=== PATIENT | female | born 2000 | race Caucasian/White ===

== ENCOUNTER 2024-02-07 11:36 | Outpatient (OUT) | payer OTHER, SELFPAY ==
--- NOTE | 2024-02-07 | XR_ITS ---
The [address] [address] Patient Name: ALONSO MINAYA MRN: [id number] date: 2000 Sex: F Assigned Patient Location: Current Patient Location: Accession/Order Number: [id number] Exam Date: 02/07/2024 11:37 Report Date: 02/08/2024 06:53 At the request of: JW ROBERT Procedure: XR foot RT min 3V PROCEDURE: XR foot RT min 3V HISTORY: RIGHT FOOT PAIN ; wound COMPARISON: XR foot right 01/22/2024 FINDINGS: BONES:No fracture, acute abnormality, or significant arthropathy. SOFT TISSUES:No visible soft tissue swelling. EFFUSION:None visible. OTHER: Negative. XR/XR foot RT min 3V IMPRESSION: 1. No appreciable bone or soft tissue abnormality. Electronically authenticated by: WAYNE PARRA Date: 02/08/2024 06:53
== END 2024-02-07 11:37 | disposition home or self-care (01) ==
LOC: EC 11:36
PROVIDERS: Visit Provider Podiatrist Foot & Ankle Surgery
DX: M79.671 Pain in right foot (principal)
CPT/HCPCS: 73630

== ENCOUNTER 2024-02-15 07:25 | Outpatient (RCR) | payer OTHER, SELFPAY | END 2024-02-24 16:13 | disposition home or self-care (01) | LOC: PT 07:25 | PROVIDERS: PCP Family Medicine; Visit Provider Podiatrist Foot & Ankle Surgery | DX: M79.671 Pain in right foot (principal) | CPT/HCPCS: 97010; 97014; 97112; 97113; 97140; 97162 ==

== ENCOUNTER 2024-02-17 12:53 | Outpatient (OUT) | payer OTHER, SELFPAY ==
--- NOTE | 2024-02-17 13:03 | US_ITS ---
[address] [address] Patient Name: ALONSO MINAYA MRN: [id number] date: 2000 Sex: F Assigned Patient Location: Current Patient Location: Accession/Order Number: [id number] Exam Date: 02/17/2024 13:09 Report Date: 02/21/2024 05:55 At the request of: EVELYNE CHAVEZ Procedure: US pelvis w/ transvaginal EXAMINATION: US pelvis w/ transvaginal HISTORY: Polycystic Ovarian Syndrome E28.2, Irregular Periods COMPARISON: No relevant comparison available. TECHNIQUE: Transabdominal and/or transvaginal sonographic examination was performed as indicated by examination type. FINDINGS: UTERUS: Normal size and appearance. Uterus size: 8.1 x 3.9 x 4.3 cm ENDOMETRIUM: Normal homogeneous appearance. Endometrial thickness: 8 mm RIGHT OVARY: Contains a 1.2 cm slightly complex cyst. Multiple small follicles. Duplex Doppler demonstrates normal waveform and flow; resistive index 0.5. Ovary size: 4.2 x 2.2 x 3.2 cm LEFT OVARY: Contains multiple small follicles. Duplex Doppler demonstrates normal waveform and flow; resistive index 0.6. Ovary size: 3.4 x 1.8 x 2.0 cm CUL-DE-SAC: Unremarkable. No significant free fluid. BLADDER: Unremarkable. OTHER: None. US/US pelvis w/ transvaginal IMPRESSION: 1. Both ovaries contain numerous small follicles. The pattern and distribution is not classic, but polycystic ovarian syndrome cannot be excluded. Electronically authenticated by: WAYNE PARRA Date: 02/21/2024 05:55
[2024-02-17 14:33] LABS: Basophils Percent Auto 0.2 % (0.2-2.0); Eosinophils Percent Auto 0.1 % (0.9-7.0); Hematocrit 44.7 % (36.0-48.0); Hemoglobin 15.3 g/dL (12.0-16.0); Immature Granulocytes Abs Auto 0.05 10^3/uL (0.00-0.03); Immature Granulocytes Pct Auto 0.4 % (0.0-0.5); Lymphocytes Absolute Auto 1.4 10^3/uL (1.2-3.8); Lymphocytes Percent Auto 11.6 % (20.5-60.0); Mean Corpuscular HGB Conc 34.2 g/dL (29.9-35.2); Mean Corpuscular Hemoglobin 31.4 pg (26.7-34.0); Mean Corpuscular Volume 91.8 fL (81.0-99.0); Mean Platelet Volume 10.5 fL (9.5-13.5); Monocytes Absolute Auto 0.3 10^3/uL (0.3-0.8); Monocytes Percent Auto 2.5 % (1.7-12.0); Neutrophils Absolute Auto 10.4 10^3/uL (1.4-6.5); Neutrophils Percent Auto 85.2 % (43.0-75.0); Platelet Count 234 10^3/uL (150-450); Red Blood Count 4.87 10^6/uL (4.20-5.40); Red Cell Distribution Width 12.7 % (11.0-15.0); White Blood Count 12.2 10^3/uL (4.0-11.0)
[2024-02-17 14:49] LABS: Estimated Average Glucose 85 mg/dL; Glycohemoglobin A1C 4.6 % (4.5-6.2)
[2024-02-17 15:03] LABS: Free T4 0.98 ng/dL (0.76-1.46)
[2024-02-17 15:07] LABS: Thyroid Stimulating Hormone 0.827 uIU/mL (0.358-3.740)
[2024-02-17 15:13] LABS: HCG Quantitative <1 mIU/mL
[2024-02-18 08:12] LABS: DHEA-Sulfate 94.8 ug/dL (110.0-431.7); FSH 6.5 mIU/mL (.)
[2024-02-21 13:08] LABS: Anti-Mullerian Hormone (AMH) 9.99 ng/mL (.)
== END 2024-02-17 12:54 | disposition home or self-care (01) ==
PROVIDERS: PCP Family Medicine; Visit Provider Obstetrics & Gynecology
DX: E28.2 Polycystic ovarian syndrome (principal); N92.6 Irregular menstruation, unspecified; N83.209 Unspecified ovarian cyst, unspecified side
CPT/HCPCS: 36415; 76830; 76856; 82397; 82626; 82627; 83001; 83002; 83036; 84439; 84443; 84702; 85025

== ENCOUNTER 2024-02-28 08:48 | Outpatient (OUT) | payer OTHER, SELFPAY ==
--- NOTE | 2024-02-28 | XR_ITS ---
The [address] [address] Patient Name: ALONSO MINAYA MRN: [id number] date: 2000 Sex: F Assigned Patient Location: Current Patient Location: Accession/Order Number: [id number] Exam Date: 02/28/2024 08:49 Report Date: 02/29/2024 09:50 At the request of: JW ROBERT Procedure: XR foot RT min 3V PROCEDURE: XR foot RT min 3V HISTORY: RIGHT FOOT PAIN COMPARISON: XR foot right 02/07/2024 FINDINGS: BONES:High plantar arch. No fracture, dislocation, or articular surface irregularity. SOFT TISSUES:No visible soft tissue swelling. EFFUSION:None visible. OTHER: Negative. XR/XR foot RT min 3V IMPRESSION: 1. No acute bone abnormality or degenerative joint disease. 2. Exaggerated appearance of the plantar arch. Electronically authenticated by: WAYNE PARRA Date: 02/29/2024 09:50
== END 2024-02-28 08:49 | disposition home or self-care (01) ==
LOC: EC 08:48
PROVIDERS: PCP Family Medicine; Visit Provider Podiatrist Foot & Ankle Surgery
DX: M79.671 Pain in right foot (principal)
CPT/HCPCS: 73630

== ENCOUNTER 2024-02-29 12:48 | Outpatient (OUT) | payer OTHER, SELFPAY ==
--- NOTE | 2024-02-29 | MR_ITS ---
The [address] [address] Patient Name: ALONSO MINAYA MRN: [id number] date: 2000 Sex: F Assigned Patient Location: MRI Current Patient Location: Accession/Order Number: [id number] Exam Date: 02/29/2024 13:00 Report Date: 03/01/2024 08:14 At the request of: JW ROBERT Procedure: MR foot RT wo con EXAM: MR foot RT wo con REASON FOR EXAM: Lisfranc fracture midfoot sprain. TECHNIQUE: Multiplanar, multisequence imaging of the right foot was performed without contrast COMPARISON: Radiographs 02/28/2024. FINDINGS: Study mildly degraded by motion large [id number]. There is fusiform thickening and intermediate signal the Achilles tendon with a small focal low-grade partial tear along the deep central fibers. No high-grade tear is evident. The plantar fascia appears intact. Laterally, the peroneal tendons are moderately thickened with intermediate signal consistent with tendinosis. No tear. The superficial peroneal retinaculum appears intact. The lateral ligaments appear intact. Medially, the medial flexor tendons demonstrate normal thickness and signal without tendinosis or tear. The deep deltoid ligament appears intact the spring ligament is intact. The Lisfranc ligament is intact. Anteriorly, the anterior extensor tendons demonstrate normal thickness and signal without tendinosis or tear. The bone marrow signal is without acute fracture. The talar dome appears congruent. Small tibiotalar effusion is present. The subtalar joint is congruent with a small effusion. Sinus tarsi is mildly narrowed and edematous. The midfoot is congruent. The plantar musculature demonstrates normal bulk and signal. Remaining soft tissues are unremarkable. MR/MR foot RT wo con IMPRESSION: 1. Intact Lisfranc ligament. 2. Peroneal tendinosis without tear. 3. Achilles tendinosis with small focal low-grade partial tear along the deep margin of the central tendon. 4. No acute osseous abnormality is identified. Electronically authenticated by: MARY JANE MENDOZA Date: 03/01/2024 08:14
--- OUTSIDE RECORDS SUMMARY | 2024-02-29 13:12 | XMS_ITS | CCD ---
Author Organization [facility] Care Team Providers Care Life Sciences Teacher Name Role Phone Rosa Agee Unavailable Unavailable Unavailable Rosa Agee Unavailable DO Rosa Agee Primary Care Provider [phone] MD Miladis Morris Attending Provider [phone] MD Willy Escudero Referring Provider DO Rosa Agee Primary Care Provider [phone] MD Miladis Morris Attending Provider [phone] MD Willy Escudero Referring Provider PEPPER Campbell Attending Provider [phone] Un[address] ROSA AGEE Primary Care Unavailable DIAB ., OLU Attending Unavailable DIAB ., OLU Consulting Unavailable DIAB ., OLU Admitting Unavailable Chris, Dr. Rosa Sanchez Primary Care Unavaildanish Escudero, Dr. Oden Attending Unavaila hui Agee, Dr. Rosa Sanchez Primary Care Unavailabl e Kota, Dr. Oden Attending Unavaila hui Escudero, Dr. Oden Referring Unavaila hui Morris, Dr. Miladis Franco Attending Tiana vailable Alexandra, Dr. Miladis Franco Referring Tiana vailable Chris, Dr. Rosa Sanchez Primary Care Unavailabl DO Rosa Johnson Primary Care Provider MD Pastor Camilo Emergency Provider DO Rosa Agee Attending Provider [phone] Rosa Agee DOer Primary Care Provider [phone] WILLY ESCUDERO Attending Unavailable SAMAN, ROSA DANIEL Primary Care Unavailable Cuong Fletcher Unavailable Kuns, DO Rosa Primary Care Provider PEPPER Campbell Attending Provider [phone] MD Los Hartman Attending Provider Kuns, DO Rosa Primary Care Provider PEPPER Campbell Attending Provider [phone] MD Los Hartman Attending Provider Samans, Rosa Primary Care Provider MICHAEL Fletcher Attending Provider MICHAEL Martini Attending Provider Kuns, Rosa Primary Care Unavailable Pastor Camilo Admitting Unavailable Pastor Camilo Attending Unavailable Kuns, Rosa Primary Care Unavailable Kuns, Rosa Attending Unavailable Kuns, Rosa Admitting Unavailable Kuns, Rosa Primary Care Unavailable Latricia Campbell Admitting Unavailable Latricia Campbell Attending Unavailable Cuong Fletcher Admitting Unavailable Cuong Fletcher Attending Unavailable Kuns, Rosa Primary Care Unavailable Nicole Martini Admitting Unavailable Nicole Martini Attending Unavailable Kuns, Rosa Primary Care Unavailable Los Hartman Admitting Unavailable Los Hartman Attending Unavailable Kuns, Rosa Primary Care Unavailable EVELYNE CHAVEZ Attending Unavailable Allergies Allergy Classification Reported Allergen(s) Allergy Type Date of Onset Reaction(s) Facility Penicillins (antibiotic) (2 sources) Amoxicillin Drug Allergy 4 [facility] (5 sources) Penicillins; Translations: [Penicillins] Allergy to drug (finding) 3 [facility] 3 Repository (20 sources) Penicillin G Drug Allergy 4 [facility] (7 sources) Penicillin; Translations: [penicillin V] Drug Allergy 3 [facility] (20 sources) Amoxicillin; Translations: [AMOXICILLIN] Drug Allergy 4 [facility] (1 source) Amoxicillin Drug Allergy [facility] Repository (1 source) Penicillins Drug Intolerance 3 [facility] Work Phone: (1 source) Amoxicillin Drug Allergy 4 [facility] Repository (1 source) Penicillin Drug Allergy 4 [facility] Repository Medications Current Medications Medication Drug Class(es) Dates Sig (Normalized) Sig (Original) hydrOXYzine hydrochloride 25 mg oral tablet (1 source) Antihistamine Start: 04-26-2023 take 1-2 tablets by mouth once daily as needed hydrOXYzine HCl 25 MG 1-2 tablet as needed Orally Once a day for 30 days Apr, Active linaclotide 0.072 mg oral capsule (20 sources) Guanylate Cyclase-C Agonist Start: 12-05-2023 End: 01-13-2024 take 1 capsule by mouth once daily Linaclotide (Linzess) 72 mcg capsule Active 72 MCG PO Daily January 13, 2024 10:00am Start: 08-12-2023 End: 09-09-2023 take 1 capsule by mouth once daily Linaclotide (Linzess) 72 mcg capsule Discontinued 72 MCG PO Daily 07 19August 12, 2023 1:00am September 09, 2023 2:31pm 1 capsule daily Start: 07-18-2023 Linzess 145 14 5mcg 1 PO Every AM Jun, Active Start: 04-26-2023 Start: 04-26-2023 Linzess 72 MCG 1 capsule at least 30 minutes before the first meal of the day on an empty stomach Orally Once a day for 30 days 2 samples provided Apr, Active meclizine hydrochloride 25 mg oral tablet (4 sources) Antiemetic Start: 06-23-2023 take 1 tablet by mouth at bedtime as needed for sleep Hundred (No Known Home Meds) (2 sources) Start: 04-24-2023 Hundred (No Known Home Meds) Active April 23, 2023 11:00pm Pneumatic Walking Boot (2 sources) Start: 01-22-2024 Pneumatic Walking Boot Active 0 .Route 1 January 22, 2024 12:00am As directed polyethylene glycol 3350 95903 mg powder for oral solution (1 source) Osmotic Laxative MiraLax 17 GM 1 packet mixed with 8 ounces of fluid Orally Once a day Active Completed/Discontinued Medications Medication Drug Class(es) Dates Sig (Normalized) Sig (Original) azithromycin 250 mg oral tablet (9 sources) Macrolide Antimicrobial Start: 07-13-2022 Zithromax Z-Benjy 250 MG 2 tablets on the first day, then 1 tablet daily for 4 days Orally Once a day for 5 days Jun, Not-Taking Start: 07-13-2022 Zithromax Z-Pa k 250 MG as directed Orally as directed Jun, Active Ethinyl Estradiol / Ferrous fumarate / Norethindrone (1 source) Estrogen End: 06-23-2023 take 1 tablet by mouth once daily norethindrone-e.estradioL-iron (Lo Loestrin) 1 mg-10 mcg (24)/10 mcg (2) tablet Take 1 tablet by mouth once daily. 0 06/23/2023 Discontinued (Other) Norgestimate-Ethi nyl Estradiol (6 sources) Progestin, Estrogen Start: 09-27-2023 End: 12-05-2023 Norgestimate-Ethinyl Estradi ol (Keyla) 0.25-35 mg-mcg tablet Discontinued 1 TAB PO As Directed September 27, 2023 12:00am December 05, 2023 10:47am Start: 09-27-2023 Norgestimate-E thinyl Estradiol (Keyla) 0.25-35 mg-mcg tablet Active 1 TAB PO As Directed September 27, 2023 12:00am fluocinonide 0.5 mg/ml topical solution (6 sources) Corticosteroid Start: 09-27-2023 End: 12-05-2023 Fluocinonide Discontinued TOPICAL September 27, 2023 12:00am December 05, 2023 10:47am ketoconazole 20 mg/ml medicated shampoo (6 sources) Azole Antifungal Start: 09-27-2023 End: 12-05-2023 Ketoconazole Discontinued TOPICAL September 27, 2023 12:00am December 05, 2023 10:47am lubiprostone (7 sources) Chloride Channel Activator Start: 09-09-2023 End: 09-20-2023 take 24 ug by mouth twice daily Lubiprostone Discontinued 24 MCG PO Twice daily 60 September 09, 2023 12:00am September 20, 2023 2:08pm methylPREDNISolone 4 mg oral tablet (9 sources) Corticosteroid Start: 07-13-2022 methylPREDNISolone 4 MG as directed Orally as directed Jun, Not-Taking metoprolol tartrate 25 mg oral tablet (20 sources) beta-Adrenergic Julio Start: 09-08-2021 End: 04-24-2023 take 25 mg by mouth once daily Metoprolol Tartrate Discontinued 25 MG PO Daily June 22, 2022 1:00am April 24, 2023 9:43pm metroNIDAZOLE 500 mg oral tablet (10 sources) Nitroimidazole Antimicrobial Start: 08-10-2023 End: 09-27-2023 take 500 mg by mouth twice daily Metronidazole Discontinued 500 MG PO Twice daily 14 August 10, 2023 1:00am September 27, 2023 8:58am Plecanatide (Trulance) 3 mg tablet (7 sources) Start: 09-20-2023 End: 12-05-2023 take 1 tablet by mouth once daily Plecanatide (Trulance) 3 mg tablet Discontinued 3 MG PO Daily 90 September 20, 2023 12:00am December 05, 2023 10:47am Start: 09-20-2023 take 1 tablet by denia th once daily Plecanatide (Trulance) 3 mg tablet Active 3 MG PO Daily 90 90 September 20, 2023 12:00am Problems Active Problems Problem Classification Problem Date Documented Da te Episodic/Chronic Anxiety disorders (20 sources) Anxiety; Translations: [Anxiety disorder, unspecified] 08-10-2023 Chronic Cardiac dysrhythmias (20 sources) Tachycardia; Translations: [Tachycardia, unspecified] Onset: 05-07-2021 Resolved: 05-07-2021 Episodic Disorders of lipid metabolism (20 sources) Hyperlipidemia; Translations: [Hyperlipidemia, unspecified] Onset: 09-29-2021 Resolved: 09-29-2021 Chronic Essential hypertension (20 sources) Systolic hypertension; Translations: [Unspecified essential hypertension] 08-10-2023 Chronic Immunizations and screening for infectious disease (20 sources) Anti-nuclear factor positive; Translations: [Other specified abnormal immunological findings in serum] 08-10-2023 Episodic Inflammation; infection of eye (except that caused by tuberculosis or sexually transmitteddisease) (1 source) Unspecified conjunctivitis; Translations: [UNSPECIFIED CONJUNCTIVITIS] Onset: 10-21-2022 Episodic Malaise and fatigue (18 sources) Asthenia; Translations: [Weakness] 08-10-2023 Episodic Menopausal disorders (14 sources) Menopausal flushing; Translations: [Menopausal and female climacteric states] Chronic Other bone disease and musculoskeletal deformities (20 sources) Juvenile osteochondrosis of spine; 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, site unspecified] 08-10-2023 Chronic Other connective tissue disease (2 sources) Foot pain; Translations: [Pain in right foot] 01-22-2024 Episodic Other connective tissue disease (1 source) Pain in right foot; Translations: [Pain in right foot] Onset: 01-22-2024 Episodic Other ear and sense organ disorders (3 sources) Otalgia, right ear; Translations: [OTALGIA RIGHT EAR] Onset: 10-20-2022 Episodic Other female genital disorders (4 sources) Vaginal discharge; Translations: [Other specified noninflammatory disorders of vagina] 08-10-2023 Episodic Other female genital disorders (4 sources) Other specified noninflammatory disorders of vagina; Translations: [Leukorrhea, not specified as infective] 08-10-2023 Episodic Other gastrointestinal disorders (2 sources) Irritable bowel syndrome characterized by constipation; Translations: [Irritable bowel syndrome with constipation] 01-13-2024 Chronic Other gastrointestinal disorders (2 sources) Irritable bowel syndrome with constipation; Translations: [Irritable bowel syndrome] 01-13-2024 Chronic Other gastrointestinal disorders (20 sources) Constipation; Translations: [Constipation, unspecified] 04-24-2023 Episodic Other gastrointestinal disorders (14 sources) Constipation, unspecified; Translations: [Constipation, unspecified] Onset: 08-12-2023 Episodic Other nervous system disorders (20 sources) Polyneuropathy; Translations: [Polyneuropathy, unspecified] 08-10-2023 Chronic Other nervous system disorders (14 sources) Numbness of lower limb ; Translations: [Anesthesia of skin] Episodic Other non-traumatic joint disorders (1 source) Pain in right wrist Episodic Other nutritional; endocrine; and metabolic disorders (4 sources) Overweight in adulthood with body mass index of 25 or more but less than 30; Translations: [Overweight] Episodic Other upper respiratory infections (1 source) Acute pharyngitis, unspecified Episodic Otitis media and related conditions (1 source) Otitis media, unspecified, right ear; Translations: [OTITIS MEDIA UNSPECIFIED RIGHT EAR] Onset: 10-21-2022 Episodic Ovarian cyst (5 sources) Cyst of left ovary; Translations: [Unspecified ovarian cyst, left side] Episodic Residual codes; unclassified (20 sources) Difficulty sleeping ; Translations: [Sleep disorder, unspecified] 08-10-2023 Episodic Residual codes; unclassified (5 sources) Sleep disorder, unspecified; Translations: [Sleep disturbance, unspecified] Episodic Residual codes; unclassified (1 source) Body mass index 20-24 - normal; Translations: [Body mass index (BMI) 24.0-24.9, adult] Onset: 06-23-2023 06-23-2023 Episodic Residual codes; unclassified (4 sources) Flushing; Translations: [Flushing] 08-10-2023 Episodic Residual codes; unclassified (4 sources) High risk sexual behavior; Translations: [High risk heterosexual behavior] 08-10-2023 Episodic Spondylosis; intervertebral disc disorders; other back problems (20 sources) Displacement of thoracic intervertebral disc without myelopathy; Translations: [Other intervertebral disc displacement, thoracic region] 08-10-2023 Chronic Spondylosis; intervertebral disc disorders; other back problems (14 sources) Low back pain; Translations: [Low back pain] Episodic Sprains and strains (5 sources) Unspecified sprain of right wrist, initial encounter; Translations: [Strain of foot] Episodic Syncope (9 sources) Vasovagal syncope; Translations: [Syncope and collapse] Onset: 06-16-2023 Episodic Past or Other Problems Problem Classification Problem Date Documented Da te Episodic/Chronic Abdominal pain (13 sources) Abdominal pain; Translations: [Unspecified abdominal pain] Onset: 04-24-2023 04-24-2023 Episodic Genitourinary symptoms and ill-defined conditions (6 sources) Leukocytes in urine; Translations: [Other abnormal findings in urine] Onset: 04-26-2023 Episodic Residual codes; unclassified (5 sources) High risk heterosexual behavior; Translations: [High-risk sexual behavior] Onset: 08-10-2023 08-10-2023 Episodic Unclassified (4 sources) Never smoked tobacco; Translations: [Never a smoker] Unclassified (1 source) Acute cough R05.1 Results Test Name Value Interpretation Reference Range Facility XR foot RT min 3V*on 024 XR foot RT min 3V* [facility] [place] [address] [place] [address] XRay Report Signed Patient: Alonso Minaya MR#: [id number] 76 : 2000 Acct:[id number] Age/Sex: 23 / F ADM Date: 01/22/24 Loc: [facility] Room: Type: [facility] Attending Dr: Nicole Martini APRN Copies to: Nicole Martini APRN Ordering Provider: Nicole Martini APRN Date of Service: 01/22/24 XR/XR foot RT min 3V*: M79.671 - Pain in right foot 3 views RIGHT foot plain film COMPARISON:None HISTORY: RIGHT foot pain for one week. ACUTE FINDINGS: None DEGENERATIVE CHANGE: Unremarkable SOFT TISSUE FINDINGS: Unremarkable JOINT EFFUSION: None POSTOP CHANGES: None BONE MINERALIZATION: Adequate XR/XR foot RT min 3V* IMPRESSION: No acute findings. Impression dictated by: Ha Reyes M.D.01/22/2024 11:49 AM Dictation Location: [place] [address] Transcribed By: [facility] 01/22/24 1149 Dictated By: Ha Reyes DO 01/22/24 1145 Signed By: 01/22/24 1149 Normal [facility] Celiacon 12-09-2023 Deamidated Gliadin Abs, IgA 5 Normal 0-19 [facility] Comment on above: Result Comment: Nega tive 0 - 19 Weak Positive 20 - 30 Moderate to Strong Positive >30 Performed By: #### C ELIAC #### [facility] , Deamidated Gliadin Abs, IgG 4 Normal 0-19 [facility] Comment on above: Result Comment: Nega tive 0 - 19 Weak Positive 20 - 30 Moderate to Strong Positive >30 Performed By: #### C ELIAC #### [facility] , Endomysial Antibody IgA Negative Normal Negative [facility] Comment on above: Performed By: #### C ELIAC #### [facility] , Immunoglobulin A, Qn, Serum 120 mg/dL Normal 87-352 [facility] Comment on above: Result Comment: Perf ormed at: - [facility] [address] [id number] Cinder Snapper: Liban Seaman PhD, Phone: [phone] PERFORMED BY: [facility] [place] [address] PATHOLOGIST [employer] DEPL[employer]MENT CONSULTANT LAYNE ROSA M.D. Performed By: #### C ELIAC #### [facility] , T-Transglutaminase (tTG) IgA <2 Normal 0-3 [facility] Comment on above: Result Comment: Nega tive 0 - 3 Weak Positive 4 - 10 Positive >10 Tissue Transglutaminase (tTG) has been identified as the endomysial antigen. Studies have demonstr- ated that endomysial IgA antibodies have over 99% specificity for gluten sensitive enteropathy. Performed By: #### C ELIAC #### [facility] , T-Transglutaminase (tTG) IgG 4 Normal 0-5 [facility] Comment on above: Result Comment: Nega tive 0 - 5 Weak Positive 6 - 9 Positive >9 Performed By: #### C ELIAC #### [facility] , IgA [Mass/volume] in Serum o r PlasmaOrdered By: Cuong Fletcher on 12-09-2023 IgA [Mass/Vol] 120 mg/dL 87-352 [facility] Comment on above: Performed at: - [facility] [employer] [address] [id number] Director: Liban Seaman PhD, Phone: [phone] No Panel InformationOrdered By: Cuong Fletcher on 12-09-2023 Endomysial IgA Antibody Negative Negative [facility] Serum gliadin peptide IgA an tibody assay (units/volume)Ordered By: Cuong Fletcher on 12-09-2023 Gliadin peptide IgA Qn (S) 5 units 0-19 [facility] Comment on above: Negative 0 - 19 Weak Positive 20 - 30 Moderate to Strong Positive >30 Serum gliadin peptide IgG an tibody assay (units/volume)Ordered By: Cuong Fletcher on 12-09-2023 Gliadin peptide IgG Qn (S) 4 units 0-19 [facility] Comment on above: Negative 0 - 19 Weak Positive 20 - 30 Moderate to Strong Positive >30 Serum tissue transglutaminas e (tTG) IgA antibody assay (units/volume)Ordered By: Cuong Fletcher on 12-09-2023 tTG IgA Qn (S) <2 U/mL 0-3 [facility] Comment on above: Negative 0 - 3 Weak Positive 4 - 10 Positive >10 Tissue Transglutaminase (tTG) has been identified as the endomysial antigen. Studies have demonstr- ated that endomysial IgA antibodies have over 99% specificity for gluten sensitive enteropathy. Serum tissue transglutaminas e (tTG) IgG antibody assay (units/volume)Ordered By: Cuong Fletcher on 12-09-2023 tTG IgG Qn (S) 4 U/mL 0-5 [facility] Comment on above: Negative 0 - 5 Weak Positive 6 - 9 Positive >9 HCG ( test) IA.rapi d Ql (U)Ordered By: Los Hartman on 08-12-2023 HCG ( test) Ql (U) Negative [facility] HCG,Urineon 08-12-2023 Beta HCG ( test) Ql (U) Negative Normal [facility] Comment on above: Result Comment: PERF ORMED BY: [place] [address] PATHOLOGIST LE[employer] DEPLOYMENT CONSULTANT LAYNE ROSA M.D. Performed By: #### U HCG #### [address] Laboratory - Microbiology an d Antimicrobial susceptibilityOrdered By: Latricia Campbell on 08-10-2023 N. gonorrhoeae DNA EMERITA+probe Ql (Unsp spec) Negative Negative [facility] Comment on above: Performed at: [address] [id number] Director: Kaela Garcia MD, Phone: [phone] No Panel InformationOrdered By: Latricia Campbell on 08-10-2023 Concepcion albicans (EMERITA) Negative Negative [facility] Comment on above: This test was develo ped and its performance characteristicsdetermined by [facility]. It has not been cleared orapproved by the Food and Drug Administration. Concepcion glabrata (EMERITA) Negative Negative [facility] Comment on above: This test was develo ped and its performance characteristicsdetermined by [facility]. It has not been cleared orapproved by the Food and Drug Administration. Chlamydia trachomatis (EMERITA) (LAB) Negative Negative [facility] Trichomonas vaginalis (EMERITA) Negative Negative [facility] Vaginal fluid Atopobium vagi dillon DNA detection by probe and target amplification methoOrdered By: Latricia Campbell on 08-10-2023 A. vaginae DNA EMERITA+probe Ql (Vag fld) High - 2 Score . [facility] Vaginal fluid Megasphaera sp ecies type 1 DNA detection by probe and target amplificatOrdered By: Latricia Campbell on 08-10-2023 Megasphaera sp type 1 DNA EMERITA+probe Ql (Vag fld) High - 2 Score . [facility] Comment on above: Calculate total scor e by adding the 3 individual bacterialvaginosis (BV) marker scores together. Total score isinterpreted as follows:Total score 0-1: Indicates the absence of BV.Total score 2: Indeterminate for BV. Additional clinical data should be evaluated to establish a diagnosis.Total score 3-6: Indicates the presence of BV.This test was developed and its performance characteristicsdetermined by [facility] [employer]. It has not been cleared or approvedby the Food and Drug Administration. Vaginal fluid bacterial vagi nosis associated bacterium 2 DNA detection by probe and tOrdered By: Latricia Campbell on 08-10-2023 Bacterial vaginosis associated bacterium 2 DNA EMERITA+probe Ql (Vag fld) High - 2 Score . [facility] Vaginitis Plus (VG+)on 08-10 Atopobium Vaginae High - 2 Critically abnormal . [facility] Comment on above: Order Comment: SOURC E OF SPECIMEN: SWAB Performed By: #### V AGINITIS+ #### [facility] , BVAB2 High - 2 Critically abnormal . [facility] Comment on above: Order Comment: SOURC E OF SPECIMEN: SWAB Performed By: #### V AGINITIS+ #### [facility] , Concepcion Albicans, EMERITA Negative Normal Negative [facility] Comment on above: Order Comment: SOURC E OF SPECIMEN: SWAB Result Comment: This test was developed and its performance characteristics determined by [facility]. It has not been cleared or approved by the Food and Drug Administration. Performed By: #### V AGINITIS+ #### [facility] , Concepcion Glabrata, EMERITA Negative Normal Negative [facility] Comment on above: Order Comment: SOURC E OF SPECIMEN: SWAB Result Comment: This test was developed and its performance characteristics determined by [facility]. It has not been cleared or approved by the Food and Drug Administration. PERFORMED BY: [address] [place] [address] PATHOLOGIST LE[employer] DEPLOYMENT CONSULTANT LAYNE ROSA M.D. Performed By: #### V AGINITIS+ #### [facility] , Chlamydia Trachomotis, EMERITA Negative Normal Negative [facility] Comment on above: Order Comment: SOURC E OF SPECIMEN: SWAB Performed By: #### V AGINITIS+ #### [facility] , Megasphaera High - 2 Critically abnormal . [facility] Comment on above: Order Comment: SOURC E OF SPECIMEN: SWAB Result Comment: Calc ulate total score by adding the 3 individual bacterial vaginosis (BV) marker scores together. Total score is interpreted as follows: Total score 0-1: Indicates the absence of BV. Total score 2: Indeterminate for BV. Additional clinical data should be evaluated to establish a diagnosis. Total score 3-6: Indicates the presence of BV. This test was developed and its performance characteristics determined by [facility]. It has not been cleared or approved by the Food and Drug Administration. Performed By: #### V AGINITIS+ #### [facility] , Neisseria Gonorrhoeae, EMERITA Negative Normal Negative [facility] Comment on above: Order Comment: SOURC E OF SPECIMEN: SWAB Result Comment: Perf ormed at: =G - [facility] [place] [id number] Cinder Snapper: Kaela Garcia MD, Phone: [phone] Performed By: #### V AGINITIS+ #### [facility] , Tric Vag EMERITA Negative Normal Negative [facility] Comment on above: Order Comment: SOURC E OF SPECIMEN: SWAB Performed By: #### V AGINITIS+ #### [facility] , Urine 10 SGon 04-26-2023 Albumin DL <= 20 mg/L (U) [Mass/Vol] trace Platypi Other Albumin DL <= 20 mg/L (U) [Mass/Vol] small Platypi Other pH (U) 6.5 [pH] Platypi Other Urine 10 SG Negative [facility] Other Urine 10 SG 1.025 [facility] Other Urine 10 SG 0.2 [facility] Other Urine Cultureon 04-26-2023 Bacteria identified Cx Nom (U) Reason for Exam Leukocytes in urine Urine Reason for Exam: Leukocytes in urine : Urine 50,000 colonies/ml mixed bacterial skin contaminants 2 Days PERFORMED BY: [place] [address] PATHOLOGIST LE[employer] DEPLOYMENT CONSULTANT LAYNE ROSA M.D. Normal [facility] Comment on above: Performed By: #### C UUBERTA [facility] #### [place] [id number] [address] abdomen pelvis w conon CT abdomen pelvis w [facility] [place] [address] [place] [address] CT Scan Report Signed Patient: Alonso Minaya MR#: [id number] [birth year] : 2000 Acct:[id number] Age/Sex: 22 / F ADM Date: 04/24/23 Loc: ER Room: Type: [facility] ER Attending Dr: Copies to: Pastor Camilo MD Ordering Provider: Pastor Camilo MD Date of Service: 04/24/23 CT/CT abdomen pelvis w con: Abdominal pain CT abdomen pelvis w con 04/24/2023 9:51 PM SIGNS AND SYMPTOMS: Constipation, left lower quadrant pain TECHNIQUE: Multidetector ct axial images of the abdomen and pelvis were obtained with IV contrast. Multiplanar reformats were performed and reviewed to further define anatomy and possible pathology. CT was performed with one or more of the following dose reduction techniques: Automated exposure control, adjustment of the mA and/or kV according to patient size, or use of iterative reconstruction technique. COMPARISON: None. FINDINGS: Lower Chest: Within normal limits. ABDOMEN: Liver: Within normal limits. Bile Ducts: Normal caliber. Gallbladder: No calcified gallstones. Normal caliber wall. Pancreas: Within normal limits. Spleen: Within normal limits. Adrenals: Within normal limits. Kidneys: Within normal limits. Pelvis: Reproductive Organs: There is a 5 cm cyst in the left adnexa. Ureters: Within normal limits. Bladder: Within normal limits. Bowel: Normal caliber. There is a normal appendix in the right lower quadrant. Mesenteric Lymph Nodes: No enlarged mesenteric lymph nodes. Peritoneum: No ascites or free air, no fluid collection. Vessels: within normal limits Retroperitoneum: Within normal limits. Abdominal Wall: Within normal limits. Bones: Disc and endplate degenerative changes are noted. T11-T12. CT/CT abdomen pelvis w con IMPRESSION: No evidence of bowel obstruction or obstructive rapid. There is a 5 cm cyst in the left adnexa. Impression dictated by: Josias Blum M.D.04/25/2023 10:29 AM Dictation Location: [place] [address] Transcribed By: [facility] 04/25/23 1029 Dictated By: Josias Blum II, MD 04/25/23 1011 Signed By: 04/25/23 1029 Normal [facility] Automated basophil %Ordered By: Pastor Camilo on 04-24-2023 Basophils/100 WBC (Bld) 0.6 % Normal . [facility] Comment on above: Performed By: #### C BC, BMP #### [address] Automated basophil countOrde red By: Pastor Camilo on 04-24-2023 Basophils (Bld) [#/Vol] 0.1 10*3/uL Normal 0.0-0.2 [facility] Comment on above: Result Comment: PERF ORMED BY: [place] [address] PATHOLOGIST [employer] CONSULTANT LAYNE ROSA M.D. Performed By: #### C BC, BMP #### [address] Automated blood monocyte cou ntOrdered By: Pastor Camilo on 04-24-2023 Monocytes (Bld) [#/Vol] 0.6 10*3/uL Normal 0.0-0.8 [facility] Comment on above: Performed By: #### C BC, BMP #### [address] Automated eosinophil %Ordere d By: Pastor Camilo on 04-24-2023 Eosinophils/100 WBC (Bld) 1.0 % Normal . [facility] Comment on above: Performed By: #### C BC, BMP #### [address] Automated eosinophil countOr dered By: Pastor Camilo on 04-24-2023 Eosinophils (Bld) [#/Vol] 0.1 10*3/uL Normal 0.0-0.45 [facility] Comment on above: Performed By: #### C BC, BMP #### [address] Automated erythrocytes count in urine sediment (number/area)Ordered By: Pastor Camilo on 04-24-2023 RBC Auto (Urine sed) [#/Area] 5-9 [HPF] 0-4 [facility] Automated leukocytes count i n urine sediment (number/area)Ordered By: Pastor Camilo on 04-24-2023 WBC Auto (Urine sed) [#/Area] 5-9 [HPF] 0-4 [facility] Automated monocyte %Ordered By: Pastor Camilo on 04-24-2023 Monocytes/100 WBC (Bld) 7.0 % Normal . [facility] Comment on above: Performed By: #### C BC, BMP #### [address] Automated neutrophil %Ordere d By: Pastor Camilo on 04-24-2023 Neutrophils/100 WBC (Bld) 57.0 % Normal . [facility] Comment on above: Performed By: #### C BC, BMP #### [address] Automated urine color determ inationOrdered By: Pastor Camilo on 04-24-2023 Color (U) Yellow Normal Yellow [facility] Comment on above: Order Comment: Name Collection Type:: Clean-Voided Midstream Performed By: #### C UU, ADDONUAPLUS, UHCG #### [address] Basic Metabolic Panelon 11 Creatinine Clr Calc Pharmacy 117.43 Normal [facility] Comment on above: Result Comment: PERF ORMED BY: [place] [address] PATHOLOGIST [employer] CONSULTANT LAYNE ROSA M.D. Performed By: #### C BC, BMP #### [address] GFR/1.73 sq M.predicted MDRD (S/P/Bld) [Vol rate/Area] mL/min/{1.73_m2} Normal [facility] Comment on above: Performed By: #### C BC, BMP #### [address] Bilirubin Test strip Ql (U)O rdered By: Pastor Camilo on 04-24-2023 Bilirubin Ql (U) Negative Negative [facility] Calcium [Mass/volume] in Ser um or PlasmaOrdered By: Pastor Camilo on 04-24-2023 Calcium [Mass/Vol] 9.6 mg/dL Normal 8.6-10.3 [facility] Comment on above: Performed By: #### C BC, BMP #### [address] Carbon dioxide, total [Moles /volume] in Serum or PlasmaOrdered By: Pastor Camilo on 04-24-2023 CO2 [Moles/Vol] 27.6 mmol/L Normal 21.0-31.0 [facility] Comment on above: Performed By: #### C BC, BMP #### [address] Chloride [Moles/volume] in S mary or PlasmaOrdered By: Pastor Camilo on 04-24-2023 Chloride [Moles/Vol] 105 mmol/L Normal 98-107 [facility] Comment on above: Performed By: #### C BC, BMP #### [address] Complete Blood Count Auto Di ffon 04-24-2023 Mean Corpuscular HGB Conc 34.2 g/dL Normal 32.0-35.0 [facility] Comment on above: Performed By: #### C BC, BMP #### [place] [address] [place] Monocytes/100 WBC (Bld) 16.95 % Normal 0.00-20.00 [facility] Comment on above: Performed By: #### C BC, BMP #### [place] [address] [place] NRBC% 0.2 /100{WBC} Normal 0-0.5 [facility] Comment on above: Performed By: #### C BC, BMP #### [place] [address] [place] Creatinine [Mass/volume] in Serum or PlasmaOrdered By: Pastor Camilo on 04-24-2023 Creatinine [Mass/Vol] 0.68 mg/dL Normal 0.60-1.20 [facility] Comment on above: Performed By: #### C BC, BMP #### [address] [place] [address] [place] Dipstick and Microscopicon 1 06-24-2022 Appearance (U) Clear Normal Clear [facility] Comment on above: Order Comment: Name Collection Type:: Clean-Voided Midstream Performed By: #### C UU, ADDONUAPLUS, UHCG #### [address] Bacteria,Urine 1+ High None Seen [facility] Comment on above: Order Comment: Name Collection Type:: Clean-Voided Midstream Performed By: #### C UU, ADDONUAPLUS, UHCG #### [address] Bilirubin,Urine Negative Normal Negative [facility] Comment on above: Order Comment: Name Collection Type:: Clean-Voided Midstream Performed By: #### C UU, ADDONUAPLUS, UHCG #### [address] Glucose Ql (U) Normal Normal Normal [facility] Comment on above: Order Comment: Name Collection Type:: Clean-Voided Midstream Performed By: #### C UU, ADDONUAPLUS, UHCG #### [address] Hyaline Casts,Urine None Seen Normal 0-8 [facility] Comment on above: Order Comment: Name Collection Type:: Clean-Voided Midstream Performed By: #### C UU, ADDONUAPLUS, UHCG #### [address] Ketones Ql (U) Negative Normal Negative [facility] Comment on above: Order Comment: Name Collection Type:: Clean-Voided Midstream Performed By: #### C UU, ADDONUAPLUS, UHCG #### [address] Leukocyte esterase Test strip Ql (U) 2+ High Negative [facility] Comment on above: Order Comment: Name Collection Type:: Clean-Voided Midstream Performed By: #### C UU, ADDONUAPLUS, UHCG #### [place] [address] [place] Nitrite,Urine Negative Normal Negative [facility] Comment on above: Order Comment: Name Collection Type:: Clean-Voided Midstream Performed By: #### C UU, ADDONUAPLUS, UHCG #### [place] [address] [place] Occult Blood,Urine Negative Normal Negative [facility] Comment on above: Order Comment: Name Collection Type:: Clean-Voided Midstream Performed By: #### C UU, ADDONUAPLUS, UHCG #### [place] [address] [place] Protein,Urine Negative Normal Negative [facility] Comment on above: Order Comment: Name Collection Type:: Clean-Voided Midstream Performed By: #### C UU, ADDONUAPLUS, UHCG #### [place] [address] [place] RBC,Urine 5-9 High 0-4 [facility] Comment on above: Order Comment: Name Collection Type:: Clean-Voided Midstream Performed By: #### C UU, ADDONUAPLUS, UHCG #### [address] Specificy [place],Urine 1.013 Normal 1.001-1.03 0 [facility] Comment on above: Order Comment: Name Collection Type:: Clean-Voided Midstream Performed By: #### C UU, ADDONUAPLUS, UHCG #### [place] [address] [place] Squamous Epithelial Cell,Urine 3-4 High 0-2 [facility] Comment on above: Order Comment: Name Collection Type:: Clean-Voided Midstream Performed By: #### C UU, ADDONUAPLUS, UHCG #### [address] Urobilinogen,Urine Normal Normal Normal [facility] Comment on above: Order Comment: Name Collection Type:: Clean-Voided Midstream Performed By: #### C UU, ADDONUAPLUS, UHCG #### [address] WBC,Urine 5-9 High 0-4 [facility] Comment on above: Order Comment: Name Collection Type:: Clean-Voided Midstream Performed By: #### C UU, ADDONUAPLUS, UHCG #### [address] Erythrocyte distribution wid th [Ratio] by Automated countOrdered By: Pastor Camilo on 04-24-2023 Erythrocyte distribution width (RBC) [Ratio] 13.7 % Normal 11.9-15.3 [facility] Comment on above: Performed By: #### C BC, BMP #### [address] Erythrocytes [#/volume] in B lood by Automated countOrdered By: Pastor Camilo on 04-24-2023 RBC (Bld) [#/Vol] 4.68 10*6/uL Normal 3.60-5.00 [facility] Comment on above: Performed By: #### C BC, BMP #### [address] Glucose [Mass/volume] in Ser um or PlasmaOrdered By: Pastor Camilo on 04-24-2023 Glucose [Mass/Vol] 69 mg/dL Low 70-100 [facility] Comment on above: ADA recommended refe rence rangeRandom Glucose Reference Range is dependent on time and content of last meal. Glucose of more than 200 mg/dL in a nonstressed, ambulatory subject supports the diagnosis of Diabetes Mellitus. Result Comment: [place] om Glucose Reference Range is dependent on time and content of last meal. Glucose of more than 200 mg/dL in a nonstressed, ambulatory subject supports the diagnosis of Diabetes Mellitus. ADA recommended reference range Performed By: #### C BC, BMP #### [address] HCG ( test) IAeligio d Ql (U)Ordered By: Pastor Camilo on 04-24-2023 HCG ( test) Ql (U) Negative [facility] HCG,Urineon 04-24-2023 Beta HCG ( test) Ql (U) Negative Normal [facility] Comment on above: Order Comment: Name Collection Type:: Clean-Voided Midstream Result Comment: PERF ORMED BY: [place] [address] PATHOLOGIST [employer] CONSULTANT LAYNE ROSA M.D. Performed By: #### C UU, ADDONUAPLUS, CG #### [address] Hematocrit [Volume Fraction] of Blood by Automated countOrdered By: Pastor Camilo on 04-24-2023 Hematocrit (Bld) [Volume fraction] 43.6 % Normal 34.0-46.4 [facility] Comment on above: Performed By: #### C BC, BMP #### [facility] [address] [place] [address] Hemoglobin [Mass/volume] in BloodOrdered By: Pastor Camilo on 04-24-2023 Hemoglobin (Bld) [Mass/Vol] 14.9 g/dL Normal 11.8-15.4 [facility] Comment on above: Performed By: #### C BC, BMP #### [address] Ketones Auto test strip (U) [Mass/Vol]Ordered By: Pastor Camilo on 04-24-2023 Ketones (U) [Mass/Vol] Negative Negative [facility] - UrinalysisOrder ed By: Pastor Camilo on 04-24-2023 Hyaline casts LM Ql (Urine sed) None seen [LPF] 0-8 [facility] Leukocytes [#/volume] correc darya for nucleated erythrocytes in Blood by Automated counOrdered By: Pastor Camilo on 04-24-2023 WBC corrected for nucl RBC Auto (Bld) [#/Vol] 8.7 10*3/uL 3.8-11.6 [facility] Leukocytes [#/volume] in Blo od by Automated countOrdered By: Pastor Camilo on 04-24-2023 WBC (Bld) [#/Vol] 8.7 10*3/uL Normal 3.8-11.6 [facility] Comment on above: Performed By: #### C BC, BMP #### [address] Lymphocytes [#/volume] in Bl ood by Automated countOrdered By: Pastor Camilo on 04-24-2023 Lymphocytes (Bld) [#/Vol] 3.0 10*3/uL Normal 1.00-4.8 [facility] Comment on above: Performed By: #### C BC, BMP #### [address] Lymphocytes/100 leukocytes i n Blood by Automated countOrdered By: Pastor Camilo on 04-24-2023 Lymphocytes/100 WBC (Bld) 34.4 % Normal . [facility] Comment on above: Performed By: #### C SKYLAR, BMP #### [address] MCH [Entitic mass] by Automa darya countOrdered By: Pastor Camilo on 04-24-2023 MCH (RBC) [Entitic mass] 31.9 pg Normal 24.7-34.3 [facility] Comment on above: Performed By: #### C BC, BMP #### [address] MCHC Auto (RBC) [Mass/Vol]Or dered By: Pastor Camilo on 04-24-2023 MCHC (RBC) [Mass/Vol] 34.2 g/dL 32.0-35.0 [facility] MCV [Entitic volume] by Auto mated countOrdered By: Pastor Camilo on 04-24-2023 MCV (RBC) [Entitic vol] 93.3 fL Normal 80-100 [facility] Comment on above: Performed By: #### C BC, BMP #### [address] Monocyte distribution width [Entitic volume] in Blood by AutomatedOrdered By: Pastor Camilo on 04-24-2023 Monocyte distribution width Auto (Bld) [Entitic vol] 16.95 % 0.00-20.00 [facility] Neutrophils [#/volume] in Bl ood by Automated countOrdered By: Pastor Camilo on 04-24-2023 Neutrophils (Bld) [#/Vol] 5.0 10*3/uL Normal 1.8-7.7 [facility] Comment on above: Performed By: #### C SKYLAR, BMP #### [facility] [address] Nitrite Test strip Ql (U)Ord ered By: Pastor Camilo on 04-24-2023 Nitrite Ql (U) Negative Negative [facility] No Panel InformationOrdered By: Pastor Camilo on 04-24-2023 Estimated GFR (CKD-EPI) > 60.0 mL/Min [facility] Creatinine Clearance (Chem 117.43 [facility] Nucleated erythrocytes [Pres ence] in Blood by Automated countOrdered By: Pastor Camilo on 04-24-2023 Nucleated RBC Auto Ql (Bld) 0.2 /100{WBC} 0-0.5 [facility] Platelet mean volume [Entiti c volume] in Blood by Automated countOrdered By: Pastor Camilo on 04-24-2023 Platelet mean volume (Bld) [Entitic vol] 8.8 fL Normal 6.3-10.7 [facility] Comment on above: Performed By: #### C EMA CHENG #### [facility] [address] Platelets [#/volume] in Bloo d by Automated countOrdered By: Pastor Camilo on 04-24-2023 Platelets (Bld) [#/Vol] 224 10*3/uL Normal 150-450 [facility] Comment on above: Performed By: #### C SKYLAR, BMP #### [facility] [address] [place] [address] [place] Potassium [Moles/volume] in Serum or PlasmaOrdered By: Pastor Camilo on 04-24-2023 Potassium [Moles/Vol] 3.3 mmol/L Low 3.5-5.1 [facility] Comment on above: Performed By: #### C BC, BMP #### [facility] [address] [place] [address] [place] Protein Auto test strip (U) [Mass/Vol]Ordered By: Pastor Camilo on 04-24-2023 Protein (U) [Mass/Vol] Negative Negative [facility] Serum or plasma anion gap de terminationOrdered By: Pastor Camilo on 04-24-2023 Anion gap [Moles/Vol] 10.7 mmol/L Normal 6.0-15.0 [facility] Comment on above: Performed By: #### C BC, BMP #### [address] Sodium [Moles/volume] in Ser um or PlasmaOrdered By: Pastor Camilo on 04-24-2023 Sodium [Moles/Vol] 140 mmol/L Normal 136-145 [facility] Comment on above: Performed By: #### C BC, BMP #### [address] Specific gravity Auto test s trip (U) [Rel density]Ordered By: Pastor Camilo on 04-24-2023 Specific gravity (U) [Rel density] 1.013 1.001-1.03 0 [facility] Squamous epithelial cells de tection in urine sediment by light microscopyOrdered By: Pastor Camilo on 04-24-2023 Epithelial cells.squamous LM Ql (Urine sed) 3-4 [HPF] 0-2 [facility] Urea nitrogen [Mass/volume] in Serum or PlasmaOrdered By: Pastor Camilo on 04-24-2023 Urea nitrogen [Mass/Vol] 11 mg/dL Normal 7-25 [facility] Comment on above: Performed By: #### C BC, BMP #### [address] Urine Cultureon 04-24-2023 Bacteria identified Cx Nom (U) >100,000 colonies/ml mixed bacterial skin contaminants 2 Days PERFORMED BY: [place] [address] PATHOLOGIST [employer] CONSULTANT LAYNE ROSA M.D. Normal [facility] Comment on above: Performed By: #### C UU, ADDONUAPLUS, UHCG #### [address] Urine bacteria detection by automated methodOrdered By: Pastor Camilo on 04-24-2023 Bacteria Auto Ql (U) 1+ None Seen [facility] Urine clarity by refractomet ry automatedOrdered By: Pastor Camilo on 04-24-2023 Clarity Refractometry automated (U) Clear Clear [facility] Urine glucose measurement by automated test strip (mass/volume)Ordered By: Pastor Camilo on 04-24-2023 Glucose Auto test strip (U) [Mass/Vol] Normal mg/dL Normal [facility] Urine hemoglobin detection b y automated test stripOrdered By: Pastor Camilo on 04-24-2023 Hemoglobin Auto test strip Ql (U) Negative Negative [facility] Urine leukocyte esterase det ection by automated test stripOrdered By: Pastor Camilo on 04-24-2023 Leukocyte esterase Auto test strip Ql (U) 2+ Negative [facility] Urine pH measurement by auto mated test stripOrdered By: Pastor Camilo on 04-24-2023 pH (U) 6.5 [pH] Normal 5.0-9.0 [facility] Comment on above: Order Comment: Name Collection Type:: Clean-Voided Midstream Performed By: #### C UU, ADDONUAPLUS, UHCG #### [facility] [address] Urobilinogen Auto test strip (U) [Mass/Vol]Ordered By: Pastor Camilo on 04-24-2023 Urobilinogen (U) [Mass/Vol] Normal mg/dL Normal [facility] Office Visit (Cardiology)on 02-03-2023 Follow-up visit Diagnoses/Problems Assessed Neurologic cardiac syncope (780.2) (R55) Never a smoker Palpitations (785.1) (R00.2) Tachycardia (785.0) (R00.0) Body mass index (BMI) of 24.0 to 24.9 in adult (V85.1) (Z68.24) Orders SocHx: Never a smoker Tobacco Use Screening; Status:Complete; Done: 03Feb2023 Patient Instructions Please bring all medicines, vitamins, and herbal supplements with you when you come to the office. Prescriptions will not be filled unless you are compliant with your follow up appointments or have a follow up appointment scheduled as per instruction of your physician. Refills should be requested at the time of your visit. Signs and Symptoms reviewed Salt tablets Increase Fluids Follow up in 4-5 months Chief Complaint ALONSO MINAYA is being seen for a 6 month follow-up of OLD I PATIENT. History of Present Illness Patient is here for cardiovascular follow-up. She had been seen in the past by Dr. Hall but requested physician change. She was evaluated in the past for symptoms of palpitation, tachycardia and episode of lightheadedness and presyncope. She underwent extensive work-up which led to a tilt table test which was significantly positive and consistent with classic neurocardiogenic syncope. Patient reports improvement with recommendation of increasing fluid and salt intake. However over the last few months she has been trying to exercise and lose weight and actually lost about 11 pounds and her symptoms seem to worsen slightly. She denies a true or juhi syncope. She has no complaint of any neurologic symptomatology of seizure, incontinence or tongue biting. Her baseline ECG is normal sinus rhythm with normal QTc interval and TN and QRS duration. Assessment 1. Classic neurocardiogenic syncope with symptoms of palpitation, fluctuating heart rate and orthostatic hypotension. She did have good response initially for increasing fluid and salt intake but symptoms to be worsening since she has been trying to lose weight and exercise Plan 1. I spent a great length of the time emphasizing to the patient to increase her fluid intake to 5 L/day and increase salt intake to 30 g/day I advised her to maintain high fluid intake especially in hot days and when she exercise. I told her that losing more weight and potentially worsening her symptoms. Advised her to wear compression stocking and to avoid being in the standing position for a long. 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 Of time and encouraged her to consider desktops. 2. I will reassess her symptoms in few months if continues to be symptomatic we will consider pharmacologic therapy Surgical History Problems History of [place] tooth extraction Current Meds Medication NameInstruction Lo Loestrin Fe 1 MG-10 MCG / 10 MCG Oral TabletTAKE 1 TABLET DAILY DIRECTED. Allergies Medication Penicillins Adverse Reaction; Rash; Updated By: Monica Dove; 05/24/2022 3:42:52 PM Social History Problems Never a smoker No alcohol use No illicit drug use Occasional caffeine consumption Review of Systems Constitutional: not feeling tired. Cardiovascular: palpitations and fast heart rate, but no intermittent leg claudication and as noted in HPI. Respiratory: no cough and no shortness of breath. Gastrointestinal: no change in bowel habits and no blood in stools. Integumentary: no skin rashes. Neurological: dizziness and fainting, but no seizures and no frequent falls. All other systems have been reviewed and are negative for complaint. Vitals Vital Signs Recorded: [id number] 03:43PMRecorded: [id number] 03:40PM Systolic [id number], LUE, Sitting Diastolic Mlsbkts51, LUE, Sitting Systolic Lfarxuab992, LLE, Standing Diastolic Vwwskxun02, LLE, Standing Heart Rate Jxmimtq48, L Radial Heart Rate Nxuzxlrx46, L Radial Heart Rate88, L Radial Iqpyvgbi590, LUE, Sitting Bwxbcpcbe33, LUE, Sitting Height5 ft 3 in Ljlpgq698 lb BMI Cjbtrtgnku82.98 kg/m2 BSA Calculated1.67 Tobacco Useb) No PHQ-2 #1. Over the last 2 weeks have you felt down, depressed or hopeless? (If yes, answer PHQ-9 below)No PHQ-2 #2. Over the last 2 weeks have you felt little interest or pleasure in doing things? (If yes, answer PHQ-9 below)No Physical Exam Constitutional: alert and in no acute distress. Neck: neck is supple, symmetric, trachea midline, no masses and no thyromegaly . Pulmonary: no increased work of breathing or signs of respiratory distress and lungs clear to auscultation. Cardiovascular: carotid pulses 2+ bilaterally with no bruit , JVP was normal, no thrills , regular rhythm, normal S1 and S2, no murmurs , pedal pulses 2+ bilaterally and no edema . Abdomen: abdomen non-tender, no masses and no hepatomegaly . Skin: skin warm and dry, normal skin turgor . Psychiatric judgment and insight is normal and oriented to person, place and time . Signatures Electronically sign (more content not included)... Normal Touchworks XR forearm RT 2V*on 09-09-19 23 XR forearm RT 2V* [facility] [employer] Other XR forearm RT 2V* [facility] [employer] Other XR forearm RT 2V* [address] [employer] Other XR forearm RT 2V* [place] [id number] [facility] Other XR forearm RT 2V* XRay Report [facility] Other XR forearm RT 2V* Signed [employer] Other XR forearm RT 2V* Patient: Micky Minaya MR#: [id number] [employer] [employer] Other XR forearm RT 2V* : 2000 Acct:[id number] [facility] Other XR forearm RT 2V* Age/Sex: 21 / F ADM Date: 09/08/22 [facility] Other XR forearm RT 2V* Loc: X[facility]CLY [facility]: [facility] Other XR forearm RT 2V* Attending Dr: Latricia PABON [facility] Other XR forearm RT 2V* Copies to: PEPPER Maria [facility] Other XR forearm RT 2V* Ordering Provider: PEPPER Rodriguez [facility] Other XR forearm RT 2V* Date of Service: 09/08/22 [facility] Other XR forearm RT 2V* XR/XR wrist RT min 3V*: RIGHT WRIST INJURY [facility] Other XR forearm RT 2V* ([id number]) XR/XR forearm RT 2V*: RIGHT ARM INJURY [facility] Other XR forearm RT 2V* XR wrist RT min 3V*, XR forearm RT 2V* 09/08/2022 6:43 PM [facility] Other XR forearm RT 2V* SIGNS AND SYMPTOMS: Fall onto right arm with continued right wrist pain along the radial aspect of [facility] Other XR forearm RT 2V* the wrist and right forearm [facility] Other XR forearm RT 2V* PROTOCOL: Frontal, lateral, and oblique radiographs of the right wrist. Frontal and lateral [facility] Other XR forearm RT 2V* radiographs of the r ight forearm. [facility] Other XR forearm RT 2V* COMPARISON: None N [employer] Other XR forearm RT 2V* FINDINGS: [employer] Other XR forearm RT 2V* Right wrist: [facility] Other XR forearm RT 2V* The radiocarpal join t space is preserved. The carpal rows are preserved. There is no evidence of [facility] Other XR forearm RT 2V* fracture or dislocat ion. No significant soft tissue swelling. [facility] Other XR forearm RT 2V* Right forearm: Nor Nasseo Other XR forearm RT 2V* The bones are in allegra tomic alignment. There is no soft tissue swelling. No fracture. The visualized [facility] Other XR forearm RT 2V* wrist and elbow are grossly intact. [facility] Other XR forearm RT 2V* X R/XR wrist RT min 3V* [facility] Other XR forearm RT 2V* IMPRESSION: [facility] Other XR forearm RT 2V* No fracture. [facility] Other XR forearm RT 2V* Impression dictated by: Josias Blum M.D.09/08/2022 7:15 PM [facility] Other XR forearm RT 2V* Dictation Location: RADIO-PC-13 [place] [employer] Other XR forearm RT 2V* Transcribed By: PWS 09/08/221914 [facility] Other XR forearm RT 2V* Dictated By: Josias Blum II, MD 09/08/221910 [facility] Other XR forearm RT 2V* Signed By: Kuldeep Vick [employer] Other XR forearm RT 2V* 09/08/221914 Norhawa Nasseo Other Quick Strepon 09-02-2022 S. pyogenes Org specific cx Ql (Throat) Negative [facility] Other Quick Strep [facility] Other COVID + FLU Quick Testingon 07-13-2022 SARS-CoV-2 (COVID-19) RNA EMERITA+probe Ql (Unsp spec) Negative [facility] Other COVID + FLU Quick Testing Negative [facility] Other RSVon 07-13-2022 RSV Ag IA Ql (Unsp spec) Positive [facility] Other No Panel Informationon 06-23 [facility] DO Work Phone: Office Visit (Cardiology)on 05-24-2022 Follow-up visit Diagnoses/Problems Assessed Tachycardia (785.0) (R00.0) Palpitations (785.1) (R00.2) Hypertension, isolated systolic (401.9) (I10) Never a smoker Overweight with body mass index (BMI) of 27 to 27.9 in adult (278.02,V85.23) (E66.3,Z68.27) Orders Hypertension, isolated systolic, Palpitations, Tachycardia Tilt Table; Status:Hold For - Scheduling,Retrospective Authorization; Requested for:[id number]; Overweight with body mass index (BMI) of 27 to 27.9 in adult Healthy Weight Tips; Status:Complete - Retrospective Authorization; Done: [id number] Some eating tips that can help you lose weight.; Status:Complete - Retrospective Authorization; Done: [id number] SocHx: Never a smoker Tobacco Use Screening; Status:Complete; Done: [id number] Patient Instructions Please bring all medicines, vitamins, and herbal supplements with you when you come to the office. Prescriptions will not be filled unless you are compliant with your follow up appointments or have a follow up appointment scheduled as per instruction of your physician. Refills should be requested at the time of your visit. Follow up in 6 months Patient instructed to stay well hydrated avoid caffeine Chief Complaint ALONSO MINAYA is being seen for a 6 month follow-up of. Patient is in the office of for follow-up for the problems noted below. She seems to be frustrated with her condition especially occasional asymptomatic drop in blood pressure on beta-julio therapy which is taken at the lowest dose. She continued to have tachycardia despite beta-julio therapy. She has had no syncope or near syncope but she is frustrated with her tachycardic events that occur randomly. The patient wishes not to be on more medication than what she is already on. And at times she skips taking her medications. She wanted me to get her through a tilt table test even though I mentioned to her that does not change what we need to do for management. She is not interested in more medications. 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 30-day event monitor failed to demonstrate any significant tachyarrhythmias but had sinus tachycardia for which I have been using metoprolol tartrate 25 mg daily. The patient wishes to go through a tilt table test regardless of whether the results will change the management. We will schedule the patient for tilt table test in the meantime she will continue on metoprolol. High salt diet and plenty of fluid was recommended for her episode of asymptomatic hypotension that she was concerned about. 2?slight overweight, encouraged the patient to drop her weight further 3?episodic systemic hypertension which is inconsequential Surgical History Problems History of [place] tooth extraction Current Meds Medication NameInstruction Metoprolol Tartrate 25 MG Oral TabletTake 1 tablet daily Patient did not bring medication list or bottles. Updated verbally with patient Allergies Medication Penicillins Adverse Reaction; Rash; Updated By: Monica Dove; 05/24/2022 3:42:52 PM Social History Problems Never a smoker No alcohol use No illicit drug use Occasional caffeine consumption Review of Systems Constitutional: not feeling tired. Cardiovascular: chest pain and palpitations, but no intermittent leg claudication and as noted in HPI. Respiratory: no cough and no shortness of breath. Gastrointestinal: no change in bowel habits and no blood in stools. Integumentary: no skin rashes. Neurological: dizziness, but no seizures and no frequent falls. All other systems have been reviewed and are negative for complaint. Vitals Vital Signs Recorded: 24May2022 03:43PM Heart Rate80, R Radial [id number], RUE, Sitting Jvytbpatz20, RUE, Sitting Height5 ft 3 in Xslgtd247 lb BMI Byllungsay25.28 kg/m2 BSA Calculated1.73 Tobacco Useb) No Falls Screening (Age 18+)a) No falls within the last year Physical Exam Constitutional: alert and in no acute distress. Neck: neck is supple, symmetric, trachea midline, no masses and no thyromegaly . Pulmonary: no increased work of breathing or signs of respiratory distress and lungs clear to auscultation. Cardiovascular: carotid pulses 2+ bilaterally with no bruit , JVP was normal, no thrills , regular rhythm, normal S1 and S2, no murmurs , pedal pulses 2+ bilaterally and no edema . Abdomen: abdomen non-tender, no masses and no hepatomegaly . Skin: skin warm and dry, normal skin turgor . Psychiatric judgment and insight is normal and oriented to person, place and time . Signatures Electronically signed by : Miladis Morris MD; May 24 2022 6:43PM EST (Author) Normal VMTurbo Tobacco Screening.on Fall risk assessment a) No falls within the last year [facility] DO Work Phone: Tobacco use status [facility] b) No [facility] DO Work Phone: Tobacco Screening.on Adult depression screening assessment No [facility] 250 DO Work Phone: Tobacco use status [facility] b) No [facility] DO Work Phone: Vital Signs Date Time Vital Sign Value Performing Clinician Facility 01-22-2024 10:54-0400 Body height 162.56 cm DO Rosa Kuns Work Phone: [facility] 01-22-2024 10:54-0400 Body mass index (BMI) [Ratio] 24.4 kg/m2 DO Rosa Kuns Work Phone: [facility] 01-22-2024 10:54-0400 Body temperature 98 [degF] DO Rosa Kuns Work Phone: [facility] 01-22-2024 10:54-0400 Body weight 64.58 kg DO Rosa Kuns Work Phone: [facility] 01-22-2024 10:54-0400 Diastolic blood pressure 66 mm[Hg] DO Rosa Kuns Work Phone: [facility] 01-22-2024 10:54-0400 Heart rate 74 /min DO Rosa Kuns Work Phone: [facility] 01-22-2024 10:54-0400 Respiratory rate 18 /min DO Rosa Kuns Work Phone: [facility] 01-22-2024 10:54-0400 SaO2% (BldA) [Mass fraction] 98 % DO Rosa Kuns Work Phone: [facility] 01-22-2024 10:54-0400 Systolic blood pressure 101 mm[Hg] DO Rosa Kuns Work Phone: [facility] 01-13-2024 09:47-0400 Body height 162.56 cm DO Rosa Kuns Work Phone: [facility] 01-13-2024 09:47-0400 Body mass index (BMI) [Ratio] 24 kg/m2 DO Rosa Kuns Work Phone: [facility] 01-13-2024 09:47-0400 Body weight 63.5 kg DO Rosa Kuns Work Phone: [facility] 12-05-2023 10:45-0400 Body height 160.02 cm [facility] 12-05-2023 10:45-0400 Body mass index (BMI) [Ratio] 24.5 kg/m2 [facility] 12-05-2023 10:45-0400 Body weight 63 kg [facility] 09-27-2023 09:06-0400 Body height 160.02 cm DO Rosa Kuns Work Phone: [facility] 09-27-2023 09:06-0400 Body mass index (BMI) [Ratio] 24.7 kg/m2 DO Rosa Kuns Work Phone: [facility] 09-27-2023 09:06-0400 Body weight 63.5 kg DO Rosa Kuns Work Phone: [facility] 09-27-2023 09:06-0400 Diastolic blood pressure 64 mm[Hg] DO Rosa Kuns Work Phone: [facility] 09-27-2023 09:06-0400 Heart rate 98 /min DO Rosa Kuns Work Phone: [facility] 09-27-2023 09:06-0400 Respiratory rate 16 /min DO Rosa Kuns Work Phone: [facility] 09-27-2023 09:06-0400 SaO2% (BldA) [Mass fraction] 98 % DO Rosa Kuns Work Phone: [facility] 09-27-2023 09:06-0400 Systolic blood pressure 104 mm[Hg] DO Rosa Kuns Work Phone: [facility] 09-20-2023 13:59-0400 Body height 160.02 cm DO Rosa Kuns Work Phone: [facility] 09-20-2023 13:59-0400 Body mass index (BMI) [Ratio] 23.9 kg/m2 DO Rosa Kuns Work Phone: [facility] 09-20-2023 13:59-0400 Body weight 61.23 kg DO Rosa Kuns Work Phone: [facility] 08-12-2023 11:55-0500 Diastolic blood pressure 74 mm[Hg] DO Rosa Kuns Work Phone: [facility] 08-12-2023 11:55-0500 Heart rate 81 /min DO Rosa Kuns Work Phone: [facility] 08-12-2023 11:55-0500 Respiratory rate 18 /min DO Rosa Kuns Work Phone: [facility] 08-12-2023 11:55-0500 SaO2% (BldA) [Mass fraction] 99 % DO Rosa Kuns Work Phone: [facility] 08-12-2023 11:55-0500 Systolic blood pressure 108 mm[Hg] DO Rosa Kuns Work Phone: [facility] 08-12-2023 10:27-0500 Body height 160.02 cm DO Rosa Kuns Work Phone: [facility] 08-12-2023 10:27-0500 Body temperature 98.2 [degF] DO Rosa Kuns Work Phone: [facility] 08-12-2023 10:27-0500 Body weight 61.23 kg DO Rosa Kuns Work Phone: [facility] 08-10-2023 12:35-0500 Body height 160.02 cm [facility] 08-10-2023 12:35-0500 Body mass index (BMI) [Ratio] 23.7 kg/m2 [facility] 08-10-2023 12:35-0500 Body temperature 98.6 [degF] [facility] 08-10-2023 12:35-0500 Body weight 60.78 kg [facility] 08-10-2023 12:35-0500 Diastolic blood pressure 74 mm[Hg] [facility] 08-10-2023 12:35-0500 Heart rate 94 /min [facility] 08-10-2023 12:35-0500 Respiratory rate 18 /min [facility] 08-10-2023 12:35-0500 SaO2% (BldA) [Mass fraction] 99 % [facility] 08-10-2023 12:35-0500 Systolic blood pressure 118 mm[Hg] [facility] 06-23-2023 14:29-0500 Body height 160 cm Willy Escudero MD Work Phone: [facility] 06-23-2023 14:29-0500 Body mass index (BMI) [Ratio] 24.09 kg/m2 Willy Escudero MD Work Phone: [facility] 06-23-2023 14:29-0500 Body weight 61.69 kg Willy Escudero MD Work Phone: [facility] 06-23-2023 14:29-0500 Diastolic blood pressure 80 mm[Hg] Willy Escudero MD Work Phone: [facility] 06-23-2023 14:29-0500 Heart rate 70 /min Willy Escudero MD Work Phone: [facility] 06-23-2023 14:29-0500 Systolic blood pressure 110 mm[Hg] Willy Escudero MD Work Phone: [facility] 06-23-2023 12:30-0500 Body height 160.02 cm Rosa Agee Other [facility] 06-23-2023 12:30-0500 Body mass index (BMI) [Ratio] 24.09 kg/m2 Rosa Kuns Other [facility] [employer] Other 06-23-2023 12:30-0500 Body weight 61.69 kg Rosa Kuns Other [employer] Other 06-23-2023 12:30-0500 Body weight 61.68 kg [facility] 06-23-2023 12:30-0500 Diastolic blood pressure 64 mm[Hg] Rosa Kuns Other [facility] 06-23-2023 12:30-0500 Respiratory rate 16 /min Rosa Kuns Other [facility] [employer] Other 06-23-2023 12:30-0500 SaO2% (BldA) [Mass fraction] 99 % Rosa Kuns Other [facility] [employer] Other 06-23-2023 12:30-0500 Systolic blood pressure 104 mm[Hg] Rosa Kuns Other [facility] 04-26-2023 08:45-0500 Body height 160.02 cm Rosa Kuns Other [employer] Other 04-26-2023 08:45-0500 Body mass index (BMI) [Ratio] 24.8 kg/m2 Rosa Kuns Other [employer] [facility] [employer] Other 04-26-2023 08:45-0500 Body weight 63.5 kg Rosa Kuns Other [employer] Other 04-26-2023 08:45-0500 Diastolic blood pressure 80 mm[Hg] Rosa Kuns Other [employer] Other 04-26-2023 08:45-0500 Respiratory rate 16 /min Rosa Kuns Other [facility] [employer] Other 04-26-2023 08:45-0500 SaO2% (BldA) [Mass fraction] 97 % Rosa Kuns Other [facility] [employer] Other 04-26-2023 08:45-0500 Systolic blood pressure 116 mm[Hg] Rosa Kuns Other [facility] [employer] Other 04-24-2023 22:52-0500 Diastolic blood pressure 71 mm[Hg] DO Rosa Kuns Work Phone: [facility] 04-24-2023 22:52-0500 Heart rate 88 /min DO Rosa Kuns Work Phone: [facility] 04-24-2023 22:52-0500 Respiratory rate 18 /min DO Rosa Kuns Work Phone: [facility] 04-24-2023 22:52-0500 SaO2% (BldA) [Mass fraction] 98 % DO Rosa Kuns Work Phone: [facility] 04-24-2023 22:52-0500 Systolic blood pressure 117 mm[Hg] DO Rosa Kuns Work Phone: [facility] 04-24-2023 20:42-0500 Body height 160.02 cm DO Rosa Kuns Work Phone: [facility] 04-24-2023 20:42-0500 Body temperature 98.8 [degF] DO Rosa Kuns Work Phone: [facility] 04-24-2023 20:42-0500 Body weight 64.7 kg DO Rosa Kuns Work Phone: [facility] 09-08-2022 19:30-0400 Body height 160.02 cm Latricia Campbell Other [facility] Other 09-08-2022 19:30-0400 Body mass index (BMI) [Ratio] 25.86 kg/m2 Latricia Campbell Other [facility] Other 09-08-2022 19:30-0400 Body temperature 100.3 [degF] Latricia Campbell Other [facility] Other 09-08-2022 19:30-0400 Body weight 66.23 kg Latricia Campbell Other [facility] Other 09-08-2022 19:30-0400 Diastolic blood pressure 81 mm[Hg] Latricia Campbell Other [facility] Other 09-08-2022 19:30-0400 Respiratory rate 18 /min Latricia Campbell Other [facility] Other 09-08-2022 19:30-0400 SaO2% (BldA) [Mass fraction] 99 % Latricia Campbell Other [facility] Other 09-08-2022 19:30-0400 Systolic blood pressure 124 mm[Hg] Latricia Campbell Other [facility] Other 06-23-2022 10:03-0500 Diastolic blood pressure 71 mm[Hg] DO Rosa Kuns Work Phone: [facility] 06-23-2022 10:03-0500 Heart rate 101 /min DO Rosa Kuns Work Phone: [facility] 06-23-2022 10:03-0500 Systolic blood pressure 122 mm[Hg] DO Rosa Kuns Work Phone: [facility] 06-23-2022 09:21-0500 SaO2% (BldA) [Mass fraction] 99 % DO Rosa Kuns Work Phone: [facility] 06-22-2022 09:33-0500 Body height 160.02 cm DO Rosa Kuns Work Phone: [facility] 06-22-2022 09:33-0500 Body weight 69.85 kg DO Rosa Kuns Work Phone: [facility] 05-24-2022 15:43-0500 Body height 160.02 cm Rosa R Kuns Work Phone: [facility] 250 DO Work Phone: 05-24-2022 15:43-0500 Body mass index (BMI) [Ratio] 27.28 kg/m2 Rosa R Kuns Work Phone: [facility] 250 DO Work Phone: 05-24-2022 15:43-0500 Body surface area Derived from formula 1.73 m2 Rosa R Kuns Work Phone: [facility] DO Work Phone: 05-24-2022 15:43-0500 Body weight 69.85 kg Rosa R Kuns Work Phone: [facility] DO Work Phone: 05-24-2022 15:43-0500 Diastolic blood pressure 62 mm[Hg] Rosa R Kuns Work Phone: [facility] DO Work Phone: 05-24-2022 15:43-0500 Heart rate 80 /min Rosa R Kuns Work Phone: [facility] DO Work Phone: 05-24-2022 15:43-0500 Systolic blood pressure 100 mm[Hg] Rosa R Kuns Work Phone: [facility] DO Work Phone: 09-08-2021 15:55-0400 Body height 160.02 cm Rosa R Kuns Work Phone: [facility] DO Work Phone: 09-08-2021 15:55-0400 Body mass index (BMI) [Ratio] 26.47 kg/m2 Rosa R Kuns Work Phone: [facility] DO Work Phone: 09-08-2021 15:55-0400 Body surface area Derived from formula 1.71 m2 Rosa R Kuns Work Phone: [facility] DO Work Phone: 09-08-2021 15:55-0400 Body weight 67.77 kg Rosa R Kuns Work Phone: [facility] DO Work Phone: 09-08-2021 15:55-0400 Diastolic blood pressure 77 mm[Hg] Rosa R Kuns Work Phone: [facility] DO Work Phone: 09-08-2021 15:55-0400 Heart rate 83 /min Rosa R Kuns Work Phone: [facility] DO Work Phone: 09-08-2021 15:55-0400 Systolic blood pressure 116 mm[Hg] Rosa R Kuns Work Phone: [facility] DO Work Phone: 05-07-2021 14:30-0500 Body height 160.02 cm Rosa [employer] Other [facility] Other 05-07-2021 14:30-0500 Body mass index (BMI) [Ratio] 26.39 kg/m2 Rosaladonna Hernadezpoonam Other [facility] Other 05-07-2021 14:30-0500 Body weight 67.59 kg Rosaladonna Hernadezs Other [facility] Other 05-07-2021 14:30-0500 Diastolic blood pressure 78 mm[Hg] Rosaladonna Hernadezs Other [facility] Other 05-07-2021 14:30-0500 Respiratory rate 16 /min Rosaladonna Hernadezs Other [facility] Other 05-07-2021 14:30-0500 SaO2% (BldA) [Mass fraction] 98 % Rosaladonna Hernadezpoonam Other [facility] Other 05-07-2021 14:30-0500 Systolic blood pressure 122 mm[Hg] Rosaladonna Hernadezs Other [facility] Other Encounters Encounter Date Encounter Type Care Provider Facility Start: 02-13-2024 End: 02-13-2024 ambulatory EVELYNE CHAVEZ Not Available Start: 01-22-2024 End: 01-22-2024 Patient encounter procedure DO Rosa Kuns Work Phone: [facility] [place] Work Phone: Start: 01-22-2024 End: 01-22-2024 ambulatory DO Rosa Kuns Work Phone: [facility] Work Phone: Start: 01-22-2024 End: 01-22-2024 ambulatory DO Rosa Kuns Work Phone: [facility] Work Phone: Start: 01-22-2024 End: 01-22-2024 Patient encounter procedure DO Rosa Kuns Work Phone: [facility] [place] Work Phone: Start: 01-13-2024 End: 01-13-2024 ambulatory DO Rosa Kuns Work Phone: [facility] Work Phone: Start: 01-13-2024 End: 01-13-2024 Patient encounter procedure DO Rosa Kuns Work Phone: [facility] Gastroenterology Work Phone: Start: 12-09-2023 End: 12-09-2023 Patient encounter procedure DO Rosa Kuns Work Phone: [facility] [place] Work Phone: Start: 12-09-2023 End: 12-09-2023 ambulatory DO Rosa Kuns Work Phone: [facility] Work Phone: Start: 12-05-2023 End: 12-05-2023 ambulatory [facility] Work Phone: Start: 12-05-2023 End: 12-05-2023 Patient encounter procedure [facility] G[facility] Work Phone: Start: 09-27-2023 End: 09-27-2023 ambulatory DO Rosa Kuns Work Phone: [facility] Work Phone: Start: 09-27-2023 End: 09-27-2023 Patient encounter procedure DO Rosa Kuns Work Phone: [facility] [place] Work Phone: Start: 09-20-2023 End: 09-20-2023 ambulatory DO Rosa Kuns Work Phone: [facility] Work Phone: Start: 09-20-2023 End: 09-20-2023 Patient encounter procedure DO Rosa Kuns Work Phone: [facility] Gastroenterology Work Phone: Start: 08-12-2023 Non-patient / Non-visit DO Rosa Kuns Work Phone: [facility] Gastroenterology Work Phone: Start: 08-12-2023 End: 08-12-2023 Admission to same day surgery center DO Rosa Kuns Work Phone: [facility] Work Phone: Start: 08-12-2023 End: 08-12-2023 ambulatory DO Rosa Kuns Work Phone: [facility] Work Phone: Start: 08-10-2023 End: 08-10-2023 ambulatory DO Rosa Kuns Work Phone: [facility] Work Phone: Start: 08-10-2023 End: 08-10-2023 Departed Referred DO Rosa Kuns Work Phone: [facility] [place] Work Phone: Start: 08-10-2023 End: 08-10-2023 ambulatory [facility] Work Phone: Start: 08-10-2023 End: 08-10-2023 Patient encounter procedure [facility] [place] Work Phone: Start: 08-01-2023 End: 08-01-2023 ambulatory Cuong Fletcher Other [facility] Other Start: 08-01-2023 Telephone encounter Cuong Mcallister [employer] Start: 07-15-2023 End: 07-15-2023 ambulatory Cuong Fletcher Other [facility] Other Start: 07-15-2023 Office outpatient ne w 30 minutes Cuong Fletcher [facility] Gastroenterology Start: 06-23-2023 End: 06-23-2023 ambulatory WILLY ESCUDERO [facility] [employer] Other Start: 06-23-2023 End: 06-23-2023 Office outpatient visit 15 minutes Willy Escudero MD Work Phone: [facility] Comment on above: Neurologic cardiac s yncope (Primary Dx); Palpitations; Tachycardia Start: 06-23-2023 End: 06-23-2023 Patient encounter procedure [facility] [place] Work Phone: Start: 04-26-2023 Encounter for genera l adult medical examination without abnormal findings Rosa Agee [facility] [place] Start: 04-26-2023 Patient encounter status Rosa Agee Other [facility] [employer] Other Start: 04-26-2023 Periodic preventive med est patient 18-39 yrs Rosa Agee [facility] [place] Start: 04-26-2023 End: 04-26-2023 Patient encounter procedure DO Rosa Kuns Work Phone: [facility] [place] Work Phone: Start: 04-26-2023 End: 04-26-2023 ambulatory DO Rosa Kuns Work Phone: [facility] Work Phone: Start: 04-24-2023 End: 04-24-2023 Emergency department patient visit DO Rosa Kuns Work Phone: [facility] Work Phone: Start: 04-20-2023 End: 04-20-2023 ambulatory Rosa Kuns Other [facility] Other Start: 04-20-2023 Telephone encounter Rosa Agee [facility] [place] Start: 02-03-[address] Rosa Agee Fa cility: Start: 10-20-2022 End: 10-20-[address] ROSA AGEE Facility: Start: 09-08-2022 End: 09-08-2022 Patient encounter procedure DO Rosa Agee Work Phone: [facility] [place] Work Phone: Start: 09-08-2022 End: 09-08-2022 ambulatory DO Rosa Agee Work Phone: [facility] Work Phone: Start: 09-08-2022 Office outpatient visit 15 minutes Latricia Campbell [facility] [place] Start: 09-08-2022 Telephone encounter Rosa Agee [facility] [place] Start: 09-02-2022 End: 09-02-2022 ambulatory Rosa Agee Other [facility] Other Start: 09-02-2022 Nursing evaluation o f patient and report Rosa Agee [facility] [place] Start: 09-02-2022 Telephone encounter Rosa Agee [facility] [place] Start: 07-24-2022 Chart Update Rosa Agee Work Phone: [facility] 250 DO Work Phone: Start: 07-13-2022 End: 07-13-2022 ambulatory Rosa Agee Other [facility] Other Start: 07-13-2022 Nursing evaluation o f patient and report Rosa Agee [facility] [place] Start: 07-13-2022 Telephone encounter Rosa Agee [facility] [place] Start: 07-12-2022 End: 07-12-2022 ambulatory Rosa Agee Other [facility] Other Start: 07-12-2022 Telephone encounter Rosa Agee [facility] [place] Start: 06-25-2022 Chart Update Rosa Nereida Samans Work Phone: [facility] 250 DO Work Phone: Start: 06-23-[address] Rosa Agee Fa cility:[id number] Start: 06-23-2022 End: 06-23-2022 ambulatory DO Rosa Samans Work Phone: [facility] Work Phone: Start: 06-23-2022 End: 06-23-2022 Patient encounter procedure DO Rosaladonna Hernadezs Work Phone: [facility]Electrodiagnostics Work Phone: Start: 05-24-2022 Office outpatient visit 25 minutes Rosa Agee Work Phone: [facility] 250 DO Work Phone: Start: 05-24-[address] Miladis Morris Facility: Start: 09-29-2021 End: 09-29-2021 ambulatory Rosa Agee Other [facility] Other Start: 09-29-2021 Telephone encounter Rosa Agee [facility] [place] Start: 09-08-2021 Office outpatient visit 15 minutes Rosa R Chris Work Phone: [facility] 250 DO Work Phone: Start: 05-07-2021 End: 05-07-2021 ambulatory Rosa Agee Other [facility] Other Start: 05-07-2021 Office outpatient visit 25 minutes [facility] Procedures Date Procedure Procedure Detail Performing Clinician Start: 01-22-2024 X-ray of right foot DO Rosa Agee Work Phone: Start: 08-12-2023 Colonoscopy DO Rosa K uns Work Phone: Start: 04-24-2023 Computed tomography of abdomen and pelvis with contrast DO Rosa Agee Work Phone: Start: 09-08-2022 Plain X-ray of right forearm DO Rosa Agee Work Phone: Start: 09-08-2022 Plain X-ray of right wrist DO Rosa Agee Work Phone: Start: 10-06-2021 Microscopic observat ion [Identifier] in Cervix by Cyto stain Willy Escudero MD Work Phone: Extraction of wisdom tooth B rett R Chris Work Phone: Plan of Treatment Date Care Activity Detail Author Start: 2050 Zoster Vaccines (1 of 2) Zoster Vaccines (1 of 2) [facility] Start: 03-18-2032 DTaP/Tdap/Td Vaccines (8 - Td or Tdap) DTaP/Tdap/Td Vaccines (8 - Td or Tdap) [facility] Start: 10-06-2024 Screening for malignant neoplasm of cervix [facility] Start: 03-23-2024 End: 03-23-2024 Patient encounter procedure 03/23/2024 8:40 AM EDT Office Visit [facility] [address] [address] Willy Escudero MD [address] [facility] [address] [place] [address] [facility] Start: 12-09-2023 [facility] Start: 08-12-2023 [facility] Start: 08-10-2023 [facility] Start: 04-26-2023 Bacteria identified in Urine by Culture Urine Culture [facility] Start: 04-24-2023 Computed tomography of abdomen and pelvis with contrast CT abdomen pelvis w con [facility] Start: 04-24-2023 CT Abdomen and Pelvis W contrast IV [facility] Start: 04-24-2023 Bacteria identified in Urine by Culture [facility] Start: 04-24-2023 Urine culture Urine Culture [facility] Start: 02-18-2023 Influenza vaccination Influenza Vaccine (#1) [facility] Start: 11-24-2022 FUV, Provider: Willy Escudero, Status: Pen, Time: 3:10 PM FUV, Provider: Willy Escudero, Status: Pen, Time: 3:10 PM [facility] [employer] 250 DO Work Phone: Start: 05-13-2022 Hepatitis B Vaccines (3 of 3 - 3-dose series) Hepatitis B Vaccines (3 of 3 - 3-dose series) [facility] Start: 03-10-2022 FUV, Provider: Miladis Morris, Status: Pen, Time: 9:50 AM FUV, Provider: Miladis Morris, Status: Pen, Time: 9:50 AM [facility] [employer] 250 DO Work Phone: Start: 2021 Screening for malignant neoplasm of cervix HPV/Cotest [facility] Start: 07-02-2021 COVID-19 Vaccine (3 - Pfizer series) COVID-19 Vaccine (3 - Pfizer series) [facility] Start: 2018 Hepatitis C screening Hepatitis C Screening [facility] Start: 09-22-2011 HPV Vaccines (1 - 2-dose series) HPV Vaccines (1 - 2-dose series) [facility] Start: 2000 HIV screening HIV Screening [facility] Start: 2000 Lipid panel Lipid Panel [facility] Start: 2000 Yearly Adult Physical Yearly Adult Physical [facility] Atopobium vaginae DN A [Presence] in Vaginal fluid by EMERITA with probe detection [facility] Bacterial vaginosis associated bacterium 2 DNA [Presence] in Vaginal fluid by EMERITA with probe detection [facility] Endomysial antibody IgA level [facility] Gliadin peptide IgA Ab [Units/volume] in Serum [facility] Gliadin peptide IgG Ab [Units/volume] in Serum [facility] IgA [Mass/volume] in Serum or Plasma [facility] Megasphaera sp type 1 DNA [Presence] in Vaginal fluid by EMERITA with probe detection [facility] Patient Education Constipation, Adult ED [facility] Work Phone: Patient referral [facility] Work Phone: Tissue transglutamin ase IgA Ab [Units/volume] in Serum [facility] Tissue transglutamin ase IgG Ab [Units/volume] in Serum [facility] Immunizations Immunization Date Immunization Notes Care Provider Fa [facility] 03-18-2022 Hepatitis B vaccine (recombinant), CpG adjuvanted Rosa Agee Work Phone: -[facility] 250 DO Work Phone: 03-18-2022 hepatitis B vaccine, pediatric or pediatric/adolescent dosage Willy Escudero MD Work Phone: [facility] Work Phone: 03-18-2022 influenza, injectable, quadrivalent, preservative free Rosa Agee Work Phone: [facility] 03-18-2022 tetanus toxoid, reduced diphtheria toxoid, and acellular pertussis vaccine, adsorbed Rosa Agee Work Phone: [facility] 03-18-2022 varicella virus vaccine Rosa Agee Work Phone: [facility] 03-18-2022 influenza virus vaccine, unspecified formulation Willy Escudero MD Work Phone: [facility] Work Phone: 05-07-2021 Pfizer-[email or web address] COVID-19 Vacc 30 MCG/0.3ML Intramuscular Suspension Rosa Agee Work Phone: [facility] 04-16-2021 Pfizer-BioNTech COVID-19 Vacc 30 MCG/0.3ML Intramuscular Suspension Rosa Agee Work Phone: [facility] 02-08-2018 meningococcal polysaccharide (groups A, C, Y and W-135) diphtheria toxoid conjugate vaccine (MCV4P) Rosa Agee Other [facility] 02-18-2005 diphtheria, tetanus toxoids and acellular pertussis vaccine, unspecified formulation Rosa Agee Work Phone: [facility] 02-18-2005 measles, mumps and rubella virus vaccine Rosaladonna Agee Other [facility] 02-18-2005 poliovirus vaccine, inactivated Rosa Kuns Other [facility] 02-18-2005 poliovirus vaccine, unspecified formulation [facility] 01-25-2002 diphtheria, tetanus toxoids and acellular pertussis vaccine, unspecified formulation Rosa Agee Work Phone: [facility] 01-25-2002 poliovirus vaccine, inactivated Rosa Agee Other [facility] Other 01-25-2002 poliovirus vaccine, unspecified formulation [facility] 10-02-2001 measles, mumps and rubella virus vaccine Rosa Chris Other [facility] 10-02-2001 varicella virus vaccine Rosa Agee Other [facility] 03-27-2001 diphtheria, tetanus toxoids and acellular pertussis vaccine, unspecified formulation Rosa R Chris Work Phone: [facility] 03-27-2001 hepatitis B vaccine, pediatric or pediatric/adolescent dosage Rosa Agee Other [facility] 03-27-2001 pneumococcal conjugate vaccine, 7 valent Rosa Agee Other [facility] 03-27-2001 pneumococcal Conjugate, unspecified formulation [facility] 02-02-2001 diphtheria, tetanus toxoids and acellular pertussis vaccine, unspecified formulation Rosa R Kuns Work Phone: [facility] 02-02-2001 pneumococcal conjugate vaccine, 7 valent Rosa Kuns Other [facility] [employer] Other 02-02-2001 pneumococcal Conjugate, unspecified formulation [facility] 02-02-2001 poliovirus vaccine, inactivated Rosa Kuns Other [facility] [employer] Other 02-02-2001 poliovirus vaccine, unspecified formulation [facility] 2000 diphtheria, tetanus toxoids and acellular pertussis vaccine, unspecified formulation Rosa R Kuns Work Phone: [facility] 2000 pneumococcal conjugate vaccine, 7 valent Rosa Kuns Other [facility] [employer] Other 2000 pneumococcal Conjugate, unspecified formulation [facility] 2000 poliovirus vaccine, inactivated Rosa Kuns Other [facility] [employer] Other 2000 poliovirus vaccine, unspecified formulation [facility] 2000 hepatitis B vaccine, pediatric or pediatric/adolescent dosage Rosa Chris Other [facility] NEGATED: Highlighted row has not occurred! 9 influenza, seasonal, injectable Patient Objection oRsa Agee Other [facility] [employer] Other Payers Date Payer Category Payer Self-pay [id number] 2022 Private Health Insurance [employer] [facility] [employer] [id number] 2022-Present [address] [place] [address] [id number] 2022 Private Health Insurance [id number] 2000 Unknown [id number] [id number]. 2.356 2000 Unknown [id number] [id number]. 2.356 2000 Unknown [id number] [id number]. 2.356 2000 Unknown [id number] [id number]. 2.1244 2000 Unknown [id number] [id number]. 2.1259 1974 Unknown [id number] [id number]. 2.593 1959 Private Health Insurance [id number] Unknown [facility] Unknown Shelbi BC/BS [id number] Unknown [id number] [id number]. 2.531 Unknown [id number] [id number]. 2.531 Unknown [id number] [id number]. 2.531 Unknown [id number] [id number]. 2.531 Unknown [id number] [id number]. 2.531 Unknown [id number]. 2.531 Social History Date Type Detail Facility Start: 06-16-2023 No alcohol use No alcohol use [facility] [employer] Other Start: 06-16-2023 Sex Assigned At N [facility] [employer] Other Start: 2000 Sex Assigned At Female F [facility] Start: 04-24-2023 End: 08-12-2023 Tobacco smoking status NHIS Never smoked tobacco (finding) [facility] Start: 06-16-2023 Tobacco use and exposure Smokeless tobacco non-user [facility] Work Phone: Start: 06-23-2023 Alcohol intake Current drinke r of alcohol (finding) [facility] Work Phone: Start: 2000 Sex Assigned At Not on file [facility] Work Phone: Start: 06-13-2023 End: 06-23-2023 Exposure to SARS-CoV-2 (event) Not sure [facility] Goals Date Patient Goal Desired Activity /State Clinical Notes 11-13-2020 to 12-05-2023 Note Date & Type Note Facility 12-05-2023 Evaluation note Authored December 05, 2023 11:23am Patient, positive for abdomi nal pain, bowel movements once or twice per week and abdominal cramping. As with Amitiza patient notes nausea vomiting and abdominal discomfort with Trulance dosing [facility] Work Phone: 1(401) 113-145306-17-2024 Evaluation note* Author Cuong [facility] Authored December 05, 2023 11:2 3am Patient, positive for abdomi nal pain, bowel movements once or twice per week and abdominal cramping. As with Amitiza patient notes nausea vomiting and abdominal discomfort with Trulance dosing Author Cuong [facility] Authored January 13, 2024 10:[address] scan, normal col onoscopy patient noted for abdominal discomfort and irregular bowel movements. Patient with predominance of IBS-C. Patient is negative for weight loss and rectal bleeding [facility] Work Phone: 1(276) 587-294504-09-2024 Evaluation note* Author Celeste Hernández [facility] Authored September 27, 2023 9:14 am Sooner if needed, the ER if concerns,The above note written by Celeste Hernández LPN acting as human recorder, note dictated by Dr. Rosa Agee [facility] Work Phone: 1(580) 381-911004-09-2024 Evaluation note* Author Celeste Hernández [facility] Authored September 27, 2023 9:14 am Sooner if needed, the ER if concerns,The above note written by Celeste Hernández LPN acting as human recorder, note dictated by Dr. Rosa Agee Author Cuong Fletcher [facility] Authored December 05, 2023 11:2 3am Patient, positive for abdomi nal pain, bowel movements once or twice per week and abdominal cramping. As with Amitiza patient notes nausea vomiting and abdominal discomfort with Trulance dosing [facility] Work Phone: 1([phone]) 906-493702-23-2024 [facility] Evaluation note* Encounter Date Diagnosis Assessment Notes Treatment Notes Treatment Clinical Notes Jun, Constipation (ICD-10 - K59.00) Pt was referred by her gynocologist Pt states she will go about a week without having a bowel movement Pt states miralax does not help. Dulcolax does not help either- This makes her stomach feel full. Pt states this has been going on for about a year. Pt states there is mucus in her stools. Pt to proceed with KUB for constipation. Pt to proceed with colonoscopy Pt to start Linzess 145 mcg Pt given samples of linzess- 6 boxes [facility] Other 01-04-2024 History of Present illness Narrative* Willy Escudero MD - 06/23/2023 2:20 PM EST Ti Minaya is a 22 y.o. female Chief Complaint Follow-up HPI Patient is here for follow-up continue management for history of syncope with previous workup consistent with neurocardiogenic syncope. Patient responded well to increasing fluid and salt intake. Patient denies any complaint of chest pain, palpitation, or syncope. She does describe rare episodes of lightheadedness. Overall her symptoms is markedly improved with increasing fluid and salt intake. Assessment 1. Classic neurocardiogenic syncope with symptoms of palpitation, fluctuating heart rate and orthostatic hypotension. She did have excellent response to increasing fluid and salt intake Plan 1. I spent a great length of the time emphasizing to the patient to increase her fluid intake to 5 L/day and increase salt intake to 30 g/day I advised her to maintain high fluid intake especially inhot days and when she exercise. I told her that losing more weight and potentially worsening her symptoms. Advised her to wear compression stocking and to avoid being in the standing position for a long. I also counseled her regarding career choices and to avoid jobs that require standing in the upright position 2. I advised her to notify me with any change in cardiac status or symptoms Review of Systems Neurological: Positive for dizziness. All other systems reviewed and are negative. Visit Vitals BP 110/80 (BP Location: Right arm, Patient Position: Sitting) Pulse 70 Ht 1.6 m (5' 3 ) Wt 61.7 kg (136 lb) BMI 24.09 kg/m Smoking Status Never BSA 1.66 m Objective Physical Exam Constitutional: Appearance: Normal appearance. She is normal weight. HENT: Nose: Nose normal. Neck: Vascular: No carotid bruit. Cardiovascular: Rate and Rhythm: Normal rate. Pulses: Normal pulses. Heart sounds: Normal heart sounds. Pulmonary: Effort: Pulmonary effort is normal. Abdominal: General: Bowel sounds are normal. Palpations: Abdomen is soft. Genitourinary: Rectum: Normal. Musculoskeletal: General: Normal range of motion. Cervical back: Normal range of motion. Right lower leg: No edema. Left lower leg: No edema. Skin: General: Skin is warm and dry. Neurological: General: No focal deficit present. Mental Status: She is alert. Psychiatric: Mood and Affect: Mood normal. Behavior: Behavior normal. Thought Content: Thought content normal. Judgment: Judgment normal. Current Medications Current Outpatient Medications: meclizine (Antivert) 25 mg tablet, Take 1 tablet (25 mg) by mouth 3 times a day as needed for dizziness., Disp: , Rfl: Assessment/Plan 1. Neurologic cardiac syncope Follow Up In Cardiology 2. Palpitations 3. Tachycardia Scribe Attestation By signing my name below, Patti Sanchez LPN , Scribe attest that this documentation has been prepared under the direction and in the presence of MD Ash. [facility] Work Phone: 1(787) 884-645401-04-2024 Instructions* Patient Instructions* Adis Baugh MA - 06/23/2023 2:20 PM EST Please bring all medicines, vitamins, and herbal supplements with you when you come to the office. Prescriptions will not be filled unless you are compliant with your follow up appointments or have a follow up appointment scheduled as per instruction of your physician. Refills should be requested at the time of your visit. [facility] Work Phone: 1([phone]) 758-988501-04-2024 Evaluation note* Encounter Date Diagnosis Assessment Notes Treatment Notes Treatment Clinical Notes Jun, Difficulty sleeping (ICD-10 - G47.9) Hydroxyzine was not found to be beneficial and did have drowsiness the following day. Patient is wanting to try different medication for this but she is sexually active and not on any type of contraceptive due to intolerance and not even using condom. I am limited on what I can prescribe due to this special situation. For safety I will prescribe Meclizine and and recommend she use Melatonin in combination. She is in agreement. Encouraged to limit or remove all caffiene from diet. Exercise is encouraged Jun, Constipation, unspecified constipation type (ICD-10 - K59.00) Patient is under the care of gastro for the constipation. It is felt that the cause of the constipation could be related to a large ovarian cyst but this is still being worked up by gastro and TELEPHONE OPERATOR. I do encourage patient to follow the plan of care. I also advised Linzess is not safe with Jun, Hyperlipidemia (ICD-10 - E78.5) [facility] Other 11-07-2023 Evaluation note* Encounter Date Diagnosis Assessment Notes Treatment Notes Treatment Clinical Notes Apr, Wellness examination (ICD-10 - Z00.00) Personalized health advice was given to the beneficiary to health education of preventative counseling services or programs aimed at reducing identified risk factors and improving self-management or community-based lifestyle interventions to reduce health risks and promote self-management and wellness, including physical activity and nutrition. A written plan for screenings was discussed, flu vaccination, routine lab studies, eye exams, as well as risk factors for other medical problems. Apr, Constipation, unspecified constipation type (ICD-10 - K59.00) Review of [facility] report including CT scan and labs. The patient states she did have a bowel movement yesterday that was all liquid. Patient encourged to continue Mirilax, increase fiber in her diet, try OTC Senokot. I did provide samples of the above medication to use as needed, instructions provided to titrate off the medication when her bowel movements become more regular. Apr, Cyst of left ovary (ICD-10 - N83.202) Incidental 5 cm left ovarian cyst noted upon CT imaging obtained at [facility] on 04/24/23.The patient does report left sided abdominal pain. The patient encouraged following with gynecology who she sees in [facility] . Apr, Leukocytes in urine (ICD-10 - R82.998) Small leukocytes noted upon in house urinalysis.The patient is asymptomatic at this time. Urine specimen sent for culture. Apr, Neurocardiogenic syncope (ICD-10 - R55) The patient is following with automobile painter , states she has been taken off all her medications and started a sodium tablet and encourged to drink a gallon of water daily. Apr, Hyperlipidemia (ICD- 10 - E78.5) Review of [facility] lab results with the patient.Cholestero l levels have improved compared to last year. No signs of anemia or leukemia. Liver enzymes, kidney, glucose and thyroid functions are within normal limits. Apr, Difficulty sleeping (ICD-10 - G47.9) The patient reports difficulty sleeping, states some nights she is up until 4 or 6 am. Per patient she has tried and failed OTC Melatonin and Tylenol PM.I did provide the above medication that is safe and non addicting, instructions provided. [facility] Other 11-05-2023 Hospital Discharge instructions Additional Instructions 4 capfuls of MiraLAX in juice in the morning and then again in the evening if constipation continues.[facility] Work Phone: 1([phone]) 134-133511-01-2023 Evaluation note* Encounter Date Diagnosis Assessment Notes Treatment Notes Treatment Clinical Notes Apr, Hyperlipidemia (ICD-10 - E78.5) [facility] Other 03-22-2023 Evaluation note* Encounter Date Diagnosis Assessment Notes Treatment Notes Treatment Clinical Notes Aug, Right wrist pain (ICD-10 - M25.531) Aug, Sprain of right wrist, initial encounter (ICD-10 - S63.501A) Wrist sprain home care material was printed Drink plenty fluids, get plenty of rest. Wear the Gabriel wrap for comfort and compression. Ice and elevate your wrist 2-3 times a day. Take ibuprofen, 400 to 600 mg with food up to 3 times a day for pain and swelling. Follow-up with your family physician if no improvement in 5 to 7 days [facility] Other 03-16-2023 Evaluation note* Encounter Date Diagnosis Assessment Notes Treatment Notes Treatment Clinical Notes Aug, Sore throat (ICD-10 - J02.9) [facility] Other 01-24-2023 Evaluation note* Encounter Date Diagnosis Assessment Notes Treatment Notes Treatment Clinical Notes Jun, Acute cough (ICD-10 - R05.1) Patient and Dr. Keane were made aware of positive findings. Dr. Keane recommended that she start atb/steriod regimen- see TE for further clinical documentation. [facility] Other 04-12-2022 Evaluation note* Encounter Date Diagnosis Assessment Notes Treatment Notes Treatment Clinical Notes Sep, Hyperlipidemia (ICD-10 - E78.5) [facility] Other 11-18-2021 Evaluation note* Encounter Date Diagnosis Assessment Notes Treatment Notes Treatment Clinical Notes Apr, Tachycardia (ICD-10 - R00.0) Patient reports only taking the above medication 2-3 times per week. Reviewed holter monitor results with patient. Reports some days with taking the above medication she does get lower blood pressure readings. Suggested patient take the above medication consistently on wednesdays and sundays. Advised patient to continue monitoring blood pressure and follow with cardiology as scheduled. 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 Medical History ECHO and Stress Test 11/13/2020 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 Medical History Neurocardiogenic syncope Surgical History wisdom teeth [facility] Other Evaluation noteNo assessment information available [facility] Work Phone: Evaluation noteNo [facility] [employer] Other Evaluation note* Diagnosis Neurologic cardiac syncope- Primary Syncope and collapse Palpitations Tachycardia Unspecified tachycardia documented in this encounter [facility] Work Phone: Evaluation note* Diagnosis Onset Date Resolution Status High risk sexual behavior [place] Vaginal discharge acute [facility] Work Phone: Evaluation note* Diagnosis Onset Date Resolution Status High risk sexual behavior [place] Vaginal discharge acute Constipation acute [facility] Work Phone: Evaluation note* Author Celeste Hernández [facility] Authored September 27, 2023 9:14 am Sooner if needed, the ER if concerns,The above note written by Celeste Hernández LPN acting as human recorder, note dictated by Dr. Rosa Agee [facility] Work Phone: History and physical note Author Los Hartman [facility] August 12, 2023 11:05am Note Date/Time August 12, 2023 11:05am [facility] [address] [place] [address] Gastroenterology H&P Signed Patient: Alonso Minaya MR#: [id number] : 2000 Acct:[id number] Age/Sex: 22 / F Adm Date: 4 Loc: Room: Type: [facility] Attending Dr: Los Hartman MD Copies to: DO Los Cain MD~ Date of Service: 08/12/2023 HISTORY & PHYSICAL: Patient's history with special attention to the cardiovascular, pulmonary systems and the current problem was reviewed with the patient immediately prior to the procedure. Present medications and doses reviewed in the EMR. Allergies and pertinent laboratory tests were also reviewedat this time in the EMR. The physical examination, as below, was then performed. Indication, assessment and HPI: 22-year-old female presents for colonoscopy to evaluate change in bowel habits with constipation. Family history of GI malignancy? No PHYSICAL EXAMINATION Mouth and Pharynx : Moist mucus membranes, normal dentition Cardiac: Regular rate, regular rhythm Pulmonary: Clear to auscultation bilaterally, no wheezing Neurological: Alert and oriented x3, no focal deficits noted Abdomen: Abdomen soft, non-tender REVIEW OF SYSTEMS Constitutional: Denies malaise, fevers Cardiovascular: Denies chest pain, palpitations Respiratory: Denies shortness of breath, wheezing Gastrointestinal: Per HPI Genitourinary: Denies dysuria, polyuria Musculoskeletal: Denies joint swelling, joint stiffness Neurological: Denies numbness, tingling Integumentary: Denies rashes, skin lesions Endocrine: Denies fatigue, weight loss Written informed consent obtained from the patient. Risks (including but not limited to perforation, infection, bloating, bleeding, need for emergent surgery and loss of life), benefits and alternatives explained and questions answered. The patient verbalized understanding. Based on history patient is an appropriate candidate for the procedure. Los Hartman MD Documented By: Los Hartman MD 08/12/231104 Signed By: <Electronically signed by Los Hartman MD> 08/12/23 110 [facility] Work Phone: Reason for referral (narrative)* Consultation (Routine) - Authorized Specialty Diagnoses / Procedures Referred By Contac t Referred To Contact Cardiology Diagnoses Neurologic cardiac syncope Procedures Follow Up In Cardiology Willy Escudero MD [address] [facility] [address] [place] [address] Willy Escudero MD [address] [facility] [address] [place] [address] Referral ID Status Reason Start Date Expiration Date V isits Requested Visits Authorized [id number] Authorized 06/23/2023 06/22/2024 1 1 [facility] Work Phone: Chief Complaint * ALONSO MINAYA is being seen for a 6 month follow-up of. * Patient is in the office for follow-up for a form of POTS being treated with beta-julio therapy that she takes 5 days weekly. When she skips the medicine she gets tachycardia but at times also reports bradycardia which makes her feel weird. We will not capture bradycardia when she had 30-day event monitor. She has had no syncope and continue to work. Her examination today was essentially unremarkable except for slight overweight. 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 30-day event monitor failed to demonstrate any significant tachyarrhythmias but had sinus tachycardia for which I suggested utilizing metoprolol tartrate 25 mg on daily basis since she has flareup on the days she does not take it. She was hesitant but will likely take it. * 2 slight overweight, encouraged the patient to drop her weight further * ALONSO MINAYA is being seen for a 6 month follow-up of. * Patient is in the office of for follow-up for the problems noted below. She seems to be frustrated with her condition especially occasional asymptomatic drop in blood pressure on beta-julio therapywhich is taken at the lowest dose. She continued to have tachycardia despite beta-julio therapy. She has had no syncope or near syncope but she is frustrated with her tachycardic events that occur randomly. The patient wishes not to be on more medication than what she is already on. And at times she skips taking her medications. She wanted me to get her through a tilt table test even though I mentioned to her that does not change what we need to do for management. She is not interested in more medications. 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 30-day event monitor failed to demonstrate any significant tachyarrhythmias but had sinus tachycardia for which I have been using metoprolol tartrate 25 mg daily. The patient wishes to go through a tilt table test regardless of whether the results will change the management. Weteresa schedule the patient for tilt table test in the meantime she will continue on metoprolol. Highsalt diet and plenty of fluid was recommended for her episode of asymptomatic hypotension that she was concerned about. * 2 slight overweight, encouraged the patient to drop her weight further * 3 episodic systemic hypertension which is inconsequential Chief Complaint and Reason for Visit Chief Complaint hypertension Chief Complaint stomach pain Chief Complaint Follow Up- Has To [place] By 2 Vaginal itching/burning Reason for Visit High risk sexual beh avior Vaginal discharge Chief Complaint Follow Up- Has To [place] ave By 2 Vaginal itching/burning z72.51 Reason for Visit High risk sexual beh avior Vaginal discharge Chief Complaint Follow Up- Has To [place] [address] By 2 Vaginal itching/burning z72.51 Constipation Constipation Reason for Visit High risk sexual beh avior Vaginal discharge Chief Complaint Follow Up- Has To [place] [address] By 2 Vaginal itching/burning z72.51 Constipation Constipation follow up colonoscopy(ditty) Reason for Visit High risk sexual beh avior Vaginal discharge Constipation Chief Complaint Vaginal itching/burn ing z72.51 Constipation Constipation follow up colonoscopy(ditty) REVIEW LABS Reason for Visit Constipation Difficulty sleeping Hyperlipidemia Chief Complaint follow up colonoscop y(ditty) REVIEW LABS 2 month follow up Reason for Visit Constipation Difficulty sleeping Hyperlipidemia Constipation Chief Complaint follow up colonoscop y(ditty) REVIEW LABS 2 month follow up K59.00 Reason for Visit Constipation Difficulty sleeping Hyperlipidemia Constipation Chief Complaint 2 month follow up K59.00 1 month follow up/constipation Reason for Visit Constipation Chief Complaint 2 month follow up K59.00 1 month follow up/constipation right ankle pain M79.671 - Pain in right foot Reason for Visit Constipation Irritable bowel syndrome with predominant constipation Right foot strain Advance Directives No Advanced Directives Records Found Advance Directive Response Recorded Date/ Time Advance Directives No February 6:35pm Advance Directive Response Recorded Date/ Time Advance Directives No February 7:35pm Advance Directive Response Recorded Date/ Time Advance Directives No July 12:26pm Advance Directive Response Recorded Date/ Time Advance Directives No July 1:26pm Summary Purpose Family History No Family History Records Found Additional Source Comments REASON FOR VISIT (unrecogniz ed section and content) Reason Comments Follow-up 4-5m Care Teams (unrecognized sec tion and content) Team Status: Inactive Member Role Status Brenda Agee DO Primary Care Provider Active Miladis Morris MD Attending Provider Active Willy Escudero MD Referring Provider Active Team Status: Active Member Role Status Brenda Agee DO Primary Care Provider Active Team Status: Inactive Member Role Status Brenda Agee DO Primary Care Provider Active PEPPER Berry Attending Provider Active Team Status: Inactive Member Role Status Brenda Agee DO Primary Care Provider Active Pastor Camilo MD Emergency Provider Active Team Status: Inactive Member Role Status Brenda Agee DO Primary Care Provider, Attending Provi jie Active [employer]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 Start Date End Date Rosa Agee DO [address] [place] [id number] PCP - General Family Medicine 06/23/23 Team Status: Inactive Member Role Status Brenda Agee DO Attending Provider Active Start: June 23, 2023 End: June 23, 2023 Team Status: Inactive Member Role Status Brenda Agee DO Primary Care Provider Active Sta rt: August 10, 2023 End: August 10, 2023 PEPPER Berry Attending Provider Active S tart: August 10, 2023 End: August 10, 2023 Team Status: Inactive Member Role Status Brenda Agee DO Primary Care Provider Active Sta rt: August 12, 2023 End: August 12, 2023 Los Hartman MD Attending Provider Active S tart: August 12, 2023 End: August 12, 2023 Team Status: Active Member Role Status Dates Rosa Agee DO Primary Care Provider Active Sta rt: August 12, 2023 Los Hartman MD Attending Provider, Other Provider Active Start: August 12, 2023 Team Status: Inactive Member Role Status Dates Rosa Agee DO Primary Care Provider Active Sta rt: September 20, 2023 End: September 20, 2023 Cuong Fletcher APRN Attending Provider Active Start: September 20, 2023 End: September 20, 2023 Team Status: Inactive Member Role Status Dates Rosa Agee DO Primary Care Provide r, Attending Provider Active Start: September 27, 2023 End: September 27, 2023 Team Status: Inactive Member Role Status Dates Rosa Agee DO Primary Care Provider Active Sta rt: December 05, 2023 End: December 05, 2023 Cuong Fletcher APRN Attending Provider Active Start: December 05, 2023 End: December 05, 2023 Team Status: Inactive Member Role Status Dates Rosa Agee DO Primary Care Provider Active Sta rt: December 09, 2023 End: December 09, 2023 Cuong Fletcher APRN Attending Provider Active Start: December 09, 2023 End: December 09, 2023 Team Status: Inactive Member Role Status Dates Rosa Agee DO Primary Care Provider Active Sta rt: January 13, 2024 End: January 13, 2024 Cuong Fletcher APRN Attending Provider Active Start: January 13, 2024 End: January 13, 2024 Team Status: Inactive Member Role Status Dates Rosa Agee DO Primary Care Provider Active Sta rt: January 22, 2024 End: January 22, 2024 Nciole Martini APRN Attending Provider Active S tart: January 22, 2024 End: January 22, 2024 Team Status: Active Member Role Status Dates Rosa Agee DO Primary Care Provider Active Sta rt: January 22, 2024 Nicole Martini APRN Attending Provider Active S tart: January 22, 2024 Goals (unrecognized section and content) Goals may be documented in a n alternate section INFORMATION SOURCE (unrecogn ized section and content) DATE CREATED AUTHOR 10/22/2022 [facility] DATE CREATED AUTHOR AUTHOR'S ORGANIZ ATION 02/04/2023 [facility] DATE CREATED AUTHOR AUTHOR'S ORGANIZ ATION 02/05/2023 [employer] DATE CREATED AUTHOR AUTHOR'S ORGANIZ ATION 06/26/2023 [facility] DATE CREATED AUTHOR AUTHOR'S ORGANIZ ATION 01/26/2024 [facility] DATE CREATED AUTHOR AUTHOR'S ORGANIZ ATION 02/14/2024 [facility] FOR RECORDS PERTAINING TO PATIENTS WHO ARE OR HAVE BEEN ENROLLED IN A CHEMICAL DEPENDENCY/SUBSTANCEABUSE PROGRAM, SOME INFORMATION MAY BE OMITTED. This clinical summary was aggregated from multiple sources. Caution should be exercised in using it in the provision of clinical care. This summary normalizes information from multiple sources, and as a consequence, information in this document may materially change the coding, format and clinical context of patient data. In addition, data may be omitted in some cases. CLINICAL DECISIONS SHOULD BE BASED ON THE PRIMARY CLINICAL RECORDS. [facility]. provides no warranty or guarantee of the accuracy or completeness of information in this document.
[2024-02-29 13:20] LABS: HCG Qualitative Urine* NEGATIVE (NEGATIVE); Internal Control Within Normal Limits
== END 2024-02-29 12:49 | disposition home or self-care (01) ==
LOC: MRI 12:48
PROVIDERS: PCP Family Medicine; Visit Provider Podiatrist Foot & Ankle Surgery
DX: S93.601A Unspecified sprain of right foot, initial encounter (principal); S93.324A Dislocation of tarsometatarsal joint of right foot, initial encounter; M76.61 Achilles tendinitis, right leg
CPT/HCPCS: 73718; 84703

== ENCOUNTER 2024-03-14 08:52 | Outpatient (OUT) | payer OTHER, SELFPAY ==
--- OUTSIDE RECORDS SUMMARY | 2024-03-14 09:09 | XMS_ITS | CCD ---
Author Organization [facility] Care Team Providers Care Configuration Management Analyst Name Role Phone Rosa Agee Unavailable Unavailable Unavailable Rosa Agee Unavailable DO Rosa Agee Primary Care Provider [phone] MD Miladis Morris Attending Provider MD Willy Escudero Referring Provider DO Rosa Agee Primary Care Provider [phone] MD Miladis Morris Attending Provider MD Willy Escudero Referring Provider PEPPER Campbell Attending Provider Latricia Campbell Unavailable DR ROSA AGEE Primary [...] Care Provider MD Pastor Camilo Emergency Provider [phone] DO Rosa Agee Attending Provider [phone] Rosa Agee DOer Primary Care Provider Cuong Fletcher Unavailable Satyas, DO Rosa Primary Care Provider PEPPER Campbell Attending Provider MD Los Hartman Attending Provider [phone] Kuns, Rosa Primary Care Provider [phone] PEPPER Campbell Attending Provider [phone] MD Los Hartman Attending Provider Satyas, Rosa Primary Care Provider MICHAEL Fletcher Attending Provider MICHAEL Martini Attending Provider Satyas, Rosa Primary Care Unavailable Pastor Camilo Admitting [...] Primary Care Unavailable EVELYNE CHAVEZ Attending Unavailable WILLY ESCUDERO Attending Unavailable KUNS, ROSA R Primary Care Unavailable Allergies Allergy Classification Reported Allergen(s) Allergy Type Date of Onset Reaction(s) Facility Penicillins (antibiotic) (2 sources) Amoxicillin Drug Allergy 4 [facility] (5 sources) Penicillins; Translations: [Penicillins] Allergy to drug (finding) 3 [facility] 3 Repository (20 sources) Penicillin G Drug Allergy 4 [facility] (7 sources) Penicillin; Translations: [penicillin V] Drug Allergy 3 [facility] (20 sources) Amoxicillin; Translations: [AMOXICILLIN] Drug Allergy 4 [facility] (1 source) Amoxicillin Drug Allergy [facility] Repository (1 source) Penicillins Drug Intolerance 3 [facility] Work Phone: (1 source) Amoxicillin Drug Allergy 4 [facility] Repository (1 source) Penicillin Drug Allergy 4 [facility] Repository Medications Current Medications Medication Drug Class(es) [...] mouth at bedtime as needed for sleep [place] (No Known Home Meds) (2 sources) Start: 04-24-2023 [place] (No Known Home Meds) Active April 23, 2023 11:00pm Pneumatic Walking Boot (2 sources) Start: 01-22-2024 Pneumatic Walking Boot Active 0 .Route 1 January 22, 2024 12:00am As directed polyethylene glycol 3350 83030 mg powder for oral solution (1 source) [...] Anxiety; Translations: [Anxiety disorder, unspecified] 08-10-2023 Chronic Disorders of lipid metabolism (20 sources) Hyperlipidemia; [...] initial encounter; Translations: [Strain of foot] Episodic Past or Other Problems Problem Classification Problem Date Documented Da te Episodic/Chronic Abdominal pain (13 sources) Abdominal pain; Translations: [Unspecified abdominal pain] Onset: 04-24-2023 04-24-2023 Episodic Cardiac dysrhythmias (20 sources) Tachycardia; Translations: [Tachycardia, unspecified] Onset: 05-07-2021 Resolved: 05-07-2021 Episodic Genitourinary symptoms and ill-defined conditions (6 sources) Leukocytes in urine; Translations: [Other abnormal findings in urine] Onset: 04-26-2023 Episodic Residual codes; unclassified (5 sources) High risk heterosexual behavior; Translations: [High-risk sexual behavior] Onset: 08-10-2023 08-10-2023 Episodic Syncope (9 sources) Vasovagal syncope; Translations: [Syncope and collapse] Onset: 06-16-2023 Episodic Unclassified (4 sources) Never smoked tobacco; Translations: [Never a smoker] Unclassified (1 source) Acute cough R05.1 Results Test Name Value Interpretation Reference Range Facility XR foot RT min 3V*on 024 XR foot RT min 3V* [facility] [place] [address] [place] [address] XRay Report Signed Patient: Alonso Minaya MR#: [id number] [birth year] : 2000 Acct:[id number] Age/Sex: 23 / F ADM Date: 01/22/24 Loc: [facility] Room: Type: [facility] Attending Dr: Nicole Martini APRN Copies to: [...] Ha Reyes M.D.01/22/2024 11:49 AM Dictation Location: [place] [address] Transcribed By: [facility] 01/22/24 1149 Dictated By: Ha Reyes DO 01/22/24 1145 Signed By: 01/22/24 1149 Normal [facility] Celiacon 12-09-2023 Deamidated Gliadin Abs, IgA 5 Normal 0-19 [facility] Comment on above: Result Comment: Nega tive 0 - 19 Weak Positive 20 - 30 Moderate to Strong Positive >30 Performed By: #### C ELIAC #### [facility] , Deamidated Gliadin Abs, IgG 4 Normal 0-19 [facility] Comment on above: Result Comment: Nega tive 0 - 19 Weak Positive 20 - 30 Moderate to Strong Positive >30 Performed By: #### C ELIAC #### [facility] , Endomysial Antibody IgA Negative Normal Negative [facility] Comment on above: Performed By: #### C ELIAC #### [facility] , Immunoglobulin A, Qn, Serum 120 mg/dL Normal 87-352 [facility] Comment on above: Result Comment: Perf ormed at: - [facility] [address] [id number] Performance Engineer: Liban Seaman PhD, Phone: [phone] PERFORMED BY: [facility] [place] [address] PATHOLOGIST PROGRAM DIRECTOR CABLE TELEVISION LAYNE ROSA M.D. Performed By: #### C ELIAC #### [facility] , T-Transglutaminase (tTG) IgA <2 Normal 0-3 [facility] Comment on above: Result Comment: Nega tive 0 - 3 Weak Positive 4 - 10 Positive >10 Tissue Transglutaminase (tTG) has been identified as the endomysial antigen. Studies have demonstr- ated that endomysial IgA antibodies have over 99% specificity for gluten sensitive enteropathy. Performed By: #### C ELIAC #### [facility] , T-Transglutaminase (tTG) IgG 4 Normal 0-5 [facility] Comment on above: Result Comment: Nega tive 0 - 5 Weak Positive 6 - 9 Positive >9 Performed By: #### C ELIAC #### [facility] , IgA [Mass/volume] in Serum o r PlasmaOrdered By: Cuong Fletcher on 12-09-2023 IgA [Mass/Vol] 120 mg/dL 87-352 [facility] Comment on above: Performed at: - [facility] [address] [id number] Director: Liban Seaman PhD, Phone: [phone] No Panel InformationOrdered By: Cuong Fletcher on 12-09-2023 Endomysial IgA Antibody Negative Negative [facility] Serum gliadin peptide IgA an tibody assay (units/volume)Ordered By: Cuong Fletcher on 12-09-2023 Gliadin peptide IgA Qn (S) 5 units 0-19 [facility] Comment on above: Negative 0 - 19 Weak Positive 20 - 30 Moderate to Strong Positive >30 Serum gliadin peptide IgG an tibody assay (units/volume)Ordered By: Cuong Fletcher on 12-09-2023 Gliadin peptide IgG Qn (S) 4 units 0-19 [facility] Comment on above: Negative 0 - 19 Weak Positive 20 - 30 Moderate to Strong Positive >30 Serum tissue transglutaminas e (tTG) IgA antibody assay (units/volume)Ordered By: Cuong Fletcher on 12-09-2023 tTG IgA Qn (S) <2 U/mL 0-3 [facility] Comment on above: Negative 0 - 3 Weak Positive 4 - 10 Positive >10 Tissue Transglutaminase (tTG) has been identified as the endomysial antigen. Studies have demonstr- ated that endomysial IgA antibodies have over 99% specificity for gluten sensitive enteropathy. Serum tissue transglutaminas e (tTG) IgG antibody assay (units/volume)Ordered By: Cuong Fletcher on 12-09-2023 tTG IgG Qn (S) 4 U/mL 0-5 [facility] Comment on above: Negative 0 - 5 Weak Positive 6 - 9 Positive >9 HCG ( test) IA.rapi d Ql (U)Ordered By: [place] on 08-12-2023 HCG ( test) Ql (U) Negative [facility] HCG,Urineon 08-12-2023 Beta HCG ( test) Ql (U) Negative Normal [facility] Comment on above: Result Comment: PERF ORMED BY: [place] [address] PATHOLOGIST PROGRAM DIRECTOR CABLE TELEVISION LAYNE ROSA M.D. Performed By: #### U HCG #### [address] Laboratory - Microbiology an d Antimicrobial susceptibilityOrdered By: Latricia Campbell on 08-10-2023 N. gonorrhoeae DNA EMERITA+probe Ql (Unsp spec) Negative Negative [facility] Comment on above: Performed at: [place] [id number] Director: Kaela Garcia MD, Phone: [phone] No Panel InformationOrdered By: Latricia Campbell on 08-10-2023 Concepcion albicans (EMERITA) Negative Negative [facility] Comment on above: This test was develo ped and its performance characteristicsdetermined by [facility]. It has not been cleared orapproved by the Food and Drug Administration. Concepcion glabrata (EMERITA) Negative Negative [facility] Comment on above: This test was develo ped and its performance characteristicsdetermined by [facility]. It has not been cleared orapproved by the Food and Drug Administration. Chlamydia trachomatis (EMERITA) (LAB) Negative Negative [facility] Trichomonas vaginalis (EMERITA) Negative Negative [facility] Vaginal fluid Atopobium vagi dillon DNA detection by probe and target amplification methoOrdered By: Latricia Campbell on 08-10-2023 A. vaginae DNA EMERITA+probe Ql (Vag fld) High - 2 Score . [facility] Vaginal fluid Megasphaera sp ecies type 1 DNA detection by probe and target amplificatOrdered By: Latricia Campbell on 08-10-2023 Megasphaera sp type 1 DNA EMERITA+probe Ql (Vag fld) High - 2 Score . [facility] Comment on above: Calculate total scor e by adding the 3 individual bacterialvaginosis (BV) marker scores together. Total score isinterpreted as follows:Total score 0-1: Indicates the absence of BV.Total score 2: Indeterminate for BV. Additional clinical data should be evaluated to establish a diagnosis.Total score 3-6: Indicates the presence of BV.This test was developed and its performance characteristicsdetermined by [employer]. It has not been cleared or approvedby the Food and Drug Administration. Vaginal fluid bacterial vagi nosis associated bacterium 2 DNA detection by probe and tOrdered By: Latricia Campbell on 08-10-2023 Bacterial vaginosis associated bacterium 2 DNA EMERITA+probe Ql (Vag fld) High - 2 Score . [facility] Vaginitis Plus (VG+)on 08-10 Atopobium Vaginae High - 2 Critically abnormal . [facility] Comment on above: Order Comment: SOURC E OF SPECIMEN: SWAB Performed By: #### V AGINITIS+ #### [facility] , BVAB2 High - 2 Critically abnormal . [facility] Comment on above: Order Comment: SOURC E OF SPECIMEN: SWAB Performed By: #### V AGINITIS+ #### [facility] , Concepcion Albicans, EMERITA Negative Normal Negative [facility] Comment on above: Order Comment: SOURC E OF SPECIMEN: SWAB Result Comment: This test was developed and its performance characteristics determined by [facility]. It has not been cleared or approved by the Food and Drug Administration. Performed By: #### V AGINITIS+ #### [facility] , Concepcion Glabrata, EMERITA Negative Normal Negative [facility] Comment on above: Order Comment: SOURC E OF SPECIMEN: SWAB Result Comment: This test was developed and its performance characteristics determined by [facility]. It has not been cleared or approved by the Food and Drug Administration. PERFORMED BY: [address] [place] [address] PATHOLOGIST PROGRAM DIRECTOR CABLE TELEVISION LAYNE ROSA M.D. Performed By: #### V AGINITIS+ #### [facility] , Chlamydia Trachomotis, EMERITA Negative Normal Negative [facility] Comment on above: Order Comment: SOURC E OF SPECIMEN: SWAB Performed By: #### V AGINITIS+ #### [facility] , Megasphaera High - 2 Critically abnormal . [facility] Comment on above: [...] Neisseria Gonorrhoeae, EMERITA Negative Normal Negative [facility] Comment on above: Order Comment: SOURC E OF SPECIMEN: SWAB Result Comment: Perf ormed at: =G - [facility] [address] [place] [id number] Performance Engineer: Kaela Garcia MD, Phone: [phone] Performed By: #### V AGINITIS+ #### [facility] , Tric Vag EEMRITA Negative Normal Negative [facility] Comment on above: Order Comment: SOURC E OF SPECIMEN: SWAB Performed By: #### V AGINITIS+ #### [facility] , Urine 10 SGon 04-26-2023 Albumin DL <= 20 mg/L (U) [Mass/Vol] trace [employer] Other Albumin DL <= 20 mg/L (U) [Mass/Vol] small [employer] Other pH (U) 6.5 [pH] [employer] Other Urine 10 SG Negative [employer] Other Urine 10 SG 1.025 [employer] Other Urine 10 SG 0.2 [employer] Other Urine Cultureon 04-26-2023 Bacteria identified Cx Nom (U) Reason for Exam Leukocytes in urine Urine Reason for Exam: Leukocytes in urine : Urine 50,000 colonies/ml mixed bacterial skin contaminants 2 Days PERFORMED BY: [place] [address] PATHOLOGIST PROGRAM DIRECTOR CABLE TELEVISION LAYNE ROSA M.D. Normal [facility] Comment on above: Performed By: #### C UUBERTA [facility] #### [place] [id number] [facility] CT abdomen pelvis w conon CT abdomen pelvis w [facility] [place] [address] [place] [address] CT Scan Report Signed Patient: Alonso Minaya MR#: [id number] [birth year] : 2000 Acct:[id number] Age/Sex: 22 / F ADM Date: 04/24/23 Loc: ER Room: Type: [facility] ER Attending Dr: Copies to: Pastor Camilo [...] Josias Blum M.D.04/25/2023 10:29 AM Dictation Location: [place] [address] Transcribed By: [facility] 04/25/23 1029 Dictated By: Josias Blum II, MD 04/25/23 1011 Signed By: 04/25/23 1029 Normal [facility] Automated basophil %Ordered By: Pastor Camilo on 04-24-2023 Basophils/100 WBC (Bld) 0.6 % Normal . [facility] Comment on above: Performed By: #### C BC, BMP #### [address] Automated basophil countOrde red By: Pastor Camilo on 04-24-2023 Basophils (Bld) [#/Vol] 0.1 10*3/uL Normal 0.0-0.2 [facility] Comment on above: Result Comment: PERF ORMED BY: [place] [address] PATHOLOGIST PROGRAM DIRECTOR CABLE TELEVISION LAYNE ROSA M.D. Performed By: #### C BC, BMP #### [address] Automated blood monocyte cou ntOrdered By: Pastor Camilo on 04-24-2023 Monocytes (Bld) [#/Vol] 0.6 10*3/uL Normal 0.0-0.8 [facility] Comment on above: Performed By: #### C BC, BMP #### [address] Automated eosinophil %Ordere d By: Pastor Camilo on 04-24-2023 Eosinophils/100 WBC (Bld) 1.0 % Normal . [facility] Comment on above: Performed By: #### C BC, BMP #### [address] Automated eosinophil countOr dered By: Pastor Camilo on 04-24-2023 Eosinophils (Bld) [#/Vol] 0.1 10*3/uL Normal 0.0-0.45 [facility] Comment on above: Performed By: #### C BC, BMP #### [address] Automated erythrocytes count in urine sediment (number/area)Ordered By: Pastor Camilo on 04-24-2023 RBC Auto (Urine sed) [#/Area] 5-9 [HPF] 0-4 [facility] Automated leukocytes count i n urine sediment (number/area)Ordered By: Pastor Camilo on 11-05-2023 WBC Auto (Urine sed) [#/Area] 5-9 [HPF] 0-4 [facility] Automated monocyte %Ordered By: Pastor Camilo on 04-24-2023 Monocytes/100 WBC (Bld) 7.0 % Normal . [facility] Comment on above: Performed By: #### C BC, BMP #### [address] Automated neutrophil %Ordere d By: Pastor Camilo on 04-24-2023 Neutrophils/100 WBC (Bld) 57.0 % Normal . [facility] Comment on above: Performed By: #### C BC, BMP #### [address] Automated urine color determ inationOrdered By: Pastor Camilo on 04-24-2023 Color (U) Yellow Normal Yellow [facility] Comment on above: Order Comment: Name Collection Type:: Clean-Voided Midstream Performed By: #### C UU, ADDONUAPLUS, UHCG #### [address] Basic Metabolic Panelon 11 Creatinine Clr Calc Pharmacy 117.43 Normal [facility] Comment on above: Result Comment: PERF ORMED BY: [place] [address] PATHOLOGIST PROGRAM DIRECTOR CABLE TELEVISION LAYNE ROSA M.D. Performed By: #### C BC, BMP #### [address] GFR/1.73 sq M.predicted MDRD (S/P/Bld) [Vol rate/Area] mL/min/{1.73_m2} Normal [facility] Comment on above: Performed By: #### C BC, BMP #### [address] Bilirubin Test strip Ql (U)O rdered By: Pastor Camilo on 04-24-2023 Bilirubin Ql (U) Negative Negative [facility] Calcium [Mass/volume] in Ser um or PlasmaOrdered By: Pastor Camilo on 04-24-2023 Calcium [Mass/Vol] 9.6 mg/dL Normal 8.6-10.3 [facility] Comment on above: Performed By: #### C BC, BMP #### [address] Carbon dioxide, total [Moles /volume] in Serum or PlasmaOrdered By: Pastor Camilo on 04-24-2023 CO2 [Moles/Vol] 27.6 mmol/L Normal 21.0-31.0 [facility] Comment on above: Performed By: #### C BC, BMP #### [address] Chloride [Moles/volume] in S mary or PlasmaOrdered By: Pastor Camilo on 04-24-2023 Chloride [Moles/Vol] 105 mmol/L Normal 98-107 [facility] Comment on above: Performed By: #### C BC, BMP #### [address] Complete Blood Count Auto Di ffon 04-24-2023 Mean Corpuscular HGB Conc 34.2 g/dL Normal 32.0-35.0 [facility] Comment on above: Performed By: #### C BC, BMP #### [place] [address] [place] Monocytes/100 WBC (Bld) 16.95 % Normal 0.00-20.00 [facility] Comment on above: Performed By: #### C BC, BMP #### [place] [address] [place] NRBC% 0.2 /100{WBC} Normal 0-0.5 [facility] Comment on above: Performed By: #### C BC, BMP #### [place] [address] [place] Creatinine [Mass/volume] in Serum or PlasmaOrdered By: Pastor Camilo on 04-24-2023 Creatinine [Mass/Vol] 0.68 mg/dL Normal 0.60-1.20 [facility] Comment on above: Performed By: #### C BC, BMP #### [address] [address] [place] Dipstick and Microscopicon 1 06-24-2022 Appearance (U) Clear Normal Clear [facility] Comment on above: Order Comment: Name Collection Type:: Clean-Voided Midstream Performed By: #### C UU, ADDONUAPLUS, UHCG #### [address] Bacteria,Urine 1+ High None Seen [facility] Comment on above: Order Comment: Name Collection Type:: Clean-Voided Midstream Performed By: #### C UU, ADDONUAPLUS, UHCG #### [address] Bilirubin,Urine Negative Normal Negative [facility] Comment on above: Order Comment: Name Collection Type:: Clean-Voided Midstream Performed By: #### C UU, ADDONUAPLUS, UHCG #### [address] Glucose Ql (U) Normal Normal Normal [facility] Comment on above: Order Comment: Name Collection Type:: Clean-Voided Midstream Performed By: #### C UU, ADDONUAPLUS, UHCG #### [place] [address] [place] Hyaline Casts,Urine None Seen Normal 0-8 [facility] Comment on above: Order Comment: Name Collection Type:: Clean-Voided Midstream Performed By: #### C UU, ADDONUAPLUS, UHCG #### [address] Ketones Ql (U) Negative Normal Negative [facility] Comment on above: Order Comment: Name Collection Type:: Clean-Voided Midstream Performed By: #### C UU, ADDONUAPLUS, UHCG #### [address] Leukocyte esterase Test strip Ql (U) 2+ High Negative [facility] Comment on above: Order Comment: Name Collection Type:: Clean-Voided Midstream Performed By: #### C UU, ADDONUAPLUS, UHCG #### [place] [address] [place] Nitrite,Urine Negative Normal Negative [facility] Comment on above: Order Comment: Name Collection Type:: Clean-Voided Midstream Performed By: #### C UU, ADDONUAPLUS, UHCG #### [place] [address] [place] Occult Blood,Urine Negative Normal Negative [facility] Comment on above: Order Comment: Name Collection Type:: Clean-Voided Midstream Performed By: #### C UU, ADDONUAPLUS, UHCG #### [place] [address] [place] Protein,Urine Negative Normal Negative [facility] Comment on above: Order Comment: Name Collection Type:: Clean-Voided Midstream Performed By: #### C UU, ADDONUAPLUS, UHCG #### [place] [address] [place] RBC,Urine 5-9 High 0-4 [facility] Comment on above: Order Comment: Name Collection Type:: Clean-Voided Midstream Performed By: #### C UU, ADDONUAPLUS, UHCG #### [address] Specificy [place],Urine 1.013 Normal 1.001-1.03 0 [facility] Comment on above: Order Comment: Name Collection Type:: Clean-Voided Midstream Performed By: #### C UU, ADDONUAPLUS, UHCG #### [place] [address] [place] Squamous Epithelial Cell,Urine 3-4 High 0-2 [facility] Comment on above: Order Comment: Name Collection Type:: Clean-Voided Midstream Performed By: #### C UU, ADDONUAPLUS, UHCG #### [address] Urobilinogen,Urine Normal Normal Normal [facility] Comment on above: Order Comment: Name Collection Type:: Clean-Voided Midstream Performed By: #### C UU, ADDONUAPLUS, UHCG #### [address] WBC,Urine 5-9 High 0-4 [facility] Comment on above: Order Comment: Name Collection Type:: Clean-Voided Midstream Performed By: #### C UU, ADDONUAPLUS, UHCG #### [address] Erythrocyte distribution wid th [Ratio] by Automated countOrdered By: Pastor Camilo on 04-24-2023 Erythrocyte distribution width (RBC) [Ratio] 13.7 % Normal 11.9-15.3 [facility] Comment on above: Performed By: #### C BC, BMP #### [address] Erythrocytes [#/volume] in B lood by Automated countOrdered By: Pastor Camilo on 04-24-2023 RBC (Bld) [#/Vol] 4.68 10*6/uL Normal 3.60-5.00 [facility] Comment on above: Performed By: #### C BC, BMP #### [address] Glucose [Mass/volume] in Ser um or PlasmaOrdered By: Pastor Camilo on 04-24-2023 Glucose [Mass/Vol] 69 mg/dL Low 70-100 [facility] Comment on above: ADA recommended refe rence rangeRandom Glucose Reference Range is dependent on time and content of last meal. Glucose of more than 200 mg/dL in a nonstressed, ambulatory subject supports the diagnosis of Diabetes Mellitus. Result Comment: [place] om Glucose Reference Range is dependent on time and content of last meal. Glucose of more than 200 mg/dL in a nonstressed, ambulatory subject supports the diagnosis of Diabetes Mellitus. ADA recommended reference range Performed By: #### C BC, BMP #### [address] HCG ( test) IAeligio d Ql (U)Ordered By: Pastor Camilo on 04-24-2023 HCG ( test) Ql (U) Negative [facility] HCG,Urineon 04-24-2023 Beta HCG ( test) Ql (U) Negative Normal [facility] Group Comment on above: Order Comment: Name Collection Type:: Clean-Voided Midstream Result Comment: PERF ORMED BY: [place] [address] PATHOLOGIST PROGRAM DIRECTOR CABLE TELEVISION LAYNE ROSA M.D. Performed By: #### C UU, ADDONUAPLUS, CG #### [address] Hematocrit [Volume Fraction] of Blood by Automated countOrdered By: Pastor Camilo on 04-24-2023 Hematocrit (Bld) [Volume fraction] 43.6 % Normal 34.0-46.4 [facility] Comment on above: Performed By: #### C BC, BMP #### [facility] [address] [place] [address] Hemoglobin [Mass/volume] in BloodOrdered By: Pastor Camilo on 04-24-2023 Hemoglobin (Bld) [Mass/Vol] 14.9 g/dL Normal 11.8-15.4 [facility] Comment on above: Performed By: #### C BC, BMP #### [address] Ketones Auto test strip (U) [Mass/Vol]Ordered By: Pastor Camilo on 04-24-2023 Ketones (U) [Mass/Vol] Negative Negative [facility] Laboratory - UrinalysisOrder ed By: Pastor Camilo on 04-24-2023 Hyaline casts LM Ql (Urine sed) None seen [LPF] 0-8 [facility] Leukocytes [#/volume] correc darya for nucleated erythrocytes in Blood by Automated counOrdered By: Pastor Camilo on 04-24-2023 WBC corrected for nucl RBC Auto (Bld) [#/Vol] 8.7 10*3/uL 3.8-11.6 [facility] Leukocytes [#/volume] in Blo od by Automated countOrdered By: Pastor Camilo on 04-24-2023 WBC (Bld) [#/Vol] 8.7 10*3/uL Normal 3.8-11.6 [facility] Comment on above: Performed By: #### C BC, BMP #### [address] Lymphocytes [#/volume] in Bl ood by Automated countOrdered By: Pastor Camilo on 04-24-2023 Lymphocytes (Bld) [#/Vol] 3.0 10*3/uL Normal 1.00-4.8 [facility] Comment on above: Performed By: #### C BC, BMP #### [address] Lymphocytes/100 leukocytes i n Blood by Automated countOrdered By: Pastor Camilo on 04-24-2023 Lymphocytes/100 WBC (Bld) 34.4 % Normal . [facility] Comment on above: Performed By: #### C SKYLAR, BMP #### [address] MCH [Entitic mass] by Automa darya countOrdered By: Pastor Camilo on 04-24-2023 MCH (RBC) [Entitic mass] 31.9 pg Normal 24.7-34.3 [facility] Comment on above: Performed By: #### C SKYLAR, BMP #### [address] MCHC Auto (RBC) [Mass/Vol]Or dered By: Pastor Camilo on 04-24-2023 MCHC (RBC) [Mass/Vol] 34.2 g/dL 32.0-35.0 [facility] MCV [Entitic volume] by Auto mated countOrdered By: Pastor Camilo on 04-24-2023 MCV (RBC) [Entitic vol] 93.3 fL Normal 80-100 [facility] Comment on above: Performed By: #### C BC, BMP #### [address] Monocyte distribution width [Entitic volume] in Blood by AutomatedOrdered By: Pastor Camilo on 04-24-2023 Monocyte distribution width Auto (Bld) [Entitic vol] 16.95 % 0.00-20.00 [facility] Neutrophils [#/volume] in Bl ood by Automated countOrdered By: Pastor Camilo on 04-24-2023 Neutrophils (Bld) [#/Vol] 5.0 10*3/uL Normal 1.8-7.7 [facility] Comment on above: Performed By: #### C SKYLAR, BMP #### [facility] [address] Nitrite Test strip Ql (U)Ord ered By: Pastor Camilo on 04-24-2023 Nitrite Ql (U) Negative Negative [facility] No Panel InformationOrdered By: Pastor Camilo on 04-24-2023 Estimated GFR (CKD-EPI) > 60.0 mL/Min [facility] Creatinine Clearance (Chem 117.43 [facility] Nucleated erythrocytes [Pres ence] in Blood by Automated countOrdered By: Pastor Camilo on 04-24-2023 Nucleated RBC Auto Ql (Bld) 0.2 /100{WBC} 0-0.5 [facility] Platelet mean volume [Entiti c volume] in Blood by Automated countOrdered By: Pastor Camilo on 04-24-2023 Platelet mean volume (Bld) [Entitic vol] 8.8 fL Normal 6.3-10.7 [facility] Comment on above: Performed By: #### C EMA CHENG #### [facility] [address] Platelets [#/volume] in Bloo d by Automated countOrdered By: Pastor Camilo on 04-24-2023 Platelets (Bld) [#/Vol] 224 10*3/uL Normal 150-450 [facility] Comment on above: Performed By: #### C SKYLAR, BMP #### [facility] [address] [place] [address] [place] Potassium [Moles/volume] in Serum or PlasmaOrdered By: Pastor Camilo on 04-24-2023 Potassium [Moles/Vol] 3.3 mmol/L Low 3.5-5.1 [facility] Comment on above: Performed By: #### C BC, BMP #### [facility] [address] [place] [address] [place] Protein Auto test strip (U) [Mass/Vol]Ordered By: Pastor Camilo on 04-24-2023 Protein (U) [Mass/Vol] Negative Negative [facility] Serum or plasma anion gap de terminationOrdered By: Pastor Camilo on 04-24-2023 Anion gap [Moles/Vol] 10.7 mmol/L Normal 6.0-15.0 [facility] Comment on above: Performed By: #### C BC, BMP #### [place] [address] [place] Sodium [Moles/volume] in Ser um or PlasmaOrdered By: Pastor Camilo on 04-24-2023 Sodium [Moles/Vol] 140 mmol/L Normal 136-145 [facility] Comment on above: Performed By: #### C BC, BMP #### [address] Specific gravity Auto test s trip (U) [Rel density]Ordered By: Pasotr Camilo on 04-24-2023 Specific gravity (U) [Rel density] 1.013 1.001-1.03 0 [facility] Squamous epithelial cells de tection in urine sediment by light microscopyOrdered By: Pastor Camilo on 04-24-2023 Epithelial cells.squamous LM Ql (Urine sed) 3-4 [HPF] 0-2 [facility] Urea nitrogen [Mass/volume] in Serum or PlasmaOrdered By: Pastor Camilo on 04-24-2023 Urea nitrogen [Mass/Vol] 11 mg/dL Normal 7-25 [facility] Comment on above: Performed By: #### C BC, BMP #### [place] [address] [place] Urine Cultureon 04-24-2023 Bacteria identified Cx Nom (U) >100,000 colonies/ml mixed bacterial skin contaminants 2 Days PERFORMED BY: [place] [address] PATHOLOGIST PROGRAM DIRECTOR CABLE TELEVISION LAYNE ROSA M.D. Normal [facility] Comment on above: Performed By: #### C UU, ADDONUAPLUS, UHCG #### [address] Urine bacteria detection by automated methodOrdered By: Pastor Camilo on 04-24-2023 Bacteria Auto Ql (U) 1+ None Seen [facility] Urine clarity by refractomet ry automatedOrdered By: Pastor Camilo on 04-24-2023 Clarity Refractometry automated (U) Clear Clear [facility] Urine glucose measurement by automated test strip (mass/volume)Ordered By: Pastor Camilo on 04-24-2023 Glucose Auto test strip (U) [Mass/Vol] Normal mg/dL Normal [facility] Urine hemoglobin detection b y automated test stripOrdered By: Pastor Camilo on 04-24-2023 Hemoglobin Auto test strip Ql (U) Negative Negative [facility] Urine leukocyte esterase det ection by automated test stripOrdered By: Pastor Camilo on 04-24-2023 Leukocyte esterase Auto test strip Ql (U) 2+ Negative [facility] Urine pH measurement by auto mated test stripOrdered By: Pastor Camilo on 04-24-2023 pH (U) 6.5 [pH] Normal 5.0-9.0 [facility] Comment on above: Order Comment: Name Collection Type:: Clean-Voided Midstream Performed By: #### C UU, ADDONUAPLUS, UHCG #### [facility] [address] Urobilinogen Auto test strip (U) [Mass/Vol]Ordered By: Pastor Camilo on 04-24-2023 Urobilinogen (U) [Mass/Vol] Normal mg/dL Normal [facility] Office Visit (Cardiology)on 02-03-2023 Follow-up visit Diagnoses/Problems [...] sinus rhythm with normal QTc interval and VA and QRS duration. Assessment 1. Classic neurocardiogenic [...] pharmacologic therapy Surgical History Problems History of [place] tooth extraction Current Meds Medication NameInstruction Lo [...] negative for complaint. Vitals Vital Signs Recorded: [id number] 03:43PMRecorded: 03Fco2424 03:40PM Systolic Ywaxgjq335, LUE, Sitting Diastolic Fudugfx20, LUE, Sitting Systolic Jervaehs421, LLE, Standing Diastolic Jweckgor01, LLE, Standing Heart Rate Rvjexoc56, L Radial Heart Rate Dpquyxcm54, L Radial Heart Rate88, L Radial Mxnpclhb551, LUE, Sitting Oecoolfqx76, LUE, Sitting Height5 ft 3 in Oguyaw646 lb BMI Wloyugzbci69.98 kg/m2 BSA Calculated1.67 Tobacco Useb) No PHQ-2 [...] Electronically sign (more content not included)... Normal [place] XR forearm RT 2V*on 09-09-19 23 XR forearm RT 2V* [facility] [employer] Other XR forearm RT 2V* [facility] [place] [facility] [employer] Other XR forearm RT 2V* [address] [employer] Other XR forearm RT 2V* NINI Zamora [address] [employer] Other XR forearm RT 2V* XRay Report [employer] Other XR forearm RT 2V* Signed [employer] Other XR forearm RT 2V* Patient: Micky Minaya MR#: [id number] [employer] Other XR forearm RT 2V* : 2000 Acct:[id number] [employer] Other XR forearm RT 2V* Age/Sex: 21 / F ADM Date: 09/08/22 [employer] Other XR forearm RT 2V* Loc: XDUCLY Room: pe: [facility] [employer] Other XR forearm RT 2V* Attending Dr: Latricia PABON [employer] Other XR forearm RT 2V* Copies to: PEPPER Maria [employer] Other XR forearm RT 2V* Ordering Provider: PEPPER Rodriguez [employer] Other XR forearm RT 2V* Date of Service: 09/08/22 [employer] Other XR forearm RT 2V* XR/XR wrist RT min 3V*: RIGHT WRIST INJURY [employer] Other XR forearm RT 2V* ([id number]) XR/XR forearm RT 2V*: RIGHT ARM INJURY [employer] Other XR forearm RT 2V* XR wrist RT min 3V*, XR forearm RT 2V* 09/08/2022 6:43 PM [employer] Other XR forearm RT 2V* SIGNS AND SYMPTOMS: Fall onto right arm with continued right wrist pain along the radial aspect of [employer] Other XR forearm RT 2V* the wrist and right forearm [employer] Other XR forearm RT 2V* PROTOCOL: Frontal, lateral, and oblique radiographs of the right wrist. Frontal and lateral [employer] Other XR forearm RT 2V* radiographs of the r ight forearm. [employer] Other XR forearm RT 2V* COMPARISON: None [employer] Other XR forearm RT 2V* FINDINGS: [employer] Other XR forearm RT 2V* Right wrist: [employer] Other XR forearm RT 2V* The radiocarpal join t space is preserved. The carpal rows are preserved. There is no evidence of [employer] Other XR forearm RT 2V* fracture or dislocat ion. No significant soft tissue swelling. [employer] Other XR forearm RT 2V* Right forearm: [employer] Other XR forearm RT 2V* The bones are in allegra tomic alignment. There is no soft tissue swelling. No fracture. The visualized [employer] Other XR forearm RT 2V* wrist and elbow are grossly intact. [employer] Other XR forearm RT 2V* X R/XR wrist RT min 3V* [employer] Other XR forearm RT 2V* IMPRESSION: [employer] Other XR forearm RT 2V* No fracture. [employer] Other XR forearm RT 2V* Impression dictated by: Josias Blum M.D.09/08/2022 7:15 PM [employer] Other XR forearm RT 2V* Dictation Location: RADIO-PC-13 [employer] Other XR forearm RT 2V* Transcribed By: PWS 09/08/221914 [employer] Other XR forearm RT 2V* Dictated By: Josias Blum II, MD 09/08/221910 [employer] Other XR forearm RT 2V* Signed By: [employer] Other XR forearm RT 2V* 09/08/221914 [place] Other Quick Strepon 09-02-2022 S. pyogenes Org specific cx Ql (Throat) Negative [employer] Other Quick Strep [employer] Other COVID + FLU Quick Testingon 07-13-2022 SARS-CoV-2 (COVID-19) RNA EMERITA+probe Ql (Unsp spec) Negative [employer] Other COVID + FLU Quick Testing Negative [employer] Other RSVon 07-13-2022 RSV Ag IA Ql (Unsp spec) Positive [employer] Other No Panel Informationon 06-23 [facility] DO Work Phone: Office Visit (Cardiology)on 05-24-2022 Follow-up visit Diagnoses/Problems Assessed Tachycardia (785.0) (R00.0) Palpitations (785.1) (R00.2) Hypertension, isolated systolic (401.9) (I10) Never a smoker Overweight with body mass index (BMI) of 27 to 27.9 in adult (278.02,V85.23) (E66.3,Z68.27) Orders Hypertension, isolated systolic, Palpitations, Tachycardia Tilt Table; Status:Hold For - Scheduling,Retrospective Authorization; Requested for:[id number]; Overweight with body mass index (BMI) of 27 to 27.9 in adult Healthy Weight Tips; Status:Complete - Retrospective Authorization; Done: [id number] Some eating tips that can help you lose weight.; Status:Complete - Retrospective Authorization; Done: [id number] SocHx: Never a smoker Tobacco Use Screening; Status:Complete; Done: [id number] Patient Instructions Please bring all medicines, vitamins, [...] is inconsequential Surgical History Problems History of [place] tooth extraction Current Meds Medication NameInstruction Metoprolol [...] Recorded: 24May2022 03:43PM Heart Rate80, R Radial Dilxxrli048, RUE, Sitting Jjykduxhk99, RUE, Sitting Height5 ft 3 in Pcchnd570 lb BMI Ydahvrvfwe85.28 kg/m2 BSA Calculated1.73 Tobacco Useb) No Falls [...] May 24 2022 6:43PM EST (Author) Normal [place] Tobacco Screening.on Fall risk assessment a) No falls within the last year [facility] [address] DO Work Phone: Tobacco use status [facility] b) No [facility] DO Work Phone: Tobacco Screening.on Adult depression screening assessment No [facility] DO Work Phone: Tobacco use status [facility] b) No [facility] DO Work Phone: Vital Signs Date Time Vital Sign Value Performing Clinician Facility 01-22-2024 10:54-0400 Body height 162.56 cm DO Rosa Kuns Work Phone: [facility] 01-22-2024 10:54-0400 Body mass index (BMI) [Ratio] 24.4 kg/m2 DO Rosa Kuns Work Phone: [facility] 01-22-2024 10:54-0400 Body temperature 98 [degF] DO Rosa Kuns Work Phone: [facility] 01-22-2024 10:54-0400 Body weight 64.58 kg DO Rosa Kuns Work Phone: [facility] 01-22-2024 10:54-0400 Diastolic blood pressure 66 mm[Hg] DO Rosa Kuns Work Phone: [facility] 01-22-2024 10:54-0400 Heart rate 74 /min DO Rosa Kuns Work Phone: [facility] 01-22-2024 10:54-0400 Respiratory rate 18 /min DO Rosa Kuns Work Phone: [facility] 01-22-2024 10:54-0400 SaO2% (BldA) [Mass fraction] 98 % DO Rosa Kuns Work Phone: [facility] 01-22-2024 10:54-0400 Systolic blood pressure 101 mm[Hg] DO Rosa Kuns Work Phone: [facility] 01-13-2024 09:47-0400 Body height 162.56 cm DO Rosa Kuns Work Phone: [facility] 01-13-2024 09:47-0400 Body mass index (BMI) [Ratio] 24 kg/m2 DO Rosa Kuns Work Phone: [facility] 01-13-2024 09:47-0400 Body weight 63.5 kg DO Rosa Kuns Work Phone: [facility] 12-05-2023 10:45-0400 Body height 160.[address] [facility] 12-05-2023 10:45-0400 Body mass index (BMI) [Ratio] 24.5 kg/m2 [facility] 12-05-2023 10:45-0400 Body weight [address] [facility] 09-27-2023 09:06-0400 Body height 160.02 cm DO Rosa Kuns Work Phone: [facility] 09-27-2023 09:06-0400 Body mass index (BMI) [Ratio] 24.7 kg/m2 DO Rosa Kuns Work Phone: [facility] 09-27-2023 09:06-0400 Body weight 63.5 kg DO Rosa Kuns Work Phone: [facility] 09-27-2023 09:06-0400 Diastolic blood pressure 64 mm[Hg] DO Rosa Kuns Work Phone: [facility] 09-27-2023 09:06-0400 Heart rate 98 /min DO Rosa Kuns Work Phone: [facility] 09-27-2023 09:06-0400 Respiratory rate 16 /min DO Rosa Kuns Work Phone: [facility] 09-27-2023 09:06-0400 SaO2% (BldA) [Mass fraction] 98 % DO Rosa Kuns Work Phone: [facility] 09-27-2023 09:06-0400 Systolic blood pressure 104 mm[Hg] DO Rosa Kuns Work Phone: [facility] 09-20-2023 13:59-0400 Body height 160.02 cm DO Rosa Kuns Work Phone: [facility] 09-20-2023 13:59-0400 Body mass index (BMI) [Ratio] 23.9 kg/m2 DO Rosa Kuns Work Phone: [facility] 09-20-2023 13:59-0400 Body weight 61.23 kg DO Rosa Kuns Work Phone: [facility] 08-12-2023 11:55-0500 Diastolic blood pressure 74 mm[Hg] DO Rosa Kuns Work Phone: [facility] 08-12-2023 11:55-0500 Heart rate 81 /min DO Rosa Kuns Work Phone: [facility] 08-12-2023 11:55-0500 Respiratory rate 18 /min DO Rosa Kuns Work Phone: [facility] 08-12-2023 11:55-0500 SaO2% (BldA) [Mass fraction] 99 % DO Rosa Kuns Work Phone: [facility] 08-12-2023 11:55-0500 Systolic blood pressure 108 mm[Hg] DO Rosa Kuns Work Phone: [facility] 08-12-2023 10:27-0500 Body height 160.02 cm DO Rosa Kuns Work Phone: [facility] 08-12-2023 10:27-0500 Body temperature 98.2 [degF] DO Rosa Kuns Work Phone: [facility] 08-12-2023 10:27-0500 Body weight 61.23 kg DO Rosa Kuns Work Phone: [facility] 08-10-2023 12:35-0500 Body height 160.[address] [facility] 08-10-2023 12:35-0500 Body mass index (BMI) [Ratio] 23.7 kg/m2 [facility] 08-10-2023 12:35-0500 Body temperature 98.6 [degF] [facility] 08-10-2023 12:35-0500 Body weight 60.[address] [facility] 08-10-2023 12:35-0500 Diastolic blood pressure 74 mm[Hg] [facility] 08-10-2023 12:35-0500 Heart rate 94 /min [facility] 08-10-2023 12:35-0500 Respiratory rate 18 /min [facility] 08-10-2023 12:35-0500 SaO2% (BldA) [Mass fraction] 99 % [facility] 08-10-2023 12:35-0500 Systolic blood pressure 118 mm[Hg] [facility] 06-23-2023 14:29-0500 Body height 160 cm Willy Escudero MD Work Phone: [facility] 06-23-2023 14:29-0500 Body mass index (BMI) [Ratio] 24.09 kg/m2 Willy Escudero MD Work Phone: [facility] 06-23-2023 14:29-0500 Body weight 61.69 kg Willy Escudero MD Work Phone: [facility] 06-23-2023 14:29-0500 Diastolic blood pressure 80 mm[Hg] Willy Escudero MD Work Phone: [facility] 06-23-2023 14:29-0500 Heart rate 70 /min Willy Escudero MD Work Phone: [facility] 06-23-2023 14:29-0500 Systolic blood pressure 110 mm[Hg] Willy Escudero MD Work Phone: [facility] 06-23-2023 12:30-0500 Body height 160.02 cm Rosa Agee Other [facility] 06-23-2023 12:30-0500 Body mass index (BMI) [Ratio] 24.09 kg/m2 Rosa Kuns Other [facility] [employer] Other 06-23-2023 12:30-0500 Body weight 61.69 kg Rosa Kuns Other [facility] [employer] Other 06-23-2023 12:30-0500 Body weight 61.[address] [facility] 06-23-2023 12:30-0500 Diastolic blood pressure 64 mm[Hg] Rosa Kuns Other [facility] 06-23-2023 12:30-0500 Respiratory rate 16 /min Rosa Kuns Other [facility] [employer] Other 06-23-2023 12:30-0500 SaO2% (BldA) [Mass fraction] 99 % Rosa Kuns Other [facility] [employer] Other 06-23-2023 12:30-0500 Systolic blood pressure 104 mm[Hg] Rosa Kuns Other [facility] 04-26-2023 08:45-0500 Body height 160.02 cm Rosa Kuns Other [employer] Other 04-26-2023 08:45-0500 Body mass index (BMI) [Ratio] 24.8 kg/m2 Rosa Kuns Other [employer] [facility] [employer] Other 04-26-2023 08:45-0500 Body weight 63.5 kg Rosa Kuns Other [employer] Other 04-26-2023 08:45-0500 Diastolic blood pressure 80 mm[Hg] Rosa Kuns Other [employer] Other 04-26-2023 08:45-0500 Respiratory rate 16 /min Rosa Kuns Other [facility] [employer] Other 04-26-2023 08:45-0500 SaO2% (BldA) [Mass fraction] 97 % Rosa Kuns Other [facility] [employer] Other 04-26-2023 08:45-0500 Systolic blood pressure 116 mm[Hg] Rosa Kuns Other [facility] [employer] Other 04-24-2023 22:52-0500 Diastolic blood pressure 71 mm[Hg] DO Rosa Kuns Work Phone: [facility] 04-24-2023 22:52-0500 Heart rate 88 /min DO Rosa Kuns Work Phone: [facility] 04-24-2023 22:52-0500 Respiratory rate 18 /min DO Rosa Kuns Work Phone: [facility] 04-24-2023 22:52-0500 SaO2% (BldA) [Mass fraction] 98 % DO Rosa Kuns Work Phone: [facility] 04-24-2023 22:52-0500 Systolic blood pressure 117 mm[Hg] DO Rosa Kuns Work Phone: [facility] 04-24-2023 20:42-0500 Body height 160.02 cm DO Rosa Kuns Work Phone: [facility] 04-24-2023 20:42-0500 Body temperature 98.8 [degF] DO Rosa Kuns Work Phone: [facility] 04-24-2023 20:42-0500 Body weight 64.7 kg DO Rosa Kuns Work Phone: [facility] 09-08-2022 19:30-0400 Body height 160.02 cm Latricia Campbell Other [employer] Other 09-08-2022 19:30-0400 Body mass index (BMI) [Ratio] 25.86 kg/m2 Latricia Campbell Other [employer] Other 09-08-2022 19:30-0400 Body temperature 100.3 [degF] Latricia Campbell Other [employer] Other 09-08-2022 19:30-0400 Body weight 66.23 kg Latricia Campbell Other [employer] Other 09-08-2022 19:30-0400 Diastolic blood pressure 81 mm[Hg] Latricia Campbell Other [employer] Other 09-08-2022 19:30-0400 Respiratory rate 18 /min Latricia Campbell Other [employer] Other 09-08-2022 19:30-0400 SaO2% (BldA) [Mass fraction] 99 % Latricia Campbell Other [employer] Other 09-08-2022 19:30-0400 Systolic blood pressure 124 mm[Hg] Latricia Campbell Other [employer] Other 06-23-2022 10:03-0500 Diastolic blood pressure 71 mm[Hg] DO Rosa Kuns Work Phone: [facility] 06-23-2022 10:03-0500 Heart rate 101 /min DO Rosa Kuns Work Phone: [facility] 06-23-2022 10:03-0500 Systolic blood pressure 122 mm[Hg] DO Rosa Kuns Work Phone: [facility] 06-23-2022 09:21-0500 SaO2% (BldA) [Mass fraction] 99 % DO Rosa Kuns Work Phone: [facility] 06-22-2022 09:33-0500 Body height 160.02 cm DO Rosa Kuns Work Phone: [facility] 06-22-2022 09:33-0500 Body weight 69.85 kg DO Rosa Kuns Work Phone: [facility] 05-24-2022 15:43-0500 Body height 160.02 cm Rosa R Kuns Work Phone: [facility] [employer] 250 DO Work Phone: 05-24-2022 15:43-0500 Body mass index (BMI) [Ratio] 27.28 kg/m2 Rosa R Kuns Work Phone: [facility] 250 DO Work Phone: 05-24-2022 15:43-0500 Body surface area Derived from formula 1.73 m2 Rosa R Kuns Work Phone: [facility] DO Work Phone: 05-24-2022 15:43-0500 Body weight 69.85 kg Rosa R Kuns Work Phone: [facility] DO Work Phone: 05-24-2022 15:43-0500 Diastolic blood pressure 62 mm[Hg] Rosa R Kuns Work Phone: [facility] 250 DO Work Phone: 05-24-2022 15:43-0500 Heart rate 80 /min Rosa R Kuns Work Phone: [facility] DO Work Phone: 12-05-2022 15:43-0500 Systolic blood pressure 100 mm[Hg] Rosa R Kuns Work Phone: [facility] 250 DO Work Phone: 09-08-2021 15:55-0400 Body height 160.02 cm Rosa R Kuns Work Phone: [facility] 250 DO Work Phone: 09-08-2021 15:55-0400 Body mass index (BMI) [Ratio] 26.47 kg/m2 Rosa R Kuns Work Phone: [facility] DO Work Phone: 09-08-2021 15:55-0400 Body surface area Derived from formula 1.71 m2 Rosa R Kuns Work Phone: [facility] DO Work Phone: 09-08-2021 15:55-0400 Body weight 67.77 kg Rosa R Kuns Work Phone: [facility] DO Work Phone: 09-08-2021 15:55-0400 Diastolic blood pressure 77 mm[Hg] Rosa R Kuns Work Phone: [facility] [facility] [facility] DO Work Phone: 09-08-2021 15:55-0400 Heart rate 83 /min Rosa R Kuns Work Phone: [facility] 250 DO Work Phone: 09-08-2021 15:55-0400 Systolic blood pressure 116 mm[Hg] Rosa R Kuns Work Phone: [facility] 250 DO Work Phone: 05-07-2021 14:30-0500 Body height 160.02 cm Rosa Scope [employer]s Other [employer] Other 05-07-2021 14:30-0500 Body mass index (BMI) [Ratio] 26.39 kg/m2 Rosaladonna Hernadezs Other [employer] Other 05-07-2021 14:30-0500 Body weight 67.59 kg Rosaladonna Hernadezs Other [employer] Other 05-07-2021 14:30-0500 Diastolic blood pressure 78 mm[Hg] Rosaladonna Hernadezs Other [employer] Other 05-07-2021 14:30-0500 Respiratory rate 16 /min Rosaladonna Hernadezs Other [employer] Other 05-07-2021 14:30-0500 SaO2% (BldA) [Mass fraction] 98 % Rosaladonna Hernadezpoonam Other [employer] Other 05-07-2021 14:30-0500 Systolic blood pressure 122 mm[Hg] Rosaladonna Hernadezs Other [employer] Other Encounters Encounter Date Encounter Type Care Provider Facility Start: 02-13-2024 End: 02-13-2024 ambulatory EVELYNE CHAVEZ Not Available Start: 01-22-2024 End: 01-22-2024 Patient encounter procedure DO Rosa Kuns Work Phone: [facility] [place] Work Phone: Start: 01-22-2024 End: 01-22-2024 ambulatory DO Rosa Kuns Work Phone: [facility] Work Phone: Start: 01-22-2024 End: 01-22-2024 ambulatory DO Rosa Kuns Work Phone: [facility] Work Phone: Start: 01-22-2024 End: 01-22-2024 Patient encounter procedure DO Rosa Kuns Work Phone: [facility] [place] Work Phone: Start: 01-13-2024 End: 01-13-2024 ambulatory DO Rosa Kuns Work Phone: [facility] Work Phone: Start: 01-13-2024 End: 01-13-2024 Patient encounter procedure DO Rosa Kuns Work Phone: [facility] Physician [facility] Gastroenterology Work Phone: Start: 12-09-2023 End: 12-09-2023 Patient encounter procedure DO Rosa Kuns Work Phone: [facility] [place] Work Phone: Start: 12-09-2023 End: 12-09-2023 ambulatory DO Rosa Kuns Work Phone: [facility] Work Phone: Start: 12-05-2023 End: 12-05-2023 ambulatory [facility] Work Phone: Start: 12-05-2023 End: 12-05-2023 Patient encounter procedure [facility] Physician [facility] Gastroenterology Work Phone: Start: 09-27-2023 End: 09-27-2023 ambulatory DO Rosa Kuns Work Phone: [facility] Work Phone: Start: 09-27-2023 End: 09-27-2023 Patient encounter procedure DO Rosa Kuns Work Phone: [facility] [place] Work Phone: Start: 09-20-2023 End: 09-20-2023 ambulatory DO Rosa Kuns Work Phone: [facility] Work Phone: Start: 09-20-2023 End: 09-20-2023 Patient encounter procedure DO Rosa Kuns Work Phone: [facility] Gastroenterology Work Phone: Start: 08-12-2023 Non-patient / Non-visit DO Rosa Kuns Work Phone: [facility] Gastroenterology Work Phone: Start: 08-12-2023 End: 08-12-2023 Admission to same day surgery center DO Rosa Kuns Work Phone: [facility] Work Phone: Start: 08-12-2023 End: 08-12-2023 ambulatory DO Rosa Kuns Work Phone: [facility] Work Phone: Start: 08-10-2023 End: 08-10-2023 ambulatory DO Rosa Kuns Work Phone: [facility] Work Phone: Start: 08-10-2023 End: 08-10-2023 Departed Referred DO Rosa Kuns Work Phone: [facility] [place] Work Phone: Start: 08-10-2023 End: 08-10-2023 ambulatory [facility] Work Phone: Start: 08-10-2023 End: 08-10-2023 Patient encounter procedure [facility] Physician [facility] [place] Work Phone: Start: 08-01-2023 End: 08-01-2023 ambulatory Cuong Fletcher Other [employer] Other Start: 08-01-2023 Telephone encounter Cuong Mcallister [employer] Start: 07-15-2023 End: 07-15-2023 ambulatory Cuong Fletcher Other [employer] Other Start: 07-15-2023 Office outpatient ne w 30 minutes Cuong Fletcher [facility] Gastroenterology Start: 06-23-2023 End: 06-23-2023 ambulatory WILLY ESCUDERO [facility] [employer] Other Start: 06-23-2023 End: 06-23-2023 Office outpatient visit 15 minutes Willy Escudero MD Work Phone: [facility] Comment on above: Neurologic cardiac s yncope (Primary Dx); Palpitations; Tachycardia Start: 06-23-2023 End: 06-23-2023 Patient encounter procedure [facility] [place] Work Phone: Start: 04-26-2023 Encounter for genera l adult medical examination without abnormal findings Rosa Agee [facility] [place] Start: 04-26-2023 Patient encounter status Rosa Agee Other [facility] [employer] Other Start: 04-26-2023 Periodic preventive med est patient 18-39 yrs Rosa Agee [facility] [place] Start: 04-26-2023 End: 04-26-2023 Patient encounter procedure DO Rosa Kuns Work Phone: [facility] [place] Work Phone: Start: 04-26-2023 End: 04-26-2023 ambulatory DO Rosa Kuns Work Phone: [facility] Work Phone: Start: 04-24-2023 End: 04-24-2023 Emergency department patient visit DO Rosa Kuns Work Phone: [facility] Work Phone: Start: 04-20-2023 End: 04-20-2023 ambulatory Rosa Kuns Other [employer] Other Start: 04-20-2023 Telephone encounter Rosa Agee [facility] [place] Start: 02-03-[address] Rosa Agee Fa cility: Start: 10-20-2022 End: 10-20-[address] ROSA AGEE Facility: Start: 09-08-2022 End: 09-08-2022 Patient encounter procedure DO Rosa Agee Work Phone: [facility] [place] Work Phone: Start: 09-08-2022 End: 09-08-2022 ambulatory DO Rosa Agee Work Phone: [facility] Work Phone: Start: 09-08-2022 Office outpatient visit 15 minutes Latricia Campbell [facility] [place] Start: 09-08-2022 Telephone encounter Rosa Agee [facility] [place] Start: 09-02-2022 End: 09-02-2022 ambulatory Rosa Agee Other [employer] Other Start: 09-02-2022 Nursing evaluation o f patient and report Rosa Agee [facility] [place] Start: 09-02-2022 Telephone encounter Rosa Agee [facility] [place] Start: 07-24-2022 Chart Update Rosa Agee Work Phone: [facility] 250 DO Work Phone: Start: 07-13-2022 End: 07-13-2022 ambulatory Rosa Agee Other [employer] Other Start: 07-13-2022 Nursing evaluation o f patient and report Rosa Agee [facility] [place] Start: 07-13-2022 Telephone encounter Rosa Agee [facility] [place] Start: 07-12-2022 End: 07-12-2022 ambulatory Rosa Agee Other [employer] [facility] [employer] Other Start: 07-12-2022 Telephone encounter Rosa Agee [facility] [place] Start: 06-25-2022 Chart Update Rosa R Satyas Work Phone: [facility] 250 DO Work Phone: Start: 06-23-[address] Rosa Agee Fa cility:[id number] Start: 06-23-2022 End: 06-23-2022 ambulatory DO Rosa Kuns Work Phone: [facility] Work Phone: Start: 06-23-2022 End: 06-23-2022 Patient encounter procedure DO Rosaladonna Hernadezs Work Phone: [facility] Work Phone: Start: 05-24-2022 Office outpatient visit 25 minutes Rosa Agee Work Phone: [facility] 250 DO Work Phone: Start: 05-24-[address] Miladis Morris Facility: Start: 09-29-2021 End: 09-29-2021 ambulatory Rosa Agee Other [facility] [employer] Other Start: 09-29-2021 [address] [facility] Start: 09-08-2021 Office outpatient visit 15 minutes Rosa R Chris Work Phone: [facility] 250 DO Work Phone: Start: 05-07-2021 End: 05-07-2021 ambulatory Rosa Agee Other [facility] [employer] Other Start: 05-07-2021 Office outpatient visit [address] [facility] Procedures Date Procedure Procedure Detail Performing [...] of 2) Zoster Vaccines (1 of 2) [facility] Start: 03-18-2032 DTaP/Tdap/Td Vaccines (8 - Td or Tdap) DTaP/Tdap/Td Vaccines (8 - Td or Tdap) [facility] Start: 10-06-2024 Screening for malignant neoplasm of cervix [facility] Start: 03-23-2024 End: 03-23-2024 Patient encounter procedure 03/23/2024 8:40 AM EDT Office Visit [facility] [address] [id number] Willy Escudero MD [address] [facility] [address] [place] [address] [facility] Start: 12-09-2023 [facility] Start: 08-12-2023 [facility] Start: 08-10-2023 [facility] Start: 04-26-2023 Bacteria identified in Urine by Culture Urine Culture [facility] Start: 04-24-2023 Computed tomography of abdomen and pelvis with contrast CT abdomen pelvis w con [facility] Start: 04-24-2023 CT Abdomen and Pelvis W contrast IV [facility] Start: 04-24-2023 Bacteria identified in Urine by Culture [facility] Start: 04-24-2023 Urine culture Urine Culture [facility] Start: 02-18-2023 Influenza vaccination Influenza Vaccine (#1) [facility] Start: 11-24-2022 FUV, Provider: Willy Escudero, Status: Pen, Time: 3:10 PM FUV, Provider: Willy Escudero, Status: Pen, Time: 3:10 PM [facility] [employer] 250 DO Work Phone: Start: 05-13-2022 Hepatitis B Vaccines (3 of 3 - 3-dose series) Hepatitis B Vaccines (3 of 3 - 3-dose series) [facility] Start: 03-10-2022 FUV, Provider: Miladis Morris, Status: Pen, Time: 9:50 AM FUV, Provider: Miladis Morris, Status: Pen, Time: 9:50 AM [facility] [employer] 250 DO Work Phone: Start: 2021 Screening for malignant neoplasm of cervix HPV/Cotest [facility] Start: 07-02-2021 COVID-19 Vaccine (3 - Pfizer series) COVID-19 Vaccine (3 - Pfizer series) [facility] Start: 2018 Hepatitis C screening Hepatitis C Screening [facility] Start: 09-22-2011 HPV Vaccines (1 - 2-dose series) HPV Vaccines (1 - 2-dose series) [facility] Start: 2000 HIV screening HIV Screening [facility] Start: 2000 Lipid panel Lipid Panel [facility] Start: 2000 Yearly Adult Physical Yearly Adult Physical [facility] Atopobium vaginae DN A [Presence] in Vaginal fluid by EMERITA with probe detection [facility] Bacterial vaginosis associated bacterium 2 DNA [Presence] in Vaginal fluid by EMERITA with probe detection [facility] Endomysial antibody IgA level [facility] Gliadin peptide IgA Ab [Units/volume] in Serum [facility] Gliadin peptide IgG Ab [Units/volume] in Serum [facility] IgA [Mass/volume] in Serum or Plasma [facility] Megasphaera sp type 1 DNA [Presence] in Vaginal fluid by EMERITA with probe detection [facility] Patient Education Constipation, Adult ED [facility] Work Phone: Patient referral [facility] Work Phone: Tissue transglutamin ase IgA Ab [Units/volume] in Serum [facility] Tissue transglutamin ase IgG Ab [Units/volume] in Serum [facility] Immunizations Immunization Date Immunization Notes Care Provider Fa [facility] 03-18-2022 Hepatitis B vaccine (recombinant), CpG adjuvanted Rosa Agee Work Phone: [facility] 250 DO Work Phone: 03-18-2022 hepatitis B vaccine, pediatric or pediatric/adolescent dosage Willy Escudero MD Work Phone: [facility] Work Phone: 03-18-2022 influenza, injectable, quadrivalent, preservative free Rosa Agee Work Phone: [facility] 03-18-2022 tetanus toxoid, reduced diphtheria toxoid, and acellular pertussis vaccine, adsorbed Rosa Agee Work Phone: [facility] 03-18-2022 varicella virus vaccine Rosa Agee Work Phone: [facility] 03-18-2022 influenza virus vaccine, unspecified formulation Willy Escudero MD Work Phone: [facility] Work Phone: 05-07-2021 Pfizer-BioNTTwo Tap COVID-19 Vacc 30 MCG/0.3ML Intramuscular Suspension Rosa Agee Work Phone: [facility] 04-16-2021 Pfizer-BioNTech COVID-19 Vacc 30 MCG/0.3ML Intramuscular Suspension Rosa Agee Work Phone: [facility] 02-08-2018 meningococcal polysaccharide (groups A, C, Y and W-135) diphtheria toxoid conjugate vaccine (MCV4P) Rosa Agee Other [facility] 02-18-2005 diphtheria, tetanus toxoids and acellular pertussis vaccine, unspecified formulation Rosa Agee Work Phone: [facility] 02-18-2005 measles, mumps and rubella virus vaccine Rosaladonna Agee Other [facility] 02-18-2005 poliovirus vaccine, inactivated Rosa Kuns Other [facility] 02-18-2005 poliovirus vaccine, unspecified formulation [facility] 01-25-2002 diphtheria, tetanus toxoids and acellular pertussis vaccine, unspecified formulation Rosa Agee Work Phone: [facility] 01-25-2002 poliovirus vaccine, inactivated Rosa Agee Other [employer] Other 01-25-2002 poliovirus vaccine, unspecified formulation [facility] 10-02-2001 measles, mumps and rubella virus vaccine Rosa Chris Other [facility] 10-02-2001 varicella virus vaccine Rosa Agee Other [facility] 03-27-2001 diphtheria, tetanus toxoids and acellular pertussis vaccine, unspecified formulation Orsa R Chris Work Phone: [facility] 03-27-2001 hepatitis B vaccine, pediatric or pediatric/adolescent dosage Rosa Agee Other [facility] 03-27-2001 pneumococcal conjugate vaccine, 7 valent Rosa Agee Other [facility] 03-27-2001 pneumococcal Conjugate, unspecified formulation [facility] 02-02-2001 diphtheria, tetanus toxoids and acellular pertussis vaccine, unspecified formulation Rosa R Kuns Work Phone: [facility] 02-02-2001 pneumococcal conjugate vaccine, 7 valent Rosa Kuns Other [facility] [employer] Other 02-02-2001 pneumococcal Conjugate, unspecified formulation [facility] 02-02-2001 poliovirus vaccine, inactivated Rosa Kuns Other [facility] [employer] Other 02-02-2001 poliovirus vaccine, unspecified formulation [facility] 2000 diphtheria, tetanus toxoids and acellular pertussis vaccine, unspecified formulation Rosa R Kuns Work Phone: [facility] 2000 pneumococcal conjugate vaccine, 7 valent Rosa Kuns Other [facility] [employer] Other 2000 pneumococcal Conjugate, unspecified formulation [facility] 2000 poliovirus vaccine, inactivated Rosa Kuns Other [facility] [employer] Other 2000 poliovirus vaccine, unspecified formulation [facility] 2000 hepatitis B vaccine, pediatric or pediatric/adolescent dosage Rosa Chris Other [facility] NEGATED: Highlighted row has not occurred! 9 influenza, seasonal, injectable Patient Objection Rosa Agee Other [facility] [employer] Other Payers Date Payer Category Payer Self-pay [id number] 2022 Private Health Insurance [facility] [id number] 2022-Present [address] [place] [address] [id number] 2022 Private Health Insurance [id number] 2000 Unknown [id number] [id number]. 2.356 2000 Unknown [id number] [id number]. 2.356 2000 Unknown [id number] [id number]. 2.356 2000 Unknown [id number] [id number]. 2.1259 2000 Unknown [id number] [id number]. 2.1244 1974 Unknown [id number] [id number]. 2.593 1959 Private Health Insurance [id number] Unknown [facility] Unknown [place] BC/BS [id number] Unknown [id number] [id number]. 2.531 Unknown [id number] [id number]. 2.531 Unknown [id number] [id number]. 2.531 Unknown [id number] [id number]. 2.531 Unknown [id number] [id number]. 2.531 Unknown [id number] [id number]. 2.531 Social History Date Type Detail Facility Start: 06-16-2023 No alcohol use No alcohol use [facility] [employer] Other Start: 06-16-2023 Sex Assigned At N [facility] [employer] Other Start: 2000 Sex Assigned At Female F [facility] Start: 04-24-2023 End: 08-12-2023 Tobacco smoking status NHIS Never smoked tobacco (finding) [facility] Start: 06-16-2023 Tobacco use and exposure Smokeless tobacco non-user [facility] Work Phone: Start: 06-23-2023 Alcohol intake Current drinke r of alcohol (finding) [facility] Work Phone: Start: 2000 Sex Assigned At Not on file U [facility] Work Phone: Start: 06-13-2023 End: 06-23-2023 Exposure to SARS-CoV-2 (event) Not sure [facility] Goals Date Patient Goal Desired Activity /State Clinical Notes 11-13-2020 to 12-05-2023 Note Date & Type Note Facility 12-05-2023 Evaluation note Authored December 05, 2023 11:23am Patient, positive for abdomi nal pain, bowel movements once or twice per week and abdominal cramping. As with Amitiza patient notes nausea vomiting and abdominal discomfort with Trulance dosing [facility] Work Phone: [phone]) 276-221206-17-2024 Evaluation note* [facility] Authored December 05, 2023 11:2 3am Patient, positive for abdomi nal pain, bowel movements once or twice per week and abdominal cramping. As with Amitiza patient notes nausea vomiting and abdominal discomfort with Trulance dosing Author [facility] Authored January 13, 2024 10:[address] scan, normal col onoscopy patient noted for abdominal discomfort and irregular bowel movements. Patient with predominance of IBS-C. Patient is negative for weight loss and rectal bleeding [facility] Work Phone: 1(326) 955-142204-09-2024 Evaluation note* Author Celeste Hernández [facility] Authored September 27, 2023 9:14 am Sooner if needed, the ER if concerns,The above note written by Celeste Hernández LPN acting as human recorder, note dictated by Dr. Rosa Agee [facility] Work Phone: 1(109) 990-784904-09-2024 Evaluation note* Author Celeste Hernández [facility] Authored September 27, 2023 9:14 am Sooner if needed, the ER if concerns,The above note written by Celeste Hernández LPN acting as human recorder, note dictated by Dr. Rosa Agee Author Cuong Fletcher [facility] Authored December 05, 2023 11:2 3am Patient, positive for abdomi nal pain, bowel movements once or twice per week and abdominal cramping. As with Amitiza patient notes nausea vomiting and abdominal discomfort with Trulance dosing [facility] Work Phone: 1([phone]) 100-197902-23-2024 [facility] note* Encounter Date Diagnosis Assessment Notes [...] Pt given samples of linzess- 6 boxes [employer] Other 01-04-2024 History of Present illness Narrative* [...] presence of MD Ash. [facility] Work Phone: 1(912) 120-680201-04-2024 Instructions* Patient Instructions* Adis Baugh MA - [...] time of your visit. [facility] Work Phone: 1(281) 281-263201-04-2024 Evaluation note* Encounter Date Diagnosis Assessment Notes [...] still being worked up by gastro and [facility]. I do encourage patient to follow the plan of care. I also advised Linzess is not safe with Jun, Hyperlipidemia (ICD-10 - E78.5) [employer] Other 11-07-2023 Evaluation note* Encounter Date Diagnosis [...] constipation type (ICD-10 - K59.00) [place] [facility] [place] scan and labs. [...] cyst noted upon CT imaging obtained [place] [facility] [place].The patient does report left sided abdominal pain. The patient encouraged following with gynecology who she sees in [facility] . Apr, Leukocytes in urine (ICD-10 - R82.998) Small leukocytes noted upon in house urinalysis.The patient is asymptomatic at this time. Urine specimen sent for culture. 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 [employer] Other 11-05-2023 Hospital Discharge instructions Additional Instructions 4 capfuls of MiraLAX in juice in the morning and then again in the evening if constipation continues.[facility] Work Phone: 1(952) 966-344111-01-2023 Evaluation note* Encounter Date Diagnosis Assessment Notes Treatment Notes Treatment Clinical Notes Apr, Hyperlipidemia (ICD-10 - E78.5) [employer] Other 03-22-2023 Evaluation note* Encounter Date Diagnosis [...] no improvement in 5 to 7 days [employer] Other 03-16-2023 Evaluation note* Encounter Date Diagnosis Assessment Notes Treatment Notes Treatment Clinical Notes Aug, Sore throat (ICD-10 - J02.9) [employer] Other 01-24-2023 Evaluation note* Encounter Date Diagnosis Assessment Notes Treatment Notes Treatment Clinical Notes Jun, Acute cough (ICD-10 - R05.1) Patient and Dr. Keane were made aware of positive findings. Dr. Keane recommended that she start atb/steriod regimen- see TE for further clinical documentation. [employer] Other 04-12-2022 Evaluation note* Encounter Date Diagnosis Assessment Notes Treatment Notes Treatment Clinical Notes Sep, Hyperlipidemia (ICD-10 - E78.5) [employer] Other 11-18-2021 Evaluation note* Encounter Date Diagnosis [...] pressure and follow with cardiology as scheduled. 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 Medical History ECHO and Stress Test 11/13/2020 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 Medical History Neurocardiogenic syncope Surgical History wisdom teeth [employer] Other evaluation noteNo assessment information available [facility] Work Phone: Evaluation noteNo Information[facility] [employer] Other evaluation note* Diagnosis Neurologic cardiac syncope- Primary Syncope and collapse Palpitations Tachycardia Unspecified tachycardia documented in this encounter [facility] Work Phone: Evaluation note* Diagnosis Onset Date Resolution Status High risk sexual behavior ac chilkoot Vaginal discharge acute [facility] Work Phone: Evaluation note* Diagnosis Onset Date Resolution Status High risk sexual behavior ac chilkoot Vaginal discharge acute Constipation acute [facility] Work Phone: Evaluation note* Author Celeste Hernández [facility] Authored September 27, 2023 9:14 am Sooner if needed, the ER if concerns,The above note written by Celeste Hernández LPN acting as human recorder, note dictated by Dr. Rosa Agee [facility] Work Phone: History and physical note Author Los Hartman [facility] August 12, 2023 11:05am Note Date/Time August 12, 2023 11:05am [facility] [address] [place] [address] Gastroenterology H&P Signed Patient: Alonso Minaya MR#: [id number] : 2000 Acct:[id number] Age/Sex: 22 / F Adm Date: 4 Loc: Room: Type: [facility] Attending Dr: Los Hartman MD Copies to: [...] signed by Los Hartman MD> 08/12/23 110 [facility] Work Phone: Reason for referral (narrative)* Consultation (Routine) - Authorized Specialty Diagnoses / Procedures Referred By Contlisa t Referred To Contact Cardiology Diagnoses Neurologic cardiac syncope Procedures Follow Up In Cardiology Willy Escudero MD [address] [facility] [address] [place] [address] Willy Escudero MD [address] [facility] [address] [place] [address] Referral ID Status Reason Start Date Expiration Date V isits Requested Visits Authorized [id number] Authorized 06/23/2023 06/22/2024 1 1 [facility] Work Phone: Chief Complaint * ALONSO [...] whether the results will change the management. Wewill schedule the patient for tilt table test [...] Primary Care Provider, Attending Provi jie Active Configuration Management Analyst Relationship Specialty Start Date End Date Rosa Agee DO [address] [place] [id number] PCP - General Family Medicine 06/23/23 Team [...] January 22, 2024 End: January 22, 2024 Nicole Martini APRN Attending [...] section and content) DATE CREATED AUTHOR 10/22/2022 Braulio Ayala [facility] DATE CREATED AUTHOR AUTHOR'S ORGANIZ ATION 02/04/2023 [facility] DATE CREATED AUTHOR AUTHOR'S ORGANIZ ATION 02/05/2023 [employer] DATE CREATED AUTHOR AUTHOR'S ORGANIZ ATION 01/26/2024 [facility] DATE CREATED AUTHOR AUTHOR'S ORGANIZ ATION 02/14/2024 [facility] EPIC DATE CREATED AUTHOR AUTHOR'S ORGANIZ ATION 03/08/2024 [facility] FOR RECORDS PERTAINING TO PATIENTS WHO ARE [...] BE BASED ON THE PRIMARY CLINICAL RECORDS. [employer] [facility]. provides no warranty or guarantee of the accuracy or completeness of information in this document.
--- NOTE | 2024-03-14 09:11 | ECG_ITS ---
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
--- NOTE | 2024-03-14 10:14 | XR_ITS ---
The [address] [address] Patient Name: LAONSO MINAYA MRN: [id number] date: 2000 Sex: F Assigned Patient Location: [facility] Current Patient Location: [facility] Accession/Order Number: [id number] Exam Date: 03/14/2024 10:08 Report Date: 03/16/2024 05:46 At the request of: JW ROBERT Procedure: XR chest 2V EXAMINATION: XR chest 2V HISTORY: Preop exam COMPARISON: No relevant comparison available. FINDINGS: LUNGS: No significant pulmonary parenchymal abnormalities. VASCULATURE: No increased pulmonary vasculature. PLEURA: No pneumothorax, effusion, or pleural thickening. CARDIAC: No cardiomegaly or cardiac silhouette abnormality. MEDIASTINUM: No visible mass or adenopathy. BONES: No fracture or visible bone lesion. OTHER: Negative. XR/XR chest 2V IMPRESSION: 1. Normal examination. Electronically authenticated by: WAYNE PARRA Date: 03/16/2024 05:46
[2024-03-14 10:15] LABS: Basophils Percent Auto 0.4 % (0.2-2.0); Eosinophils Absolute Auto 0.1 10^3/uL (0.0-0.7); Eosinophils Percent Auto 0.9 % (0.9-7.0); Hematocrit 40.2 % (36.0-48.0); Hemoglobin 13.8 g/dL (12.0-16.0); Immature Granulocytes Abs Auto 0.01 10^3/uL (0.00-0.03); Immature Granulocytes Pct Auto 0.1 % (0.0-0.5); Lymphocytes Absolute Auto 1.8 10^3/uL (1.2-3.8); Lymphocytes Percent Auto 27.1 % (20.5-60.0); Mean Corpuscular HGB Conc 34.3 g/dL (29.9-35.2); Mean Corpuscular Hemoglobin 32.1 pg (26.7-34.0); Mean Corpuscular Volume 93.5 fL (81.0-99.0); Mean Platelet Volume 10.5 fL (9.5-13.5); Monocytes Absolute Auto 0.4 10^3/uL (0.3-0.8); Monocytes Percent Auto 6.3 % (1.7-12.0); Neutrophils Absolute Auto 4.4 10^3/uL (1.4-6.5); Neutrophils Percent Auto 65.2 % (43.0-75.0); Platelet Count 222 10^3/uL (150-450); Red Cell Distribution Width 12.8 % (11.0-15.0); White Blood Count 6.7 10^3/uL (4.0-11.0)
--- NOTE | 2024-03-14 10:20 | P.GSHP_ITS ---
History of Present Illness History of Present Illness Chief complaint: strain of right achillies tendon Narrative: Patient presents for preadmission testing. Please see HPI from Dr. Muniz dated March 06, 2024. Review of Systems ROS Narrative REVIEW OF SYSTEMS: Negative except as stated in HPI, ten or more systems reviewed. Constitutional: No fever, chills, weakness ENT: No sore throat or epistaxis Cardiovascular: No edema, chest pain, palpitations, or activity intolerance Respiratory: No shortness of breath, cough, or wheezing Gastrointestinal: No abdominal pain, constipation, diarrhea, or vomiting Genitourinary: No dysuria or hematuria Neurological: No numbness, tingling, weakness, or headache Psychiatric: No mood changes [facility] Medical History (Updated 03/14/24 @ 09:41 by Patrizia Wynn NP) Hip pain ?M25.559 - Pain in unspecified hip (ICD-10) Back pain ?M54.9 - Dorsalgia, unspecified (ICD-10) COVID-19 ?U07.1 - COVID-19 (ICD-10) Migraine ?G43.909 - Migraine, unspecified, not intractable, without status migrainosus (ICD-10) IBS (irritable bowel syndrome) ?K58.9 - Irritable bowel syndrome without diarrhea (ICD-10) Constipation ?K59.00 - Constipation, unspecified (ICD-10) Nausea ?R11.0 - Nausea (ICD-10) Contracture, right ankle ?M24.571 - Contracture, right ankle (ICD-10) Cavus deformity of foot ?Q66.70 - Congenital pes cavus, unspecified foot (ICD-10) Right ankle instability ?M25.371 - Other instability, right ankle (ICD-10) Strain of muscle(s) and tendon(s) of peroneal muscle group at lower leg level, right leg, sequela ?S86.311S - Strain of muscle(s) and tendon(s) of peroneal muscle group at lower leg level, right leg, sequela (ICD-10) Strain of right Achilles tendon ?S86.011A - Strain of right Achilles tendon, initial encounter (ICD-10) Left ovarian cyst ?N83.202 - Unspecified ovarian cyst, left side (ICD-10) PCOS (polycystic ovarian syndrome) ?E28.2 - Polycystic ovarian syndrome (ICD-10) Anxiety ?F41.9 - Anxiety disorder, unspecified (ICD-10) Arthritis ?M19.90 - Unspecified osteoarthritis, unspecified site (ICD-10) Tachycardia ?R00.0 - Tachycardia, unspecified (ICD-10) Hypertension ?I10 - Essential (primary) hypertension (ICD-10) Neurogenic syncope ?R55 - Syncope and collapse (ICD-10) Surgical History (Updated 03/14/24 @ 10:21 by Patrizia Wynn NP) H/O colonoscopy ?Z98.890 - Other specified postprocedural states (ICD-10) H/O wisdom tooth extraction ?K08.409 - Partial loss of teeth, unspecified cause, unspecified class (ICD- 10) Family History (Updated 03/14/24 @ 09:41 by Patrizia Wynn NP) Other Cancer Family history of DVT Family history of myocardial infarction Social History (Updated 03/14/24 @ 09:37 by Patrizia Wynn NP) Within the past year, how often did you have a drink containing alcohol: 2-3 times a week Smoking status: Current some day smoker Do you use any of these nicotine containing products: vaping products Non-prescribed substance use: denies use 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 Highest level of school completed/degree received: Associate degree: academic program Meds Home Medications and Allergies Home Medications ?Medication ?Instructions ?Recorded ?Confirmed ?Type linaclotide 72 mcg capsule 72 mcg PO DAILY 03/14/24 03/14/24 History (Linzess) meloxicam 15 mg tablet 15 mg PO DAILY 03/14/24 03/14/24 History metformin 500 mg tablet 500 mg PO DAILY 03/14/24 03/14/24 History ondansetron HCl 4 mg tablet 4 mg PO Q12H PRN nausea and 03/14/24 03/14/24 History vomiting Allergies Allergy/AdvReac Type Severity Reaction Status Date / Time Penicillins Allergy Rash Verified 03/14/24 09:33 Exam Narrative Exam Narrative: Constitutional: Awake, alert, comfortable, well-appearing, nontoxic, interactive, vital signs as charted Head: Normocephalic, atraumatic Neck: Supple, normal appearance, normal range of motion, no meningeal signs, no lymphadenopathy Respiratory: No respiratory distress, breath sounds clear Cardiovascular: Regular rate and rhythm, strong and regular heart tones Skin: No rashes or induration, no lesions, only visible skin inspected Neuro: No neurological deficits, normal sensation Psychiatric: Oriented ?3, normal affect Assessment and Plan Assessment and Plan (1) Strain of muscle(s) and tendon(s) of peroneal muscle group at lower leg level, right leg, sequela: (2) Strain of right Achilles tendon: (3) Cavus deformity of foot: (4) Right ankle instability: (5) Contracture, right ankle: Plan Right Achilles tendon debridement versus repair, possible gastrocnemius recession, peroneal tendon repair versus transfer, stress exam under fluoroscopy with possible lateral ankle stabilization scheduled with Dr. Muniz March 29, 2024.
[2024-03-14 10:32] LABS: Anion Gap 7.5; BUN Creatinine Ratio 35.1; Calcium 8.5 mg/dL (8.5-10.1); Carbon Dioxide 29.3 mmol/L (21.0-32.0); Chloride 105 mmol/L (98-107); Estimated GFR (African America >60 (>=60); Estimated GFR (Non-African Ame >60 (>=60); Glucose 87 mg/dL (74-106); Potassium 3.8 mmol/L (3.5-5.1); Sodium 138 mmol/L (136-145)
== END 2024-03-14 08:53 | disposition home or self-care (01) ==
LOC: PST 08:52
PROVIDERS: PCP Family Medicine; Visit Provider Podiatrist Foot & Ankle Surgery
DX: Z01.810 Encounter for preprocedural cardiovascular examination (principal); Z01.812 Encounter for preprocedural laboratory examination; Z01.818 Encounter for other preprocedural examination; S86.011A Strain of right Achilles tendon, initial encounter; M25.371 Other instability, right ankle
CPT/HCPCS: 71046; 80048; 85025; 85610; 85730; 93005; G0463

== ENCOUNTER 2024-03-21 19:46 | Outpatient (REF) | payer OTHER, SELFPAY ==
--- OUTSIDE RECORDS SUMMARY | 2024-03-21 19:51 | XMS_ITS | CCD ---
Author Organization [facility] Care Team Providers Care Rubber Flap Tuber Machine Operator Name Role Phone Rosa Agee Unavailable Unavailable Unavailable Rosa Agee Unavailable DO Rosa Agee Primary Care Provider [phone] MD Miladis Morris Attending Provider MD Willy Escudero Referring Provider DO Rosa Agee Primary Care Provider [phone] MD Miladis Mroris Attending Provider [phone] MD Willy Escudero Referring Provider PEPPER Campbell Attending Provider [phone] Un[address] ROSA AGEE Primary [...] Unavailabl DO Rosa Johnson Primary Care Provider [phone] MD Pastor Camilo Emergency Provider [phone] DO Rosa Agee Attending Provider Rosa Agee DOer Primary Care Provider Cuong Fletcher Unavailable Satyas, DO Rosa Primary Care Provider [phone] PEPPER Campbell Attending Provider [phone] MD [place] Attending Provider Kuns, Rosa Primary Care Provider [phone] PEPPER Campbell Attending Provider MD [place] Attending Provider Satyas, Rosa Primary Care Provider [phone] MICHAEL Fletcher Attending Provider MICHAEL Martini Attending [...] (antibiotic) (2 sources) Amoxicillin Drug Allergy 4 [facility] (5 sources) Penicillins; Translations: [Penicillins] Allergy to drug (finding) 3 [facility] 3 Repository (20 sources) Penicillin G Drug Allergy 4 [facility] (7 sources) Penicillin; Translations: [penicillin V] Drug Allergy 3 [facility] (20 sources) Amoxicillin; Translations: [AMOXICILLIN] Drug Allergy 4 [facility] (1 source) Amoxicillin Drug Allergy [facility] Repository (1 source) Penicillins Drug Intolerance 3 [facility] Work Phone: (1 source) Amoxicillin Drug Allergy 4 [facility] Repository (1 source) Penicillin Drug Allergy 4 [facility] Repository Medications Current Medications Medication Drug [...] mouth at bedtime as needed for sleep [facility] (No Known Home Meds) (2 sources) Start: 04-24-2023 [facility] [place] (No Known Home Meds) Active April 23, 2023 11:00pm Pneumatic Walking Boot (2 sources) Start: 01-22-2024 Pneumatic Walking Boot Active 0 .Route 1 January 22, 2024 12:00am As directed polyethylene glycol 3350 53043 mg powder for oral solution (1 source) [...] 3V*on 024 XR foot RT min 3V* [facility] Main [place] [address] [place] [address] XRay Report Signed Patient: Alonso Minaya MR#: [id number] 76 : 2000 Acct:[id number] Age/Sex: 23 / F ADM Date: 01/22/24 Loc: [facility] Room: Type: [facility] Attending Dr: Nicole Martini APRN Copies to: [...] Ha Reyes M.D.01/22/2024 11:49 AM Dictation Location: [place] [address] Transcribed By: [facility] 01/22/24 1149 Dictated By: Ha Reyes DO 01/22/24 1145 Signed By: 01/22/24 1149 Normal [facility] Celiacon 12-09-2023 Deamidated Gliadin Abs, IgA 5 Normal 0-19 [facility] Comment on above: Result Comment: Nega tive 0 - 19 Weak Positive 20 - 30 Moderate to Strong Positive >30 Performed By: #### C ELIAC #### [facility] , Deamidated Gliadin Abs, IgG 4 Normal 0-19 [facility] Comment on above: Result Comment: Nega tive 0 - 19 Weak Positive 20 - 30 Moderate to Strong Positive >30 Performed By: #### C ELIAC #### [facility] , Endomysial Antibody IgA Negative Normal Negative [facility] Comment on above: Performed By: #### C ELIAC #### [facility] , Immunoglobulin A, Qn, Serum 120 mg/dL Normal 87-352 [facility] Comment on above: Result Comment: Perf ormed at: - [facility] [address] [id number] Forklift Operator: Liban Seaman PhD, Phone: [phone] PERFORMED BY: [facility] [place] [address] PATHOLOGIST CURLING MACHINE OPERATOR LAYNE ROSA M.D. Performed By: #### C ELIAC #### [facility] , T-Transglutaminase (tTG) IgA <2 Normal 0-3 [facility] Comment on above: Result Comment: Nega tive 0 - 3 Weak Positive 4 - 10 Positive >10 Tissue Transglutaminase (tTG) has been identified as the endomysial antigen. Studies have demonstr- ated that endomysial IgA antibodies have over 99% specificity for gluten sensitive enteropathy. Performed By: #### C ELIAC #### [facility] , T-Transglutaminase (tTG) IgG 4 Normal 0-5 [facility] Comment on above: Result Comment: Nega tive 0 - 5 Weak Positive 6 - 9 Positive >9 Performed By: #### C ELIAC #### [facility] , IgA [Mass/volume] in Serum o r PlasmaOrdered By: Cuong Fletcher on 12-09-2023 IgA [Mass/Vol] 120 mg/dL 87-352 [facility] Comment on above: Performed at: - [facility] [address] [id number] Director: Liban Seaman PhD, Phone: [phone] No Panel InformationOrdered By: Cuong Fletcher on 12-09-2023 Endomysial IgA Antibody Negative Negative [facility] Serum gliadin peptide IgA an tibody assay (units/volume)Ordered By: Cuong Fletcher on 12-09-2023 Gliadin peptide IgA Qn (S) 5 units 0-19 [facility] Comment on above: Negative 0 - 19 Weak Positive 20 - 30 Moderate to Strong Positive >30 Serum gliadin peptide IgG an tibody assay (units/volume)Ordered By: Cuong Fletcher on 12-09-2023 Gliadin peptide IgG Qn (S) 4 units 0-19 [facility] Comment on above: Negative 0 - 19 Weak Positive 20 - 30 Moderate to Strong Positive >30 Serum tissue transglutaminas e (tTG) IgA antibody assay (units/volume)Ordered By: Cuong Fletcher on 12-09-2023 tTG IgA Qn (S) <2 U/mL 0-3 [facility] Comment on above: Negative 0 - 3 Weak Positive 4 - 10 Positive >10 Tissue Transglutaminase (tTG) has been identified as the endomysial antigen. Studies have demonstr- ated that endomysial IgA antibodies have over 99% specificity for gluten sensitive enteropathy. Serum tissue transglutaminas e (tTG) IgG antibody assay (units/volume)Ordered By: Cuong Fletcher on 12-09-2023 tTG IgG Qn (S) 4 U/mL 0-5 [facility] Comment on above: Negative 0 - 5 Weak Positive 6 - 9 Positive >9 HCG ( test) IA.rapi d Ql (U)Ordered By: [place] on 08-12-2023 HCG ( test) Ql (U) Negative [facility] HCG,Urineon 08-12-2023 Beta HCG ( test) Ql (U) Negative Normal [facility] Comment on above: Result Comment: PERF ORMED BY: [place] [address] PATHOLOGIST CURLING MACHINE OPERATOR LAYNE ROSA M.D. Performed By: #### U HCG #### [address] Laboratory - Microbiology an d Antimicrobial susceptibilityOrdered By: Latricia Campbell on 08-10-2023 N. gonorrhoeae DNA EMERITA+probe Ql (Unsp spec) Negative Negative [facility] Comment on above: Performed at: [place] [id number] Director: Kaela Garcia MD, Phone: [phone] No Panel InformationOrdered By: Latricia Campbell on 08-10-2023 Concepcion albicans (EMERITA) Negative Negative [facility] Comment on above: This test was develo ped and its performance characteristicsdetermined by [facility]. It has not been cleared orapproved by the Food and Drug Administration. Concepcion glabrata (EMERITA) Negative Negative [facility] Comment on above: This test was develo ped and its performance characteristicsdetermined by [facility]. It has not been cleared orapproved by the Food and Drug Administration. Chlamydia trachomatis (EMERITA) (LAB) Negative Negative [facility] Trichomonas vaginalis (EMERITA) Negative Negative [facility] Vaginal fluid Atopobium vagi dillon DNA detection by probe and target amplification methoOrdered By: Latricia Campbell on 08-10-2023 A. vaginae DNA EMERITA+probe Ql (Vag fld) High - 2 Score . [facility] Vaginal fluid Megasphaera sp ecies type 1 DNA detection by probe and target amplificatOrdered By: Latricia Campbell on 08-10-2023 Megasphaera sp type 1 DNA EMERITA+probe Ql (Vag fld) High - 2 Score . [facility] Comment on above: Calculate total scor e by adding the 3 individual bacterialvaginosis (BV) marker scores together. Total score isinterpreted as follows:Total score 0-1: Indicates the absence of BV.Total score 2: Indeterminate for BV. Additional clinical data should be evaluated to establish a diagnosis.Total score 3-6: Indicates the presence of BV.This test was developed and its performance characteristicsdetermined by [facility]. It has not been cleared or approvedby the Food and Drug Administration. Vaginal fluid bacterial vagi nosis associated bacterium 2 DNA detection by probe and tOrdered By: Latricia Campbell on 08-10-2023 Bacterial vaginosis associated bacterium 2 DNA EMERITA+probe Ql (Vag fld) High - 2 Score . [facility] Vaginitis Plus (VG+)on 08-10 Atopobium Vaginae High - 2 Critically abnormal . [facility] Comment on above: Order Comment: SOURC E OF SPECIMEN: SWAB Performed By: #### V AGINITIS+ #### [facility] , BVAB2 High - 2 Critically abnormal . [facility] Comment on above: Order Comment: SOURC E OF SPECIMEN: SWAB Performed By: #### V AGINITIS+ #### [facility] , Concepcion Albicans, EMERITA Negative Normal Negative [facility] Comment on above: Order Comment: SOURC E OF SPECIMEN: SWAB Result Comment: This test was developed and its performance characteristics determined by [facility]. It has not been cleared or approved by the Food and Drug Administration. Performed By: #### V AGINITIS+ #### [facility] , Concepcion Glabrata, EMERITA Negative Normal Negative [facility] Comment on above: Order Comment: SOURC E OF SPECIMEN: SWAB Result Comment: This test was developed and its performance characteristics determined by [facility]. It has not been cleared or approved by the Food and Drug Administration. PERFORMED BY: [address] [place] [address] PATHOLOGIST CURLING MACHINE OPERATOR LAYNE ROSA M.D. Performed By: #### V AGINITIS+ #### [facility] , Chlamydia Trachomotis, EMERITA Negative Normal Negative [facility] Comment on above: Order Comment: SOURC E OF SPECIMEN: SWAB Performed By: #### V AGINITIS+ #### [facility] , Megasphaera High - 2 Critically abnormal . [facility] Comment on above: Order [...] Neisseria Gonorrhoeae, EMERITA Negative Normal Negative [facility] Comment on above: Order Comment: SOURC E OF SPECIMEN: SWAB Result Comment: Perf ormed at: =G - [facility] [place] [place] [id number] Forklift Operator: Kaela Garcia MD, Phone: [phone] Performed By: #### V AGINITIS+ #### [facility] , Tric Vag EMERITA Negative Normal Negative [facility] Comment on above: Order Comment: SOURC E OF SPECIMEN: SWAB Performed By: #### V AGINITIS+ #### [facility] , Urine 10 SGon 04-26-2023 Albumin DL <= 20 mg/L (U) [Mass/Vol] trace [facility] Other Albumin DL <= 20 mg/L (U) [Mass/Vol] small [facility] Other pH (U) 6.5 [pH] [facility] Other Urine 10 SG Negative [facility] Other Urine 10 SG 1.025 [facility] Other Urine 10 SG 0.2 [facility] Other Urine Cultureon 04-26-2023 Bacteria identified Cx Nom (U) Reason for Exam Leukocytes in urine Urine Reason for Exam: Leukocytes in urine : Urine 50,000 colonies/ml mixed bacterial skin contaminants 2 Days PERFORMED BY: [place] [address] PATHOLOGIST CURLING MACHINE OPERATOR LAYNE ROSA M.D. Normal [facility] Comment on above: Performed By: #### C UUBERTA [facility] #### [place] [id number] [facility] CT abdomen pelvis w conon CT abdomen pelvis w [facility] Main [place] [address] [place] [address] CT Scan Report Signed Patient: Alonso Minaya MR#: [id number] 76 : 2000 Acct:[id number] Age/Sex: 22 / F ADM Date: 04/24/23 Loc: ER Room: Type: [facility] ER Attending Dr: Copies to: Pastor Camilo [...] Josias Blum M.D.04/25/2023 10:29 AM Dictation Location: [place] [address] Transcribed By: [facility] 04/25/23 1029 Dictated By: Josias Blum II, MD 04/25/23 1011 Signed By: 04/25/23 1029 Normal [facility] Automated basophil %Ordered By: Pastor Camilo on 04-24-2023 Basophils/100 WBC (Bld) 0.6 % Normal . [facility] Comment on above: Performed By: #### C BC, BMP #### [address] Automated basophil countOrde red By: Pastor Camilo on 04-24-2023 Basophils (Bld) [#/Vol] 0.1 10*3/uL Normal 0.0-0.2 [facility] Comment on above: Result Comment: PERF ORMED BY: [place] [address] PATHOLOGIST CURLING MACHINE OPERATOR LAYNE ROSA M.D. Performed By: #### C BC, BMP #### [address] Automated blood monocyte cou ntOrdered By: Pastor Camilo on 04-24-2023 Monocytes (Bld) [#/Vol] 0.6 10*3/uL Normal 0.0-0.8 [facility] Comment on above: Performed By: #### C BC, BMP #### [address] Automated eosinophil %Ordere d By: Pastor Camilo on 04-24-2023 Eosinophils/100 WBC (Bld) 1.0 % Normal . [facility] Comment on above: Performed By: #### C BC, BMP #### [address] Automated eosinophil countOr dered By: Pastor Camilo on 04-24-2023 Eosinophils (Bld) [#/Vol] 0.1 10*3/uL Normal 0.0-0.45 [facility] Comment on above: Performed By: #### C BC, BMP #### [address] Automated erythrocytes count in urine sediment (number/area)Ordered By: Pastor Camilo on 04-24-2023 RBC Auto (Urine sed) [#/Area] 5-9 [HPF] 0-4 [facility] Automated leukocytes count i n urine sediment (number/area)Ordered By: Pastor Camilo on 11-05-2023 WBC Auto (Urine sed) [#/Area] 5-9 [HPF] 0-4 [facility] Automated monocyte %Ordered By: Pastor Camilo on 04-24-2023 Monocytes/100 WBC (Bld) 7.0 % Normal . [facility] Comment on above: Performed By: #### C BC, BMP #### [address] Automated neutrophil %Ordere d By: Pastor Camilo on 04-24-2023 Neutrophils/100 WBC (Bld) 57.0 % Normal . [facility] Comment on above: Performed By: #### C BC, BMP #### [address] Automated urine color determ inationOrdered By: Pastor Camilo on 04-24-2023 Color (U) Yellow Normal Yellow [facility] Comment on above: Order Comment: Name Collection Type:: Clean-Voided Midstream Performed By: #### C UU, ADDONUAPLUS, UHCG #### [address] Basic Metabolic Panelon 11 Creatinine Clr Cal[facility] Pharmacy 117.43 Normal [facility] Comment on above: Result Comment: PERF ORMED BY: [place] [address] PATHOLOGIST CURLING MACHINE OPERATOR LAYNE ROSA M.D. Performed By: #### C BC, BMP #### [address] GFR/1.73 sq M.predicted MDRD (S/P/Bld) [Vol rate/Area] mL/min/{1.73_m2} Normal [facility] Comment on above: Performed By: #### C BC, BMP #### [address] Bilirubin Test strip Ql (U)O rdered By: Pastor Camilo on 04-24-2023 Bilirubin Ql (U) Negative Negative [facility] Calcium [Mass/volume] in Ser um or PlasmaOrdered By: Pastor Camilo on 04-24-2023 Calcium [Mass/Vol] 9.6 mg/dL Normal 8.6-10.3 [facility] Comment on above: Performed By: #### C BC, BMP #### [address] Carbon dioxide, total [Moles /volume] in Serum or PlasmaOrdered By: Pastor Camilo on 04-24-2023 CO2 [Moles/Vol] 27.6 mmol/L Normal 21.0-31.0 [facility] Comment on above: Performed By: #### C BC, BMP #### [address] Chloride [Moles/volume] in S mary or PlasmaOrdered By: Pastor Camilo on 04-24-2023 Chloride [Moles/Vol] 105 mmol/L Normal 98-107 [facility] Comment on above: Performed By: #### C BC, BMP #### [address] Complete Blood Count Auto Di ffon 04-24-2023 Mean Corpuscular HGB Conc 34.2 g/dL Normal 32.0-35.0 [facility] Comment on above: Performed By: #### C BC, BMP #### [place] [address] [place] Monocytes/100 WBC (Bld) 16.95 % Normal 0.00-20.00 [facility] Comment on above: Performed By: #### C BC, BMP #### [place] [address] [place] NRBC% 0.2 /100{WBC} Normal 0-0.5 [facility] Comment on above: Performed By: #### C BC, BMP #### [place] [address] [place] Creatinine [Mass/volume] in Serum or PlasmaOrdered By: Pastor Camilo on 04-24-2023 Creatinine [Mass/Vol] 0.68 mg/dL Normal 0.60-1.20 [facility] Comment on above: Performed By: #### C BC, BMP #### [address] [address] [place] Dipstick and Microscopicon 1 06-24-2022 Appearance (U) Clear Normal Clear [facility] Comment on above: Order Comment: Name Collection Type:: Clean-Voided Midstream Performed By: #### C UU, ADDONUAPLUS, UHCG #### [address] Bacteria,Urine 1+ High None Seen [facility] Comment on above: Order Comment: Name Collection Type:: Clean-Voided Midstream Performed By: #### C UU, ADDONUAPLUS, UHCG #### [address] Bilirubin,Urine Negative Normal Negative [facility] Comment on above: Order Comment: Name Collection Type:: Clean-Voided Midstream Performed By: #### C UU, ADDONUAPLUS, UHCG #### [address] Glucose Ql (U) Normal Normal Normal [facility] Comment on above: Order Comment: Name Collection Type:: Clean-Voided Midstream Performed By: #### C UU, ADDONUAPLUS, UHCG #### [place] [address] [place] Hyaline Casts,Urine None Seen Normal 0-8 [facility] Comment on above: Order Comment: Name Collection Type:: Clean-Voided Midstream Performed By: #### C UU, ADDONUAPLUS, UHCG #### [address] Ketones Ql (U) Negative Normal Negative [facility] Comment on above: Order Comment: Name Collection Type:: Clean-Voided Midstream Performed By: #### C UU, ADDONUAPLUS, UHCG #### [address] Leukocyte esterase Test strip Ql (U) 2+ High Negative [facility] Comment on above: Order Comment: Name Collection Type:: Clean-Voided Midstream Performed By: #### C UU, ADDONUAPLUS, UHCG #### [place] [address] [place] Nitrite,Urine Negative Normal Negative [facility] Comment on above: Order Comment: Name Collection Type:: Clean-Voided Midstream Performed By: #### C UU, ADDONUAPLUS, UHCG #### [place] [address] [place] Occult Blood,Urine Negative Normal Negative [facility] Comment on above: Order Comment: Name Collection Type:: Clean-Voided Midstream Performed By: #### C UU, ADDONUAPLUS, UHCG #### [place] [address] [place] Protein,Urine Negative Normal Negative [facility] Comment on above: Order Comment: Name Collection Type:: Clean-Voided Midstream Performed By: #### C UU, ADDONUAPLUS, UHCG #### [place] [address] [place] RBC,Urine 5-9 High 0-4 [facility] Comment on above: Order Comment: Name Collection Type:: Clean-Voided Midstream Performed By: #### C UU, ADDONUAPLUS, UHCG #### [address] Specificy [place],Urine 1.013 Normal 1.001-1.03 0 [facility] Comment on above: Order Comment: Name Collection Type:: Clean-Voided Midstream Performed By: #### C UU, ADDONUAPLUS, UHCG #### [place] [address] [place] Squamous Epithelial Cell,Urine 3-4 High 0-2 [facility] Comment on above: Order Comment: Name Collection Type:: Clean-Voided Midstream Performed By: #### C UU, ADDONUAPLUS, UHCG #### [address] Urobilinogen,Urine Normal Normal Normal [facility] Comment on above: Order Comment: Name Collection Type:: Clean-Voided Midstream Performed By: #### C UU, ADDONUAPLUS, UHCG #### [address] WBC,Urine 5-9 High 0-4 [facility] Comment on above: Order Comment: Name Collection Type:: Clean-Voided Midstream Performed By: #### C UU, ADDONUAPLUS, UHCG #### [address] Erythrocyte distribution wid th [Ratio] by Automated countOrdered By: Pastor Camilo on 04-24-2023 Erythrocyte distribution width (RBC) [Ratio] 13.7 % Normal 11.9-15.3 [facility] Comment on above: Performed By: #### C BC, BMP #### [address] Erythrocytes [#/volume] in B lood by Automated countOrdered By: Pastor Camilo on 04-24-2023 RBC (Bld) [#/Vol] 4.68 10*6/uL Normal 3.60-5.00 [facility] Comment on above: Performed By: #### C BC, BMP #### [address] Glucose [Mass/volume] in Ser um or PlasmaOrdered By: Pastor Camilo on 04-24-2023 Glucose [Mass/Vol] 69 mg/dL Low 70-100 [facility] Comment on above: ADA recommended refe rence rangeRandom Glucose Reference Range is dependent on time and content of last meal. Glucose of more than 200 mg/dL in a nonstressed, ambulatory subject supports the diagnosis of Diabetes Mellitus. Result Comment: [place] om Glucose Reference Range is dependent on time and content of last meal. Glucose of more than 200 mg/dL in a nonstressed, ambulatory subject supports the diagnosis of Diabetes Mellitus. ADA recommended reference range Performed By: #### C BC, BMP #### [address] HCG ( test) IAeligio d Ql (U)Ordered By: Pastor Camilo on 04-24-2023 HCG ( test) Ql (U) Negative [facility] HCG,Urineon 04-24-2023 Beta HCG ( test) Ql (U) Negative Normal [facility] Comment on above: Order Comment: Name Collection Type:: Clean-Voided Midstream Result Comment: PERF ORMED BY: [place] [address] PATHOLOGIST CURLING MACHINE OPERATOR LAYNE ROSA M.D. Performed By: #### C UU, ADDONUAPLUS, CG #### [address] Hematocrit [Volume Fraction] of Blood by Automated countOrdered By: Pastor Camilo on 04-24-2023 Hematocrit (Bld) [Volume fraction] 43.6 % Normal 34.0-46.4 [facility] Comment on above: Performed By: #### C BC, BMP #### [facility] [address] [place] [address] Hemoglobin [Mass/volume] in BloodOrdered By: Pastor Camilo on 04-24-2023 Hemoglobin (Bld) [Mass/Vol] 14.9 g/dL Normal 11.8-15.4 [facility] Comment on above: Performed By: #### C BC, BMP #### [address] Ketones Auto test strip (U) [Mass/Vol]Ordered By: Pastor Camilo on 04-24-2023 Ketones (U) [Mass/Vol] Negative Negative [facility] Laboratory - UrinalysisOrder ed By: Pastor Camilo on 04-24-2023 Hyaline casts LM Ql (Urine sed) None seen [LPF] 0-8 [facility] Leukocytes [#/volume] correc darya for nucleated erythrocytes in Blood by Automated counOrdered By: Pastor Camilo on 04-24-2023 WBC corrected for nucl RBC Auto (Bld) [#/Vol] 8.7 10*3/uL 3.8-11.6 [facility] Leukocytes [#/volume] in Blo od by Automated countOrdered By: Pastor Camilo on 04-24-2023 WBC (Bld) [#/Vol] 8.7 10*3/uL Normal 3.8-11.6 [facility] Comment on above: Performed By: #### C BC, BMP #### [address] Lymphocytes [#/volume] in Bl ood by Automated countOrdered By: Pastor Camilo on 04-24-2023 Lymphocytes (Bld) [#/Vol] 3.0 10*3/uL Normal 1.00-4.8 [facility] Comment on above: Performed By: #### C BC, BMP #### [address] Lymphocytes/100 leukocytes i n Blood by Automated countOrdered By: Pastor Camilo on 04-24-2023 Lymphocytes/100 WBC (Bld) 34.4 % Normal . [facility] Comment on above: Performed By: #### C SKYLAR, BMP #### [address] MCH [Entitic mass] by Automa darya countOrdered By: Pastor Camilo on 04-24-2023 MCH (RBC) [Entitic mass] 31.9 pg Normal 24.7-34.3 [facility] Comment on above: Performed By: #### C SKYLAR, BMP #### [address] MCHC Auto (RBC) [Mass/Vol]Or dered By: Pastor Camilo on 04-24-2023 MCHC (RBC) [Mass/Vol] 34.2 g/dL 32.0-35.0 [facility] MCV [Entitic volume] by Auto mated countOrdered By: Pastor Camilo on 04-24-2023 MCV (RBC) [Entitic vol] 93.3 fL Normal 80-100 [facility] Comment on above: Performed By: #### C BC, BMP #### [address] Monocyte distribution width [Entitic volume] in Blood by AutomatedOrdered By: Pastor Camilo on 04-24-2023 Monocyte distribution width Auto (Bld) [Entitic vol] 16.95 % 0.00-20.00 [facility] Neutrophils [#/volume] in Bl ood by Automated countOrdered By: Pastor Camilo on 04-24-2023 Neutrophils (Bld) [#/Vol] 5.0 10*3/uL Normal 1.8-7.7 [facility] Comment on above: Performed By: #### C SKYLAR, BMP #### [facility] [address] Nitrite Test strip Ql (U)Ord ered By: Pastor Camilo on 04-24-2023 Nitrite Ql (U) Negative Negative [facility] No Panel InformationOrdered By: Pastor Camilo on 04-24-2023 Estimated GFR (CKD-EPI) > 60.0 mL/Min [facility] Creatinine Clearance (Chem 117.43 [facility] Nucleated erythrocytes [Pres ence] in Blood by Automated countOrdered By: Pastor Camilo on 04-24-2023 Nucleated RBC Auto Ql (Bld) 0.2 /100{WBC} 0-0.5 [facility] Platelet mean volume [Entiti c volume] in Blood by Automated countOrdered By: Pastor Camilo on 04-24-2023 Platelet mean volume (Bld) [Entitic vol] 8.8 fL Normal 6.3-10.7 [facility] Comment on above: Performed By: #### C EMA CHENG #### [facility] [address] Platelets [#/volume] in Bloo d by Automated countOrdered By: Pastor Camilo on 04-24-2023 Platelets (Bld) [#/Vol] 224 10*3/uL Normal 150-450 [facility] Comment on above: Performed By: #### C SKYLAR, BMP #### [facility] [address] [place] [address] [place] Potassium [Moles/volume] in Serum or PlasmaOrdered By: Pastor Camilo on 04-24-2023 Potassium [Moles/Vol] 3.3 mmol/L Low 3.5-5.1 [facility] Comment on above: Performed By: #### C BC, BMP #### [facility] [address] [place] [address] [place] Protein Auto test strip (U) [Mass/Vol]Ordered By: Pastor Camilo on 04-24-2023 Protein (U) [Mass/Vol] Negative Negative [facility] Serum or plasma anion gap de terminationOrdered By: Pastor Camilo on 04-24-2023 Anion gap [Moles/Vol] 10.7 mmol/L Normal 6.0-15.0 [facility] Comment on above: Performed By: #### C BC, BMP #### [place] [address] [place] Sodium [Moles/volume] in Ser um or PlasmaOrdered By: Pastor Camilo on 04-24-2023 Sodium [Moles/Vol] 140 mmol/L Normal 136-145 [facility] Comment on above: Performed By: #### C BC, BMP #### [address] Specific gravity Auto test s trip (U) [Rel density]Ordered By: Pastor Camilo on 04-24-2023 Specific gravity (U) [Rel density] 1.013 1.001-1.03 0 [facility] Squamous epithelial cells de tection in urine sediment by light microscopyOrdered By: Pastor Camilo on 04-24-2023 Epithelial cells.squamous LM Ql (Urine sed) 3-4 [HPF] 0-2 [facility] Urea nitrogen [Mass/volume] in Serum or PlasmaOrdered By: Pastor Camilo on 04-24-2023 Urea nitrogen [Mass/Vol] 11 mg/dL Normal 7-25 [facility] Comment on above: Performed By: #### C BC, BMP #### [place] [address] [place] Urine Cultureon 04-24-2023 Bacteria identified Cx Nom (U) >100,000 colonies/ml mixed bacterial skin contaminants 2 Days PERFORMED BY: [place] [address] PATHOLOGIST CURLING MACHINE OPERATOR LAYNE ROSA M.D. Normal [facility] Comment on above: Performed By: #### C UU, ADDONUAPLUS, UHCG #### [address] Urine bacteria detection by automated methodOrdered By: Pastor Camilo on 04-24-2023 Bacteria Auto Ql (U) 1+ None Seen [facility] Urine clarity by refractomet ry automatedOrdered By: Pastor Camilo on 04-24-2023 Clarity Refractometry automated (U) Clear Clear [facility] Urine glucose measurement by automated test strip (mass/volume)Ordered By: Pastor Camilo on 04-24-2023 Glucose Auto test strip (U) [Mass/Vol] Normal mg/dL Normal [facility] Urine hemoglobin detection b y automated test stripOrdered By: Pastor Camilo on 04-24-2023 Hemoglobin Auto test strip Ql (U) Negative Negative [facility] Urine leukocyte esterase det ection by automated test stripOrdered By: Pastor Camilo on 04-24-2023 Leukocyte esterase Auto test strip Ql (U) 2+ Negative [facility] Urine pH measurement by auto mated test stripOrdered By: Pastor Camilo on 04-24-2023 pH (U) 6.5 [pH] Normal 5.0-9.0 [facility] Comment on above: Order Comment: Name Collection Type:: Clean-Voided Midstream Performed By: #### C UU, ADDONUAPLUS, UHCG #### [facility] [address] Urobilinogen Auto test strip (U) [Mass/Vol]Ordered By: Pastor Camilo on 04-24-2023 Urobilinogen (U) [Mass/Vol] Normal mg/dL Normal [facility] Office Visit (Cardiology)on 02-03-2023 Follow-up visit [...] sinus rhythm with normal QTc interval and CT and QRS duration. Assessment 1. Classic neurocardiogenic [...] pharmacologic therapy Surgical History Problems History of [facility] tooth extraction Current Meds Medication NameInstruction Lo [...] negative for complaint. Vitals Vital Signs Recorded: [id number] 03:43PMRecorded: 51Lba5163 03:40PM Systolic Hnkstpp225, LUE, Sitting Diastolic Utwyvrh59, LUE, Sitting Systolic Abgutowm753, LLE, Standing Diastolic Pnnulemk70, LLE, Standing Heart Rate Pakggsk77, L Radial Heart Rate Tiosocsc34, L Radial Heart Rate88, L Radial Whrvjlfj843, LUE, Sitting Dorvwabbd27, LUE, Sitting Height5 ft 3 in Lidnmd919 lb BMI Rupgcbzczb97.98 kg/m2 BSA Calculated1.67 Tobacco Useb) No PHQ-2 [...] Electronically sign (more content not included)... Normal [facility] XR forearm RT 2V*on 09-09-19 23 XR forearm RT 2V* [facility] [employer] Other XR forearm RT 2V* [facility] [employer] Other XR forearm RT 2V* [address] [employer] Other XR forearm RT 2V* NINI Zamora [address] [employer] Other XR forearm RT 2V* XRay Report [employer] Other XR forearm RT 2V* Signed [employer] Other XR forearm RT 2V* Patient: Micky Minaya MR#: [id number] [facility] Other XR forearm RT 2V* : 2000 Acct:[id number] [employer] Other XR forearm RT 2V* Age/Sex: 21 / F ADM Date: 09/08/22 [employer] Other XR forearm RT 2V* Loc: XDUCLY Room: pe: [facility] [employer] Other XR forearm RT 2V* Attending Dr: Latricia PABON [employer] Other XR forearm RT 2V* Copies to: PEPPER Maria [employer] Other XR forearm RT 2V* Ordering Provider: PEPPER Rodriguez [employer] Other XR forearm RT 2V* Date of Service: 09/08/22 [employer] Other XR forearm RT 2V* XR/XR wrist RT min 3V*: RIGHT WRIST INJURY [employer] Other XR forearm RT 2V* ([id number]) XR/XR forearm RT 2V*: RIGHT ARM INJURY [employer] Other XR forearm RT 2V* XR wrist RT min 3V*, XR forearm RT 2V* 09/08/2022 6:43 PM [employer] Other XR forearm RT 2V* SIGNS AND SYMPTOMS: Fall onto right arm with continued right wrist pain along the radial aspect of [employer] Other XR forearm RT 2V* the wrist and right forearm [employer] Other XR forearm RT 2V* PROTOCOL: Frontal, lateral, and oblique radiographs of the right wrist. Frontal and lateral [employer] Other XR forearm RT 2V* radiographs of the r ight forearm. [employer] Other XR forearm RT 2V* COMPARISON: None N [facility] Other XR forearm RT 2V* FINDINGS: [employer] Other XR forearm RT 2V* Right wrist: [employer] Other XR forearm RT 2V* The radiocarpal join t space is preserved. The carpal rows are preserved. There is no evidence of [employer] Other XR forearm RT 2V* fracture or dislocat ion. No significant soft tissue swelling. [employer] Other XR forearm RT 2V* Right forearm: Nor [employer] Other XR forearm RT 2V* The bones are in allegra tomic alignment. There is no soft tissue swelling. No fracture. The visualized [employer] Other XR forearm RT 2V* wrist and elbow are grossly intact. [employer] Other XR forearm RT 2V* X R/XR wrist RT min 3V* [employer] Other XR forearm RT 2V* IMPRESSION: [employer] Other XR forearm RT 2V* No fracture. [employer] Other XR forearm RT 2V* Impression dictated by: Josias Blum M.D.09/08/2022 7:15 PM [employer] Other XR forearm RT 2V* Dictation Location: RADIO-PC-13 [employer] Other XR forearm RT 2V* Transcribed By: PWS 09/08/221914 [employer] Other XR forearm RT 2V* Dictated By: Josias Blum II, MD 09/08/221910 [employer] Other XR forearm RT 2V* Signed By: Napier Nava [employer] Other XR forearm RT 2V* 09/08/221914 [facility] [employer] Other Quick Strepon 09-02-2022 S. pyogenes Org specific cx Ql (Throat) Negative [employer] Other Quick Strep [employer] Other COVID + FLU Quick Testingon 07-13-2022 SARS-CoV-2 (COVID-19) RNA EMERITA+probe Ql (Unsp spec) Negative [employer] Other COVID + FLU Quick Testing Negative [employer] Other RSVon 07-13-2022 RSV Ag IA Ql (Unsp spec) Positive [employer] Other No Panel Informationon 06-23 [facility] DO Work Phone: Office Visit (Cardiology)on 05-24-2022 Follow-up visit Diagnoses/Problems Assessed Tachycardia (785.0) (R00.0) Palpitations (785.1) (R00.2) Hypertension, isolated systolic (401.9) (I10) Never a smoker Overweight with body mass index (BMI) of 27 to 27.9 in adult (278.02,V85.23) (E66.3,Z68.27) Orders Hypertension, isolated systolic, Palpitations, Tachycardia Tilt Table; Status:Hold For - Scheduling,Retrospective Authorization; Requested for:[id number]; Overweight with body mass index (BMI) of 27 to 27.9 in adult Healthy Weight Tips; Status:Complete - Retrospective Authorization; Done: [id number] Some eating tips that can help you lose weight.; Status:Complete - Retrospective Authorization; Done: [id number] SocHx: Never a smoker Tobacco Use Screening; Status:Complete; Done: [id number] Patient Instructions Please bring all medicines, vitamins, [...] is inconsequential Surgical History Problems History of [facility] tooth extraction Current Meds Medication NameInstruction Metoprolol [...] Recorded: 24May2022 03:43PM Heart Rate80, R Radial Vkkywhta580, RUE, Sitting Huqkykrvx07, RUE, Sitting Height5 ft 3 in Yvdspl136 lb BMI Luwwocjtif98.28 kg/m2 BSA Calculated1.73 Tobacco Useb) No Falls [...] May 24 2022 6:43PM EST (Author) Normal [facility] [employer] Tobacco Screening.on Fall risk assessment a) No falls within the last year [facility] DO Work Phone: Tobacco use status [facility] b) No [facility] DO Work Phone: Tobacco Screening.on Adult depression screening assessment No [facility] DO Work Phone: Tobacco use status [facility] b) No [facility] DO Work Phone: Vital Signs Date Time Vital Sign Value Performing Clinician Facility 01-22-2024 10:54-0400 Body height 162.56 cm DO Rosa Kuns Work Phone: [facility] 01-22-2024 10:54-0400 Body mass index (BMI) [Ratio] 24.4 kg/m2 DO Rosa Kuns Work Phone: [facility] 01-22-2024 10:54-0400 Body temperature 98 [degF] DO Rosa Kuns Work Phone: [facility] 01-22-2024 10:54-0400 Body weight 64.58 kg DO Rosa Kuns Work Phone: [facility] 01-22-2024 10:54-0400 Diastolic blood pressure 66 mm[Hg] DO Rosa Kuns Work Phone: [facility] 01-22-2024 10:54-0400 Heart rate 74 /min DO Rosa Kuns Work Phone: [facility] 01-22-2024 10:54-0400 Respiratory rate 18 /min DO Orsa Kuns Work Phone: [facility] 01-22-2024 10:54-0400 SaO2% (BldA) [Mass fraction] 98 % DO Rosa Kuns Work Phone: [facility] 01-22-2024 10:54-0400 Systolic blood pressure 101 mm[Hg] DO Rosa Kuns Work Phone: [facility] 01-13-2024 09:47-0400 Body height 162.56 cm DO Rosa Kuns Work Phone: [facility] 01-13-2024 09:47-0400 Body mass index (BMI) [Ratio] 24 kg/m2 DO Rosa Kuns Work Phone: [facility] 01-13-2024 09:47-0400 Body weight 63.5 kg DO Rosa Kuns Work Phone: [facility] 12-05-2023 10:45-0400 Body height 160.02 cm [facility] 12-05-2023 10:45-0400 Body mass index (BMI) [Ratio] 24.5 kg/m2 [facility] 12-05-2023 10:45-0400 Body weight 63 kg [facility] 09-27-2023 09:06-0400 Body height 160.02 cm DO Rosa Kuns Work Phone: [facility] 09-27-2023 09:06-0400 Body mass index (BMI) [Ratio] 24.7 kg/m2 DO Rosa Kuns Work Phone: [facility] 09-27-2023 09:06-0400 Body weight 63.5 kg DO Rosa Kuns Work Phone: [facility] 09-27-2023 09:06-0400 Diastolic blood pressure 64 mm[Hg] DO Rosa Kuns Work Phone: [facility] 09-27-2023 09:06-0400 Heart rate 98 /min DO Rosa Kuns Work Phone: [facility] 09-27-2023 09:06-0400 Respiratory rate 16 /min DO Rosa Kuns Work Phone: [facility] 09-27-2023 09:06-0400 SaO2% (BldA) [Mass fraction] 98 % DO Rosa Kuns Work Phone: [facility] 09-27-2023 09:06-0400 Systolic blood pressure 104 mm[Hg] DO Rosa Kuns Work Phone: [facility] 09-20-2023 13:59-0400 Body height 160.02 cm DO Rosa Kuns Work Phone: [facility] 09-20-2023 13:59-0400 Body mass index (BMI) [Ratio] 23.9 kg/m2 DO Rosa Kuns Work Phone: [facility] 09-20-2023 13:59-0400 Body weight 61.23 kg DO Rosa Kuns Work Phone: [facility] 08-12-2023 11:55-0500 Diastolic blood pressure 74 mm[Hg] DO Rosa Kuns Work Phone: [facility] 08-12-2023 11:55-0500 Heart rate 81 /min DO Rosa Kuns Work Phone: [facility] 08-12-2023 11:55-0500 Respiratory rate 18 /min DO Rosa Kuns Work Phone: [facility] 08-12-2023 11:55-0500 SaO2% (BldA) [Mass fraction] 99 % DO Rosa Kuns Work Phone: [facility] 08-12-2023 11:55-0500 Systolic blood pressure 108 mm[Hg] DO Rosa Kuns Work Phone: [facility] 08-12-2023 10:27-0500 Body height 160.02 cm DO Rosa Kuns Work Phone: [facility] 08-12-2023 10:27-0500 Body temperature 98.2 [degF] DO Rosa Kuns Work Phone: [facility] 08-12-2023 10:27-0500 Body weight 61.23 kg DO Rosa Kuns Work Phone: [facility] 08-10-2023 12:35-0500 Body height 160.02 cm [facility] 08-10-2023 12:35-0500 Body mass index (BMI) [Ratio] 23.7 kg/m2 [facility] 08-10-2023 12:35-0500 Body temperature 98.6 [degF] [facility] 08-10-2023 12:35-0500 Body weight 60.78 kg [facility] 08-10-2023 12:35-0500 Diastolic blood pressure 74 mm[Hg] [facility] 08-10-2023 12:35-0500 Heart rate 94 /min [facility] 08-10-2023 12:35-0500 Respiratory rate 18 /min [facility] 08-10-2023 12:35-0500 SaO2% (BldA) [Mass fraction] 99 % [facility] 08-10-2023 12:35-0500 Systolic blood pressure 118 mm[Hg] [facility] 06-23-2023 14:29-0500 Body height 160 cm Willy Escudero MD Work Phone: [facility] 06-23-2023 14:29-0500 Body mass index (BMI) [Ratio] 24.09 kg/m2 Willy Escudero MD Work Phone: [facility] 06-23-2023 14:29-0500 Body weight 61.69 kg Willy Escudero MD Work Phone: [facility] 06-23-2023 14:29-0500 Diastolic blood pressure 80 mm[Hg] Willy Escudero MD Work Phone: [facility] 06-23-2023 14:29-0500 Heart rate 70 /min Willy Escudero MD Work Phone: [facility] 06-23-2023 14:29-0500 Systolic blood pressure 110 mm[Hg] Willy Escudero MD Work Phone: [facility] 06-23-2023 12:30-0500 Body height 160.02 cm Rosa Agee Other [facility] 06-23-2023 12:30-0500 Body mass index (BMI) [Ratio] 24.09 kg/m2 Rosa Kuns Other [facility] [employer] Other 06-23-2023 12:30-0500 Body weight 61.69 kg Rosa Kuns Other [facility] [employer] Other 06-23-2023 12:30-0500 Body weight 61.68 kg [facility] 06-23-2023 12:30-0500 Diastolic blood pressure 64 mm[Hg] Rosa Kuns Other [facility] 06-23-2023 12:30-0500 Respiratory rate 16 /min Rosa Kuns Other [facility] [employer] Other 06-23-2023 12:30-0500 SaO2% (BldA) [Mass fraction] 99 % Rosa Kuns Other [facility] [employer] Other 06-23-2023 12:30-0500 Systolic blood pressure 104 mm[Hg] Rosa Kuns Other [facility] 04-26-2023 08:45-0500 Body height 160.02 cm Rosa Kuns Other [employer] Other 04-26-2023 08:45-0500 Body mass index (BMI) [Ratio] 24.8 kg/m2 Rosa Kuns Other [facility] [employer] Other 04-26-2023 08:45-0500 Body weight 63.5 kg Rosa Kuns Other [employer] Other 04-26-2023 08:45-0500 Diastolic blood pressure 80 mm[Hg] Rosa Kuns Other [employer] Other 04-26-2023 08:45-0500 Respiratory rate 16 /min Rosa Kuns Other [facility] [employer] Other 04-26-2023 08:45-0500 SaO2% (BldA) [Mass fraction] 97 % Rosa Kuns Other [facility] [employer] Other 04-26-2023 08:45-0500 Systolic blood pressure 116 mm[Hg] Rosa Kuns Other [facility] [employer] Other 04-24-2023 22:52-0500 Diastolic blood pressure 71 mm[Hg] DO Rosa Kuns Work Phone: [facility] 04-24-2023 22:52-0500 Heart rate 88 /min DO Rosa Kuns Work Phone: [facility] 04-24-2023 22:52-0500 Respiratory rate 18 /min DO Rosa Kuns Work Phone: [facility] 04-24-2023 22:52-0500 SaO2% (BldA) [Mass fraction] 98 % DO Rosa Kuns Work Phone: [facility] 04-24-2023 22:52-0500 Systolic blood pressure 117 mm[Hg] DO Rosa Kuns Work Phone: [facility] 04-24-2023 20:42-0500 Body height 160.02 cm DO Rosa Kuns Work Phone: [facility] 04-24-2023 20:42-0500 Body temperature 98.8 [degF] DO Rosa Kuns Work Phone: [facility] 04-24-2023 20:42-0500 Body weight 64.7 kg DO Rosa Kuns Work Phone: [facility] 09-08-2022 19:30-0400 Body height 160.02 cm Latricia Campbell Other [employer] Other 09-08-2022 19:30-0400 Body mass index (BMI) [Ratio] 25.86 kg/m2 Latricia Campbell Other [employer] Other 09-08-2022 19:30-0400 Body temperature 100.3 [degF] Latricia Campbell Other [employer] Other 09-08-2022 19:30-0400 Body weight 66.23 kg Latricia Campbell Other [employer] Other 09-08-2022 19:30-0400 Diastolic blood pressure 81 mm[Hg] Latricia Campbell Other [employer] Other 09-08-2022 19:30-0400 Respiratory rate 18 /min Latricia Campbell Other [employer] Other 09-08-2022 19:30-0400 SaO2% (BldA) [Mass fraction] 99 % Latricia Campbell Other [employer] Other 09-08-2022 19:30-0400 Systolic blood pressure 124 mm[Hg] Latricia Campbell Other [employer] Other 06-23-2022 10:03-0500 Diastolic blood pressure 71 mm[Hg] DO Rosa Kuns Work Phone: [facility] 06-23-2022 10:03-0500 Heart rate 101 /min DO Rosa Kuns Work Phone: [facility] 06-23-2022 10:03-0500 Systolic blood pressure 122 mm[Hg] DO Rosa Kuns Work Phone: [facility] 06-23-2022 09:21-0500 SaO2% (BldA) [Mass fraction] 99 % DO Rosa Kuns Work Phone: [facility] 06-22-2022 09:33-0500 Body height 160.02 cm DO Rosa Kuns Work Phone: [facility] 06-22-2022 09:33-0500 Body weight 69.85 kg DO Rosa Kuns Work Phone: [facility] 05-24-2022 15:43-0500 Body height 160.02 cm Rosa R Kuns Work Phone: [facility] 250 DO Work Phone: 05-24-2022 15:43-0500 Body mass index (BMI) [Ratio] 27.28 kg/m2 Rosa R Kuns Work Phone: [facility] 250 DO Work Phone: 05-24-2022 15:43-0500 Body surface area Derived from formula 1.73 m2 Rosa R Kuns Work Phone: [facility] 250 DO Work Phone: 05-24-2022 15:43-0500 Body weight 69.85 kg Rosa R Kuns Work Phone: [facility] 250 DO Work Phone: 05-24-2022 15:43-0500 Diastolic blood pressure 62 mm[Hg] Rosa R Kuns Work Phone: [facility] 250 DO Work Phone: 05-24-2022 15:43-0500 Heart rate 80 /min Rosa R Kuns Work Phone: [facility] DO Work Phone: 12-05-2022 15:43-0500 Systolic blood pressure 100 mm[Hg] Rosa R Kuns Work Phone: [facility] DO Work Phone: 09-08-2021 15:55-0400 Body height 160.02 cm Rosa R Kuns Work Phone: [facility] DO Work Phone: 09-08-2021 15:55-0400 Body mass index (BMI) [Ratio] 26.47 kg/m2 Rosa R Kuns Work Phone: [facility] 250 DO Work Phone: 09-08-2021 15:55-0400 Body surface area Derived from formula 1.71 m2 Rosa R Kuns Work Phone: [facility] DO Work Phone: 09-08-2021 15:55-0400 Body weight 67.77 kg Rosa R Kuns Work Phone: [facility] DO Work Phone: 09-08-2021 15:55-0400 Diastolic blood pressure 77 mm[Hg] Rosa R Kuns Work Phone: [facility] DO Work Phone: 09-08-2021 15:55-0400 Heart rate 83 /min Rosa R Kuns Work Phone: [facility] DO Work Phone: 09-08-2021 15:55-0400 Systolic blood pressure 116 mm[Hg] Rosa R Kuns Work Phone: [facility] DO Work Phone: 05-07-2021 14:30-0500 Body height 160.02 cm Rosa Duettos Other [employer] Other 05-07-2021 14:30-0500 Body mass index (BMI) [Ratio] 26.39 kg/m2 Rosaladonna Hernadezs Other [employer] Other 05-07-2021 14:30-0500 Body weight 67.59 kg Rosaladonna Hernadezs Other [employer] Other 05-07-2021 14:30-0500 Diastolic blood pressure 78 mm[Hg] Rosaladonna Hernadezs Other [employer] Other 05-07-2021 14:30-0500 Respiratory rate 16 /min Rosaladonna Hernadezs Other [employer] Other 05-07-2021 14:30-0500 SaO2% (BldA) [Mass fraction] 98 % Rosaladonna Hernadezpoonam Other [employer] Other 05-07-2021 14:30-0500 Systolic blood pressure 122 mm[Hg] Rosaladonna Hernadezs Other [employer] Other Encounters Encounter Date Encounter Type Care Provider Facility Start: 02-13-2024 End: 02-13-2024 ambulatory EVELYNE CHAVEZ Not Available Start: 01-22-2024 End: 01-22-2024 Patient encounter procedure DO Rosa Kuns Work Phone: [facility] [place] Work Phone: Start: 01-22-2024 End: 01-22-2024 ambulatory DO Rosa Kuns Work Phone: [facility] Work Phone: Start: 01-22-2024 End: 01-22-2024 ambulatory DO Rosa Kuns Work Phone: [facility] Work Phone: Start: 01-22-2024 End: 01-22-2024 Patient encounter procedure DO Rosa Kuns Work Phone: [facility] [place] Work Phone: Start: 01-13-2024 End: 01-13-2024 ambulatory DO Rosa Kuns Work Phone: [facility] Work Phone: Start: 01-13-2024 End: 01-13-2024 Patient encounter procedure DO Rosa Kuns Work Phone: [facility] Gastroenterology Work Phone: Start: 12-09-2023 End: 12-09-2023 Patient encounter procedure DO Rosa Kuns Work Phone: [facility] [place] Work Phone: Start: 12-09-2023 End: 12-09-2023 ambulatory DO Rosa Kuns Work Phone: [facility] Work Phone: Start: 12-05-2023 End: 12-05-2023 ambulatory [facility] Work Phone: Start: 12-05-2023 End: 12-05-2023 Patient encounter procedure [facility] Work Phone: Start: 09-27-2023 End: 09-27-2023 ambulatory DO Rosa Kuns Work Phone: [facility] Work Phone: Start: 09-27-2023 End: 09-27-2023 Patient encounter procedure DO Rosa Kuns Work Phone: [facility] [place] Work Phone: Start: 09-20-2023 End: 09-20-2023 ambulatory DO Rosa Kuns Work Phone: [facility] Work Phone: Start: 09-20-2023 End: 09-20-2023 Patient encounter procedure DO Rosa Kuns Work Phone: [facility] Gastroenterology Work Phone: Start: 08-12-2023 Non-patient / Non-visit DO Rosa Kuns Work Phone: [facility] Gastroenterology Work Phone: Start: 08-12-2023 End: 08-12-2023 Admission to same day surgery center DO Rosa Kuns Work Phone: [facility] Work Phone: Start: 08-12-2023 End: 08-12-2023 ambulatory DO Rosa Kuns Work Phone: [facility] Work Phone: Start: 08-10-2023 End: 08-10-2023 ambulatory DO Rosa Kuns Work Phone: [facility] Work Phone: Start: 08-10-2023 End: 08-10-2023 Departed Referred DO Rosa Kuns Work Phone: [facility] [place] Work Phone: Start: 08-10-2023 End: 08-10-2023 ambulatory [facility] Work Phone: Start: 08-10-2023 End: 08-10-2023 Patient encounter procedure [facility] [place] Work Phone: Start: 08-01-2023 End: 08-01-2023 ambulatory Cuong Fletcher Other [employer] Other Start: 08-01-2023 Telephone encounter Cuong Mcallister [facility] Start: 07-15-2023 End: 07-15-2023 ambulatory Cuong Fletcher Other [employer] Other Start: 07-15-2023 Office outpatient ne w 30 minutes Cuong Fletcher [facility] Gastroenterology Start: 06-23-2023 End: 06-23-2023 ambulatory WILLY ESCUDERO [facility] [employer] Other Start: 06-23-2023 End: 06-23-2023 Office outpatient visit 15 minutes Willy Escudero MD Work Phone: [facility] Comment on above: Neurologic cardiac s yncope (Primary Dx); Palpitations; Tachycardia Start: 06-23-2023 End: 06-23-2023 Patient encounter procedure [facility] Family Medicine [place] Work Phone: Start: 04-26-2023 Encounter for genera l adult medical examination without abnormal findings Rosa Agee [facility] [place] Start: 04-26-2023 Patient encounter status Rosa Agee Other [facility] [employer] Other Start: 04-26-2023 Periodic preventive med est patient 18-39 yrs Rosa Agee [facility] Medicine [place] Start: 04-26-2023 End: 04-26-2023 Patient encounter procedure DO Rosa Kuns Work Phone: [facility] [place] Work Phone: Start: 04-26-2023 End: 04-26-2023 ambulatory DO Rosa Kuns Work Phone: [facility] Work Phone: Start: 04-24-2023 End: 04-24-2023 Emergency department patient visit DO Rosa Kuns Work Phone: [facility]Emer[facility] Work Phone: Start: 04-20-2023 End: 04-20-2023 ambulatory Rosa Kuns Other [employer] Other Start: 04-20-2023 Telephone encounter Rosa Agee [facility] [place] Start: 02-03-[address] Rosa Agee Fa cility: Start: 10-20-2022 End: 10-20-[address] ROSA AGEE Facility: Start: 09-08-2022 End: 09-08-2022 Patient encounter procedure DO Rosa Agee Work Phone: [facility] [place] Work Phone: Start: 09-08-2022 End: 09-08-2022 ambulatory DO Rosa Agee Work Phone: [facility] Work Phone: Start: 09-08-2022 Office outpatient visit 15 minutes Latricia Campbell [facility] [place] Start: 09-08-2022 Telephone encounter Rosa Agee [facility] [place] Start: 09-02-2022 End: 09-02-2022 ambulatory Rosa Agee Other [employer] Other Start: 09-02-2022 Nursing evaluation o f patient and report Rosa Agee [facility] [place] Start: 09-02-2022 Telephone encounter Rosa Agee [facility] [place] Start: 07-24-2022 Chart Update Rosa Agee Work Phone: [facility] DO Work Phone: Start: 07-13-2022 End: 07-13-2022 ambulatory Rosa Agee Other [employer] Other Start: 07-13-2022 Nursing evaluation o f patient and report Rosa Agee [facility] [place] Start: 07-13-2022 Telephone encounter Rosa Agee [facility] [place] Start: 07-12-2022 End: 07-12-2022 ambulatory Rosa Agee Other [facility] [employer] Other Start: 07-12-2022 Telephone encounter Rosa Agee [facility] [place] Start: 06-25-2022 Chart Update Rosa R Satyas Work Phone: [facility] DO Work Phone: Start: 06-23-[address] Rosa Agee Fa cility:[id number] Start: 06-23-2022 End: 06-23-2022 ambulatory DO Rosa Kuns Work Phone: [facility] Work Phone: Start: 06-23-2022 End: 06-23-2022 Patient encounter procedure DO Rosaladonna Hernadezs Work Phone: [facility] Work Phone: Start: 05-24-2022 Office outpatient visit 25 minutes Rosa Agee Work Phone: [facility] DO Work Phone: Start: 05-24-[address] Miladis Morris Facility: Start: 09-29-2021 End: 09-29-2021 ambulatory Rosa Agee Other [facility] [employer] Other Start: 09-29-2021 [facility] Start: 09-08-2021 Office outpatient visit 15 minutes Rosa R Chris Work Phone: [facility] DO Work Phone: Start: 05-07-2021 End: 05-07-2021 ambulatory Rosa Agee Other [facility] [employer] Other Start: 05-07-2021 Office outpatient visit 25 minutes [facility] Procedures Date Procedure Procedure Detail Performing [...] of 2) Zoster Vaccines (1 of 2) [facility] Start: 03-18-2032 DTaP/Tdap/Td Vaccines (8 - Td or Tdap) DTaP/Tdap/Td Vaccines (8 - Td or Tdap) [facility] Start: 10-06-2024 Screening for malignant neoplasm of cervix [facility] Start: 03-23-2024 End: 03-23-2024 Patient encounter procedure 03/23/2024 8:40 AM EDT Office Visit [facility] [address] [id number] Willy Escudero MD [address] [facility] [address] [place] [address] [facility] Start: 12-09-2023 [facility] Start: 08-12-2023 [facility] Start: 08-10-2023 [facility] Start: 04-26-2023 Bacteria identified in Urine by Culture Urine Culture [facility] Start: 04-24-2023 Computed tomography of abdomen and pelvis with contrast CT abdomen pelvis w con [facility] Start: 04-24-2023 CT Abdomen and Pelvis W contrast IV [facility] Start: 04-24-2023 Bacteria identified in Urine by Culture [facility] Start: 04-24-2023 Urine culture Urine Culture [facility] Start: 02-18-2023 Influenza vaccination Influenza Vaccine (#1) [facility] Start: 11-24-2022 FUV, Provider: Willy Escudero, Status: Pen, Time: 3:10 PM FUV, Provider: Willy Escudero, Status: Pen, Time: 3:10 PM [facility] DO Work Phone: Start: 05-13-2022 Hepatitis B Vaccines (3 of 3 - 3-dose series) Hepatitis B Vaccines (3 of 3 - 3-dose series) [facility] Start: 03-10-2022 FUV, Provider: Miladis Morris, Status: Pen, Time: 9:50 AM FUV, Provider: Miladis Morris, Status: Pen, Time: 9:50 AM [facility] DO Work Phone: Start: 2021 Screening for malignant neoplasm of cervix HPV/Cotest [facility] Start: 07-02-2021 COVID-19 Vaccine (3 - Pfizer series) COVID-19 Vaccine (3 - Pfizer series) [facility] Start: 2018 Hepatitis C screening Hepatitis C Screening [facility] Start: 09-22-2011 HPV Vaccines (1 - 2-dose series) HPV Vaccines (1 - 2-dose series) [facility] Start: 2000 HIV screening HIV Screening [facility] Start: 2000 Lipid panel Lipid Panel [facility] Start: 2000 Yearly Adult Physical Yearly Adult Physical [facility] Atopobium vaginae DN A [Presence] in Vaginal fluid by EMERITA with probe detection [facility] Bacterial vaginosis associated bacterium 2 DNA [Presence] in Vaginal fluid by EMERITA with probe detection [facility] Endomysial antibody IgA level [facility] Gliadin peptide IgA Ab [Units/volume] in Serum [facility] Gliadin peptide IgG Ab [Units/volume] in Serum [facility] IgA [Mass/volume] in Serum or Plasma [facility] Megasphaera sp type 1 DNA [Presence] in Vaginal fluid by EMERITA with probe detection [facility] Patient Education Constipation, Adult ED [facility] Work Phone: Patient referral [facility] Work Phone: Tissue transglutamin ase IgA Ab [Units/volume] in Serum [facility] Tissue transglutamin ase IgG Ab [Units/volume] in Serum [facility] Immunizations Immunization Date Immunization Notes Care Provider Fa [facility] 03-18-2022 Hepatitis B vaccine (recombinant), CpG adjuvanted Rosa Agee Work Phone: [facility] 250 DO Work Phone: 03-18-2022 hepatitis B vaccine, pediatric or pediatric/adolescent dosage Willy Escudero MD Work Phone: [facility] Work Phone: 03-18-2022 influenza, injectable, quadrivalent, preservative free Rosa Agee Work Phone: [facility] 03-18-2022 tetanus toxoid, reduced diphtheria toxoid, and acellular pertussis vaccine, adsorbed Rosa Agee Work Phone: [facility] 03-18-2022 varicella virus vaccine Rosa Agee Work Phone: [facility] 03-18-2022 influenza virus vaccine, unspecified formulation Willy Escudero MD Work Phone: [facility] Work Phone: 05-07-2021 Pfizer-[employer] COVID-19 Vacc 30 MCG/0.3ML Intramuscular Suspension Rosa Agee Work Phone: [facility] 04-16-2021 Pfizer-BioNTech COVID-19 Vacc 30 MCG/0.3ML Intramuscular Suspension Rosa Agee Work Phone: [facility] 02-08-2018 meningococcal polysaccharide (groups A, C, Y and W-135) diphtheria toxoid conjugate vaccine (MCV4P) Rosa Agee Other [facility] 02-18-2005 diphtheria, tetanus toxoids and acellular pertussis vaccine, unspecified formulation Rosa Agee Work Phone: [facility] 02-18-2005 measles, mumps and rubella virus vaccine Rosaladonna Agee Other [facility] 02-18-2005 poliovirus vaccine, inactivated Rosa Kuns Other [facility] 02-18-2005 poliovirus vaccine, unspecified formulation [facility] 01-25-2002 diphtheria, tetanus toxoids and acellular pertussis vaccine, unspecified formulation Rosa Agee Work Phone: [facility] 01-25-2002 poliovirus vaccine, inactivated Rosa Agee Other [employer] Other 01-25-2002 poliovirus vaccine, unspecified formulation [facility] 10-02-2001 measles, mumps and rubella virus vaccine Rosa Chris Other [facility] 10-02-2001 varicella virus vaccine Rosa Agee Other [facility] 03-27-2001 diphtheria, tetanus toxoids and acellular pertussis vaccine, unspecified formulation Rosa R Chris Work Phone: [facility] 03-27-2001 hepatitis B vaccine, pediatric or pediatric/adolescent dosage Rosa Agee Other [facility] 03-27-2001 pneumococcal conjugate vaccine, 7 valent Rosa Agee Other [facility] 03-27-2001 pneumococcal Conjugate, unspecified formulation [facility] 02-02-2001 diphtheria, tetanus toxoids and acellular pertussis vaccine, unspecified formulation Rosa R Kuns Work Phone: [facility] 02-02-2001 pneumococcal conjugate vaccine, 7 valent Rosa Kuns Other [facility] [employer] Other 02-02-2001 pneumococcal Conjugate, unspecified formulation [facility] 02-02-2001 poliovirus vaccine, inactivated Rosa Kuns Other [facility] [employer] Other 02-02-2001 poliovirus vaccine, unspecified formulation [facility] 2000 diphtheria, tetanus toxoids and acellular pertussis vaccine, unspecified formulation Rosa R Kuns Work Phone: [facility] 2000 pneumococcal conjugate vaccine, 7 valent Rosa Kuns Other [facility] [employer] Other 2000 pneumococcal Conjugate, unspecified formulation [facility] 2000 poliovirus vaccine, inactivated Rosa Kuns Other [facility] [employer] Other 2000 poliovirus vaccine, unspecified formulation [facility] 2000 hepatitis B vaccine, pediatric or pediatric/adolescent dosage Rosa Chris Other [facility] NEGATED: Highlighted row has not occurred! 9 influenza, seasonal, injectable Patient Objection Rosa Agee Other [facility] [employer] Other Payers Date Payer Category Payer Self-pay [id number] 2022 Private Health Insurance [facility] [id number] 2022-Present [address] [place] [address] [id number] 2022 Private Health Insurance [id number] 2000 Unknown [id number] [id number]. 2.356 2000 Unknown [id number] 2.16.840.1.100437.3.579. 2.356 2000 Unknown [id number] 2.16.840.1.877891.3.579. 2.356 2000 Unknown [id number] 2.16.840.1.931364.3.579. 2.1259 2000 Unknown [id number] 2.16.840.1.720952.3.579. 2.1244 1974 Unknown [id number] [id number]. 2.593 1959 Private Health Insurance [id number] Unknown [facility] Unknown [place] BC/BS [id number] Unknown [id number] [id number]. 2.531 Unknown [id number] 2.16.840.1.681045.3.579. 2.531 Unknown [id number] 2.16.840.1.595704.3.579. 2.531 Unknown [id number] 2.16.840.1.293275.3.579. 2.531 Unknown [id number] 2.16.840.1.892808.3.579. 2.531 Unknown [id number]. 2.531 Social History Date Type Detail Facility Start: 06-16-2023 No alcohol use No alcohol use [facility] [employer] Other Start: 06-16-2023 Sex Assigned At N [facility] [employer] Other Start: 2000 Sex Assigned At Female F [facility] Start: 04-24-2023 End: 08-12-2023 Tobacco smoking status NHIS Never smoked tobacco (finding) [facility] Start: 06-16-2023 Tobacco use and exposure Smokeless tobacco non-user [facility] Work Phone: Start: 06-23-2023 Alcohol intake Current drinke r of alcohol (finding) [facility] Work Phone: Start: 2000 Sex Assigned At Not on file [facility] Work Phone: Start: 06-13-2023 End: 06-23-2023 Exposure to SARS-CoV-2 (event) Not sure [facility] Goals Date Patient Goal Desired Activity /State Clinical Notes 11-13-2020 to 12-05-2023 Note Date & Type Note Facility 12-05-2023 Evaluation note Authored December 05, 2023 11:23am Patient, positive for abdomi nal pain, bowel movements once or twice per week and abdominal cramping. As with Amitiza patient notes nausea vomiting and abdominal discomfort with Trulance dosing [facility] Work Phone: 1(300) 974-651106-17-2024 Evaluation note* Author Cuong [facility] Authored December 05, 2023 11:2 3am Patient, positive for abdomi nal pain, bowel movements once or twice per week and abdominal cramping. As with Amitiza patient notes nausea vomiting and abdominal discomfort with Trulance dosing Author Cuong [facility] Authored January 13, 2024 10:[address] scan, normal col onoscopy patient noted for abdominal discomfort and irregular bowel movements. Patient with predominance of IBS-C. Patient is negative for weight loss and rectal bleeding [facility] Work Phone: 1(880) 344-722004-09-2024 Evaluation note* Author Celeste Hernández [facility] Authored September 27, 2023 9:14 am Sooner if needed, the ER if concerns,The above note written by Celeste Hernández LPN acting as human recorder, note dictated by Dr. Rosa Agee [facility] Work Phone: 1(997) 261-200404-09-2024 Evaluation note* Author Celeste Hernández [facility] Authored September 27, 2023 9:14 am Sooner if needed, the ER if concerns,The above note written by Celeste Hernández LPN acting as human recorder, note dictated by Dr. Rosa Agee Author Cuong Fletcher [facility] Authored December 05, 2023 11:2 3am Patient, positive for abdomi nal pain, bowel movements once or twice per week and abdominal cramping. As with Amitiza patient notes nausea vomiting and abdominal discomfort with Trulance dosing [facility] Work Phone: 1(873) 221-400602-23-2024 [facility] Evaluation note* Encounter Date Diagnosis Assessment [...] Pt given samples of linzess- 6 boxes [employer] [employer] Other 01-04-2024 History of Present illness Narrative* [...] presence of MD Ash. [facility] Work Phone: 1(701) 475-858301-04-2024 Instructions* Patient Instructions* Adis Baugh MA - [...] time of your visit. [facility] Work Phone: 1([phone]) 338-121501-04-2024 Evaluation note* Encounter Date Diagnosis Assessment Notes [...] still being worked up by gastro and ENTRY LEVEL BUYER. I do encourage patient to follow the plan of care. I also advised Linzess is not safe with Jun, Hyperlipidemia (ICD-10 - E78.5) [facility] Other 11-07-2023 Evaluation note* Encounter Date Diagnosis [...] constipation type (ICD-10 - K59.00) Review of [facility] report including CT scan and labs. [...] cyst noted upon CT imaging obtained at [facility] on 04/24/23.The patient does report left sided abdominal pain. The patient encouraged following with gynecology who she sees in [facility] . Apr, Leukocytes in urine (ICD-10 - R82.998) Small leukocytes noted upon in house urinalysis.The patient is asymptomatic at this time. Urine specimen sent for culture. Apr, Neurocardiogenic syncope (ICD-10 - R55) The patient is following with cfo controller , states she has been taken off [...] is safe and non addicting, instructions provided. [facility] Other 11-05-2023 Hospital Discharge instructions Additional Instructions 4 capfuls of MiraLAX in juice in the morning and then again in the evening if constipation continues.[facility] Work Phone: 1(750) 135-541411-01-2023 Evaluation note* Encounter Date Diagnosis Assessment Notes Treatment Notes Treatment Clinical Notes Apr, Hyperlipidemia (ICD-10 - E78.5) [facility] Other 03-22-2023 Evaluation note* Encounter Date Diagnosis [...] no improvement in 5 to 7 days [facility] Other 03-16-2023 Evaluation note* Encounter Date Diagnosis Assessment Notes Treatment Notes Treatment Clinical Notes Aug, Sore throat (ICD-10 - J02.9) [facility] Other 01-24-2023 Evaluation note* Encounter Date Diagnosis Assessment Notes Treatment Notes Treatment Clinical Notes Jun, Acute cough (ICD-10 - R05.1) Patient and Dr. Keane were made aware of positive findings. Dr. Keane recommended that she start atb/steriod regimen- see TE for further clinical documentation. [facility] Other 04-12-2022 Evaluation note* Encounter Date Diagnosis Assessment Notes Treatment Notes Treatment Clinical Notes Sep, Hyperlipidemia (ICD-10 - E78.5) [facility] Other 11-18-2021 Evaluation note* Encounter Date Diagnosis [...] pressure and follow with cardiology as scheduled. 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 Medical History ECHO and Stress Test 11/13/2020 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 Medical History Neurocardiogenic syncope Surgical History wisdom teeth [facility] Other evaluation noteNo assessment information available [facility] Work Phone: Evaluation [facility]No [facility] [employer] Other evaluation note* Diagnosis Neurologic cardiac syncope- Primary Syncope and collapse Palpitations Tachycardia Unspecified tachycardia documented in this encounter [facility] Work Phone: Evaluation note* Diagnosis Onset Date Resolution Status High risk sexual behavior ac burns paiute Vaginal discharge acute [facility] Work Phone: Evaluation note* Diagnosis Onset Date Resolution Status High risk sexual behavior ac burns paiute Vaginal discharge acute Constipation acute [facility] Work Phone: Evaluation note* Author Celeste Hernández [facility] Authored September 27, 2023 9:14 am Sooner if needed, the ER if concerns,The above note written by Celeste Hernández LPN acting as human recorder, note dictated by Dr. Rosa Agee [facility] Work Phone: History and physical note Author Los Hartman [facility] August 12, 2023 11:05am Note Date/Time August 12, 2023 11:05am [facility] [address] [place] [address] Gastroenterology H&P Signed Patient: Alonso Minaya MR#: [id number] : 2000 Acct:[id number] Age/Sex: 22 / F Adm Date: 4 Loc: Room: Type: [facility] Attending Dr: Los Hartman MD Copies [...] signed by Los Hartman MD> 08/12/23 110 [facility] Work Phone: Reason for referral (narrative)* Consultation (Routine) - Authorized Specialty Diagnoses / Procedures Referred By Contlisa t Referred To Contact Cardiology Diagnoses Neurologic cardiac syncope Procedures Follow Up In Cardiology Willy Escudero MD [address] [facility] [address] [place] [address] Willy Escudero MD [address] [facility] [address] [place] [address] Referral ID Status Reason Start Date Expiration Date V isits Requested Visits Authorized [id number] Authorized 06/23/2023 06/22/2024 1 1 [facility] Work Phone: Chief Complaint * ALONSO [...] Primary Care Provider, Attending Provi jie Active [employer] 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 Specialty Start Date End Date Rosa Agee DO [address] [place] [id number] PCP - General Family Medicine 06/23/23 Team [...] content) DATE CREATED AUTHOR 10/22/2022 Braulio Ayala [facility] DATE CREATED AUTHOR AUTHOR'S ORGANIZ ATION 02/04/2023 [facility] DATE CREATED AUTHOR AUTHOR'S ORGANIZ ATION 02/05/2023 [employer] DATE CREATED AUTHOR AUTHOR'S ORGANIZ ATION 01/26/2024 [facility] DATE CREATED AUTHOR AUTHOR'S ORGANIZ ATION 02/14/2024 [facility] EPIC DATE CREATED AUTHOR AUTHOR'S ORGANIZ ATION 03/08/2024 [facility] FOR RECORDS PERTAINING TO PATIENTS WHO ARE [...] BE BASED ON THE PRIMARY CLINICAL RECORDS. [employer] [facility]. provides no warranty or guarantee of the accuracy or completeness of information in this document.
[2024-03-28 13:08] LABS: Age Gdln ACOG Testing Note (.); IGP, rfx Aptima HPV ASCU Note (.)
== END 2024-03-21 19:47 | disposition home or self-care (01) ==
LOC: LAB 19:46
PROVIDERS: PCP Family Medicine; Visit Provider Obstetrics & Gynecology
DX: Z01.419 Encounter for gynecological examination (general) (routine) without abnormal findings (principal)
CPT/HCPCS: 88175

== ENCOUNTER 2024-03-29 07:28 | Day surgery (SDC) | payer OTHER, SELFPAY ==
[2024-03-14 10:02] VITALS: BP 108/73; PULSE 85; TEMP 36.4; O2SAT 99; BMI 26.2
[2024-03-29] VITALS (11 sets, daily range): BP systolic 106–128; BP diastolic 62–87; PULSE 72–118; TEMP 36.3–36.9; O2SAT 98–100; BMI 26.0
--- OUTSIDE RECORDS SUMMARY | 2024-03-29 07:31 | XMS_ITS | CCD ---
Author Organization [facility] Care Team Providers Care Can Repairer Name Role Phone Rosa Agee R Unavailable Unavailable Unavailable Rosa Agee Unavailable DO Rosa Agee Primary Care Provider MD Miladis Morris Attending Provider [phone] MD Willy Escudero Referring Provider DO Rosa Agee Primary Care Provider MD Miladis Morris Attending Provider MD Willy Escudero Referring Provider PEPPER Campbell Attending Provider Latricia Campbell Unavailable DR ROSA AGEE Primary Care Unavailable DIAB ., OLU Attending Unavailable DIAB ., OLU Consulting Unavailable DIAB ., OLU Admitting Unavailable Dr. Rosa Agee Primary Care Carlos Escudero, Dr. Oden Attending Unavaila hui Agee, Dr. Rosa Sanchez Primary Care Unavaildanish Escudero, Dr. Oden Attending Ofeliaa hui Escudero, Dr. Oden Referring Ofeliaa hui Morris, Dr. Miladis Franco Attending Tiana vailable Alexandra, Dr. Miladis Franco Referring Tiana vailahui Agee, Dr. Rosa Sanchez Primary Care UnavailDO Rosa Van Primary Care Provider [phone] MD Pastor Camilo Emergency Provider DO Rosa Agee Attending Provider [phone] Rosa Agee DO Primary Care Provider [phone] Cuong Fletcher Unavailable Samans, DO Rosa Primary Care Provider PEPPER Campbell Attending Provider MD Los Hartman Attending Provider Samans, Rosa Primary Care Provider PEPPER Campbell Attending Provider MD Los Hartman Attending Provider [phone] Chris, Rosa Primary Care Provider [phone] MICHAEL Fletcher Attending Provider MICHAEL Martini Attending [...] Unavailable Kuns, Rosa Primary Care Unavailable EVELYNE CARMICHAEL Attending Unavailable EVELYNE CARMICHAEL Attending Unavailable WILLY ESCUDERO Attending Unavailable KUNS, ROSA R Primary Care Unavailable PARKER ESCUDEROF Attending Unavailable ZHANNA, ALFREDOURHAF Referring Unavailable SAMANS, ROSA R Primary Care Unavailable Kuns Rosa MARRUFO R Primary Care Provider Allergies Allergy Classification Reported Allergen(s) Allergy Type Date of Onset Reaction(s) Facility Penicillins (antibiotic) (2 sources) Amoxicillin Drug Allergy 4 [facility] (5 sources) Penicillins; Translations: [Penicillins] Allergy to drug (finding) 3 [facility] 3 Repository (20 sources) Penicillin G Drug Allergy 4 [facility] (7 sources) Penicillin; Translations: [penicillin V] Drug Allergy 3 [facility] (20 sources) Amoxicillin; Translations: [AMOXICILLIN] Drug Allergy 4 [facility] (1 source) Amoxicillin Drug Allergy [facility] Repository (1 source) Penicillins Drug Intolerance 3 [facility] Work Phone: (1 source) Amoxicillin Drug Allergy 4 [facility] Repository (1 source) Penicillin Drug Allergy 4 [facility] Repository (1 source) Penicillins Drug Allergy 5 Hives, Itching, Rash [facility] Work Phone: Medications Current Medications Medication Drug Class(es) Dates [...] mouth at bedtime as needed for sleep metFORMIN hydrochloride 500 mg oral tablet (1 source) Biguanide Start: 02-13-2024 End: 02-12-2025 take 1 tablet by mouth at mealtime metFORMIN (Glucophage) 500 MG tablet Indications: PCOS (polycystic ovarian syndrome) Take 1 tablet (500 mg) by mouth in the morning. Take with meals. 30 tablet 02/13/2024 02/12/2025 Active [place] (No Known Home Meds) (2 sources) Start: 04-24-2023 [place] (No Kn own Home Meds) Active April 23, 2023 11:00pm ondansetron 4 mg oral tablet (1 source) Serotonin-3 Receptor Antagonist Start: 12-09-2023 take 1 tablet by mouth every six hours as needed for nausea ondansetron (Zofran) 4 MG tablet 1 tablet Orally q 6 hrs prn nausea for 30 days 12/09/2023 Active Pneumatic Walking Boot (2 sources) Start: 01-22-2024 Pneumatic Walk ing Boot Active 0 .Route 1 January 22, 2024 12:00am As directed polyethylene glycol 3350 47832 mg powder for oral solution (1 source) [...] mg tablet Discontinued 3 MG PO Daily September 20, 2023 12:00am December 05, 2023 10:47am Start: 09-20-2023 take 1 tablet by denia th once daily Plecanatide (Trulance) 3 mg tablet Active 3 MG PO Daily 90 September 20, 2023 12:00am Problems Active [...] less than 30; Translations: [Overweight] Episodic Other nutritional; endocrine; and metabolic disorders (2 sources) Body mass index (BMI) 25.0-25.9, adult; Translations: [Body mass index (BMI) 25.0-25.9, adult] Onset: 03-23-2024 Episodic Other upper respiratory infections (1 source) [...] 3V*on 024 XR foot RT min 3V* [facility] [place] [address] XRay Report Signed Patient: Alonso Minaya MR#: [id number] 76 : 2000 Acct:[id number] Age/Sex: 23 / F ADM Date: 01/22/24 Loc: XDUCLY Room: Type: [facility] Attending Dr: Nicole Martini APRN Copies to: [...] Ha Reyes M.D.01/22/2024 11:49 AM Dictation Location: [place] [address] Transcribed By: [facility] 01/22/24 1149 Dictated By: Ha Reyes DO 01/22/24 1145 Signed By: 01/22/24 1149 Normal [facility] Celiacon 12-09-2023 Deamidated Gliadin Abs, IgA 5 Normal 0-19 [facility] Comment on above: Result Comment: Nega tive 0 - 19 Weak Positive 20 - 30 Moderate to Strong Positive >30 Performed By: #### C ELIAC #### [facility] , Deamidated Gliadin Abs, IgG 4 Normal 0-19 [facility] Comment on above: Result Comment: Nega tive 0 - 19 Weak Positive 20 - 30 Moderate to Strong Positive >30 Performed By: #### C ELIAC #### [facility] , Endomysial Antibody IgA Negative Normal Negative [facility] Comment on above: Performed By: #### C ELIAC #### [facility] , Immunoglobulin A, Qn, Serum 120 mg/dL Normal 87-352 [facility] Comment on above: Result Comment: Perf ormed at: - [facility] [address] [id number] Web Marketing Coordinator: Liban Seaman PhD, Phone: [phone] PERFORMED BY: [address] [place] [address] PATHOLOGIST [employer] LAYNE ORSA M.D. Performed By: #### C ELIAC #### [facility] , T-Transglutaminase (tTG) IgA <2 Normal 0-3 [facility] Comment on above: Result Comment: Nega tive 0 - 3 Weak Positive 4 - 10 Positive >10 Tissue Transglutaminase (tTG) has been identified as the endomysial antigen. Studies have demonstr- ated that endomysial IgA antibodies have over 99% specificity for gluten sensitive enteropathy. Performed By: #### C ELIAC #### [facility] , T-Transglutaminase (tTG) IgG 4 Normal 0-5 [facility] Comment on above: Result Comment: Nega tive 0 - 5 Weak Positive 6 - 9 Positive >9 Performed By: #### C ELIAC #### [facility] , IgA [Mass/volume] in Serum o r PlasmaOrdered By: Cuong Fletcher on 12-09-2023 IgA [Mass/Vol] 120 mg/dL 87-352 [facility] Comment on above: Performed at: [address] Director: Liban Seaman PhD, Phone: [phone] No Panel InformationOrdered By: Cuong Fletcher on 12-09-2023 Endomysial IgA Antibody Negative Negative [facility] Serum gliadin peptide IgA an tibody assay (units/volume)Ordered By: Cuong Fletcher on 12-09-2023 Gliadin peptide IgA Qn (S) 5 units 0-19 [facility] Comment on above: Negative 0 - 19 Weak Positive 20 - 30 Moderate to Strong Positive >30 Serum gliadin peptide IgG an tibody assay (units/volume)Ordered By: Cuong Fletcher on 12-09-2023 Gliadin peptide IgG Qn (S) 4 units 0-19 [facility] Comment on above: Negative 0 - 19 Weak Positive 20 - 30 Moderate to Strong Positive >30 Serum tissue transglutaminas e (tTG) IgA antibody assay (units/volume)Ordered By: Cuong Fletcher on 12-09-2023 tTG IgA Qn (S) <2 U/mL 0-3 [facility] Comment on above: Negative 0 - 3 Weak Positive 4 - 10 Positive >10 Tissue Transglutaminase (tTG) has been identified as the endomysial antigen. Studies have demonstr- ated that endomysial IgA antibodies have over 99% specificity for gluten sensitive enteropathy. Serum tissue transglutaminas e (tTG) IgG antibody assay (units/volume)Ordered By: Cuong Fletcher on 12-09-2023 tTG IgG Qn (S) 4 U/mL 0-5 [facility] Comment on above: Negative 0 - 5 Weak Positive 6 - 9 Positive >9 HCG ( test) IA.rapi d Ql (U)Ordered By: Los Hartman on 08-12-2023 HCG ( test) Ql (U) Negative [facility] HCG,Urineon 08-12-2023 Beta HCG ( test) Ql (U) Negative Normal [facility] Comment on above: Result Comment: PERF ORMED BY: [place] [address] PATHOLOGIST [employer] LAYNE ROSA M.D. Performed By: #### U HCG #### [address] Laboratory - Microbiology an d Antimicrobial susceptibilityOrdered By: Latricia Campbell on 08-10-2023 N. gonorrhoeae DNA EMERITA+probe Ql (Unsp spec) Negative Negative [facility] Comment on above: Performed at: =[address] [id number] Director: Kaela Garcia MD, Phone: [phone] No Panel InformationOrdered By: Latricia Campbell on 08-10-2023 Concepcion albicans (EMERITA) Negative Negative [facility] Comment on above: This test was develo ped and its performance characteristicsdetermined by [employer]. It has not been cleared orapproved by the Food and Drug Administration. Concepcion glabrata (EMERITA) Negative Negative [facility] Comment on above: This test was develo ped and its performance characteristicsdetermined by [facility]. It has not been cleared orapproved by the Food and Drug Administration. Chlamydia trachomatis (EMERITA) (LAB) Negative Negative [facility] Trichomonas vaginalis (EMERITA) Negative Negative [facility] Vaginal fluid Atopobium vagi dillon DNA detection by probe and target amplification methoOrdered By: Latricia Campbell on 08-10-2023 A. vaginae DNA EMERITA+probe Ql (Vag fld) High - 2 Score . [facility] Vaginal fluid Megasphaera sp ecies type 1 DNA detection by probe and target amplificatOrdered By: Latricia Campbell on 08-10-2023 Megasphaera sp type 1 DNA EMERITA+probe Ql (Vag fld) High - 2 Score . [facility] Comment on above: Calculate total scor e by adding the 3 individual bacterialvaginosis (BV) marker scores together. Total score isinterpreted as follows:Total score 0-1: Indicates the absence of BV.Total score 2: Indeterminate for BV. Additional clinical data should be evaluated to establish a diagnosis.Total score 3-6: Indicates the presence of BV.This test was developed and its performance characteristicsdetermined by [employer]. It has not been cleared or approvedby the Food and Drug Administration. Vaginal fluid bacterial vagi nosis associated bacterium 2 DNA detection by probe and tOrdered By: Latricia Campbell on 08-10-2023 Bacterial vaginosis associated bacterium 2 DNA EMERITA+probe Ql (Vag fld) High - 2 Score . [facility] Vaginitis Plus (VG+)on 08-10 Atop[employer]ium Vaginae High - 2 Critically abnormal . [facility] Comment on above: Order Comment: SOURC E OF SPECIMEN: SWAB Performed By: #### V AGINITIS+ #### [facility] , BVAB2 High - 2 Critically abnormal . [facility] Comment on above: Order Comment: SOURC E OF SPECIMEN: SWAB Performed By: #### V AGINITIS+ #### [facility] , Concepcion Albicans, EMERITA Negative Normal Negative [facility] Comment on above: Order Comment: SOURC E OF SPECIMEN: SWAB Result Comment: This test was developed and its performance characteristics determined by [facility]. It has not been cleared or approved by the Food and Drug Administration. Performed By: #### V AGINITIS+ #### [facility] , Concepcion Glabrata, EMERITA Negative Normal Negative [facility] Comment on above: Order Comment: SOURC E OF SPECIMEN: SWAB Result Comment: This test was developed and its performance characteristics determined by [facility]. It has not been cleared or approved by the Food and Drug Administration. PERFORMED BY: [facility] [place] [address] PATHOLOGIST [employer] LAYNE ROSA M.D. Performed By: #### V AGINITIS+ #### [facility] , Chlamydia Trachomotis, EMERITA Negative Normal Negative [facility] Comment on above: Order Comment: SOURC E OF SPECIMEN: SWAB Performed By: #### V AGINITIS+ #### [facility] , Megasphaera High - 2 Critically abnormal . [facility] Comment on above: [...] Neisseria Gonorrhoeae, EMERITA Negative Normal Negative [facility] Comment on above: Order Comment: SOURC E OF SPECIMEN: SWAB Result Comment: Perf ormed at: =G - [facility] [address] [id number] Web Marketing Coordinator: Kaela Garcia MD, Phone: [phone] Performed By: #### V AGINITIS+ #### [facility] , Tric Vag EMERITA Negative Normal Negative [facility] Comment on above: Order Comment: SOURC E OF SPECIMEN: SWAB Performed By: #### V AGINITIS+ #### [facility] , Urine 10 SGon 04-26-2023 Albumin DL <= 20 mg/L (U) [Mass/Vol] trace [facility] Other Albumin DL <= 20 mg/L (U) [Mass/Vol] small [place] Other pH (U) 6.5 [pH] [facility] Other Urine 10 SG Negative [facility] Other Urine 10 SG 1.025 [facility] Other Urine 10 SG 0.2 [facility] Other Urine Cultureon 04-26-2023 Bacteria identified Cx Nom (U) Reason for Exam Leukocytes in urine Urine Reason for Exam: Leukocytes in urine : Urine 50,000 colonies/ml mixed bacterial skin contaminants 2 Days PERFORMED BY: [place] [address] PATHOLOGIST [employer] LAYNE ROSA M.D. Normal [facility] Comment on above: Performed By: #### C BERTA BOBO [facility] #### [address] abdomen pelvis w conon CT abdomen pelvis w con [facility] [place] [address] [place] [address] CT Scan Report Signed Patient: Alonso Minaya MR#: [id number] [birth year] : 2000 Acct:[id number] Age/Sex: 22 / F ADM Date: 04/24/23 Loc: ER Room: Type: [facility] ER Attending Dr: Copies to: Pastor [...] Josias Blum M.D.04/25/2023 10:29 AM Dictation Location: [place] [address] Transcribed By: [facility] 04/25/23 1029 Dictated By: Josias Blum II, MD 04/25/23 1011 Signed By: 04/25/23 1029 Normal [facility] Automated basophil %Ordered By: Pastor Camilo on 04-24-2023 Basophils/100 WBC (Bld) 0.6 % Normal . [facility] Comment on above: Performed By: #### C EMA CHENG #### [address] Automated basophil countOrde red By: Pastor Camilo on 04-24-2023 Basophils (Bld) [#/Vol] 0.1 10*3/uL Normal 0.0-0.2 [facility] Comment on above: Result Comment: PERF ORMED BY: [place] [address] PATHOLOGIST [employer] LAYNE ROSA M.D. Performed By: #### C SKYLAR, BMP #### [address] Automated blood monocyte cou ntOrdered By: Pasotr Camilo on 04-24-2023 Monocytes (Bld) [#/Vol] 0.6 10*3/uL Normal 0.0-0.8 [facility] Comment on above: Performed By: #### C BC, BMP #### [address] Automated eosinophil %Ordere d By: Pastor Camilo on 04-24-2023 Eosinophils/100 WBC (Bld) 1.0 % Normal . [facility] Comment on above: Performed By: #### C BC, BMP #### [address] Automated eosinophil countOr dered By: Pastor Camilo on 04-24-2023 Eosinophils (Bld) [#/Vol] 0.1 10*3/uL Normal 0.0-0.45 [facility] Comment on above: Performed By: #### C BC, BMP #### [address] Automated erythrocytes count in urine sediment (number/area)Ordered By: Pastor Camilo on 04-24-2023 RBC Auto (Urine sed) [#/Area] 5-9 [HPF] 0-4 [facility] Automated leukocytes count i n urine sediment (number/area)Ordered By: Pastor Camilo on 04-24-2023 WBC Auto (Urine sed) [#/Area] 5-9 [HPF] 0-4 [facility] Automated monocyte %Ordered By: Pastor Camilo on 04-24-2023 Monocytes/100 WBC (Bld) 7.0 % Normal . [facility] Comment on above: Performed By: #### C BC, BMP #### [address] Automated neutrophil %Ordere d By: Pastor Camilo on 04-24-2023 Neutrophils/100 WBC (Bld) 57.0 % Normal . [facility] Comment on above: Performed By: #### C BC, BMP #### [address] Automated urine color determ inationOrdered By: Pastor Camilo on 04-24-2023 Color (U) Yellow Normal Yellow [facility] Comment on above: Order Comment: Name Collection Type:: Clean-Voided Midstream Performed By: #### C UU, BERTA, CG #### [address] Basic Metabolic Panelon Creatinine Clr Calc Pharmacy 117.43 Normal [facility] Comment on above: Result Comment: PERF ORMED BY: [place] [address] PATHOLOGIST [employer] LAYNE ROSA M.D. Performed By: #### C BC, BMP #### [address] GFR/1.73 sq M.predicted MDRD (S/P/Bld) [Vol rate/Area] mL/min/{1.73_m2} Normal [facility] Comment on above: Performed By: #### C BC, BMP #### [address] Bilirubin Test strip Ql (U)O rdered By: Pastor Camilo on 04-24-2023 Bilirubin Ql (U) Negative Negative [facility] Calcium [Mass/volume] in Ser um or PlasmaOrdered By: Pastor Camilo on 04-24-2023 Calcium [Mass/Vol] 9.6 mg/dL Normal 8.6-10.3 [facility] Comment on above: Performed By: #### C BC, BMP #### [address] Carbon dioxide, total [Moles /volume] in Serum or PlasmaOrdered By: Pastor Camilo on 04-24-2023 CO2 [Moles/Vol] 27.6 mmol/L Normal 21.0-31.0 [facility] Comment on above: Performed By: #### C BC, BMP #### [address] Chloride [Moles/volume] in S mary or PlasmaOrdered By: Pastor Camilo on 04-24-2023 Chloride [Moles/Vol] 105 mmol/L Normal 98-107 [facility] Comment on above: Performed By: #### C BC, BMP #### [address] Complete Blood Count Auto Di ffon 04-24-2023 Mean Corpuscular HGB Conc 34.2 g/dL Normal 32.0-35.0 [facility] Comment on above: Performed By: #### C BC, BMP #### [place] [address] [place] Monocytes/100 WBC (Bld) 16.95 % Normal 0.00-20.00 [facility] Comment on above: Performed By: #### C BC, BMP #### [address] NRBC% 0.2 /100{WBC} Normal 0-0.5 [facility] Comment on above: Performed By: #### C BC, BMP #### [place] [address] [place] Creatinine [Mass/volume] in Serum or PlasmaOrdered By: Pastor Camilo on 04-24-2023 Creatinine [Mass/Vol] 0.68 mg/dL Normal 0.60-1.20 [facility] Comment on above: Performed By: #### C BC, BMP #### [place] [address] [place] Dipstick and Microscopicon 1 06-24-2022 Appearance (U) Clear Normal Clear [facility] Comment on above: Order Comment: Name Collection Type:: Clean-Voided Midstream Performed By: #### C UU, ADDONUAPLUS, UHCG #### [place] [address] [place] Bacteria,Urine 1+ High None Seen [facility] Comment on above: Order Comment: Name Collection Type:: Clean-Voided Midstream Performed By: #### C UU, ADDONUAPLUS, UHCG #### [place] [address] [place] Bilirubin,Urine Negative Normal Negative [facility] Comment on above: Order Comment: Name Collection Type:: Clean-Voided Midstream Performed By: #### C UU, ADDONUAPLUS, UHCG #### [place] [address] [place] Glucose Ql (U) Normal Normal Normal [facility] Comment on above: Order Comment: Name Collection Type:: Clean-Voided Midstream Performed By: #### C UU, ADDONUAPLUS, UHCG #### [place] [address] [place] Hyaline Casts,Urine None Seen Normal 0-8 [facility] Comment on above: Order Comment: Name Collection Type:: Clean-Voided Midstream Performed By: #### C UU, ADDONUAPLUS, UHCG #### [address] Ketones Ql (U) Negative Normal Negative [facility] Comment on above: Order Comment: Name Collection Type:: Clean-Voided Midstream Performed By: #### C UU, ADDONUAPLUS, UHCG #### [place] [address] [place] Leukocyte esterase Test strip Ql (U) 2+ High Negative [facility] Comment on above: Order Comment: Name Collection Type:: Clean-Voided Midstream Performed By: #### C UU, ADDONUAPLUS, UHCG #### [place] [address] [place] Nitrite,Urine Negative Normal Negative [facility] Comment on above: Order Comment: Name Collection Type:: Clean-Voided Midstream Performed By: #### C UU, ADDONUAPLUS, UHCG #### [place] [address] [place] Occult Blood,Urine Negative Normal Negative [facility] Comment on above: Order Comment: Name Collection Type:: Clean-Voided Midstream Performed By: #### C UU, ADDONUAPLUS, UHCG #### [place] [address] [place] Protein,Urine Negative Normal Negative [facility] Comment on above: Order Comment: Name Collection Type:: Clean-Voided Midstream Performed By: #### C UU, ADDONUAPLUS, UHCG #### [address] RBC,Urine 5-9 High 0-4 [facility] Comment on above: Order Comment: Name Collection Type:: Clean-Voided Midstream Performed By: #### C UU, ADDONUAPLUS, UHCG #### [address] Specificy [place],Urine 1.013 Normal 1.001-1.03 0 [facility] Comment on above: Order Comment: Name Collection Type:: Clean-Voided Midstream Performed By: #### C UU, ADDONUAPLUS, UHCG #### [address] Squamous Epithelial Cell,Urine 3-4 High 0-2 [facility] Comment on above: Order Comment: Name Collection Type:: Clean-Voided Midstream Performed By: #### C UU, ADDONUAPLUS, UHCG #### [address] Urobilinogen,Urine Normal Normal Normal [facility] Comment on above: Order Comment: Name Collection Type:: Clean-Voided Midstream Performed By: #### C UU, ADDONUAPLUS, UHCG #### [address] WBC,Urine 5-9 High 0-4 [facility] Comment on above: Order Comment: Name Collection Type:: Clean-Voided Midstream Performed By: #### C UU, ADDONUAPLUS, UHCG #### [place] [address] [place] Erythrocyte distribution wid th [Ratio] by Automated countOrdered By: Pastor Camilo on 04-24-2023 Erythrocyte distribution width (RBC) [Ratio] 13.7 % Normal 11.9-15.3 [facility] Comment on above: Performed By: #### C BC, BMP #### [facility] [address] Erythrocytes [#/volume] in B lood by Automated countOrdered By: Pastor Camilo on 04-24-2023 RBC (Bld) [#/Vol] 4.68 10*6/uL Normal 3.60-5.00 [facility] Comment on above: Performed By: #### C BC, BMP #### [facility] [address] [place] [address] [place] Glucose [Mass/volume] in Ser um or PlasmaOrdered By: Pastor Camilo on 04-24-2023 Glucose [Mass/Vol] 69 mg/dL Low 70-100 [facility] Comment on above: ADA recommended refe rence rangeRandom Glucose Reference Range is dependent on time and content of last meal. Glucose of more than 200 mg/dL in a nonstressed, ambulatory subject supports the diagnosis of Diabetes Mellitus. Result Comment: [place] om Glucose Reference Range is dependent on time and content of last meal. Glucose of more than 200 mg/dL in a nonstressed, ambulatory subject supports the diagnosis of Diabetes Mellitus. ADA recommended reference range Performed By: #### C BC, BMP #### [facility] [address] HCG ( test) IA.rapi d Ql (U)Ordered By: Pastor Camilo on 04-24-2023 HCG ( test) Ql (U) Negative [facility] HCG,Urineon 04-24-2023 Beta HCG ( test) Ql (U) Negative Normal [facility] Comment on above: Order Comment: Name Collection Type:: Clean-Voided Midstream Result Comment: PERF ORMED BY: [place] [address] PATHOLOGIST [employer] LAYNE ROSA M.D. Performed By: #### C UU, ADDELYSSAUAPLUS, CG #### [facility] [address] Hematocrit [Volume Fraction] of Blood by Automated countOrdered By: Pastor Camilo on 04-24-2023 Hematocrit (Bld) [Volume fraction] 43.6 % Normal 34.0-46.4 [facility] Comment on above: Performed By: #### C SKYLAR, BMP #### [facility] [address] [place] [address] Hemoglobin [Mass/volume] in BloodOrdered By: Pastor Camilo on 04-24-2023 Hemoglobin (Bld) [Mass/Vol] 14.9 g/dL Normal 11.8-15.4 [facility] Comment on above: Performed By: #### C SKYLAR, BMP #### [address] Ketones Auto test strip (U) [Mass/Vol]Ordered By: Pastor Camilo on 04-24-2023 Ketones (U) [Mass/Vol] Negative Negative [facility] - UrinalysisOrder ed By: Pastor Camilo on 04-24-2023 Hyaline casts LM Ql (Urine sed) None seen [LPF] 0-8 [facility] Leukocytes [#/volume] correc darya for nucleated erythrocytes in Blood by Automated counOrdered By: Pastor Camilo on 04-24-2023 WBC corrected for nucl RBC Auto (Bld) [#/Vol] 8.7 10*3/uL 3.8-11.6 [facility] Leukocytes [#/volume] in Blo od by Automated countOrdered By: Pastor Camilo on 04-24-2023 WBC (Bld) [#/Vol] 8.7 10*3/uL Normal 3.8-11.6 [facility] Comment on above: Performed By: #### C SKYLAR, BMP #### [facility] [address] [place] [address] Lymphocytes [#/volume] in Bl ood by Automated countOrdered By: Pastor Camilo on 04-24-2023 Lymphocytes (Bld) [#/Vol] 3.0 10*3/uL Normal 1.00-4.8 [facility] Comment on above: Performed By: #### C SKYLAR, BMP #### [address] Lymphocytes/100 leukocytes i n Blood by Automated countOrdered By: Pastor Camilo on 04-24-2023 Lymphocytes/100 WBC (Bld) 34.4 % Normal . [facility] Comment on above: Performed By: #### C BC, BMP #### [facility] [address] [place] [address] MCH [Entitic mass] by Automa darya countOrdered By: Pastor Camilo on 04-24-2023 MCH (RBC) [Entitic mass] 31.9 pg Normal 24.7-34.3 [facility] Comment on above: Performed By: #### C SKYLAR, BMP #### [address] MCHC Auto (RBC) [Mass/Vol]Or dered By: Pastor Camilo on 04-24-2023 MCHC (RBC) [Mass/Vol] 34.2 g/dL 32.0-35.0 [facility] MCV [Entitic volume] by Auto mated countOrdered By: Pastor Camilo on 04-24-2023 MCV (RBC) [Entitic vol] 93.3 fL Normal 80-100 [facility] Comment on above: Performed By: #### C SKYLAR, BMP #### [address] Monocyte distribution width [Entitic volume] in Blood by AutomatedOrdered By: Pastor Camilo on 04-24-2023 Monocyte distribution width Auto (Bld) [Entitic vol] 16.95 % 0.00-20.00 [facility] Neutrophils [#/volume] in Bl ood by Automated countOrdered By: Pastor Camilo on 04-24-2023 Neutrophils (Bld) [#/Vol] 5.0 10*3/uL Normal 1.8-7.7 [facility] Comment on above: Performed By: #### C SKYLAR, BMP #### [facility] [address] [place] [address] Nitrite Test strip Ql (U)Ord ered By: Pastor Camilo on 04-24-2023 Nitrite Ql (U) Negative Negative [facility] No Panel InformationOrdered By: Pastor Camilo on 04-24-2023 Estimated GFR (CKD-EPI) > 60.0 mL/Min [facility] Creatinine Clearance (Chem 117.43 [facility] Nucleated erythrocytes [Pres ence] in Blood by Automated countOrdered By: Pastor Camilo on 04-24-2023 Nucleated RBC Auto Ql (Bld) 0.2 /100{WBC} 0-0.5 [facility] Platelet mean volume [Entiti c volume] in Blood by Automated countOrdered By: Pastor Camilo on 04-24-2023 Platelet mean volume (Bld) [Entitic vol] 8.8 fL Normal 6.3-10.7 [facility] Comment on above: Performed By: #### C BC, BMP #### [address] Platelets [#/volume] in Bloo d by Automated countOrdered By: Pastor Camilo on 04-24-2023 Platelets (Bld) [#/Vol] 224 10*3/uL Normal 150-450 [facility] Comment on above: Performed By: #### C BC, BMP #### [address] Potassium [Moles/volume] in Serum or PlasmaOrdered By: Pastor Camilo on 04-24-2023 Potassium [Moles/Vol] 3.3 mmol/L Low 3.5-5.1 [facility] Comment on above: Performed By: #### C BC, BMP #### [address] Protein Auto test strip (U) [Mass/Vol]Ordered By: Pastor Camilo on 04-24-2023 Protein (U) [Mass/Vol] Negative Negative [facility] Serum or plasma anion gap de terminationOrdered By: Pastor Camilo on 04-24-2023 Anion gap [Moles/Vol] 10.7 mmol/L Normal 6.0-15.0 [facility] Comment on above: Performed By: #### C BC, BMP #### [place] [address] [place] Sodium [Moles/volume] in Ser um or PlasmaOrdered By: Pastor Camilo on 04-24-2023 Sodium [Moles/Vol] 140 mmol/L Normal 136-145 [facility] Comment on above: Performed By: #### C BC, BMP #### [address] Specific gravity Auto test s trip (U) [Rel density]Ordered By: Pastor Camilo on 04-24-2023 Specific gravity (U) [Rel density] 1.013 1.001-1.03 0 [facility] Squamous epithelial cells de tection in urine sediment by light microscopyOrdered By: Pastor Camilo on 04-24-2023 Epithelial cells.squamous LM Ql (Urine sed) 3-4 [HPF] 0-2 [facility] Urea nitrogen [Mass/volume] in Serum or PlasmaOrdered By: Pastor Camilo on 04-24-2023 Urea nitrogen [Mass/Vol] 11 mg/dL Normal 7-25 [facility] Comment on above: Performed By: #### C SKYLAR, BMP #### [address] Urine Cultureon 04-24-2023 Bacteria identified Cx Nom (U) >100,000 colonies/ml mixed bacterial skin contaminants 2 Days PERFORMED BY: [place] [address] PATHOLOGIST [employer] LAYNE ROSA M.D. Normal [facility] Comment on above: Performed By: #### C UU, BERTA, CG #### [address] Urine bacteria detection by automated methodOrdered By: Pastor Camilo on 04-24-2023 Bacteria Auto Ql (U) 1+ None Seen [facility] Urine clarity by refractomet ry automatedOrdered By: Pastor Camilo on 04-24-2023 Clarity Refractometry automated (U) Clear Clear [facility] Urine glucose measurement by automated test strip (mass/volume)Ordered By: Pastor Camilo on 04-24-2023 Glucose Auto test strip (U) [Mass/Vol] Normal mg/dL Normal [facility] Urine hemoglobin detection b y automated test stripOrdered By: Pastor Camilo on 04-24-2023 Hemoglobin Auto test strip Ql (U) Negative Negative [facility] Urine leukocyte esterase det ection by automated test stripOrdered By: Pastor Camilo on 04-24-2023 Leukocyte esterase Auto test strip Ql (U) 2+ Negative [facility] Urine pH measurement by auto mated test stripOrdered By: Pastor Camilo on 04-24-2023 pH (U) 6.5 [pH] Normal 5.0-9.0 [facility] Comment on above: Order Comment: Name Collection Type:: Clean-Voided Midstream Performed By: #### C UU, ADDELYSSAUAPLUS, UHCG #### [facility] [address] Urobilinogen Auto test strip (U) [Mass/Vol]Ordered By: Pastor Camilo on 04-24-2023 Urobilinogen (U) [Mass/Vol] Normal mg/dL Normal [facility] Office Visit (Cardiology)on 02-03-2023 Follow-up visit Diagnoses/Problems [...] for a 6 month follow-up of [facility] PATIENT. History of Present Illness Patient is [...] sinus rhythm with normal QTc interval and WA and QRS duration. Assessment 1. Classic neurocardiogenic [...] pharmacologic therapy Surgical History Problems History of [place] tooth extraction Current Meds Medication NameInstruction Lo [...] negative for complaint. Vitals Vital Signs Recorded: [id number] 03:43PMRecorded: 06Nhv4523 03:40PM Systolic Orfmkca990, LUE, Sitting Diastolic Pymkoaw22, LUE, Sitting Systolic Uqtfgqsf549, LLE, Standing Diastolic Uhvugjfp86, LLE, Standing Heart Rate Vdeksgm63, L Radial Heart Rate Rcdppfvg34, L Radial Heart Rate88, L Radial Dmoeqihj765, LUE, Sitting Jcujerdsp63, LUE, Sitting Height5 ft 3 in Rvnxlu964 lb BMI Uwmvhkthfs72.98 kg/m2 BSA Calculated1.67 Tobacco Useb) No PHQ-2 [...] Electronically sign (more content not included)... [facility]*on 09-09-19 23 XR forearm RT 2V* [facility] [employer] Other XR forearm RT 2V* [facility] [employer] Other XR forearm RT 2V* [address] [place] [address] [employer] Other XR forearm RT 2V* [place], [place] [id number] [place] [address] [employer] Other XR forearm RT 2V* XRay Report [place] [employer] Other XR forearm RT 2V* Signed [facility] [employer] Other XR forearm RT 2V* Patient: Micky Minaya MR#: [id number] [place] [employer] Other XR forearm RT 2V* : 2000 Acct:[id number] [place] [employer] Other XR forearm RT 2V* Age/Sex: 21 / F ADM Date: 09/08/22 [employer] Other XR forearm RT 2V* Loc: XDUCLY Room: Ty pe: REG CLI [employer] Other XR forearm RT 2V* Attending Dr: Latricia CASTRO [employer] Other XR forearm RT 2V* Copies to: PEPPER Maria [employer] Other XR forearm RT 2V* Ordering Provider: PEPPER Rodriguez [employer] Other XR forearm RT 2V* Date of Service: 09/08/22 [employer] Other XR forearm RT 2V* XR/XR wrist RT min 3V*: RIGHT WRIST INJURY [employer] Other XR forearm RT 2V* ([id number]) XR/XR forearm RT 2V*: RIGHT ARM INJURY [employer] Other XR forearm RT 2V* XR wrist RT min 3V*, XR forearm RT 2V* 09/08/2022 6:43 PM [employer] Other XR forearm RT 2V* SIGNS AND SYMPTOMS: Fall onto right arm with continued right wrist pain along the radial aspect of [employer] Other XR forearm RT 2V* the wrist and right forearm [employer] Other XR forearm RT 2V* PROTOCOL: Frontal, lateral, and oblique radiographs of the right wrist. Frontal and lateral [employer] Other XR forearm RT 2V* radiographs of the r ight forearm. [employer] Other XR forearm RT 2V* COMPARISON: None [employer] Other XR forearm RT 2V* FINDINGS: [employer] Other XR forearm RT 2V* Right wrist: [employer] Other XR forearm RT 2V* The radiocarpal join t space is preserved. The carpal rows are preserved. There is no evidence of [employer] Other XR forearm RT 2V* fracture or dislocat ion. No significant soft tissue swelling. [employer] Other XR forearm RT 2V* Right forearm: [facility] [employer] Other XR forearm RT 2V* The bones are in allegra tomic alignment. There is no soft tissue swelling. No fracture. The visualized [employer] Other XR forearm RT 2V* wrist and elbow are grossly intact. [employer] Other XR forearm RT 2V* X R/XR wrist RT min 3V* [employer] Other XR forearm RT 2V* IMPRESSION: [employer] Other XR forearm RT 2V* No fracture. [employer] Other XR forearm RT 2V* Impression dictated by: Josias Blum M.D.09/08/2022 7:15 PM [employer] Other XR forearm RT 2V* Dictation Location: [place] [address] [employer] Other XR forearm RT 2V* Transcribed By: MISHA 09/08/221914 [employer] Other XR forearm RT 2V* Dictated By: Josias Blum II, MD 09/08/221910 [employer] Other XR forearm RT 2V* Signed By: [employer] Other XR forearm RT 2V* 09/08/221914 [employer] Other Quick Strepon 09-02-2022 S. pyogenes Org specific cx Ql (Throat) Negative [employer] Other Quick Strep [employer] Other COVID + FLU Quick Testingon 07-13-2022 SARS-CoV-2 (COVID-19) RNA EMERITA+probe Ql (Unsp spec) Negative [employer] Other COVID + FLU Quick Testing Negative [employer] Other RSVon 07-13-2022 RSV Ag IA Ql (Unsp spec) Positive [employer] Other No Panel Informationon 06-23 [facility] DO Work Phone: Office Visit (Cardiology)on 05-24-2022 Follow-up visit Diagnoses/Problems Assessed Tachycardia (785.0) (R00.0) Palpitations (785.1) (R00.2) Hypertension, isolated systolic (401.9) (I10) Never a smoker Overweight with body mass index (BMI) of 27 to 27.9 in adult (278.02,V85.23) (E66.3,Z68.27) Orders Hypertension, isolated systolic, Palpitations, Tachycardia Tilt Table; Status:Hold For - Scheduling,Retrospective Authorization; Requested for:[id number]; Overweight with body mass index (BMI) of 27 to 27.9 in adult Healthy Weight Tips; Status:Complete - Retrospective Authorization; Done: [id number] Some eating tips that can help you lose weight.; Status:Complete - Retrospective Authorization; Done: [id number] SocHx: Never a smoker Tobacco Use Screening; Status:Complete; Done: [id number] Patient Instructions Please bring all medicines, vitamins, [...] is inconsequential Surgical History Problems History of [place] tooth extraction Current Meds Medication NameInstruction Metoprolol [...] negative for complaint. Vitals Vital Signs Recorded: [id number] 03:43PM Heart Rate80, R Radial Dtjygkyi684, RUE, Sitting Rzfcpcxan91, RUE, Sitting Height5 ft 3 in Bfvubo967 lb BMI Jxqrzhfycy68.28 kg/m2 BSA Calculated1.73 Tobacco Useb) No Falls [...] May 24 2022 6:43PM EST (Author) Normal [employer] Tobacco Screening.on Fall risk assessment a) No falls within the last year [facility] DO Work Phone: Tobacco use status [facility] b) No [facility] DO Work Phone: Tobacco Screening.on Adult depression screening assessment No [facility] DO Work Phone: Tobacco use status [facility] b) No [facility] DO Work Phone: Vital Signs Date Time Vital Sign Value Performing Clinician Facility 01-22-2024 10:54-0400 Body height 162.56 cm DO [employer] Work Phone: [facility] 01-22-2024 10:54-0400 Body mass index (BMI) [Ratio] 24.4 kg/m2 DO [facility] [employer] Work Phone: [facility] 01-22-2024 10:54-0400 Body temperature 98 [degF] DO [employer] Work Phone: [facility] 01-22-2024 10:54-0400 Body weight 64.58 kg DO Roas Kuns Work Phone: [facility] 01-22-2024 10:54-0400 Diastolic blood pressure 66 mm[Hg] DO Rosa Kuns Work Phone: [facility] 01-22-2024 10:54-0400 Heart rate 74 /min DO Rosa Kuns Work Phone: [facility] 01-22-2024 10:54-0400 Respiratory rate 18 /min DO Rosa Kuns Work Phone: [facility] 01-22-2024 10:54-0400 SaO2% (BldA) [Mass fraction] 98 % DO Rosa Kuns Work Phone: [facility] 01-22-2024 10:54-0400 Systolic blood pressure 101 mm[Hg] DO Rosa Kuns Work Phone: [facility] 01-13-2024 09:47-0400 Body height 162.56 cm DO Rosa Kuns Work Phone: [facility] 01-13-2024 09:47-0400 Body mass index (BMI) [Ratio] 24 kg/m2 DO Rosa Kuns Work Phone: [facility] 01-13-2024 09:47-0400 Body weight 63.5 kg DO Rosa Kuns Work Phone: [facility] 12-05-2023 10:45-0400 Body height 160.02 cm [facility] 12-05-2023 10:45-0400 Body mass index (BMI) [Ratio] 24.5 kg/m2 [facility] 12-05-2023 10:45-0400 Body weight 63 kg [facility] 09-27-2023 09:06-0400 Body height 160.02 cm DO Rosa Kuns Work Phone: [facility] 09-27-2023 09:06-0400 Body mass index (BMI) [Ratio] 24.7 kg/m2 DO Rosa Kuns Work Phone: [facility] 09-27-2023 09:06-0400 Body weight 63.5 kg DO Rosa Kuns Work Phone: [facility] 09-27-2023 09:06-0400 Diastolic blood pressure 64 mm[Hg] DO Rosa Kuns Work Phone: [facility] 09-27-2023 09:06-0400 Heart rate 98 /min DO Rosa Kuns Work Phone: [facility] 09-27-2023 09:06-0400 Respiratory rate 16 /min DO Rosa Kuns Work Phone: [facility] 09-27-2023 09:06-0400 SaO2% (BldA) [Mass fraction] 98 % DO Rosa Kuns Work Phone: [facility] 09-27-2023 09:06-0400 Systolic blood pressure 104 mm[Hg] DO Rosa Kuns Work Phone: [facility] 09-20-2023 13:59-0400 Body height 160.02 cm DO Rosa Kuns Work Phone: [facility] 09-20-2023 13:59-0400 Body mass index (BMI) [Ratio] 23.9 kg/m2 DO Rosa Kuns Work Phone: [facility] 09-20-2023 13:59-0400 Body weight 61.23 kg DO Rosa Kuns Work Phone: [facility] 08-12-2023 11:55-0500 Diastolic blood pressure 74 mm[Hg] DO Rosa Kuns Work Phone: [facility] 08-12-2023 11:55-0500 Heart rate 81 /min DO Rosa Kuns Work Phone: [facility] 08-12-2023 11:55-0500 Respiratory rate 18 /min DO Rosa Kuns Work Phone: [facility] 08-12-2023 11:55-0500 SaO2% (BldA) [Mass fraction] 99 % DO Rosa Kuns Work Phone: [facility] 08-12-2023 11:55-0500 Systolic blood pressure 108 mm[Hg] DO Rosa Kuns Work Phone: [facility] 08-12-2023 10:27-0500 Body height 160.02 cm DO [employer] Work Phone: [facility] 08-12-2023 10:27-0500 Body temperature 98.2 [degF] DO [employer] Work Phone: [facility] 08-12-2023 10:27-0500 Body weight 61.23 kg DO [employer] Work Phone: [facility] 08-10-2023 12:35-0500 Body height 160.02 cm [facility] 08-10-2023 12:35-0500 Body mass index (BMI) [Ratio] 23.7 kg/m2 [facility] 08-10-2023 12:35-0500 Body temperature 98.6 [degF] [facility] 08-10-2023 12:35-0500 Body weight 60.78 kg [facility] 08-10-2023 12:35-0500 Diastolic blood pressure 74 mm[Hg] [facility] 08-10-2023 12:35-0500 Heart rate 94 /min [facility] 08-10-2023 12:35-0500 Respiratory rate 18 /min [facility] 08-10-2023 12:35-0500 SaO2% (BldA) [Mass fraction] 99 % [facility] 08-10-2023 12:35-0500 Systolic blood pressure 118 mm[Hg] [facility] 06-23-2023 14:29-0500 Body height 160 cm Willy Escudero MD Work Phone: [facility] 06-23-2023 14:29-0500 Body mass index (BMI) [Ratio] 24.09 kg/m2 Willy Escudero MD Work Phone: [facility] 06-23-2023 14:29-0500 Body weight 61.69 kg Willy Escudero MD Work Phone: [facility] 06-23-2023 14:29-0500 Diastolic blood pressure 80 mm[Hg] Willy Escudero MD Work Phone: [facility] 06-23-2023 14:29-0500 Heart rate 70 /min Willy Escudero MD Work Phone: [facility] 06-23-2023 14:29-0500 Systolic blood pressure 110 mm[Hg] Willy Escudero MD Work Phone: [facility] 06-23-2023 12:30-0500 Body height 160.02 cm Rosa Agee Other [facility] 06-23-2023 12:30-0500 Body mass index (BMI) [Ratio] 24.09 kg/m2 Rosa Kuns Other [facility] [employer] Other 06-23-2023 12:30-0500 Body weight 61.69 kg Rosa Kuns Other [facility] [employer] Other 06-23-2023 12:30-0500 Body weight 61.68 kg [facility] 06-23-2023 12:30-0500 Diastolic blood pressure 64 mm[Hg] Rosa Kuns Other [facility] 06-23-2023 12:30-0500 Respiratory rate 16 /min Rosa Kuns Other [employer] Other 06-23-2023 12:30-0500 SaO2% (BldA) [Mass fraction] 99 % Rosa Kuns Other [employer] Other 06-23-2023 12:30-0500 Systolic blood pressure 104 mm[Hg] Rosa Kuns Other [facility] 04-26-2023 08:45-0500 Body height 160.02 cm Rosa Kuns Other [employer] Other 04-26-2023 08:45-0500 Body mass index (BMI) [Ratio] 24.8 kg/m2 Rosa Kuns Other [employer] Other 04-26-2023 08:45-0500 Body weight 63.5 kg Rosa Kuns Other [employer] Other 04-26-2023 08:45-0500 Diastolic blood pressure 80 mm[Hg] Rosa Kuns Other [employer] Other 04-26-2023 08:45-0500 Respiratory rate 16 /min Rosa Kuns Other [employer] Other 04-26-2023 08:45-0500 SaO2% (BldA) [Mass fraction] 97 % Rosa Kuns Other [employer] Other 04-26-2023 08:45-0500 Systolic blood pressure 116 mm[Hg] Rosa Kuns Other [employer] Other 04-24-2023 22:52-0500 Diastolic blood pressure 71 mm[Hg] DO Rosa Kuns Work Phone: [facility] 04-24-2023 22:52-0500 Heart rate 88 /min DO Rosa Kuns Work Phone: [facility] 04-24-2023 22:52-0500 Respiratory rate 18 /min DO Rosa Kuns Work Phone: [facility] 04-24-2023 22:52-0500 SaO2% (BldA) [Mass fraction] 98 % DO Rosa Kuns Work Phone: [facility] 04-24-2023 22:52-0500 Systolic blood pressure 117 mm[Hg] DO Rosa Kuns Work Phone: [facility] 04-24-2023 20:42-0500 Body height 160.02 cm DO Rosa Kuns Work Phone: [facility] 04-24-2023 20:42-0500 Body temperature 98.8 [degF] DO Rosa Kuns Work Phone: [facility] 04-24-2023 20:42-0500 Body weight 64.7 kg DO Rosa Kuns Work Phone: [facility] 09-08-2022 19:30-0400 Body height 160.02 cm Latricia Campbell Other [employer] Other 09-08-2022 19:30-0400 Body mass index (BMI) [Ratio] 25.86 kg/m2 Latricia Campbell Other [employer] Other 09-08-2022 19:30-0400 Body temperature 100.3 [degF] Latricia Campbell Other [employer] Other 09-08-2022 19:30-0400 Body weight 66.23 kg Latricia Campbell Other [employer] Other 09-08-2022 19:30-0400 Diastolic blood pressure 81 mm[Hg] Latricia Campbell Other [facility] [employer] Other 09-08-2022 19:30-0400 Respiratory rate 18 /min Latricia Campbell Other [facility] [employer] Other 09-08-2022 19:30-0400 SaO2% (BldA) [Mass fraction] 99 % Latricia Campbell Other [facility] [employer] Other 09-08-2022 19:30-0400 Systolic blood pressure 124 mm[Hg] Latricia Campbell Other [facility] [employer] Other 06-23-2022 10:03-0500 Diastolic blood pressure 71 mm[Hg] DO Rosa Kuns Work Phone: [facility] 06-23-2022 10:03-0500 Heart rate 101 /min DO Rosa Kuns Work Phone: [facility] 06-23-2022 10:03-0500 Systolic blood pressure 122 mm[Hg] DO Rosa Kuns Work Phone: [facility] 06-23-2022 09:21-0500 SaO2% (BldA) [Mass fraction] 99 % DO Rosa Kuns Work Phone: [facility] 06-22-2022 09:33-0500 Body height 160.02 cm DO Rosa Kuns Work Phone: [facility] 06-22-2022 09:33-0500 Body weight 69.85 kg DO Rosa Kuns Work Phone: [facility] 05-24-2022 15:43-0500 Body height 160.02 cm Rosa R Kuns Work Phone: [facility] 250 DO Work Phone: 05-24-2022 15:43-0500 Body mass index (BMI) [Ratio] 27.28 kg/m2 Rosa R Kuns Work Phone: [facility] 250 DO Work Phone: 05-24-2022 15:43-0500 Body surface area Derived from formula 1.73 m2 Rosa R Kuns Work Phone: [facility] 250 DO Work Phone: 05-24-2022 15:43-0500 Body weight 69.85 kg Rosa R Kuns Work Phone: [facility] 250 DO Work Phone: 05-24-2022 15:43-0500 Diastolic blood pressure 62 mm[Hg] Rosa R Kuns Work Phone: [facility] 250 DO Work Phone: 05-24-2022 15:43-0500 Heart rate 80 /min Rosa R Kuns Work Phone: [facility] 250 DO Work Phone: 05-24-2022 15:43-0500 Systolic blood pressure 100 mm[Hg] Rosa R Kuns Work Phone: [facility] 250 DO Work Phone: 09-08-2021 15:55-0400 Body height 160.02 cm Rosa R Kuns Work Phone: [facility] 250 DO Work Phone: 09-08-2021 15:55-0400 Body mass index (BMI) [Ratio] 26.47 kg/m2 Rosa R Kuns Work Phone: [facility] 250 DO Work Phone: 09-08-2021 15:55-0400 Body surface area Derived from formula 1.71 m2 Rosa R Kuns Work Phone: [facility] 250 DO Work Phone: 09-08-2021 15:55-0400 Body weight 67.77 kg Rosa R Kuns Work Phone: [facility] 250 DO Work Phone: 09-08-2021 15:55-0400 Diastolic blood pressure 77 mm[Hg] Rosa R Kuns Work Phone: [facility] 250 DO Work Phone: 09-08-2021 15:55-0400 Heart rate 83 /min Rosa R Kuns Work Phone: [facility] [employer] 250 DO Work Phone: 09-08-2021 15:55-0400 Systolic blood pressure 116 mm[Hg] Rosa R Kuns Work Phone: [facility] 250 DO Work Phone: 05-07-2021 14:30-0500 Body height 160.02 cm Rosa Kuns Other [employer] [facility] [employer] Other 05-07-2021 14:30-0500 Body mass index (BMI) [Ratio] 26.39 kg/m2 Rosa Kuns Other [employer] Other 05-07-2021 14:30-0500 Body weight 67.59 kg Rosa Kuns Other [employer] Other 05-07-2021 14:30-0500 Diastolic blood pressure 78 mm[Hg] Rosa Kuns Other [employer] Other 05-07-2021 14:30-0500 Respiratory rate 16 /min Rosa Kuns Other [employer] Other 05-07-2021 14:30-0500 SaO2% (BldA) [Mass fraction] 98 % Rosa Kuns Other [employer] Other 05-07-2021 14:30-0500 Systolic blood pressure 122 mm[Hg] Rosa Kuns Other [employer] Other Encounters Encounter Date Encounter Type Care Provider Facility Start: 03-23-2024 End: 03-23-2024 ambulatory [facility] Start: 03-21-2024 End: 03-21-2024 ambulatory EVELYNE JANY Not Available Start: 03-21-2024 End: 03-21-2024 Bamboo flowsheet Evelyne Jany DO Work Phone: [facility] Start: 03-21-2024 End: 03-21-2024 Bamboo flowsheet Evelyne Jany DO Work Phone: [facility] Start: 02-13-2024 End: 02-13-2024 ambulatory EVELYNE JANY Not Available Start: 01-22-2024 End: 01-22-2024 Patient encounter procedure DO Rosa Kuns Work Phone: [facility] [place] Work Phone: Start: 01-22-2024 End: 01-22-2024 ambulatory DO Orsa Kuns Work Phone: [facility] Work Phone: Start: 01-22-2024 End: 01-22-2024 ambulatory DO Rosa Kuns Work Phone: [facility] Work Phone: Start: 01-22-2024 End: 01-22-2024 Patient encounter procedure DO Rosa Kuns Work Phone: [facility] [place] Work Phone: Start: 01-13-2024 End: 01-13-2024 ambulatory DO Rosa Kuns Work Phone: [facility] Work Phone: Start: 01-13-2024 End: 01-13-2024 Patient encounter procedure DO Rosa Kuns Work Phone: [facility] Gastroenterology Work Phone: Start: 12-09-2023 End: 12-09-2023 Patient encounter procedure DO Rosa Kuns Work Phone: [facility] [place] Work Phone: Start: 12-09-2023 End: 12-09-2023 ambulatory DO Rosa Kuns Work Phone: [facility] Work Phone: Start: 12-05-2023 End: 12-05-2023 ambulatory [facility] Work Phone: Start: 12-05-2023 End: 12-05-2023 Patient encounter procedure [facility] Gastroenterology Work Phone: Start: 09-27-2023 End: 09-27-2023 ambulatory DO Rosa Kuns Work Phone: [facility] Work Phone: Start: 09-27-2023 End: 09-27-2023 Patient encounter procedure DO Rosa Kuns Work Phone: [facility] [place] Work Phone: Start: 09-20-2023 End: 09-20-2023 ambulatory DO Rosa Kuns Work Phone: [facility] Work Phone: Start: 09-20-2023 End: 09-20-2023 Patient encounter procedure DO Rosa Kuns Work Phone: [facility] Gastroenterology Work Phone: Start: 08-12-2023 Non-patient / Non-visit DO Rosa Kuns Work Phone: [facility] Gastroenterology Work Phone: Start: 08-12-2023 End: 08-12-2023 Admission to same day surgery center DO Rosa Kuns Work Phone: [facility]Dig[facility] Work Phone: Start: 08-12-2023 End: 08-12-2023 ambulatory DO Rosa Kuns Work Phone: [facility] Work Phone: Start: 08-10-2023 End: 08-10-2023 ambulatory DO Rosa Kuns Work Phone: [facility] Work Phone: Start: 08-10-2023 End: 08-10-2023 Departed Referred DO Rosa Kuns Work Phone: [facility] [place] Work Phone: Start: 08-10-2023 End: 08-10-2023 ambulatory [facility] Center Work Phone: Start: 08-10-2023 End: 08-10-2023 Patient encounter procedure [facility] [place] Work Phone: Start: 08-01-2023 End: 08-01-2023 ambulatory Cuong Fletcher Other [facility] Other Start: 08-01-2023 Telephone encounter Cuong Mcallister [facility] Records Management Manager Start: 07-15-2023 End: 07-15-2023 ambulatory Cuong Fletcher Other [facility] Other Start: 07-15-2023 Office outpatient ne w 30 minutes Cuong Fletcher [facility] Gastroenterology Start: 06-23-2023 End: 06-23-2023 ambulatory WILLY ESCUDERO [facility] [employer] Other Start: 06-23-2023 End: 06-23-2023 Office outpatient visit 15 minutes Willy Escudero MD Work Phone: [facility] Comment on above: Neurologic cardiac s yncope (Primary Dx); Palpitations; Tachycardia Start: 06-23-2023 End: 06-23-2023 Patient encounter procedure [facility] Work Phone: Start: 04-26-2023 Encounter for genera l adult medical examination without abnormal findings Rosa Agee [facility] Start: 04-26-2023 Patient encounter status Rosa Agee Other [facility] [employer] Other Start: 04-26-2023 Periodic preventive med est patient 18-39 yrs Rosa Agee [facility] Start: 04-26-2023 End: 04-26-2023 Patient encounter procedure DO Rosa Agee Work Phone: [facility] [place] Work Phone: Start: 04-26-2023 End: 04-26-2023 ambulatory DO Rosa Agee Work Phone: [facility] Work Phone: Start: 04-24-2023 End: 04-24-2023 Emergency department patient visit DO Rosa Agee Work Phone: [facility]-Emergency Room Work Phone: Start: 04-20-2023 End: 04-20-2023 ambulatory Rosa Agee Other [employer] Other Start: 04-20-2023 Telephone encounter Rosa Agee [facility] Start: 02-03-[address] Rosa Agee Fa cility: Start: 10-20-2022 End: 10-20-[address] ROSA AGEE Facility: Start: 09-08-2022 End: 09-08-2022 Patient encounter procedure DO Rosa Agee Work Phone: [facility] [place] Work Phone: Start: 09-08-2022 End: 09-08-2022 ambulatory DO Rosa Agee Work Phone: [facility] Work Phone: Start: 09-08-2022 Office outpatient visit 15 minutes Latricia Campbell [facility] [place] Start: 09-08-2022 Telephone encounter Rosa Agee [facility] [place] Start: 09-02-2022 End: 09-02-2022 ambulatory Rosa Agee Other [facility] Other Start: 09-02-2022 Nursing evaluation o f patient and report Rosa Agee [facility] [place] Start: 09-02-2022 Telephone encounter Rosa Agee [facility] [place] Start: 07-24-2022 Chart Update Rosa Agee Work Phone: [facility] 250 DO Work Phone: Start: 07-13-2022 End: 07-13-2022 ambulatory Rosa Agee Other [facility] Other Start: 07-13-2022 Nursing evaluation o f patient and report Rosa Agee [facility] [place] Start: 07-13-2022 Telephone encounter Rosa Agee [facility] [place] Start: 07-12-2022 End: 07-12-2022 ambulatory Rosa Agee Other [facility] Other Start: 07-12-2022 Telephone encounter Rosa Agee [facility] [place] Start: 06-25-2022 Chart Update Rosa Agee Work Phone: [facility] 250 DO Work Phone: Start: 06-23-[address] Rosa Agee Fa cility:[id number] Start: 06-23-2022 End: 06-23-2022 ambulatory DO Rosa Kuns Work Phone: [facility] Work Phone: Start: 06-23-2022 End: 06-23-2022 Patient encounter procedure DO Rosaladonna Agee Work Phone: [facility]-Electrodiagnostics Work Phone: Start: 05-24-2022 Office outpatient visit 25 minutes Rosa R Samanpoonam Work Phone: [facility] 250 DO Work Phone: Start: 05-24-[address] Miladis sanchez [facility] Facility: Start: 09-29-2021 End: 09-29-2021 ambulatory Rosa Agee Other [facility] [employer] Other Start: 09-29-2021 Telephone encounter Rosa Agee [facility] [place] Start: 09-08-2021 Office outpatient visit 15 minutes Rosa R Chirs Work Phone: [facility] 250 DO Work Phone: Start: 05-07-2021 End: 05-07-2021 ambulatory Rosaladonna Agee Other [facility] [employer] Other Start: 05-07-2021 Office outpatient visit 25 minutes Rosa Agee [facility] [place] Procedures Date Procedure Procedure Detail Performing Clinician Start: 01-22-2024 X-ray of right foot DO Rosa Kuns Work Phone: Start: 08-12-2023 Colonoscopy DO Rosa [...] Start: 2050 Zoster Vaccines (1 of 2) Zoste r Vaccines (1 of 2) [facility] Start: 03-18-2032 DTaP/Tdap/Td Vaccine s (8 - Td or Tdap) DTaP/Tdap/Td Vaccines (8 - Td or Tdap) [facility] Start: 10-06-2024 Screening for malign ant neoplasm of cervix [facility] Start: 03-23-2024 End: 03-23-2024 Patient encounter procedure 03/23/2024 8:40 AM EDT Office Visit [facility] [address] [id number] Willy Escudero MD [address] [facility] [address] [address] [facility] Start: 03-21-2024 End: 03-21-2024 Patient encounter procedure 03/21/2024 2:50 PM EDT Office Visit [facility] [address] [place] [id number] Evelyne Carmichael DO [address] [place] [address] Arrived [facility] Comment on above: Arrived Start: 02-19-2024 Influenza vaccination Influenz a Vaccine (#1) [facility] Start: 12-09-2023 [facility] Start: 08-12-2023 [facility] Start: 08-10-2023 [facility] Start: 04-26-2023 Bacteria identified in Urine by Culture Urine Culture [facility] Start: 04-24-2023 Computed tomography of abdomen and pelvis with contrast CT abdomen pelvis w con [facility] Start: 04-24-2023 CT Abdomen and Pelvi s W contrast IV [facility] Start: 04-24-2023 Bacteria identified in Urine by Culture [facility] Start: 04-24-2023 Urine culture Urine Culture [facility] Start: 02-18-2023 Influenza vaccination Influenz a Vaccine (#1) [facility] Start: 11-24-2022 FUV, Provider: Willy Escudero, Status: Pen, Time: 3:10 PM FUV, Provider: Willy Escudero, Status: Pen, Time: 3:10 PM [facility] [employer] 250 DO Work Phone: Start: 05-13-2022 Hepatitis B Vaccines (3 of 3 - 3-dose series) Hepatitis B Vaccines (3 of 3 - 3-dose series) [facility] Start: 03-10-2022 FUV, Provider: Miladis Morris, Status: Pen, Time: 9:50 AM FUV, Provider: Miladis Morris, Status: Pen, Time: 9:50 AM [facility] [employer] 250 DO Work Phone: Start: 2021 Screening for malign ant neoplasm of cervix HPV/Cotest [facility] Start: 07-02-2021 COVID-19 Vaccine (3 - Pfizer series) COVID-19 Vaccine (3 - Pfizer series) [facility] Start: 2018 Hepatitis C screening Hepatiti s C Screening [facility] Start: 09-22-2011 HPV Vaccines (1 - 2- dose series) HPV Vaccines (1 - 2-dose series) [facility] Start: 2000 HIV screening HIV Screening [facility] Start: 2000 Lipid panel Lipid Panel [facility] Start: 2000 Yearly Adult Physical Yearly A dult Physical [facility] Atopobium vaginae DN A [Presence] in Vaginal fluid by EMERITA with probe detection [facility] Bacterial vaginosis associated bacterium 2 DNA [Presence] in Vaginal fluid by EMERITA with probe detection [facility] Endomysial antibody IgA level [facility] Gliadin peptide IgA Ab [Units/volume] in Serum [facility] Gliadin peptide IgG Ab [Units/volume] in Serum [facility] IgA [Mass/volume] in Serum or Plasma [facility] Megasphaera sp type 1 DNA [Presence] in Vaginal fluid by EMERITA with probe detection [facility] Patient Education Constipation, Adult ED [facility] Work Phone: Patient referral [facility] Work Phone: Tissue transglutamin ase IgA Ab [Units/volume] in Serum [facility] Tissue transglutamin ase IgG Ab [Units/volume] in Serum [facility] Immunizations Immunization Date Immunization Notes Care Provider [facility] 11-18-2023 influenza virus vaccine, unspecified formulation Evelyne Carmichael DO Work Phone: [facility] 03-18-2022 Hepatitis B vaccine (recombinant), CpG adjuvanted Rosa Agee Work Phone: [place] [address] DO Work Phone: 03-18-2022 hepatitis B vaccine, pediatric or pediatric/adolescent dosage Willy Escudero MD Work Phone: [facility] Work Phone: 03-18-2022 influenza, injectable, quadrivalent, preservative free Rosa Agee Work Phone: [facility] 03-18-2022 tetanus toxoid, reduced diphtheria toxoid, and acellular pertussis vaccine, adsorbed Rosa Agee Work Phone: [facility] 03-18-2022 varicella virus vaccine Rosa R Chris Work Phone: [facility] 03-18-2022 influenza virus vaccine, unspecified formulation Willy Escudero MD Work Phone: [facility] Work Phone: 05-07-2021 Pfizer-BioNTech COVID-19 Vacc 30 MCG/0.3ML Intramuscular Suspension Rosa R Chris Work Phone: [facility] 04-16-2021 Pfizer-BioNTech COVID-19 Vacc 30 MCG/0.3ML Intramuscular Suspension Rosa R Samans Work Phone: [facility] 02-08-2018 meningococcal polysaccharide (groups A, C, Y and W-135) diphtheria toxoid conjugate vaccine (MCV4P) Rosa Agee Other [facility] 02-18-2005 diphtheria, tetanus toxoids and acellular pertussis vaccine, unspecified formulation Rosa R Chris Work Phone: [facility] 02-18-2005 measles, mumps and rubella virus vaccine Rosa Chris Other [facility] 02-18-2005 poliovirus vaccine, inactivated Rosa Kuns Other [facility] 02-18-2005 poliovirus vaccine, unspecified formulation [facility] 01-25-2002 diphtheria, tetanus toxoids and acellular pertussis vaccine, unspecified formulation Rosa R Chris Work Phone: [facility] 01-25-2002 poliovirus vaccine, inactivated Rosa Kuns Other [employer] Other 01-25-2002 poliovirus vaccine, unspecified formulation [facility] 10-02-2001 measles, mumps and rubella virus vaccine Rosa Kuns Other [facility] 10-02-2001 varicella virus vaccine Rosa Kuns Other [facility] 03-27-2001 diphtheria, tetanus toxoids and acellular pertussis vaccine, unspecified formulation Rosa R Kuns Work Phone: [facility] 03-27-2001 hepatitis B vaccine, pediatric or pediatric/adolescent dosage Rosa Kuns Other [facility] 03-27-2001 pneumococcal conjugate vaccine, 7 valent Rosa Kuns Other [facility] 03-27-2001 pneumococcal Conjugate, unspecified formulation [facility] 02-02-2001 diphtheria, tetanus toxoids and acellular pertussis vaccine, unspecified formulation Rosa R Kuns Work Phone: [facility] 02-02-2001 pneumococcal conjugate vaccine, 7 valent Rosa Kuns Other [employer] Other 02-02-2001 pneumococcal Conjugate, unspecified formulation [facility] 02-02-2001 poliovirus vaccine, inactivated Rosa Kuns Other [employer] Other 02-02-2001 poliovirus vaccine, unspecified formulation [facility] 2000 diphtheria, tetanus toxoids and acellular pertussis vaccine, unspecified formulation Rosa R Kuns Work Phone: [facility] 2000 pneumococcal conjugate vaccine, 7 valent Rosa Kuns Other [employer] Other 2000 pneumococcal Conjugate, unspecified formulation [facility] 2000 poliovirus vaccine, inactivated Rosa Kuns Other [employer] Other 2000 poliovirus vaccine, unspecified formulation [facility] 2000 hepatitis B vaccine, pediatric or pediatric/adolescent dosage Rosa Kuns Other [facility] NEGATED: Highlighted row has not occurred! 9 influenza, seasonal, injectable Patient Objection Rosa Kuns Other [facility] [employer] Other Payers Date Payer Category Payer Self-pay [id number] 2022 Private Health Insurance [id number] 2022 Private Health Insurance [id number] 2000 Unknown [id number] [id number]. 2.356 2000 Unknown [id number] 2.16.840.1.077146.3.579. 2.356 2000 Unknown [id number] 2.16.840.1.248883.3.579. 2.356 2000 Unknown [id number] 2.16.840.1.662551.3.579. 2.1259 2000 Unknown [id number] 2.16.840.1.583993.3.579. 2.1259 2000 Unknown [id number] 2.16.840.1.798424.3.579. 2.1244 2000 Unknown [id number] 2.16.840.1.415943.3.579. 2.1244 1974 Unknown [id number] 2.16.840.1.750364.3.579. 2.593 1959 Private Health Insurance [id number] [id number] Unknown [facility] Unknown [place] BC/BS [id number] Unknown [id number] 2.16.840.1.765281.3.579. 2.531 Unknown [id number] 2.16.840.1.419432.3.579. 2.531 Unknown [id number] 2.16.840.1.593036.3.579. 2.531 Unknown [id number] 2.16.840.1.944759.3.579. 2.531 Unknown [id number] 2.16.840.1.898329.3.579. 2.531 Unknown [id number] [id number]. 2.531 Social History Date Type Detail Facility Start: 06-16-2023 No alcohol use No alcohol use [facility] [employer] Other Start: 06-16-2023 Sex Assigned At [facility] Other Start: 2000 Sex Assigned At Female [facility] Start: 04-24-2023 End: 08-12-2023 Tobacco smoking status NHIS Never smoked tobacco (finding) [facility] Start: 06-16-2023 Tobacco use and exposure Smokeless tobacco non-user [facility] Work Phone: Start: 06-23-2023 Alcohol intake Current drinke r of alcohol (finding) [facility] Work Phone: Start: 2000 Sex Assigned At Not on file [facility] Work Phone: Start: 06-13-2023 End: 06-23-2023 Exposure to SARS-CoV-2 (event) Not sure [facility] Tobacco smoking status FLIS Tobacco smoking consumption unknown [facility] Start: 02-06-2024 Gender identity Identifies as female gender (finding) [facility] Healthcare Goals Date Patient Goal Desired Activity /State Clinical Notes 11-13-2020 to 12-05-2023 Note Date & Type Note Facility 12-05-2023 Evaluation note Authored December 05, 2023 11:23am Patient, positive for abdomi nal pain, bowel movements once or twice per week and abdominal cramping. As with Amitiza patient notes nausea vomiting and abdominal discomfort with Trulance dosing [facility] Work Phone: 1(593) 752-771006-17-2024 Evaluation note* Author [facility] Authored December 05, 2023 11:2 3am Patient, positive for abdomi nal pain, bowel movements once or twice per week and abdominal cramping. As with Amitiza patient notes nausea vomiting and abdominal discomfort with Trulance dosing [facility] January 13, 2024 10:[address] scan, normal col onoscopy patient noted for abdominal discomfort and irregular bowel movements. Patient with predominance of IBS-C. Patient is negative for weight loss and rectal bleeding [facility] Work Phone: 1(681) 794-416704-09-2024 Evaluation note* Author Celeste Hernández [facility] Authored September 27, 2023 9:14 am Sooner if needed, the ER if concerns,The above note written by Celeste Hernández LPN acting as human recorder, note dictated by Dr. Rosa Agee [facility] Work Phone: 1(129) 676-988404-09-2024 Evaluation note* Author Celeste Hernández [facility] Authored September 27, 2023 9:14 am Sooner if needed, the ER if concerns,The above note written by Celeste Hernández LPN acting as human recorder, note dictated by Dr. Rosa Agee Author [facility] Authored December 05, 2023 11:2 3am Patient, positive for abdomi nal pain, bowel movements once or twice per week and abdominal cramping. As with Amitiza patient notes nausea vomiting and abdominal discomfort with Trulance dosing [facility] Work Phone: 1(989) 338-757802-23-2024 [facility]* Encounter Date Diagnosis Assessment [...] Pt given samples of linzess- 6 boxes [facility] Other 01-04-2024 History of Present illness Narrative* [...] Scribe Attestation By signing my name below, I Pattijamir Correia LPN , Scribe attest that this documentation has been prepared under the direction and in the presence of MD Ash. [facility] Work Phone: 1(302) 889-640801-04-2024 Instructions* Patient Instructions* Adis Baugh MA - [...] time of your visit. documented [facility] Work Phone: [phone]) 691-458301-04-2024 Evaluation note* Encounter Date Diagnosis Assessment Notes [...] still being worked up by gastro and RESERVATIONS SALES AGENT. I do encourage patient to follow the plan of care. I also advised Linzess is not safe with Jun, Hyperlipidemia (ICD-10 - E78.5) [facility] Other 11-07-2023 Evaluation note* Encounter Date Diagnosis [...] constipation type (ICD-10 - K59.00) Review of [facility] report including CT scan and labs. [...] cyst noted upon CT imaging obtained at [facility] on 04/24/23.The patient does report left sided abdominal pain. The patient encouraged following with gynecology who she sees in [facility] . Apr, Leukocytes in urine (ICD-10 - R82.998) Small leukocytes noted upon in house urinalysis.The patient is asymptomatic at this time. Urine specimen sent for culture. Apr, Neurocardiogenic syncope (ICD-10 - R55) The patient is following with transition of care specialist , states she has been taken off [...] is safe and non addicting, instructions provided. [facility] Other 11-05-2023 Hospital Discharge instructions Additional Instructions 4 capfuls of MiraLAX in juice in the morning and then again in the evening if constipation continues.[facility] Work Phone: [phone]) 237-190311-01-2023 Evaluation note* Encounter Date Diagnosis Assessment Notes Treatment Notes Treatment Clinical Notes Apr, Hyperlipidemia (ICD-10 - E78.5) [facility] Other 03-22-2023 Evaluation note* Encounter Date Diagnosis [...] no improvement in 5 to 7 days [facility] Other 03-16-2023 Evaluation note* Encounter Date Diagnosis Assessment Notes Treatment Notes Treatment Clinical Notes Aug, Sore throat (ICD-10 - J02.9) [facility] Other 01-24-2023 Evaluation note* Encounter Date Diagnosis Assessment Notes Treatment Notes Treatment Clinical Notes Jun, Acute cough (ICD-10 - R05.1) Patient and Dr. Keane were made aware of positive findings. Dr. Keane recommended that she start atb/steriod regimen- see TE for further clinical documentation. [facility] Other 04-12-2022 Evaluation note* Encounter Date Diagnosis Assessment Notes Treatment Notes Treatment Clinical Notes Sep, Hyperlipidemia (ICD-10 - E78.5) [facility] Other 11-18-2021 Evaluation note* Encounter Date Diagnosis [...] pressure and follow with cardiology as scheduled. 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 Medical History ECHO and Stress Test 11/13/2020 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 Medical History Neurocardiogenic syncope Surgical History wisdom teeth [employer] Other Evaluation noteNo assessment information available [facility] Work Phone: Evaluation noteNo InformationNort [employer] Other Evaluation note* Diagnosis Neurologic cardiac syncope- Primary Syncope and collapse Palpitations Tachycardia Unspecified tachycardia documented in this encounter [facility] Work Phone: Evaluation note* Diagnosis Onset Date Resolution Status High risk sexual behavior ac [place] Vaginal discharge acute [facility] Work Phone: Evaluation note* Diagnosis Onset Date Resolution Status High risk sexual behavior ac [place] Vaginal discharge acute Constipation acute [facility] Work Phone: Evaluation note* Author Celeste Hernández [facility] Authored September 27, 2023 9:14 am Sooner if needed, the ER if concerns,The above note written by Celeste Hernández LPN acting as human recorder, note dictated by Dr. Rosa Agee [facility] Work Phone: History and physical note Author Los Hartman [facility] August 12, 2023 11:05am Note Date/Time August 12, 2023 11:05am [facility] [address] [place] [address] Gastroenterology H&P Signed Patient: Alonso Minaya MR#: [id number] : 2000 Acct:[id number] Age/Sex: 22 / F Adm Date: 4 Loc: Room: Type: [facility] Attending Dr: Los Hartman MD Copies to: [...] By: <Electronically signed by Los Hartman MD> 08/12/231104 [facility] Work Phone: Reason for referral (narrative)* Consultation (Routine) - Authorized Specialty Diagnoses / Procedures Referred By Contlisa t Referred To Contact Cardiology Diagnoses Neurologic cardiac syncope Procedures Follow Up In Cardiology Willy Escudero MD [facility] [facility] [address], [address] [address] Willy Escudero MD [facility] [address], [address] [address] Referral ID Status Reason Start Date Expiration Date V isits Requested Visits Authorized [id number] Authorized 06/23/2023 06/22/2024 1 1 [facility] Work Phone: Chief Complaint * ALONSO MINAYA [...] predominant constipation Right foot strain Advance Directives Advance Directive Response Recorded Date/ Time Advance [...] Active Team Status: Active Member Role Status Dates Rosa Agee DO Primary Care Provider Active Team Status: Inactive Member Role Status Brenda Agee DO Primary Care Provider Active PEPPER Berry Attending Provider Active Team Status: Inactive Member Role Status Brenda Agee DO Primary Care Provider Active Pastor Camilo MD Emergency Provider Active Team Status: Inactive Member Role Status Dates Rosa Agee DO Primary Care Provider, Attending Provi jie Active Can Repairer Relationship Specialty Start Date End Date Rosa Agee DO [address] [place] [address] [place] [id number] PCP - General Family Medicine 06/23/23 Team [...] 2023 Team Status: Active Member Role Status Brenda [...] Role Status Brenda Agee DO Primary Care Provide r, Attending [...] Provider Active S tart: January 22, 2024 Can Repairer Relationship Specialty Start Date End Date Rosa Agee DO [address] [place] [id number] PCP - General Family Medicine 03/21/24 Goals (unrecognized section and content) Goals may be documented in a n alternate section INFORMATION SOURCE (unrecogn ized section and content) DATE CREATED AUTHOR 10/22/2022 [facility] DATE CREATED AUTHOR AUTHOR'S ORGANIZ ATION 02/04/2023 [facility] DATE CREATED AUTHOR AUTHOR'S ORGANIZ ATION 02/05/2023 [employer] DATE CREATED AUTHOR AUTHOR'S ORGANIZ ATION 01/26/2024 [facility] DATE CREATED AUTHOR AUTHOR'S ORGANIZ ATION 03/23/2024 [facility] EP[facility] DATE CREATED AUTHOR AUTHOR'S ORGANIZ ATION 03/25/2024 [facility] FOR RECORDS PERTAINING TO PATIENTS WHO ARE [...] BE BASED ON THE PRIMARY CLINICAL RECORDS. [facility]. provides no warranty or guarantee of the accuracy or completeness of information in this document.
[2024-03-29 07:35] LABS: Basophils Percent Auto 0.2 % (0.2-2.0); Eosinophils Absolute Auto 0.1 10^3/uL (0.0-0.7); Eosinophils Percent Auto 0.9 % (0.9-7.0); Hematocrit 40.8 % (36.0-48.0); Hemoglobin 14.5 g/dL (12.0-16.0); Immature Granulocytes Abs Auto 0.02 10^3/uL (0.00-0.03); Immature Granulocytes Pct Auto 0.2 % (0.0-0.5); Lymphocytes Absolute Auto 2.5 10^3/uL (1.2-3.8); Lymphocytes Percent Auto 30.3 % (20.5-60.0); Mean Corpuscular HGB Conc 35.5 g/dL (29.9-35.2); Mean Corpuscular Hemoglobin 32.2 pg (26.7-34.0); Mean Corpuscular Volume 90.7 fL (81.0-99.0); Mean Platelet Volume 10.5 fL (9.5-13.5); Monocytes Absolute Auto 0.5 10^3/uL (0.3-0.8); Monocytes Percent Auto 5.8 % (1.7-12.0); Neutrophils Absolute Auto 5.1 10^3/uL (1.4-6.5); Neutrophils Percent Auto 62.6 % (43.0-75.0); Platelet Count 216 10^3/uL (150-450); Red Cell Distribution Width 12.5 % (11.0-15.0); White Blood Count 8.2 10^3/uL (4.0-11.0)
[2024-03-29 07:48] LABS: Glucometer 94 mg/dL (74-106)
[2024-03-29 07:52] LABS: HCG Qualitative NEGATIVE (NEGATIVE); Internal Control Within Normal Limits
[2024-03-29] MEDS: LACTATED RINGER'S SOLUTION 1,000 ML 50 ML IV (08:15)
[2024-03-29] MEDS: VANCOMYCIN HCL 1,000 MG in 0.9 % SODIUM CHLORIDE 250 ML 250 MG IV (09:47)
--- NOTE | 2024-03-29 11:03 | PC.NURSE ---
09- Final timeout completed. 927-Patient placed on monitor and O2 at 2l/min via nc. 929- Patient positioned on left side and right leg landmarked with ultrasound per Dr. Shell. 33- Right popliteal block initiated. 36- Right popliteal block completed. 37- Patient repositioned on back. 38- Right saphenous block initiated. 40- Right saphenous block completed. Patient tolerated it well. See posted vital signs.
--- NOTE | 2024-03-29 11:05 | P.ORON_ITS ---
Brief Operative Note Date of procedure: 03/29/24 Pre-op diagnosis general: Right Achilles and peroneal tendon strain, possible ankle instability Post-op diagnosis: other (Right Achilles and peroneal tendon strain) Procedure: Procedure performed: Repair of right Achilles and peroneal tendon, stress examination under intraoperative fluoroscopy and application of short leg splint Indications for procedure: Patient is a 23-year-old female who has had recalcitrant right foot and ankle pain since an injury that occurred over the summer. She initially was treated nonoperatively with cam boot immobilization, bracing, physical therapy and NSAIDs however patient has been unable to tolerate physical therapy and an MRI was obtained. MRI demonstrated a small partial- thickness tear in the noninsertional area of the Achilles tendon as well as chronic tendinosis of the peroneal brevis. Due to her failure to progress she wished to undergo surgical intervention. I did auto travel counselor her on her high arched feet and how this may contribute to instability as well as peroneal tendinosis but given the lengthy recovery patient did not wish to undergo any osseous procedures. Intraoperative findings: Achilles tendon with small amount of scarring and evidence of partial tear. Peroneus brevis with surrounding synovitis, low-lying muscle belly and flattening at the level of the fibular groove. Fibular groove was of adequate depth. Ankle ligaments were stable as noted on stress examination with intraoperative fluoroscopy and was compared to the contralateral ankle. Procedure in detail: Patient was identified in preoperative holding by myself which time correct side and site were marked and consent was obtained. Regional anesthesia was performed by the anesthesia team and preoperative antibiotics were started. Patient is brought back to the operating room she was intubated and formal timeout was performed. Then under intraoperative fluoroscopy both ankles were stressed in varus, valgus and anterior drawer and were notably stable in all planes. The patient was then transferred to the operative table in a well-padded prone position with a thigh tourniquet. The right lower extremity was then prepped and draped in usual sterile fashion. The operative e xtremity was then exsanguinated and tourniquet was inflated. Incision was placed over the mid substance of the Achilles tendon a combination of sharp and blunt dissection with all bleeders being coagulated gained access to the peritenon which was meticulously reflected. Partial tear and associated scarring was noted on the central aspect of the deep fibers of the Achilles tendon. The tendon was debrided excising scar tissue and the partial tear then the tendon was repaired with absorbable suture utilizing a running whipstitch. The peritenon was then repaired after irrigation with copious saline. Incision was placed over the peroneal tendons from the distal fibula and to the level of the proximal calcaneus. Combination of sharp and blunt dissection gained access to the tendon sheath with all bleeders being coagulated. The tendon sheath and peroneal retinaculum were carefully reflected gaining access to the peroneal tendons. Peroneus longus was inspected and appeared healthy then the brevis was inspected and was noted to be significantly flat with surrounding synovitis and low-lying muscle belly. Synovitis and low-lying muscle belly was excised and passed the back table. The brevis tendon was then debrided of all nonviable and questionable tissue then was repaired with observable suture. The fibular groove was of adequate depth and the tendons were relocated into the fibular groove and placed to range of motion and noted to be intrinsically stable. The retinaculum and peroneal tendon sheath was then repaired with absorbable sutures using a pants over vest technique after irrigating with copious saline. Both surgical sites were irrigated again then tourniquet was deflated with a prompt hyperemic response. The incisions were closed in layers. Dry sterile dressing and multilayer splint was applied with the foot in slight plantarflexion. Postoperative plan: Discharge home under family's care Nonweightbearing for approximately 3 weeks or until incision is healed Prescriptions were sent to her pharmacy through my office EMR Patient will follow-up with me in 1 week to be transition to a cast Anesthesia: regional and General-ET Surgeon: Ashutosh Muniz Estimated blood loss (mL): 10 Tourniquet time (min): 37 Pathology: other (peroneal tendon) Condition: stable Disposition: PACU
[2024-03-29 11:51] LABS: Glucometer 84 mg/dL (74-106)
== END 2024-03-29 13:10 | disposition home or self-care (01) ==
PROVIDERS: Anesthesiology; PCP Family Medicine; Visit Provider Podiatrist Foot & Ankle Surgery
PROC: (CPT 1470; principal; 2024-03-29 09:00)
DX: M25.371 Other instability, right ankle (principal); S86.011S Strain of right Achilles tendon, sequela; S86.311S Strain of muscle(s) and tendon(s) of peroneal muscle group at lower leg level, right leg, sequela; M21.6X1 Other acquired deformities of right foot; M24.571 Contracture, right ankle; I10 Essential (primary) hypertension
CPT/HCPCS: 27650; 27675; 36415; 64445; 64450; 76000; 76942; 82948; 84703; 85025; 88305; J1100; J1885; J2250; J2405; J2704; J2795; J3010; J3370

== ENCOUNTER 2024-04-06 12:38 | Emergency (ER) | payer OTHER, SELFPAY ==
[2024-04-06 12:43] VITALS: BP 124/80; PULSE 99; TEMP 36.9; O2SAT 99; BMI 25.7
--- OUTSIDE RECORDS SUMMARY | 2024-04-06 12:52 | XMS_ITS | CCD ---
Author Organization [facility] Care Team Providers Care [place] Name Role Phone Rosa Agee Unavailable Unavailable Unavailable Rosa Agee Unavailable DO Rosa Agee Primary Care Provider [phone] MD Miladis Morris Attending Provider [phone] MD Willy Escudero Referring Provider DO Rosa Agee Primary Care Provider MD Miladis Morris Attending Provider MD Wilyl Escudero Referring Provider PEPPER Campbell Attending Provider Latricia Campbell Unavailable DR ROSA AGEE Primary Care Unavailable DIAB ., OLU Attending Unavailable DIAB ., OLU Consulting Unavailable DIAB ., OLU Admitting Unavailable Chris, Dr. Rosa Sanchez Primary Care Unavailabl taryn Escudero, Dr. Oden Attending Unavaila hui Agee, Dr. Rosa Sanchez Primary Care Unavailabl e Kota, Dr. Oden Attending Unavaila hui Escudero, Dr. Oden Referring Unavaila hui Morris, Dr. Miladis Franco Attending Tiana vailable Alexandra, Dr. Miladis Franco Referring Tiana vailable Chris, Dr. Rosa Sanchez Primary Care Unavailabl DO Rosa Johnson Primary Care Provider [phone] MD Pastor Camilo Emergency Provider [phone] DO Rosa Agee Attending Provider [phone] Kuns DO, Rosa Daniel Primary Care Provider [phone] Cuong Fletcher Unavailable Kuns, DO Rosa Primary Care Provider PEPPER Campbell Attending Provider MD Los Hartman Attending Provider Kuns, DO Rosa Primary Care Provider [phone] PEPPER Campbell Attending Provider MD Los Hartman Attending Provider Kuns, DO Rosa Primary Care Provider MICHAEL Fletcher Attending Provider MICHAEL Martini Attending Provider SEGUN CARMICHAEL Attending Unavailable SEGUN CARMICHAEL Attending Unavailable WILLY ESCUDERO Attending Unavailable KUNS, ROSA R Primary Care Unavailable WILLY ESCUDERO Attending Unavailable WILLY ESCUDERO Referring Unavailable KUNS, ROSA R Primary Care Unavailable Kuns DO, Rosa R Primary Care Provider [phone] Satyas , Rosa R Primary Care Provider Satyas, DO Rosa Primary Care Provider [phone] GLENNY Muniz Attending Provider Los Hartman Admitting Unavailable Los Hartman Attending Unavailable Kuns, Rosa Primary Care Unavailable Pastor Camilo Admitting Unavailable Pastor Camilo Attending Unavailable Kuns, Rosa Primary Care Unavailable Ashutosh Muniz Admitting Unavailable Ashutosh Muniz Attending Unavailable Kuns, Rosa Primary Care Unavailable Kuns, Rosa Attending Unavailable Kuns, Rosa Admitting Unavailable Kuns, Rosa Primary Care Unavailable Latricia Campbell Admitting Unavailable Latricia Campbell Attending Unavailable Kuns, Rosa Primary Care Unavailable Cuong Fletcher Admitting Unavailable Cuong Fletcher Attending Unavailable Kuns, Rosa Primary Care Unavailable Nicole Martini Admitting Unavailable Nicole Martini Attending Unavailable Kuns, Rosa Primary Care Unavailable Allergies Allergy Classification Reported Allergen(s) Allergy Type Date of Onset Reaction(s) Facility Penicillins (antibiotic) (2 sources) Amoxicillin Drug Allergy 4 [facility] (5 sources) Penicillins; Translations: [Penicillins] Allergy to drug (finding) 3 [facility] 3 Repository (20 sources) Penicillin G Drug Allergy 4 [facility] (7 sources) Penicillin; Translations: [penicillin V] Drug Allergy 3 [facility] (20 sources) Amoxicillin; Translations: [AMOXICILLIN] Drug Allergy 4 [facility] (1 source) Amoxicillin Drug Allergy [facility] Repository (2 sources) Penicillins Drug Intolerance 3 [facility] Work Phone: (4 sources) Penicillins Drug Allergy 5 Hives, Itching, Rash [facility] Work Phone: (1 source) Amoxicillin Drug Allergy 4 [facility] Repository (1 source) Penicillin Drug Allergy 4 [facility] Repository Medications Current Medications Medication Drug [...] PO Daily January 13, 2024 10:00am Start: 07-18-2023 Linzess 145 14 5mcg 1 PO Every AM Jun, Active Start: 04-26-2023 End: 09-09-2023 take 1 capsule by mouth once daily Linaclotide (Linzess) 72 mcg capsule Discontinued 72 MCG PO Daily 07 19August 12, 2023 1:00am September 09, 2023 2:31pm 1 capsule daily Start: 04-26-2023 Linzess 72 MCG 1 capsule at least 30 minutes before the first meal of the day on an empty stomach Orally Once a day for 30 days 2 samples provided Apr, Active meclizine hydrochloride 25 mg oral tablet (8 sources) Antiemetic Start: 06-23-2023 take 1 tablet by mouth once daily at bedtime as needed for sleep meclizine (Antivert) 25 MG tablet TAKE 1 TABLET BY MOUTH EVERY DAY AT BEDTIME NEEDED FOR SLEEP FOR 90 DAYS 06/23/2023 Active Start: 06-23-2023 End: 03-23-2024 take 1 tablet by mouth at bedtime as needed for sleep meloxicam 15 mg oral tablet (4 sources) Nonsteroidal Anti-inflammatory Drug Start: 02-28-2024 meloxicam (Mobic) 15 MG tablet 1 (one) time each day at the same time 02/28/2024 Active metFORMIN hydrochloride 500 mg oral tablet (5 sources) Biguanide Start: 02-13-2024 End: 02-12-2025 take 1 tablet by mouth at mealtime metFORMIN (Glucophage) 500 MG tablet Indications: PCOS (polycystic ovarian syndrome) Take 1 tablet (500 mg) by mouth in the morning. Take with meals. 30 tablet 02/13/2024 02/12/2025 Active Rote (No Known Home Meds) (2 sources) Start: 04-24-2023 Rote (No Known Home Meds) Active April 23, 2023 11:00pm ondansetron 4 mg oral tablet (5 sources) Serotonin-3 Receptor Antagonist Start: 12-09-2023 take 1 tablet by mouth every six hours as needed for nausea ondansetron (Zofran) 4 MG tablet 1 tablet Orally q 6 hrs prn nausea for 30 days 12/09/2023 Active take 1 tablet by denia th every eight hours as needed ondansetron (Zofran) 4 mg tablet Take 1 tablet (4 mg) by mouth every 8 hours if needed for nausea or vomiting. Active Pneumatic Walking Boot (3 sources) Start: 01-22-2024 Pneumatic Walk ing Boot Active 0 .Route 1 January 22, 2024 12:00am As directed polyethylene glycol 3350 48795 mg powder for oral solution (1 source) [...] 0 06/23/2023 Discontinued (Other) Norgestimate-Ethi nyl Estradiol (7 sources) Progestin, Estrogen Start: 09-27-2023 End: 12-05-2023 Norgestimate-Ethinyl Estradi ol (Keyla) 0.25-35 mg-mcg tablet Discontinued 1 TAB PO As Directed September 27, 2023 12:00am December 05, 2023 10:47am Start: 09-27-2023 Norgestimate-E thinyl Estradiol (Keyla) 0.25-35 mg-mcg tablet Active 1 TAB PO As Directed September 27, 2023 12:00am fluocinonide 0.5 mg/ml topical solution (7 sources) Corticosteroid Start: 09-27-2023 End: 12-05-2023 Fluocinonide Discontinued TOPICAL September 27, 2023 12:00am December 05, 2023 10:47am ketoconazole 20 mg/ml medicated shampoo (7 sources) Azole Antifungal Start: 09-27-2023 End: 12-05-2023 Ketoconazole Discontinued TOPICAL September 27, 2023 12:00am December 05, 2023 10:47am lubiprostone (8 sources) Chloride Channel Activator Start: 09-09-2023 End: 09-20-2023 take 24 ug by mouth twice daily Lubiprostone Discontinued 24 MCG PO Twice daily 60 September 09, 2023 12:00am September 20, 2023 2:08pm methylPREDNISolone 4 mg oral tablet (9 sources) Corticosteroid Start: 07-13-2022 methylPREDNISolone 4 MG as directed Orally as directed Jun, Not-Taking metoprolol tartrate 25 mg oral tablet (20 sources) beta-Adrenergic Royce Start: 09-08-2021 End: 04-24-2023 take 25 mg by mouth once daily Metoprolol Tartrate Discontinued 25 MG PO Daily June 22, 2022 1:00am April 24, 2023 9:43pm metroNIDAZOLE 500 mg oral tablet (11 sources) Nitroimidazole Antimicrobial Start: 08-10-2023 End: 09-27-2023 take 500 mg by mouth twice daily Metronidazole Discontinued 500 MG PO Twice daily 14 August 10, 2023 1:00am September 27, 2023 8:58am Plecanatide (Trulance) 3 mg tablet (8 sources) Start: 09-20-2023 End: 12-05-2023 take 1 [...] Classification Problem Date Documented Da te Episodic/Chronic Administrative/social admission (2 sources) Patient encounter status; Translations: [Person consulting for explanation of examination or test findings] 03-21-2024 Episodic Anxiety disorders (20 sources) Anxiety; Translations: [Anxiety [...] Translations: [Menopausal and female climacteric states] Chronic Menstrual disorders (2 sources) Irregular periods; Translations: [Irregular menstruation, unspecified] 03-21-2024 Chronic Other bone disease and musculoskeletal deformities (20 sources) Juvenile osteochondrosis of spine; 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, site unspecified] 08-10-2023 Chronic Other connective tissue disease (3 sources) Foot pain; Translations: [Pain in right foot] 01-22-2024 Episodic Other connective tissue disease (1 source) Pain in right foot; Translations: [Pain in right foot] Onset: 01-22-2024 Episodic Other ear and sense organ disorders (3 sources) Otalgia, right ear; Translations: [OTALGIA RIGHT EAR] Onset: 10-20-2022 Episodic Other endocrine disorders (2 sources) Polycystic ovary syndrome; Translations: [Polycystic ovarian syndrome] 03-21-2024 Chronic Other female genital disorders (4 sources) Vaginal discharge; Translations: [Other specified noninflammatory disorders of vagina] 08-10-2023 Episodic Other female genital disorders (4 sources) Other specified noninflammatory disorders of vagina; Translations: [Leukorrhea, not specified as infective] 08-10-2023 Episodic Other gastrointestinal disorders (3 sources) Irritable bowel syndrome characterized by constipation; Translations: [Irritable bowel syndrome with constipation] 01-13-2024 Chronic Other gastrointestinal disorders (3 sources) Irritable bowel syndrome with constipation; Translations: [Irritable bowel syndrome] 01-13-2024 Chronic Other gastrointestinal disorders (20 sources) Constipation; Translations: [Constipation, unspecified] 04-24-2023 Episodic Other nervous system disorders (20 sources) Polyneuropathy; Translations: [Polyneuropathy, unspecified] 08-10-2023 Chronic Other nervous system disorders (14 sources) Numbness of lower limb ; Translations: [Anesthesia of skin] Episodic Other non-traumatic joint disorders (1 source) Pain in right wrist Episodic Other nutritional; endocrine; and metabolic disorders (6 sources) Overweight in adulthood with body mass index of 25 or more but less than 30; Translations: [Overweight] Onset: 03-23-2024 03-23-2024 Episodic Other nutritional; endocrine; and metabolic disorders [...] [Sleep disturbance, unspecified] Episodic Residual codes; unclassified (4 sources) Flushing; [...] [Low back pain] Episodic Sprains and strains (7 sources) Unspecified sprain of right wrist, initial encounter; Translations: [Strain of foot] Episodic Past or Other Problems Problem Classification Problem Date Documented Da te Episodic/Chronic Abdominal pain (14 sources) Abdominal pain; Translations: [Unspecified abdominal pain] Onset: 04-24-2023 04-24-2023 Episodic Genitourinary symptoms and ill-defined conditions (6 sources) Leukocytes in urine; Translations: [Other abnormal findings in urine] Onset: 04-26-2023 Episodic Other gastrointestinal disorders (14 sources) Constipation, unspecified; Translations: [Constipation, unspecified] Onset: 08-12-2023 Episodic Residual codes; unclassified (2 sources) Body mass index 20-24 - normal; Translations: [Body mass index (BMI) 24.0-24.9, adult] Onset: 06-23-2023 Resolved: 03-23-2024 06-23-2023 Episodic Residual codes; unclassified (5 sources) High risk heterosexual behavior; Translations: [High-risk sexual behavior] Onset: 08-10-2023 08-10-2023 Episodic Syncope (11 sources) Vasovagal syncope; Translations: [Syncope and collapse] Onset: 06-16-2023 Episodic Unclassified (4 sources) Never smoked tobacco; Translations: [Never a smoker] Unclassified (1 source) Acute cough R05.1 Results Test Name Value Interpretation Reference Range Facility Basophils Auto (Bld) [#/Vol] on 03-29-2024 Basophils (Bld) [#/Vol] 0.0 10 3/uL 0.0-0.1 [facility] Basophils/100 WBC Auto (Bld) on 03-29-2024 Basophils/100 WBC (Bld) 0.2 % 0.2-2.0 [facility] Eosinophils/100 WBC Auto (Bl d)on 03-29-2024 Eosinophils/100 WBC (Bld) 0.9 % 0.9-7.0 [facility] Erythrocyte distribution wid th Auto (RBC) [Ratio]on 03-29-2024 Erythrocyte distribution width (RBC) [Ratio] 12.5 % 11.0-15.0 [facility] Hematocrit Auto (Bld) [Volum e fraction]on 03-29-2024 Hematocrit (Bld) [Volume fraction] 40.8 % 36.0-48.0 [facility] Hemoglobin [Mass/volume] in Bloodon 03-29-2024 Hemoglobin (Bld) [Mass/Vol] 14.5 g/dL 12.0-16.0 [facility] Smith 03-29-2024 L Specimen: [id number] Received: 03/30/24-1500 Status: NIALL Martinez Num: [id number] Spec Type: Surgical Subm Dr: Ashutosh Muniz,DPM, MS Tissues: A Tendon/Sheath (RT PERONEAL TENDON) Procedures: HE, Gross/Micro L3 Age/ Patient Sex Location Account Attending Physician Nuria Minaya / LABELL [id number] Ashutosh Muniz DPM, MS SPEC NUM: [id number] RECD: 03/30/24 STATUS: NIALL RENKarin NUM: [id number] VIDA: 03/29/[address] [facility] [address]: Ashutosh Muniz DPM, MS ENTERED: 03/30/[address] [facility] DR: Lyla Ayala SPEC TYPE: Surgical DEPT: FARHAD GIRALDO ENTERED BY: [id number] RECV BY: [id number] ORDERED: HE, Gross/Micro L3 ORDERED: HE, Gross/Micro L3 Pathological Diagnosis Right peroneal tendinous tissue: Tendinous tissue with fibrosis consistent with clinical impression. [id number] Clinical Information Strain of right Achilles tendon, instability of right ankle Gross Description The specimen is received in formalin with the patient's name and right peroneal tendon and consists of 2 portions of white fibrous tissue with attached muscle measuring 0.7 and 2.6 cm in greatest dimension. The specimen is submitted in toto in cassette A1. Specimen: [id number] Received: 03/30/24 Status: NIALL Michelle Num: [id number] Spec Type: Surgical Subm Dr: Ashutosh Muniz DPM, MS Tissues: A Tendon/Sheath (RT PERONEAL TENDON) Procedures: HE, Gross/Micro L3 Patient: Nuria Minaya [id number] (Continued) Signed (signature on file) Albert Miranda MD 04/03/24 1156 Normal [facility] - Hematology and Cell countson 03-29-2024 Immature granulocytes/100 WBC (Bld) 0.2 % 0.0-0.5 [facility] Leukocytes [#/volume] correc darya for nucleated erythrocytes in Blood by Automated counon 03-29-2024 WBC corrected for nucl RBC Auto (Bld) [#/Vol] 8.2 10 3/uL 4.0-11.0 [facility] Lymphocytes Auto (Bld) [#/Vo l]on 03-29-2024 Lymphocytes (Bld) [#/Vol] 2.5 10 3/uL 1.2-3.8 [facility] Lymphocytes/100 WBC Auto (Bl d)on 03-29-2024 Lymphocytes/100 WBC (Bld) 30.3 % 20.5-60.0 [facility] MCH Auto (RBC) [Entitic mass ]on 03-29-2024 MCH (RBC) [Entitic mass] 32.2 pg 26.7-34.0 [facility] MCHC Auto (RBC) [Mass/Vol]on 03-29-2024 MCHC (RBC) [Mass/Vol] 35.5 g/dL High 29.9-35.2 [facility] MCV Auto (RBC) [Entitic vol] on 03-29-2024 MCV (RBC) [Entitic vol] 90.7 fL 81.0-99.0 [facility] Monocytes Auto (Bld) [#/Vol] on 03-29-2024 Monocytes (Bld) [#/Vol] 0.5 10 3/uL 0.3-0.8 [facility] Monocytes/100 WBC Auto (Bld) on 03-29-2024 Monocytes/100 WBC (Bld) 5.8 % 1.7-12.0 [facility] Neutrophils Auto (Bld) [#/Vo l]on 03-29-2024 Neutrophils (Bld) [#/Vol] 5.1 10 3/uL 1.4-6.5 [facility] Neutrophils/100 WBC Auto (Bl d)on 03-29-2024 Neutrophils/100 WBC (Bld) 62.6 % 43.0-75.0 [facility] No Panel Informationon 03-29 Eosinophils # (Auto) 0.1 10 3/uL 0.0-0.7 [facility] Human Chorionic Gonadotropin, Qual Negative NEGATIVE [facility] Immature Granulocyte # (Auto) 0.02 10 3/uL 0.00-0.03 [facility] Platelet mean volume Auto (B ld) [Entitic vol]on 03-29-2024 Platelet mean volume (Bld) [Entitic vol] 10.5 fL 9.5-13.5 [facility] Platelets Auto (Bld) [#/Vol] on 03-29-2024 Platelets (Bld) [#/Vol] 216 10 3/uL 150-450 [facility] RBC Auto (Bld) [#/Vol]on RBC (Bld) [#/Vol] 4.50 10 6/uL 4.20-5.40 [facility] IGP,APTIMA HPV,AGE GDLNon AGE GDLN ACOG TESTING Note . [facility] Comment on above: TESTS RESULT FLAG UN ITS REF RANGE LAB Clinician Provided Cytology Information Source.............Cervix;Endocervix No. of containers..01 ThinPrep Vial Age Lisa GRANT Gricelda... FLAG LEGEND: L-Low Normal,H-High Normal,LL-Alert Low,HH-Alert High <-Panic Low,>-Panic High,A-Abnormal,AA-Critical Abnormal Performed at: 01 [facility] [address] [place] [address] Kaela Garcia MD, IGP, RFX APTIMA HPV ASCU Note . [facility] Comment on above: TESTS RESULT FLAG UN ITS REF RANGE LAB DIAGNOSIS: 02 NEGATIVE FOR INTRAEPITHELIAL LESION OR MALIGNANCY. Specimen adequacy: 02 Satisfactory for evaluation. Endocervical and/or squamous metaplastic cells (endocervical component) are present. Partially obscuring thick areas are present. Performed by: Patricia Caballero, Hospitality House Supervisor ([facility]) . 02 Note: Note 02 The Pap smear is a screening test designed to aid in the detection of premalignant and malignant conditions of the uterine cervix. It is not a diagnostic procedure and should not be used as the sole means of detecting cervical cancer. Both false-positive and false-negative reports do occur. Test Methodology: Note 02 The ExecNote Prep(R) Conveyor Belt Installer was unable to read this specimen. Therefore a manual review was performed. FLAG LEGEND: L-Low Normal,H-High Normal,LL-Alert Low,HH-Alert High <-Panic Low,>-Panic High,A-Abnormal,AA-Critical Abnormal Performed at: [address] [address] Kaela Garcia MD, . 02 The HPV DNA reflex criteria were not met with this specimen result therefore, no HPV testing was performed. The HPV DNA reflex criteria were not met with this specimen result therefore, no HPV testing was performed. Performed at: = - [address] [id number] Project Manager Senior: Kaela Garcia MD, Phone: [phone] Performed at: [address] [id number] Project Manager Senior: Kaela Garcia MD, Phone: [phone] BRUSH-SPATULA CERVIX ENDOCERVIX [facility] Human papilloma virus 16+18+ 31+33+35+39+45+51+52+56+58+59+66+68 DNA [Presence] in [place] 03-21-2024 HPV 16+18+31+33+35+39+45+51 +52+56+58+59+66+68 DNA Probe+sig amp Ql (Cvx) Note . [facility] Comment on above: TESTS RESULT FLAG UN ITS REF RANGE LAB -DIAGNOSIS: 02 NEGATIVE FOR INTRAEPITHELIAL LESION OR MALIGNANCY.Specimen adequacy: 02 Satisfactory for evaluation. Endocervical and/or squamous metaplastic cells (endocervical component) are present. Partially obscuring thick areas are present.Performed by: 02 Ciarra Caballero, Hospitality House Supervisor ([facility]). 02Note: Note 02 The Pap smear is a screening test designed to aid in the detection of premalignant and malignant conditions of the uterine cervix. It is not a diagnostic procedure and should not be used as the sole means of detecting cervical cancer. Both false-positive and false-negative reports do occur.Test Methodology: Note 02 The ArchiveSocial(R) Conveyor Belt Installer was unable to read this specimen. Therefore a manual review was performed. -------- FLAG LEGEND: L-Low Normal,H-High Normal,LL-Alert Low,HH-Alert High <-Panic Low,>-Panic High,A-Abnormal,AA-Critical Abnormal ------Performed at:[address] [place] [address] Kaela Garcia MD, . 02 The HPV DNA reflex criteria were not met with this specimen result therefore, no HPV testing was performed.The HPV DNA reflex criteria were not met with this specimenresult therefore, no HPV testing was performed.Performed at: =[address] [id number] Director: Kaela Garcia MD, Phone: [phone] at: [address] [id number] Director: Kaela Garcia MD, Phone: [phone] No Panel Informationon 03-21 Reference Lab Test Patient Age Note . [facility] Comment on above: TESTS RESULT FLAG UN ITS REF RANGE LAB - Clinician Provided Cytology Information Source.............Cervix;Endocervix No. of containers..01 ThinPrep VialAge Algo ACOG Gricelda... FLAG LEGEND: L-Low Normal,H-High Normal,LL-Alert Low,HH-Alert High <-Panic Low,>-Panic High,A-Abnormal,AA-Critical Abnormal ------Performed at:01 =G Lab[address] [address] Kaela Garcia MD, Basophils Auto (Bld) [#/Vol] on 03-14-2024 Basophils (Bld) [#/Vol] 0.0 10 3/uL 0.0-0.1 [facility] Basophils/100 WBC Auto (Bld) on 03-14-2024 Basophils/100 WBC (Bld) 0.4 % 0.2-2.0 [facility] Eosinophils/100 WBC Auto (Bl d)on 03-14-2024 Eosinophils/100 WBC (Bld) 0.9 % 0.9-7.0 [facility] Erythrocyte distribution wid th Auto (RBC) [Ratio]on 03-14-2024 Erythrocyte distribution width (RBC) [Ratio] 12.8 % 11.0-15.0 [facility] Estimated glomerular filtrat ion rate (GFR) non- Americanon 03-14-2024 GFR/1.73 sq M.predicted among non-blacks MDRD (S/P/Bld) [Vol rate/Area] mL/min/{1.73_m2} >=60 [facility] Hematocrit Auto (Bld) [Volum e fraction]on 03-14-2024 Hematocrit (Bld) [Volume fraction] 40.2 % 36.0-48.0 [facility] Hemoglobin [Mass/volume] in Bloodon 03-14-2024 Hemoglobin (Bld) [Mass/Vol] 13.8 g/dL 12.0-16.0 [facility] Laboratory - Chemistry and C hemistry - challengeon 03-14-2024 Calcium [Mass/Vol] 8.5 mg/dL 8.5-10.1 [facility] Chloride [Moles/Vol] 105 mmol/L 98-107 [facility] CO2 [Moles/Vol] 29.3 mmol/L 21.0-32.0 [facility] Creatinine [Mass/Vol] 0.57 mg/dL 0.55-1.02 [facility] GFR/1.73 sq M.predicted MDRD (S/P/Bld) [Vol rate/Area] mL/min/{1.73_m2} >=60 [facility] Glucose [Mass/Vol] 87 mg/dL 74-106 [facility] Potassium [Moles/Vol] 3.8 mmol/L 3.5-5.1 [facility] Sodium [Moles/Vol] 138 mmol/L 136-145 [facility] Urea nitrogen [Mass/Vol] 20.0 mg/dL High 7.0-18.0 [facility] Urea nitrogen/Creatinine [Mass ratio] 35.1 mg/mg [facility] Laboratory - Hematology and Cell countson 03-14-2024 Immature granulocytes/100 WBC (Bld) 0.1 % 0.0-0.5 [facility] Leukocytes [#/volume] correc darya for nucleated erythrocytes in Blood by Automated counon 03-14-2024 WBC corrected for nucl RBC Auto (Bld) [#/Vol] 6.7 10 3/uL 4.0-11.0 [facility] Lymphocytes Auto (Bld) [#/Vo l]on 03-14-2024 Lymphocytes (Bld) [#/Vol] 1.8 10 3/uL 1.2-3.8 [facility] Lymphocytes/100 WBC Auto (Bl d)on 03-14-2024 Lymphocytes/100 WBC (Bld) 27.1 % 20.5-60.0 [facility] MCH Auto (RBC) [Entitic mass ]on 03-14-2024 MCH (RBC) [Entitic mass] 32.1 pg 26.7-34.0 [facility] MCHC Auto (RBC) [Mass/Vol]on 03-14-2024 MCHC (RBC) [Mass/Vol] 34.3 g/dL 29.9-35.2 [facility] MCV Auto (RBC) [Entitic vol] on 03-14-2024 MCV (RBC) [Entitic vol] 93.5 fL 81.0-99.0 [facility] Monocytes Auto (Bld) [#/Vol] on 03-14-2024 Monocytes (Bld) [#/Vol] 0.4 10 3/uL 0.3-0.8 [facility] Monocytes/100 WBC Auto (Bld) on 03-14-2024 Monocytes/100 WBC (Bld) 6.3 % 1.7-12.0 [facility] Neutrophils Auto (Bld) [#/Vo l]on 03-14-2024 Neutrophils (Bld) [#/Vol] 4.4 10 3/uL 1.4-6.5 [facility] Neutrophils/100 WBC Auto (Bl d)on 03-14-2024 Neutrophils/100 WBC (Bld) 65.2 % 43.0-75.0 [facility] No Panel Informationon 03-14 Eosinophils # (Auto) 0.1 10 3/uL 0.0-0.7 [facility] Immature Granulocyte # (Auto) 0.01 10 3/uL 0.00-0.03 [facility] Platelet mean volume Auto (B ld) [Entitic vol]on 03-14-2024 Platelet mean volume (Bld) [Entitic vol] 10.5 fL 9.5-13.5 [facility] Platelets Auto (Bld) [#/Vol] on 03-14-2024 Platelets (Bld) [#/Vol] 222 10 3/uL 150-450 [facility] RBC Auto (Bld) [#/Vol]on RBC (Bld) [#/Vol] 4.30 10 6/uL 4.20-5.40 [facility] Serum or plasma anion gap de terminationon 03-14-2024 Anion gap [Moles/Vol] 7.5 mmol/L [facility] HCG ( test) IA.rapi d Ql (U)on 02-29-2024 HCG ( test) Ql (U) Negative NEGATIVE [facility] Basophils Auto (Bld) [#/Vol] on 02-17-2024 Basophils (Bld) [#/Vol] 0.0 10 3/uL 0.0-0.1 [facility] Basophils/100 WBC Auto (Bld) on 02-17-2024 Basophils/100 WBC (Bld) 0.2 % 0.2-2.0 F [facility] Eosinophils/100 WBC Auto (Bl d)on 02-17-2024 Eosinophils/100 WBC (Bld) 0.1 % Low 0.9-7.0 [facility] Erythrocyte distribution wid th Auto (RBC) [Ratio]on 02-17-2024 Erythrocyte distribution width (RBC) [Ratio] 12.7 % 11.0-15.0 [facility] Glucose mean value [Mass/vol ume] in Blood Estimated from glycated hemoglobinon 02-17-2024 Average glucose Estimated from glycated hemoglobin (Bld) [Mass/Vol] 85 mg/dL [facility] Hematocrit Auto (Bld) [Volum e fraction]on 02-17-2024 Hematocrit (Bld) [Volume fraction] 44.7 % 36.0-48.0 [facility] Hemoglobin [Mass/volume] in Bloodon 02-17-2024 Hemoglobin (Bld) [Mass/Vol] 15.3 g/dL 12.0-16.0 [facility] Laboratory - Chemistry and C hemistry - challengeon 02-17-2024 Free T4 [Mass/Vol] 0.98 ng/dL 0.76-1.46 [facility] TSH Qn 0.827 m[IU]/L 0.358-3.74 0 [facility] Laboratory - Hematology and Cell countson 02-17-2024 HbA1c (Bld) [Mass fraction] 4.6 % 4.5-6.2 [facility] Comment on above: ADA RECOMMENDED LIMI T 4.0 - 6.0ADA THERAPEUTIC TARGET < 7.0ACTION SUGGESTED> 7.0 Immature granulocytes/100 WBC (Bld) 0.4 % 0.0-0.5 [facility] Leukocytes [#/volume] correc darya for nucleated erythrocytes in Blood by Automated counon 02-17-2024 WBC corrected for nucl RBC Auto (Bld) [#/Vol] 12.2 10 3/uL High 4.0-11.0 [facility] Lymphocytes Auto (Bld) [#/Vo l]on 02-17-2024 Lymphocytes (Bld) [#/Vol] 1.4 10 3/uL 1.2-3.8 [facility] Lymphocytes/100 WBC Auto (Bl d)on 02-17-2024 Lymphocytes/100 WBC (Bld) 11.6 % Low 20.5-60.0 [facility] MCH Auto (RBC) [Entitic mass ]on 02-17-2024 MCH (RBC) [Entitic mass] 31.4 pg 26.7-34.0 [facility] MCHC Auto (RBC) [Mass/Vol]on 02-17-2024 MCHC (RBC) [Mass/Vol] 34.2 g/dL 29.9-35.2 [facility] MCV Auto (RBC) [Entitic vol] on 02-17-2024 MCV (RBC) [Entitic vol] 91.8 fL 81.0-99.0 [facility] Monocytes Auto (Bld) [#/Vol] on 02-17-2024 Monocytes (Bld) [#/Vol] 0.3 10 3/uL 0.3-0.8 [facility] Monocytes/100 WBC Auto (Bld) on 02-17-2024 Monocytes/100 WBC (Bld) 2.5 % 1.7-12.0 [facility] Mullerian inhibiting substan ce [Mass/volume] in Serum or Plasmaon 02-17-2024 Mullerian inhibiting substance [Mass/Vol] 9.99 ng/mL . [facility] Comment on above: For assays employing antibodies, the possibility exists forinterference by heterophile antibodies in the samples.11.Millicent Lantigua Interferences in Immunoassays - still a threat. Clin. Chem. 2000; 46: 2965-6983.This test was developed and its performance characteristicsdetermined by [employer]. It has not been cleared or approvedby the Food and Drug Administration.Reference Range:Females 20 - 25y: 1.23 - 11.51Median 4.70AMH concentrations of >= 1.06 ng/mL is correlated with abetter response to ovarian stimulation, produced moreretrievable oocytes and higher odds of live accordingto Jeevan et al. Fertility and Sterility. 2010:94:0019-5136. The current AMH test method correlates withthe study method with a slope of 0.94.Females at risk of ovarian hyperstimulation syndrome orpolycystic ovarian syndrome (PCOS) may exhibit elevatedserum AMH concentrations. AMH levels from PCOS patientsmay be 2 to 5 fold higher than age-appropriate referenceinterval values.Granulosa cell tumors of the ovary may secrete AMH alongwith other tumor markers. Elevated AMH is not specific formalignancy, and the assay should not be used exclusively todiagnose or exclude an AMH-secreting ovarian tumor.Performed at: [employer] [address] [place] [id number] Director: Adán Smith MD, Phone: [phone] Neutrophils Auto (Bld) [#/Vo l]on 02-17-2024 Neutrophils (Bld) [#/Vol] 10.4 10 3/uL High 1.4-6.5 [facility] Neutrophils/100 WBC Auto (Bl d)on 02-17-2024 Neutrophils/100 WBC (Bld) 85.2 % High 43.0-75.0 [facility] No Panel Informationon 02-16 Dehydroepiandrosterone (DHEA) 70 ng/dL 31-701 [facility] Comment on above: This test was marquise lane and its performance characteristicsdetermined by [employer]. It has not been cleared orapproved by the Food and Drug Administration.Performed at: [address] [id number] Director: Mariana Santoro MD, Phone: [phone] Dehydroepiandrosterone Sulfate 94.8 ug/dL Abnormal 110.0-431. 7 [facility] Eosinophils # (Auto) 0.0 10 3/uL 0.0-0.7 [facility] Follicle Stimulating Hormone 6.5 mIU/mL . [facility] Comment on above: Adult Female Range F ollicular phase 3.5 - 12.5 Ovulation phase 4.7 - 21.5 Luteal phase 1.7 - 7.7 Postmenopausal 25.8 - 134.8Performed at: [facility] [employer] [id number] Director: Liban Seaman PhD, Phone: [phone] Human Chorionic Gonadotropin, Quant <1 mIU/mL [facility] Comment on above: 5-50 0.2-1 [id number] 0 1-2 QNGRM099-8,000 2-3 FTXVP043-28,000 3-4 WEEKS1,000-50,000 4-5 WEEKS10,000-100,000 5-6 WEEKS15,000-200,000 6-8 WEEKS10,000-100,000 2-3 MONTHS Immature Granulocyte # (Auto) 0.05 10 3/uL High 0.00-0.03 [facility] Platelet mean volume Auto (B ld) [Entitic vol]on 02-17-2024 Platelet mean volume (Bld) [Entitic vol] 10.5 fL 9.5-13.5 [facility] Platelets Auto (Bld) [#/Vol] on 02-17-2024 Platelets (Bld) [#/Vol] 234 10 3/uL 150-450 [facility] RBC Auto (Bld) [#/Vol]on RBC (Bld) [#/Vol] 4.87 10 6/uL 4.20-5.40 [facility] Serum or plasma lutropin yu surement (units/volume)on 02-17-2024 Lutropin Qn 15.0 m[IU]/mL . [facility] Comment on above: Adult Female Range F ollicular phase 2.4 - 12.6 Ovulation phase 14.0 - 95.6 Luteal phase 1.0 - 11.4 Postmenopausal 7.7 - 58.5 XR foot RT min 3V*on 024 XR foot RT min 3V* [facility] [address] [place] [address] XRay Report Signed Patient: Nuria Minaya MR#: [id number] [birth year] : 2000 Acct:[id number] Age/Sex: 23 / F ADM Date: 01/22/24 Loc: [facility] Room: Type: [facility] Attending Dr: Nicole Martini APRN Copies [...] Ha Reyes M.D.01/22/2024 11:49 AM Dictation Location: [place] [address] Transcribed By: [facility] 01/22/24 1149 Dictated By: Ha Reyes DO 01/22/24 1145 Signed By: 01/22/24 1149 Normal [facility] Celiacon 12-09-2023 Deamidated Gliadin Abs, IgA 5 Normal 0-19 [facility] Comment on above: Result Comment: Nega tive 0 - 19 Weak Positive 20 - 30 Moderate to Strong Positive >30 Performed By: #### C ELIAC #### [facility] , Deamidated Gliadin Abs, IgG 4 Normal 0-19 [facility] Comment on above: Result Comment: Nega tive 0 - 19 Weak Positive 20 - 30 Moderate to Strong Positive >30 Performed By: #### C ELIAC #### [facility] , Endomysial Antibody IgA Negative Normal Negative T [facility] Comment on above: Performed By: #### C ELIAC #### [facility] , Immunoglobulin A, Qn, Serum 120 mg/dL Normal 87-352 [facility] Comment on above: Result Comment: Perf ormed at: CB - [facility] [address] [id number] Project Manager Senior: Liban Seaman PhD, Phone: [phone] PERFORMED BY: [place] [address] [place] [address] PATHOLOGIST MANUFACTURING MAINTENANCE MECHANIC LAYNE ROSA M.D. Performed By: #### C ELIAC #### [facility] , T-Transglutaminase (tTG) IgA <2 Normal 0-3 [facility] Comment on above: Result Comment: Nega tive 0 - 3 Weak Positive 4 - 10 Positive >10 Tissue Transglutaminase (tTG) has been identified as the endomysial antigen. Studies have demonstr- ated that endomysial IgA antibodies have over 99% specificity for gluten sensitive enteropathy. Performed By: #### C ELIAC #### [facility] , T-Transglutaminase (tTG) IgG 4 Normal 0-5 [facility] Comment on above: Result Comment: Nega tive 0 - 5 Weak Positive 6 - 9 Positive >9 Performed By: #### C ELIAC #### [facility] , IgA [Mass/volume] in Serum o r PlasmaOrdered By: Cuong Fletcher on 12-09-2023 IgA [Mass/Vol] 120 mg/dL 87-352 [facility] Comment on above: Performed at: [id number] [address] [id number] Director: Liban Seaman PhD, Phone: [phone] No Panel InformationOrdered By: Cuong Fletcher on 12-09-2023 Endomysial IgA Antibody Negative Negative [facility] Serum gliadin peptide IgA an tibody assay (units/volume)Ordered By: Cuong Fletcher on 12-09-2023 Gliadin peptide IgA Qn (S) 5 units 0-19 [facility] Comment on above: Negative 0 - 19 Weak Positive 20 - 30 Moderate to Strong Positive >30 Serum gliadin peptide IgG an tibody assay (units/volume)Ordered By: Cuong Fletcher on 12-09-2023 Gliadin peptide IgG Qn (S) 4 units 0-19 [facility] Comment on above: Negative 0 - 19 Weak Positive 20 - 30 Moderate to Strong Positive >30 Serum tissue transglutaminas e (tTG) IgA antibody assay (units/volume)Ordered By: Cuong Fletcher on 12-09-2023 tTG IgA Qn (S) <2 U/mL 0-3 [facility] Comment on above: Negative 0 - 3 Weak Positive 4 - 10 Positive >10 Tissue Transglutaminase (tTG) has been identified as the endomysial antigen. Studies have demonstr- ated that endomysial IgA antibodies have over 99% specificity for gluten sensitive enteropathy. Serum tissue transglutaminas e (tTG) IgG antibody assay (units/volume)Ordered By: Cuong Fletcher on 12-09-2023 tTG IgG Qn (S) 4 U/mL 0-5 [facility] Comment on above: Negative 0 - 5 Weak Positive 6 - 9 Positive >9 HCG ( test) IA.rapi d Ql (U)Ordered By: [place] on 08-12-2023 HCG ( test) Ql (U) Negative [facility] HCG,Urineon 08-12-2023 Beta HCG ( test) Ql (U) Negative Normal [facility] Comment on above: Result Comment: PERF ORMED BY: [place] [address] PATHOLOGIST MANUFACTURING MAINTENANCE MECHANIC LAYNE ROSA M.D. Performed By: #### U HCG #### [address] Laboratory - Microbiology an d Antimicrobial susceptibilityOrdered By: aLtricia Campbell on 08-10-2023 N. gonorrhoeae DNA EMERITA+probe Ql (Unsp spec) Negative Negative [facility] Comment on above: Performed at: =[address] [id number] Director: Kaela Garcia MD, Phone: [phone] No Panel InformationOrdered By: Latricia Campbell on 08-10-2023 Concepcion albicans (EMERITA) Negative Negative [facility] Comment on above: This test was develo ped and its performance characteristicsdetermined by [employer]. It has not been cleared orapproved by the Food and Drug Administration. Concepcion glabrata (EMERITA) Negative Negative [facility] Comment on above: This test was develo ped and its performance characteristicsdetermined by [employer]. It has not been cleared orapproved by the Food and Drug Administration. Chlamydia trachomatis (EMERITA) (LAB) Negative Negative [facility] Trichomonas vaginalis (EMERITA) Negative Negative [facility] Vaginal fluid Atopobium vagi dillon DNA detection by probe and target amplification methoOrdered By: Latricia Campbell on 08-10-2023 A. vaginae DNA EMERITA+probe Ql (Vag fld) High - 2 Score . [facility] Vaginal fluid Megasphaera sp ecies type 1 DNA detection by probe and target amplificatOrdered By: Latricia Campbell on 08-10-2023 Megasphaera sp type 1 DNA EMERITA+probe Ql (Vag fld) High - 2 Score . [facility] Comment on above: Calculate total scor e by adding the 3 individual bacterialvaginosis (BV) marker scores together. Total score isinterpreted as follows:Total score 0-1: Indicates the absence of BV.Total score 2: Indeterminate for BV. Additional clinical data should be evaluated to establish a diagnosis.Total score 3-6: Indicates the presence of BV.This test was developed and its performance characteristicsdetermined by [employer]. It has not been cleared or approvedby the Food and Drug Administration. Vaginal fluid bacterial vagi nosis associated bacterium 2 DNA detection by probe and tOrdered By: Latricia Campbell on 02-21-2024 Bacterial vaginosis associated bacterium 2 DNA EMERITA+probe Ql (Vag fld) High - 2 Score . [facility] Vaginitis Plus (VG+)on 08-10 Atopobium Vaginae High - 2 Critically abnormal . [facility] Comment on above: Order Comment: SOURC E OF SPECIMEN: SWAB Performed By: #### V AGINITIS+ #### [facility] , BVAB2 High - 2 Critically abnormal . [facility] Comment on above: Order Comment: SOURC E OF SPECIMEN: SWAB Performed By: #### V AGINITIS+ #### [facility] , Concepcion Albicans, EMERITA Negative Normal Negative [facility] Comment on above: Order Comment: SOURC E OF SPECIMEN: SWAB Result Comment: This test was developed and its performance characteristics determined by [employer]. It has not been cleared or approved by the Food and Drug Administration. Performed By: #### V AGINITIS+ #### [facility] , Concepcion Glabrata, EMERITA Negative Normal Negative [facility] Comment on above: Order Comment: SOURC E OF SPECIMEN: SWAB Result Comment: This test was developed and its performance characteristics determined by [employer]. It has not been cleared or approved by the Food and Drug Administration. PERFORMED BY: [facility] [address] [place] [address] PATHOLOGIST MANUFACTURING MAINTENANCE MECHANIC LAYNE ROSA M.D. Performed By: #### V AGINITIS+ #### [facility] , Chlamydia Trachomotis, EMERITA Negative Normal Negative [facility] Comment on above: Order Comment: SOURC E OF SPECIMEN: SWAB Performed By: #### V AGINITIS+ #### [facility] , Megasphaera High - 2 Critically abnormal . [facility] Comment on above: [...] Neisseria Gonorrhoeae, EMERITA Negative Normal Negative [facility] Comment on above: Order Comment: SOURC E OF SPECIMEN: SWAB Result Comment: Perf ormed at: =G - [facility] [address] [id number] Project Manager Senior: Kaela Garcia MD, Phone: [phone] Performed By: #### V AGINITIS+ #### [facility] , Tric Vag EMERITA Negative Normal Negative [facility] Comment on above: Order Comment: SOURC E OF SPECIMEN: SWAB Performed By: #### V AGINITIS+ #### [facility] , Urine 10 SGon 04-26-2023 Albumin DL <= 20 mg/L (U) [Mass/Vol] trace M-SIX Other Albumin DL <= 20 mg/L (U) [Mass/Vol] small M-SIX Other pH (U) 6.5 [pH] M-SIX Other Urine 10 SG Negative M-SIX Other Urine 10 SG 1.025 M-SIX Other Urine 10 SG 0.2 M-SIX Other Urine Cultureon 04-26-2023 Bacteria identified Cx Nom (U) Reason for Exam Leukocytes in urine Urine Reason for Exam: Leukocytes in urine : Urine 50,000 colonies/ml mixed bacterial skin contaminants 2 Days PERFORMED BY: [address] [address] PATHOLOGIST MANUFACTURING MAINTENANCE MECHANIC LAYNE ROSA M.D. Normal [facility] Comment on above: Performed By: #### C UU #### [place] [id number] [facility] CT abdomen pelvis w conon CT abdomen pelvis w con [facility] [address] [place], [place] [id number] CT Scan Report Signed Patient: Nuria Minaya MR#: [id number] 76 : 2000 Acct:[id number] Age/Sex: 22 / F ADM Date: 04/24/23 Loc: ER Room: Type: [facility] Attending Dr: Copies to: Pastor Camilo [...] Josias Blum M.D.04/25/2023 10:29 AM Dictation Location: [place] [address] Transcribed By: MISHA 04/25/23 1029 Dictated By: Josias Blum II, MD 04/25/23 1011 Signed By: 04/25/23 1029 Normal [facility] Automated basophil %Ordered By: Pastor Camilo on 04-24-2023 Basophils/100 WBC (Bld) 0.6 % Normal . [facility] Comment on above: Performed By: #### C BC, BMP #### [address] Automated basophil countOrde red By: Pastor Camilo on 04-24-2023 Basophils (Bld) [#/Vol] 0.1 10*3/uL Normal 0.0-0.2 [facility] Comment on above: Result Comment: PERF ORMED BY: [place] [address] PATHOLOGIST MANUFACTURING MAINTENANCE MECHANIC LAYNE ROSA M.D. Performed By: #### C BC, BMP #### [address] Automated blood monocyte cou ntOrdered By: Pastor Camilo on 04-24-2023 Monocytes (Bld) [#/Vol] 0.6 10*3/uL Normal 0.0-0.8 [facility] Comment on above: Performed By: #### C BC, BMP #### [address] Automated eosinophil %Ordere d By: Pastor Camilo on 04-24-2023 Eosinophils/100 WBC (Bld) 1.0 % Normal . [facility] Comment on above: Performed By: #### C BC, BMP #### [address] Automated eosinophil countOr dered By: Pastor Camilo on 04-24-2023 Eosinophils (Bld) [#/Vol] 0.1 10*3/uL Normal 0.0-0.45 [facility] Comment on above: Performed By: #### C BC, BMP #### [address] Automated erythrocytes count in urine sediment (number/area)Ordered By: Pastor Camilo on 04-24-2023 RBC Auto (Urine sed) [#/Area] 5-9 [HPF] 0-4 [facility] Automated leukocytes count i n urine sediment (number/area)Ordered By: Pastor Camilo on 04-24-2023 WBC Auto (Urine sed) [#/Area] 5-9 [HPF] 0-4 [facility] Automated monocyte %Ordered By: Pastor Camilo on 04-24-2023 Monocytes/100 WBC (Bld) 7.0 % Normal . [facility] Comment on above: Performed By: #### C BC, BMP #### [address] Automated neutrophil %Ordere d By: Pastor Camilo on 04-24-2023 Neutrophils/100 WBC (Bld) 57.0 % Normal . [facility] Comment on above: Performed By: #### C BC, BMP #### [address] Automated urine color determ inationOrdered By: Pastor Camilo on 04-24-2023 Color (U) Yellow Normal Yellow [facility] Comment on above: Order Comment: Name Collection Type:: Clean-Voided Midstream Performed By: #### C UU, ADDONUAPLUS, UHCG #### [address] Basic Metabolic Panelon 11-0 Creatinine Clr Calc Pharmacy 117.43 Normal [facility] Comment on above: Result Comment: PERF ORMED BY: [place] [address] PATHOLOGIST MANUFACTURING MAINTENANCE MECHANIC LAYNE ROSA M.D. Performed By: #### C BC, BMP #### [address] GFR/1.73 sq M.predicted MDRD (S/P/Bld) [Vol rate/Area] mL/min/{1.73_m2} Normal [facility] Comment on above: Performed By: #### C BC, BMP #### [address] Bilirubin Test strip Ql (U)O rdered By: Pastor Camilo on 04-24-2023 Bilirubin Ql (U) Negative Negative [facility] Calcium [Mass/volume] in Ser um or PlasmaOrdered By: Pastor Camilo on 04-24-2023 Calcium [Mass/Vol] 9.6 mg/dL Normal 8.6-10.3 [facility] Comment on above: Performed By: #### C BC, BMP #### [address] Carbon dioxide, total [Moles /volume] in Serum or PlasmaOrdered By: Pastor Camilo on 04-24-2023 CO2 [Moles/Vol] 27.6 mmol/L Normal 21.0-31.0 [facility] Comment on above: Performed By: #### C BC, BMP #### [address] Chloride [Moles/volume] in S mary or PlasmaOrdered By: Pastor Camilo on 04-24-2023 Chloride [Moles/Vol] 105 mmol/L Normal 98-107 [facility] Comment on above: Performed By: #### C BC, BMP #### [address] Complete Blood Count Auto Di ffon 04-24-2023 Mean Corpuscular HGB Conc 34.2 g/dL Normal 32.0-35.0 [facility] Comment on above: Performed By: #### C BC, BMP #### [place] [address] [place] Monocytes/100 WBC (Bld) 16.95 % Normal 0.00-20.00 [facility] Comment on above: Performed By: #### C BC, BMP #### [place] [address] [place] NRBC% 0.2 /100{WBC} Normal 0-0.5 [facility] Comment on above: Performed By: #### C BC, BMP #### [place] [address] [place] Creatinine [Mass/volume] in Serum or PlasmaOrdered By: Pastor Camlio on 04-24-2023 Creatinine [Mass/Vol] 0.68 mg/dL Normal 0.60-1.20 [facility] Comment on above: Performed By: #### C BC, BMP #### [facility] [address] [place] [address] [place] Dipstick and Microscopicon 1 06-24-2022 Appearance (U) Clear Normal Clear [facility] Comment on above: Order Comment: Name Collection Type:: Clean-Voided Midstream Performed By: #### C UU, ADDONUAPLUS, UHCG #### [address] Bacteria,Urine 1+ High None Seen [facility] Comment on above: Order Comment: Name Collection Type:: Clean-Voided Midstream Performed By: #### C UU, ADDONUAPLUS, UHCG #### [address] Bilirubin,Urine Negative Normal Negative [facility] Comment on above: Order Comment: Name Collection Type:: Clean-Voided Midstream Performed By: #### C UU, ADDONUAPLUS, UHCG #### [address] Glucose Ql (U) Normal Normal Normal [facility] Comment on above: Order Comment: Name Collection Type:: Clean-Voided Midstream Performed By: #### C UU, ADDONUAPLUS, UHCG #### [place] [address] [place] Hyaline Casts,Urine None Seen Normal 0-8 [facility] Comment on above: Order Comment: Name Collection Type:: Clean-Voided Midstream Performed By: #### C UU, ADDONUAPLUS, UHCG #### [address] Ketones Ql (U) Negative Normal Negative [facility] Comment on above: Order Comment: Name Collection Type:: Clean-Voided Midstream Performed By: #### C UU, ADDONUAPLUS, UHCG #### [address] Leukocyte esterase Test strip Ql (U) 2+ High Negative [facility] Comment on above: Order Comment: Name Collection Type:: Clean-Voided Midstream Performed By: #### C UU, ADDONUAPLUS, UHCG #### [place] [address] [place] Nitrite,Urine Negative Normal Negative [facility] Comment on above: Order Comment: Name Collection Type:: Clean-Voided Midstream Performed By: #### C UU, ADDONUAPLUS, UHCG #### [place] [address] [place] Occult Blood,Urine Negative Normal Negative [facility] Comment on above: Order Comment: Name Collection Type:: Clean-Voided Midstream Performed By: #### C UU, ADDONUAPLUS, UHCG #### [place] [address] [place] Protein,Urine Negative Normal Negative [facility] Comment on above: Order Comment: Name Collection Type:: Clean-Voided Midstream Performed By: #### C UU, ADDONUAPLUS, UHCG #### [place] [address] [place] RBC,Urine 5-9 High 0-4 [facility] Comment on above: Order Comment: Name Collection Type:: Clean-Voided Midstream Performed By: #### C UU, ADDONUAPLUS, UHCG #### [place] [address] [place] Specificy [place],Urine 1.013 Normal 1.00 1-1.03 0 [facility] Comment on above: Order Comment: Name Collection Type:: Clean-Voided Midstream Performed By: #### C UU, ADDONUAPLUS, UHCG #### [place] [address] [place] Squamous Epithelial Cell,Urine 3-4 High 0-2 [facility] Comment on above: Order Comment: Name Collection Type:: Clean-Voided Midstream Performed By: #### C UU, ADDONUAPLUS, UHCG #### [address] Urobilinogen,Urine Normal Normal Normal [facility] Comment on above: Order Comment: Name Collection Type:: Clean-Voided Midstream Performed By: #### C UU, ADDONUAPLUS, UHCG #### [address] WBC,Urine 5-9 High 0-4 [facility] Comment on above: Order Comment: Name Collection Type:: Clean-Voided Midstream Performed By: #### C UU, ADDONUAPLUS, UHCG #### [address] Erythrocyte distribution wid th [Ratio] by Automated countOrdered By: Pastor Camilo on 04-24-2023 Erythrocyte distribution width (RBC) [Ratio] 13.7 % Normal 11.9-15.3 [facility] Comment on above: Performed By: #### C BC, BMP #### [address] Erythrocytes [#/volume] in B lood by Automated countOrdered By: Pastor Camilo on 04-24-2023 RBC (Bld) [#/Vol] 4.68 10*6/uL Normal 3.60-5.00 [facility] Comment on above: Performed By: #### C BC, BMP #### [address] Glucose [Mass/volume] in Ser um or PlasmaOrdered By: Pastor Cmailo on 04-24-2023 Glucose [Mass/Vol] 69 mg/dL Low 70-100 [facility] Comment on above: ADA recommended refe rence rangeRandom Glucose Reference Range is dependent on time and content of last meal. Glucose of more than 200 mg/dL in a nonstressed, ambulatory subject supports the diagnosis of Diabetes Mellitus. Result Comment: [employer] om Glucose Reference Range is dependent on time and content of last meal. Glucose of more than 200 mg/dL in a nonstressed, ambulatory subject supports the diagnosis of Diabetes Mellitus. ADA recommended reference range Performed By: #### C BC, BMP #### [address] HCG ( test) IA.rapi d Ql (U)Ordered By: Pastor Camilo on 04-24-2023 HCG ( test) Ql (U) Negative [facility] HCG,Urineon 04-24-2023 Beta HCG ( test) Ql (U) Negative Normal [facility] Comment on above: Order Comment: Name Collection Type:: Clean-Voided Midstream Result Comment: PERF ORMED BY: [place] [address] PATHOLOGIST MANUFA[employer]URING MAINTENANCE MECHANIC LAYNE ROSA M.D. Performed By: #### C UU, BERTA, [facility] ####[address] Hematocrit [Volume Fraction] of Blood by Automated countOrdered By: Pastor Camilo on 04-24-2023 Hematocrit (Bld) [Volume fraction] 43.6 % Normal 34.0-46.4 [facility] Comment on above: Performed By: #### C BC, BMP #### [address] Hemoglobin [Mass/volume] in BloodOrdered By: Pastor Camilo on 04-24-2023 Hemoglobin (Bld) [Mass/Vol] 14.9 g/dL Normal 11.8-15.4 [facility] Comment on above: Performed By: #### C BC, BMP #### [address] Ketones Auto test strip (U) [Mass/Vol]Ordered By: Pastor Camilo on 04-24-2023 Ketones (U) [Mass/Vol] Negative Negative [facility] - UrinalysisOrder ed By: Pastor Camilo on 04-24-2023 Hyaline casts LM Ql (Urine sed) None seen [LPF] 0-8 [facility] Leukocytes [#/volume] correc darya for nucleated erythrocytes in Blood by Automated counOrdered By: Pastor Camilo on 04-24-2023 WBC corrected for nucl RBC Auto (Bld) [#/Vol] 8.7 10*3/uL 3.8-11.6 [facility] Leukocytes [#/volume] in Blo od by Automated countOrdered By: Pastor Camilo on 04-24-2023 WBC (Bld) [#/Vol] 8.7 10*3/uL Normal 3.8-11.6 [facility] Comment on above: Performed By: #### C BC, BMP #### [address] Lymphocytes [#/volume] in Bl ood by Automated countOrdered By: Pastor Camilo on 04-24-2023 Lymphocytes (Bld) [#/Vol] 3.0 10*3/uL Normal 1.00-4.8 [facility] Comment on above: Performed By: #### C BC, BMP #### [address] Lymphocytes/100 leukocytes i n Blood by Automated countOrdered By: Pastor Camilo on 04-24-2023 Lymphocytes/100 WBC (Bld) 34.4 % Normal . [facility] Comment on above: Performed By: #### C BC, BMP #### [address] MCH [Entitic mass] by Automa darya countOrdered By: Pastor Camilo on 04-24-2023 MCH (RBC) [Entitic mass] 31.9 pg Normal 24.7-34.3 [facility] Comment on above: Performed By: #### C BC, BMP #### [address] MCHC Auto (RBC) [Mass/Vol]Or dered By: Pastor Camilo on 04-24-2023 MCHC (RBC) [Mass/Vol] 34.2 g/dL 32.0-35.0 [facility] MCV [Entitic volume] by Auto mated countOrdered By: Pastor Camilo on 04-24-2023 MCV (RBC) [Entitic vol] 93.3 fL Normal 80-100 [facility] Comment on above: Performed By: #### C BC, BMP #### [place] [address] [place] Monocyte distribution width [Entitic volume] in Blood by AutomatedOrdered By: Pastor Camilo on 04-24-2023 Monocyte distribution width Auto (Bld) [Entitic vol] 16.95 % 0.00-20.00 [facility] Neutrophils [#/volume] in Bl ood by Automated countOrdered By: Pastor Camilo on 04-24-2023 Neutrophils (Bld) [#/Vol] 5.0 10*3/uL Normal 1.8-7.7 [facility] Comment on above: Performed By: #### C SKYLAR, BMP #### [address] Nitrite Test strip Ql (U)Ord ered By: Pastor Camilo on 04-24-2023 Nitrite Ql (U) Negative Negative [facility] No Panel InformationOrdered By: Pastor Camilo on 04-24-2023 Estimated GFR (CKD-EPI) > 60.0 mL/Min [facility] Creatinine Clearance (Chem 117.43 [facility] Nucleated erythrocytes [Pres ence] in Blood by Automated countOrdered By: Pastor Camilo on 04-24-2023 Nucleated RBC Auto Ql (Bld) 0.2 /100{WBC} 0-0.5 [facility] Platelet mean volume [Entiti c volume] in Blood by Automated countOrdered By: Pastor Camilo on 04-24-2023 Platelet mean volume (Bld) [Entitic vol] 8.8 fL Normal 6.3-10.7 [facility] Comment on above: Performed By: #### C SKYLAR, BMP #### [place] [address] [place] Platelets [#/volume] in Bloo d by Automated countOrdered By: Pastor Camilo on 04-24-2023 Platelets (Bld) [#/Vol] 224 10*3/uL Normal 150-450 [facility] Comment on above: Performed By: #### C SKYLAR, BMP #### [address] Potassium [Moles/volume] in Serum or PlasmaOrdered By: Pastor Camilo on 04-24-2023 Potassium [Moles/Vol] 3.3 mmol/L Low 3.5-5.1 [facility] Comment on above: Performed By: #### C SKYLAR, BMP #### [address] Protein Auto test strip (U) [Mass/Vol]Ordered By: Pastor Camilo on 04-24-2023 Protein (U) [Mass/Vol] Negative Negative [facility] Serum or plasma anion gap de terminationOrdered By: Pastor Camilo on 04-24-2023 Anion gap [Moles/Vol] 10.7 mmol/L Normal 6.0-15.0 [facility] Comment on above: Performed By: #### C SKYLAR, BMP #### [address] Sodium [Moles/volume] in Ser um or PlasmaOrdered By: Pastor Camilo on 04-24-2023 Sodium [Moles/Vol] 140 mmol/L Normal 136-145 [facility] Comment on above: Performed By: #### C SKYLAR, BMP #### [address] Specific gravity Auto test s trip (U) [Rel density]Ordered By: Pastor Camilo on 04-24-2023 Specific gravity (U) [Rel density] 1.013 1.001-1.03 0 [facility] Squamous epithelial cells de tection in urine sediment by light microscopyOrdered By: Pastor Camilo on 04-24-2023 Epithelial cells.squamous LM Ql (Urine sed) 3-4 [HPF] 0-2 [facility] Urea nitrogen [Mass/volume] in Serum or PlasmaOrdered By: Pastor Camilo on 04-24-2023 Urea nitrogen [Mass/Vol] 11 mg/dL Normal 7-25 [facility] Comment on above: Performed By: #### C SKYLAR, BMP #### [address] Urine Cultureon 04-24-2023 Bacteria identified Cx Nom (U) >100,000 colonies/ml mixed bacterial skin contaminants 2 Days PERFORMED BY: [place] [address] PATHOLOGIST MANUFA[employer]URING MAINTENANCE MECHANIC LAYNE ROSA M.D. Normal [facility] Comment on above: Performed By: #### C BERTA BOBO [facility] ####[facility] [id number] [facility] Urine bacteria detection by automated methodOrdered By: Pastor Camilo on 04-24-2023 Bacteria Auto Ql (U) 1+ None Seen [facility] Urine clarity by refractomet ry automatedOrdered By: Pastor Camilo on 04-24-2023 Clarity Refractometry automated (U) Clear Clear [facility] Urine glucose measurement by automated test strip (mass/volume)Ordered By: Pastor Camilo on 04-24-2023 Glucose Auto test strip (U) [Mass/Vol] Normal mg/dL Normal [facility] Urine hemoglobin detection b y automated test stripOrdered By: Pastor Camilo on 04-24-2023 Hemoglobin Auto test strip Ql (U) Negative Negative [facility] Urine leukocyte esterase det ection by automated test stripOrdered By: Pastor Camilo on 04-24-2023 Leukocyte esterase Auto test strip Ql (U) 2+ Negative [facility] Urine pH measurement by auto mated test stripOrdered By: Pastor Camilo on 04-24-2023 pH (U) 6.5 [pH] Normal 5.0-9.0 [facility] Comment on above: Order Comment: Name Collection Type:: Clean-Voided Midstream Performed By: #### C BERTA BOBO [facility] #### [facility] [address] [id number] [facility] Urobilinogen Auto test strip (U) [Mass/Vol]Ordered By: Pastor Camilo on 04-24-2023 Urobilinogen (U) [Mass/Vol] Normal mg/dL Normal [facility] Office Visit (Cardiology)on 02-03-2023 Follow-up visit Diagnoses/Problems Assessed Neurologic cardiac syncope (780.2) (R55) Never a smoker Palpitations (785.1) (R00.2) Tachycardia (785.0) (R00.0) Body mass index (BMI) of 24.0 to 24.9 in adult (V85.1) (Z68.24) Orders SocHx: Never a smoker Tobacco Use Screening; Status:Complete; Done: [id number] Patient Instructions Please bring all medicines, vitamins, [...] Follow up in 4-5 months Chief Complaint NURIA MINAYA is being seen for a 6 [...] sinus rhythm with normal QTc interval and IN and QRS duration. Assessment 1. Classic neurocardiogenic [...] pharmacologic therapy Surgical History Problems History of [place] tooth extraction Current Meds Medication NameInstruction Lo [...] negative for complaint. Vitals Vital Signs Recorded: [id number] 03:43PMRecorded: 44Gqw8303 03:40PM Systolic Wruwgir284, LUE, Sitting Diastolic Sxbdvks84, LUE, Sitting Systolic Roozwqge876, LLE, Standing Diastolic Bkgobblj94, LLE, Standing Heart Rate Ppiwsik83, L Radial Heart Rate Fxyssvos60, L Radial Heart Rate88, L Radial Cipylgwq560, LUE, Sitting Sttzzhudu53, LUE, Sitting Height5 ft 3 in Xafdhw041 lb BMI Nmbqgdzaer66.98 kg/m2 BSA Calculated1.67 Tobacco Useb) No PHQ-2 [...] 2V*on 09-09-19 23 XR forearm RT 2V* [facility] [employer] Other XR forearm RT 2V* [facility] [employer] Other XR forearm RT 2V* [address] [facility] [employer] Other XR forearm RT 2V* NINI [place] [address] [facility] [employer] Other XR forearm RT 2V* XRay Report [employer] [facility] [employer] Other XR forearm RT 2V* Signed [facility] [employer] Other XR forearm RT 2V* Patient: Micky Minaya MR#: [id number] [facility] [employer] Other XR forearm RT 2V* : 2000 Acct:[id number] [employer] Other XR forearm RT 2V* Age/Sex: 21 / F ADM Date: 09/08/22 [employer] Other XR forearm RT 2V* Loc: XDUCLY Room: pe: [facility] [employer] Other XR forearm RT 2V* Attending Dr: Latricia PABON [employer] Other XR forearm RT 2V* Copies to: PEPPER Maria [employer] Other XR forearm RT 2V* Ordering Provider: PEPPER Maria [employer] Other XR forearm RT 2V* Date of Service: 09/08/22 [employer] Other XR forearm RT 2V* XR/XR wrist RT min 3V*: RIGHT WRIST INJURY [employer] Other XR forearm RT 2V* ([id number]) XR/XR forearm RT 2V*: RIGHT ARM INJURY [employer] Other XR forearm RT 2V* XR wrist RT min 3V*, XR forearm RT 2V* 09/08/2022 6:43 PM [employer] Other XR forearm RT 2V* SIGNS AND SYMPTOMS: Fall onto right arm with continued right wrist pain along the radial aspect of [employer] Other XR forearm RT 2V* the wrist and right forearm [employer] Other XR forearm RT 2V* PROTOCOL: Frontal, lateral, and oblique radiographs of the right wrist. Frontal and lateral [employer] Other XR forearm RT 2V* radiographs of the r ight forearm. [employer] Other XR forearm RT 2V* COMPARISON: None [employer] Other XR forearm RT 2V* FINDINGS: [employer] Other XR forearm RT 2V* Right wrist: [employer] Other XR forearm RT 2V* The radiocarpal join t space is preserved. The carpal rows are preserved. There is no evidence of [employer] Other XR forearm RT 2V* fracture or dislocat ion. No significant soft tissue swelling. [employer] Other XR forearm RT 2V* Right forearm: Nor Tier 3 Other XR forearm RT 2V* The bones are in anatomic alignment. There is no soft tissue swelling. No fracture. The visualized [employer] Other XR forearm RT 2V* wrist and elbow are grossly intact. [employer] Other XR forearm RT 2V* X R/XR wrist RT min 3V* [employer] Other XR forearm RT 2V* IMPRESSION: [employer] Other XR forearm RT 2V* No fracture. [employer] Other XR forearm RT 2V* Impression dictated by: Josias Blum M.D.09/08/2022 7:15 PM [employer] Other XR forearm RT 2V* Dictation Location: [address] [employer] Other XR forearm RT 2V* Transcribed By: MISHA 09/08/221914 [employer] Other XR forearm RT 2V* Dictated By: Josias Blum II, MD 09/08/221910 [employer] Other XR forearm RT 2V* Signed By: [employer] Other XR forearm RT 2V* 09/08/221914 [facility] Other Quick Strepon 09-02-2022 S. pyogenes Org specific cx Ql (Throat) Negative [facility] [employer] Other Quick Strep [facility] [employer] Other COVID + FLU Quick Testingon 07-13-2022 SARS-CoV-2 (COVID-19) RNA EMERITA+probe Ql (Unsp spec) Negative [employer] Other COVID + FLU Quick Testing Negative [employer] Other RSVon 07-13-2022 RSV Ag IA Ql (Unsp spec) Positive [employer] Other No Panel Informationon 06-23 -[facility] [address] DO Work Phone: Office Visit (Cardiology)on 05-24-2022 Follow-up visit Diagnoses/Problems Assessed Tachycardia (785.0) (R00.0) Palpitations (785.1) (R00.2) Hypertension, isolated systolic (401.9) (I10) Never a smoker Overweight with body mass index (BMI) of 27 to 27.9 in adult (278.02,V85.23) (E66.3,Z68.27) Orders Hypertension, isolated systolic, Palpitations, Tachycardia Tilt Table; Status:Hold For - Scheduling,Retrospective Authorization; Requested for:[id number]; Overweight with body mass index (BMI) of 27 to 27.9 in adult Healthy Weight Tips; Status:Complete - Retrospective Authorization; Done: [id number] Some eating tips that can help you lose weight.; Status:Complete - Retrospective Authorization; Done: [id number] SocHx: Never a smoker Tobacco Use Screening; Status:Complete; Done: [id number] Patient Instructions Please bring all medicines, vitamins, [...] stay well hydrated avoid caffeine Chief Complaint NURIA MINAYA is being seen for a 6 month follow-up of. Patient is in the office of for follow-up for the problems noted below. She seems to be frustrated with her condition especially occasional asymptomatic drop in blood pressure on beta-royce therapy which is taken at the lowest dose. She continued to have tachycardia despite beta-royce therapy. She has had no syncope or [...] approach with hydration and preventing provoking situations Assessment/recommendatio ns: 1?history of dizziness palpitations and near syncope [...] is inconsequential Surgical History Problems History of [place] tooth extraction Current Meds Medication NameInstruction Metoprolol [...] Recorded: 24May2022 03:43PM Heart Rate80, R Radial Wzxnuixe235, RUE, Sitting Lperusgxe61, RUE, Sitting Height5 ft 3 in Wszaho749 lb BMI Dxmgzgcxmt27.28 kg/m2 BSA Calculated1.73 Tobacco Useb) No Falls [...] May 24 2022 6:43PM EST (Author) Normal [employer] Tobacco Screening.on 022 Fall risk assessment a) No falls within the last year [facility] DO Work Phone: Tobacco use status [facility] b) No M -[facility] 250 DO Work Phone: Tobacco Screening.on 022 Adult depression screening assessment No -[facility] 250 DO Work Phone: Tobacco use status [facility] b) No M -[facility] 250 DO Work Phone: Vital Signs Date Time Vital Sign Value Performing Clinician Facility 03-23-2024 08:42-0400 Body height 160 cm Willy Escudero MD Work Phone: [facility] 03-23-2024 08:42-0400 Body mass index (BMI) [Ratio] 25.86 kg/m2 Willy Escudero MD Work Phone: [facility] 03-23-2024 08:42-0400 Body weight 66.22 kg Willy Escudero MD Work Phone: [facility] 03-23-2024 08:42-0400 Diastolic blood pressure 60 mm[Hg] Willy Escudero MD Work Phone: [facility] 03-23-2024 08:42-0400 Heart rate 84 /min Willy Escudero MD Work Phone: [facility] 03-23-2024 08:42-0400 Systolic blood pressure 110 mm[Hg] Willy Escudero MD Work Phone: [facility] 03-21-2024 15:28-0400 Body weight 66.22 kg Segun Jany DO Work Phone: [facility] 03-21-2024 15:28-0400 Diastolic blood pressure 72 mm[Hg] Segun Jany DO Work Phone: [facility] 03-21-2024 15:28-0400 Systolic blood pressure 116 mm[Hg] Segun Jnay DO Work Phone: [facility] 01-22-2024 10:54-0400 Body height 162.56 cm DO Rosa Kuns Work Phone: [facility] 01-22-2024 10:54-0400 Body mass index (BMI) [Ratio] 24.4 kg/m2 DO Rosa Kuns Work Phone: [facility] 01-22-2024 10:54-0400 Body temperature 98 [degF] DO Rosa Kuns Work Phone: [facility] 01-22-2024 10:54-0400 Body weight 64.58 kg DO Rosa Kuns Work Phone: [facility] 01-22-2024 10:54-0400 Diastolic blood pressure 66 mm[Hg] DO Rosa Kuns Work Phone: [facility] 01-22-2024 10:54-0400 Heart rate 74 /min DO Rosa Kuns Work Phone: [facility] 01-22-2024 10:54-0400 Respiratory rate 18 /min DO Rosa Kuns Work Phone: [facility] 01-22-2024 10:54-0400 SaO2% (BldA) [Mass fraction] 98 % DO Rosa Kuns Work Phone: [facility] 01-22-2024 10:54-0400 Systolic blood pressure 101 mm[Hg] DO Rosa Kuns Work Phone: [facility] 01-13-2024 09:47-0400 Body height 162.56 cm DO Rosa Kuns Work Phone: [facility] 01-13-2024 09:47-0400 Body mass index (BMI) [Ratio] 24 kg/m2 DO Rosa Kuns Work Phone: [facility] 01-13-2024 09:47-0400 Body weight 63.5 kg DO Rosa Kuns Work Phone: [facility] 12-05-2023 10:45-0400 Body height 160.02 cm [facility] 12-05-2023 10:45-0400 Body mass index (BMI) [Ratio] 24.5 kg/m2 [facility] 12-05-2023 10:45-0400 Body weight 63 kg [facility] 09-27-2023 09:06-0400 Body height 160.02 cm DO Rosa Kuns Work Phone: [facility] 09-27-2023 09:06-0400 Body mass index (BMI) [Ratio] 24.7 kg/m2 DO Rosa Kuns Work Phone: [facility] 09-27-2023 09:06-0400 Body weight 63.5 kg DO Rosa Kuns Work Phone: [facility] 09-27-2023 09:06-0400 Diastolic blood pressure 64 mm[Hg] DO Rosa Kuns Work Phone: [facility] 09-27-2023 09:06-0400 Heart rate 98 /min DO Rosa Kuns Work Phone: [facility] 09-27-2023 09:06-0400 Respiratory rate 16 /min DO Rosa Kuns Work Phone: [facility] 09-27-2023 09:06-0400 SaO2% (BldA) [Mass fraction] 98 % DO Rosa Kuns Work Phone: [facility] 09-27-2023 09:06-0400 Systolic blood pressure 104 mm[Hg] DO Rosa Kuns Work Phone: [facility] 09-20-2023 13:59-0400 Body height 160.02 cm DO Rosa Kuns Work Phone: [facility] 09-20-2023 13:59-0400 Body mass index (BMI) [Ratio] 23.9 kg/m2 DO Rosa Kuns Work Phone: [facility] 09-20-2023 13:59-0400 Body weight 61.23 kg DO Rosa Kuns Work Phone: [facility] 08-12-2023 11:55-0500 Diastolic blood pressure 74 mm[Hg] DO Rosa Kuns Work Phone: [facility] 08-12-2023 11:55-0500 Heart rate 81 /min DO Rosa Kuns Work Phone: [facility] 08-12-2023 11:55-0500 Respiratory rate 18 /min DO Rosa Kuns Work Phone: [facility] 08-12-2023 11:55-0500 SaO2% (BldA) [Mass fraction] 99 % DO Rosa Kuns Work Phone: [facility] 08-12-2023 11:55-0500 Systolic blood pressure 108 mm[Hg] DO Rosa Kuns Work Phone: [facility] 08-12-2023 10:27-0500 Body height 160.02 cm DO Rosa Kuns Work Phone: [facility] 08-12-2023 10:27-0500 Body temperature 98.2 [degF] DO Rosa Kuns Work Phone: [facility] 08-12-2023 10:27-0500 Body weight 61.23 kg DO Rosa Kuns Work Phone: [facility] 08-10-2023 12:35-0500 Body height 160.02 cm [facility] 08-10-2023 12:35-0500 Body mass index (BMI) [Ratio] 23.7 kg/m2 [facility] 08-10-2023 12:35-0500 Body temperature 98.6 [degF] [facility] 08-10-2023 12:35-0500 Body weight 60.78 kg [facility] 08-10-2023 12:35-0500 Diastolic blood pressure 74 mm[Hg] [facility] 08-10-2023 12:35-0500 Heart rate 94 /min [facility] 08-10-2023 12:35-0500 Respiratory rate 18 /min [facility] 08-10-2023 12:35-0500 SaO2% (BldA) [Mass fraction] 99 % [facility] 08-10-2023 12:35-0500 Systolic blood pressure 118 mm[Hg] [facility] 06-23-2023 14:29-0500 Body height 160 cm Willy Escudero MD Work Phone: [facility] 06-23-2023 14:29-0500 Body mass index (BMI) [Ratio] 24.09 kg/m2 Willy Escudero MD Work Phone: [facility] 06-23-2023 14:29-0500 Body weight 61.69 kg Willy Escudero MD Work Phone: [facility] 06-23-2023 14:29-0500 Diastolic blood pressure 80 mm[Hg] Willy Escudero MD Work Phone: [facility] 06-23-2023 14:29-0500 Heart rate 70 /min Willy Escudero MD Work Phone: [facility] 06-23-2023 14:29-0500 Systolic blood pressure 110 mm[Hg] Willy Escudero MD Work Phone: [facility] 06-23-2023 12:30-0500 Body height 160.02 cm Rosa Agee Other [facility] 06-23-2023 12:30-0500 Body mass index (BMI) [Ratio] 24.09 kg/m2 Rosa Agee Other [employer] Other 06-23-2023 12:30-0500 Body weight 61.69 kg Rosa Kuns Other [facility] [employer] Other 06-23-2023 12:30-0500 Body weight 61.68 kg [facility] 06-23-2023 12:30-0500 Diastolic blood pressure 64 mm[Hg] Rosa Kuns Other [facility] 06-23-2023 12:30-0500 Respiratory rate 16 /min Rosa Kuns Other [facility] [employer] Other 06-23-2023 12:30-0500 SaO2% (BldA) [Mass fraction] 99 % Rosa Kuns Other [facility] [employer] Other 06-23-2023 12:30-0500 Systolic blood pressure 104 mm[Hg] Rosa Kuns Other [facility] 04-26-2023 08:45-0500 Body height 160.02 cm Rosa Kuns Other [employer] Other 04-26-2023 08:45-0500 Body mass index (BMI) [Ratio] 24.8 kg/m2 Rosa Kuns Other [employer] Other 04-26-2023 08:45-0500 Body weight 63.5 kg Rosa Kuns Other [employer] Other 04-26-2023 08:45-0500 Diastolic blood pressure 80 mm[Hg] Rosa Kuns Other [employer] Other 04-26-2023 08:45-0500 Respiratory rate 16 /min Rosa Kuns Other [employer] Other 04-26-2023 08:45-0500 SaO2% (BldA) [Mass fraction] 97 % Rosa Aentropicos Other [facility] [employer] Other 04-26-2023 08:45-0500 Systolic blood pressure 116 mm[Hg] Rosa Kuns Other [facility] [employer] Other 04-24-2023 22:52-0500 Diastolic blood pressure 71 mm[Hg] DO Rosa Kuns Work Phone: [facility] 04-24-2023 22:52-0500 Heart rate 88 /min DO Rosa Kuns Work Phone: [facility] 04-24-2023 22:52-0500 Respiratory rate 18 /min DO Rosa Kuns Work Phone: [facility] 04-24-2023 22:52-0500 SaO2% (BldA) [Mass fraction] 98 % DO Rosa Kuns Work Phone: [facility] 04-24-2023 22:52-0500 Systolic blood pressure 117 mm[Hg] DO Rosa Kuns Work Phone: [facility] 04-24-2023 20:42-0500 Body height 160.02 cm DO Rosa Kuns Work Phone: [facility] 04-24-2023 20:42-0500 Body temperature 98.8 [degF] DO Rosa Kuns Work Phone: [facility] 04-24-2023 20:42-0500 Body weight 64.7 kg DO Rosa Kuns Work Phone: [facility] 09-08-2022 19:30-0400 Body height 160.02 cm Latricia Campbell Other [employer] [facility] [employer] Other 09-08-2022 19:30-0400 Body mass index (BMI) [Ratio] 25.86 kg/m2 Latricia Campbell Other [employer] Other 09-08-2022 19:30-0400 Body temperature 100.3 [degF] Latricia Campbell Other [employer] Other 09-08-2022 19:30-0400 Body weight 66.23 kg Latricia Campbell Other [employer] Other 09-08-2022 19:30-0400 Diastolic blood pressure 81 mm[Hg] Latricia Campbell Other [employer] Other 09-08-2022 19:30-0400 Respiratory rate 18 /min Latricia Campbell Other [employer] Other 09-08-2022 19:30-0400 SaO2% (BldA) [Mass fraction] 99 % Latricia Campbell Other [employer] Other 09-08-2022 19:30-0400 Systolic blood pressure 124 mm[Hg] Latricia Campbell Other [employer] Other 06-23-2022 10:03-0500 Diastolic blood pressure 71 mm[Hg] DO Rosa Kuns Work Phone: [facility] 06-23-2022 10:03-0500 Heart rate 101 /min DO Rosa Kuns Work Phone: [facility] 06-23-2022 10:03-0500 Systolic blood pressure 122 mm[Hg] DO Rosa Kuns Work Phone: [facility] 06-23-2022 09:21-0500 SaO2% (BldA) [Mass fraction] 99 % DO Rosa Kuns Work Phone: [facility] 06-22-2022 09:33-0500 Body height 160.02 cm DO Rosa Kuns Work Phone: [facility] 06-22-2022 09:33-0500 Body weight 69.85 kg DO Rosa Kuns Work Phone: [facility] 05-24-2022 15:43-0500 Body height 160.02 cm Rosa R Kuns Work Phone: [facility] DO Work Phone: 05-24-2022 15:43-0500 Body mass index (BMI) [Ratio] 27.28 kg/m2 Rosa R Kuns Work Phone: [facility] 250 DO Work Phone: 05-24-2022 15:43-0500 Body surface area Derived from formula 1.73 m2 Rosa R Kuns Work Phone: [facility] 250 DO Work Phone: 05-24-2022 15:43-0500 Body weight 69.85 kg Rosa R Kuns Work Phone: [facility] DO Work Phone: 05-24-2022 15:43-0500 Diastolic blood pressure 62 mm[Hg] Rosa R Kuns Work Phone: [facility] 250 DO Work Phone: 05-24-2022 15:43-0500 Heart rate 80 /min Rosa R Kuns Work Phone: [facility] DO Work Phone: 05-24-2022 15:43-0500 Systolic blood pressure 100 mm[Hg] Rosa R Kuns Work Phone: [facility] [facility] DO Work Phone: 09-08-2021 15:55-0400 Body height 160.02 cm Rosa R Kuns Work Phone: [facility] 250 DO Work Phone: 09-08-2021 15:55-0400 Body mass index (BMI) [Ratio] 26.47 kg/m2 Rosa R Kuns Work Phone: [facility] DO Work Phone: 09-08-2021 15:55-0400 Body surface area Derived from formula 1.71 m2 Rosa R Kuns Work Phone: [facility] DO Work Phone: 09-08-2021 15:55-0400 Body weight 67.77 kg Rosa R Kuns Work Phone: [facility] DO Work Phone: 09-08-2021 15:55-0400 Diastolic blood pressure 77 mm[Hg] Rosa R Kuns Work Phone: [facility] DO Work Phone: 09-08-2021 15:55-0400 Heart rate 83 /min Rosa R Kuns Work Phone: [facility] DO Work Phone: 09-08-2021 15:55-0400 Systolic blood pressure 116 mm[Hg] Rosa R Kuns Work Phone: [facility] 250 DO Work Phone: 05-07-2021 14:30-0500 Body height 160.02 cm Rosa Kuns Other [facility] [employer] Other 05-07-2021 14:30-0500 Body mass index (BMI) [Ratio] 26.39 kg/m2 Rosa Kuns Other [employer] Other 05-07-2021 14:30-0500 Body weight 67.59 kg Rosaladonna Agee Other [employer] Other 05-07-2021 14:30-0500 Diastolic blood pressure 78 mm[Hg] Rosaladonna Hernadezs Other [employer] Other 05-07-2021 14:30-0500 Respiratory rate 16 /min Rosaladonna Hernadezs Other [employer] Other 05-07-2021 14:30-0500 SaO2% (BldA) [Mass fraction] 98 % Rosaladonna Hernadezs Other [employer] Other 05-07-2021 14:30-0500 Systolic blood pressure 122 mm[Hg] Rosa Satyas Other [employer] Other Encounters Encounter Date Encounter Type Care Provider Facility Start: 03-29-2024 End: 03-29-2024 ambulatory DO Rosa Kuns Work Phone: [facility] Work Phone: Start: 03-29-2024 End: 03-29-2024 Departed Referred DO Rosa Kuns Work Phone: [facility] Start: 03-29-2024 Non-patient / Non-visit DO Celina tt Kuns Work Phone: [facility] Work Phone: Start: 03-23-2024 End: 03-23-2024 Office outpatient visit 15 minutes Willy Escudero MD Work Phone: [facility] Comment on above: Tachycardia (Primary Dx); Neurologic cardiac syncope; Palpitations; BMI 25.0-25.9,adult Start: 03-23-2024 End: 03-23-2024 ambulatory [facility] Start: 03-21-2024 Non-patient / Non-visit DO Celina tt Kuns Work Phone: [facility] Physician [facility] Work Phone: Start: 03-21-2024 End: 03-21-2024 Patient encounter procedure Segun Jany DO Work Phone: [facility] Start: 03-21-2024 End: 03-21-2024 Periodic preventive med est patient 18-39 yrs Segun Jany DO Work Phone: [facility] Comment on above: Well woman exam with routine gynecological exam; Encounter to discuss test results; PCOS (polycystic ovarian syndrome); Irregular periods Start: 03-21-2024 End: 03-21-2024 ambulatory SEGUN JANY Not Available Start: 03-21-2024 End: 03-21-2024 Bamboo flowsheet Segun Jany DO Work Phone: [facility] Start: 03-21-2024 End: 03-28-2024 Bamboo flowsheet Segun Jany DO Work Phone: [facility] Start: 03-21-2024 End: 03-28-2024 Clinisync Result Encounter Segun Jany DO Work Phone: [facility] Unsolicited Start: 03-14-2024 Non-patient / Non-visit DO Celina tt Kuns Work Phone: [facility] Work Phone: Start: 02-29-2024 Non-patient / Non-visit DO Celina tt Kuns Work Phone: [facility] Work Phone: Start: 02-17-2024 Non-patient / Non-visit DO Celina tt Kuns Work Phone: [facility] Work Phone: Start: 02-13-2024 End: 02-13-2024 ambulatory SEGUN CARMICHAEL Not Available Start: 01-22-2024 End: 01-22-2024 Patient encounter procedure DO Rosa Kuns Work Phone: [facility] [place] Work Phone: Start: 01-22-2024 End: 01-22-2024 ambulatory DO Rosa Kuns Work Phone: [facility] Work Phone: Start: 01-22-2024 End: 01-22-2024 ambulatory DO Rosa Kuns Work Phone: [facility] Work Phone: Start: 01-22-2024 End: 01-22-2024 Patient encounter procedure DO Rosa Kuns Work Phone: [facility] [place] Work Phone: Start: 01-13-2024 End: 01-13-2024 ambulatory DO Rosa Kuns Work Phone: [facility] Work Phone: Start: 01-13-2024 End: 01-13-2024 Patient encounter procedure DO Rosa Kuns Work Phone: [facility] Work Phone: Start: 12-09-2023 End: 12-09-2023 Patient encounter procedure DO Rosa Kuns Work Phone: [facility] [place] Work Phone: Start: 12-09-2023 End: 12-09-2023 ambulatory DO Rosa Kuns Work Phone: [facility] Work Phone: Start: 12-05-2023 End: 12-05-2023 ambulatory [facility] Work Phone: Start: 12-05-2023 End: 12-05-2023 Patient encounter procedure [facility] Physician [facility] G[facility] Work Phone: Start: 09-27-2023 End: 09-27-2023 ambulatory DO Rosa Kuns Work Phone: [facility] Work Phone: Start: 09-27-2023 End: 09-27-2023 Patient encounter procedure DO Rosa Kuns Work Phone: [facility] [place] Work Phone: Start: 09-20-2023 End: 09-20-2023 ambulatory DO Rosa Kuns Work Phone: [facility] Work Phone: Start: 09-20-2023 End: 09-20-2023 Patient encounter procedure DO Rosa Kuns Work Phone: [facility] Physician [facility] G[facility] Work Phone: Start: 08-12-2023 Non-patient / Non-visit DO Celina tt Kuns Work Phone: [facility] Physician [facility] G[facility] Work Phone: Start: 08-12-2023 End: 08-12-2023 Admission to same day surgery center DO Rosa Kuns Work Phone: [facility] Work Phone: Start: 08-12-2023 End: 08-12-2023 ambulatory DO Rosa Kuns Work Phone: [facility] Work Phone: Start: 08-10-2023 End: 08-10-2023 ambulatory DO Rosa Kuns Work Phone: [facility] Work Phone: Start: 08-10-2023 End: 08-10-2023 Departed Referred DO Rosa Kuns Work Phone: [facility] [place] Work Phone: Start: 08-10-2023 End: 08-10-2023 ambulatory [facility] Work Phone: Start: 08-10-2023 End: 08-10-2023 Patient encounter procedure [facility] [place] Work Phone: Start: 08-01-2023 End: 08-01-2023 ambulatory Cuong Fletcher Other [employer] Other Start: 08-01-2023 Telephone encounter Cuong Mclalister [facility] [employer] [facility] Start: 07-15-2023 End: 07-15-2023 ambulatory Cuong Fletcher Other [employer] Other Start: 07-15-2023 Office outpatient ne w 30 minutes Cuong SHELDON G[facility] Start: 06-23-2023 End: 06-23-2023 ambulatory WILLY ESCUDERO [facility] [employer] Other Start: 06-23-2023 End: 06-23-2023 Office outpatient visit 15 minutes Willy Escudero MD Work Phone: [facility] Comment on above: Neurologic cardiac s yncope (Primary Dx); Palpitations; Tachycardia Start: 06-23-2023 End: 06-23-2023 Patient encounter procedure [facility] Physician [facility] [place] Work Phone: Start: 04-26-2023 Encounter for genera l adult medical examination without abnormal findings Rosa Agee [facility] [place] Start: 04-26-2023 Patient encounter status Rosa Agee Other [employer] Other Start: 04-26-2023 Periodic preventive med est patient 18-39 yrs Rosa Agee [facility] [place] Start: 04-26-2023 End: 04-26-2023 Patient encounter procedure DO Rosa Agee Work Phone: [facility]-Lab [place] Work Phone: Start: 04-26-2023 End: 04-26-2023 ambulatory DO Rosaladonna Agee Work Phone: [facility] Work Phone: Start: 04-24-2023 End: 04-24-2023 Emergency department patient visit DO Rosa Agee Work Phone: [facility]-Emergency Room Work Phone: Start: 04-20-2023 End: 04-20-2023 ambulatory Rosa Satyapoonam Other [employer] Other Start: 04-20-2023 Telephone encounter Rosa Agee [facility] Start: 02-03-[address] Rosa Agee Facility:[id number] Start: 10-20-2022 End: 10-20-[address] ROSA AGEE Facility:[id number] Start: 09-08-2022 End: 09-08-2022 Patient encounter procedure DO Rosa Agee Work Phone: [facility] [place] Work Phone: Start: 09-08-2022 End: 09-08-2022 ambulatory DO Rosa Agee Work Phone: [facility] Work Phone: Start: 09-08-2022 Office outpatient vi sit 15 minutes Latricia Campbell [facility] Start: 09-08-2022 Telephone encounter Rosa Agee [facility] Start: 09-02-2022 End: 09-02-2022 ambulatory Rosa Agee Other [employer] Other Start: 09-02-2022 Nursing evaluation o f patient and report Rosa Agee [facility] [place] Start: 09-02-2022 Telephone encounter Rosa Agee [facility] Start: 07-24-2022 Chart Update Rosa Agee Work Phone: [facility] 250 DO Work Phone: Start: 07-13-2022 End: 07-13-2022 ambulatory Rosa Agee Other [facility] [employer] Other Start: 07-13-2022 Nursing evaluation o f patient and report Rosa Agee [facility] Start: 07-13-2022 Telephone encounter Rosa Agee [facility] Start: 07-12-2022 End: 07-12-2022 ambulatory Rosa Agee Other [facility] [employer] Other Start: 07-12-2022 Telephone encounter Rosa Agee [facility] Start: 06-25-2022 Chart Update Rosa Agee Work Phone: [facility] 250 DO Work Phone: Start: 06-23-[address] Rosa Agee Facility:[id number] Start: 06-23-2022 End: 06-23-2022 ambulatory DO Rosaladonna Hernadezs Work Phone: [facility] Work Phone: Start: 06-23-2022 End: 06-23-2022 Patient encounter procedure DO Rosaladonna Hernadezs Work Phone: [facility]-Electrodiagnostics Work Phone: Start: 05-24-2022 Office outpatient vi sit 25 minutes Rosa Agee Work Phone: [facility] 250 DO Work Phone: Start: 05-24-[address] Miladis Morris Facility: Start: 09-29-2021 End: 09-29-2021 ambulatory Rosaladonna Agee Other [facility] [employer] Other Start: 09-29-2021 Telephone encounter Rosa Agee [facility] Start: 09-08-2021 Office outpatient vi sit 15 minutes Rosa R Kuns Work Phone: [facility] 250 DO Work Phone: Start: 05-07-2021 End: 05-07-2021 ambulatory Rosa Satyas Other [facility] [employer] Other Start: 05-07-2021 Office outpatient vi sit 25 minutes Rosaladonna Agee [facility] Procedures Date Procedure Procedure Detail Performing Clinician Start: 03-21-2024 IGP,APTIMA HPV,AGE GDLN Segun Jany DO Work Phone: Start: 01-22-2024 X-ray of right foot DO Rosa Kuns Work Phone: Start: 08-12-2023 Colonoscopy DO Rosa K uns Work Phone: Start: 04-24-2023 Computed tomography of abdomen and pelvis with contrast DO Rosa Kuns Work Phone: Start: 09-08-2022 Plain X-ray of right forearm DO Rosa Kuns Work Phone: Start: 09-08-2022 Plain X-ray of right wrist DO Rosa Kuns Work Phone: Start: 10-06-2021 Microscopic observat ion [Identifier] in Cervix by Cyto stain Willy Escudero MD Work Phone: Extraction of wisdom tooth B rett R Chris Work Phone: Plan of Treatment Date Care Activity Detail Author Start: 2050 Zoster Vaccines (1 of 2) Zoste r Vaccines (1 of 2) [facility] Start: 03-18-2032 DTaP/Tdap/Td Vaccine s (8 - Td or Tdap) DTaP/Tdap/Td Vaccines (8 - Td or Tdap) [facility] Start: 03-29-2025 End: 03-29-2025 Patient encounter procedure 03/29/2025 9:10 AM EDT Office Visit [place] [id number] [address] [place] [address] Willy Escudero MD [address] [facility] [address] [place] [address] [facility] Start: 10-06-2024 Screening for malign ant neoplasm of cervix [facility] Start: 03-23-2024 End: 03-23-2024 Patient encounter procedure 03/23/2024 8:40 AM EDT Office Visit [place] [id number] [address] [place] [address] Willy Escudero MD [address] [facility] [place] [address] [facility] Start: 03-21-2024 End: 03-21-2024 Patient encounter procedure 03/21/2024 2:50 PM EDT Office Visit [facility] [address] [place] [id number] Segun Carmichael DO [address] [place], [place] [id number] Arrived [facility] Comment on above: Arrived Start: 02-19-2024 COVID-19 Vaccine ( season) COVID-19 Vaccine ( season) [facility] Start: 02-19-2024 Influenza vaccination Influenza Vacc ine (#1) [facility] Start: 12-09-2023 [facility] Start: 08-12-2023 [facility] Start: 08-10-2023 [facility] Start: 04-26-2023 Bacteria identified in Urine by Culture Urine Culture [facility] Start: 04-24-2023 Computed tomography of abdomen and pelvis with contrast CT abdomen pelvis w con [facility] Start: 04-24-2023 CT Abdomen and Pelvi s W contrast IV [facility] Start: 04-24-2023 Bacteria identified in Urine by Culture [facility] Start: 04-24-2023 Urine culture Urine Culture [facility] Start: 02-18-2023 Influenza vaccination Influenza Vacc ine (#1) [facility] Start: 11-24-2022 FUV, Provider: Willy Escudero, Status: Pen, Time: 3:10 PM FUV, Provider: Willy Escudero, Status: Pen, Time: 3:10 PM [facility] [place] 250 DO Work Phone: Start: 05-13-2022 Hepatitis B Vaccines (3 of 3 - 3-dose series) Hepatitis B Vaccines (3 of 3 - 3-dose series) [facility] Start: 03-10-2022 FUV, Provider: Miladis Morris, Status: Pen, Time: 9:50 AM FUV, Provider: Miladis Morris, Status: Pen, Time: 9:50 AM [facility] [place] [address] DO Work Phone: Start: 2021 Screening for malign ant neoplasm of cervix HPV/Cotest [facility] Start: 07-02-2021 COVID-19 Vaccine (3 - Pfizer series) COVID-19 Vaccine (3 - Pfizer series) [facility] Start: 2018 Hepatitis C screening Hepatitis C [facility] Start: 09-22-2015 HPV Vaccines (1 - 3- dose series) HPV Vaccines (1 - 3-dose series) [facility] Start: 09-22-2011 HPV Vaccines (1 - 2- dose series) HPV Vaccines (1 - 2-dose series) [facility] Start: 2000 HIV screening HIV Screening [facility] Start: 2000 Lipid panel Lipid Panel [facility] Start: 2000 Yearly Adult Physical Yearly Adult P hysical [facility] Atopobium vaginae DN A [Presence] in Vaginal fluid by EMERITA with probe detection [facility] Bacterial vaginosis associated bacterium 2 DNA [Presence] in Vaginal fluid by EMERITA with probe detection [facility] Cytology Cervical or vaginal smear or scraping study Pap Smear Pathology and Cytology Routine Well woman exam with routine gynecological exam Ordered: 03/21/2024 [facility] Work Phone: Comment on above: Ordered: 03/21/2024 Endomysial antibody IgA level [facility] Gliadin peptide IgA Ab [Units/volume] in Serum [facility] Gliadin peptide IgG Ab [Units/volume] in Serum [facility] IgA [Mass/volume] in Serum or Plasma [facility] Megasphaera sp type 1 DNA [Presence] in Vaginal fluid by EMERITA with probe detection [facility] Patient Education Constipation, Adult ED [facility] Work Phone: Patient referral [facility] Work Phone: Tissue transglutamin ase IgA Ab [Units/volume] in Serum [facility] Tissue transglutamin ase IgG Ab [Units/volume] in Serum [facility] Immunizations Immunization Date Immunization Notes Care Provider Fa [facility] 11-18-2023 influenza virus vaccine, unspecified formulation Segun Jany DO Work Phone: [facility] 03-18-2022 Hepatitis B vaccine (recombinant), CpG adjuvanted Rosa Agee Work Phone: [place] [address] DO Work Phone: 03-18-2022 hepatitis B vaccine, pediatric or pediatric/adolescent dosage Willy Escudero MD Work Phone: [facility] Work Phone: 03-18-2022 influenza, injectable, quadrivalent, preservative free Rosa Agee Work Phone: [facility] 03-18-2022 tetanus toxoid, reduced diphtheria toxoid, and acellular pertussis vaccine, adsorbed Rosa Agee Work Phone: [facility] 03-18-2022 varicella virus vaccine Rosa R Chris Work Phone: [facility] 03-18-2022 influenza virus vaccine, unspecified formulation Willy Escudero MD Work Phone: [facility] Work Phone: 05-07-2021 Pfizer-BioNTech COVID-19 Vacc 30 MCG/0.3ML Intramuscular Suspension Rosa R Chris Work Phone: [facility] 04-16-2021 Pfizer-BioNTech COVID-19 Vacc 30 MCG/0.3ML Intramuscular Suspension Rosa R Chris Work Phone: [facility] 02-08-2018 meningococcal polysaccharide (groups A, C, Y and W-135) diphtheria toxoid conjugate vaccine (MCV4P) Rosa Agee Other [facility] 02-18-2005 diphtheria, tetanus toxoids and acellular pertussis vaccine, unspecified formulation Rosa R Chris Work Phone: [facility] 02-18-2005 measles, mumps and rubella virus vaccine Rosa Chris Other [facility] 02-18-2005 poliovirus vaccine, inactivated Rosa Kuns Other [facility] 02-18-2005 poliovirus vaccine, unspecified formulation [facility] 01-25-2002 diphtheria, tetanus toxoids and acellular pertussis vaccine, unspecified formulation Rosa R Chris Work Phone: [facility] 01-25-2002 poliovirus vaccine, inactivated Rosa Kuns Other [employer] Other 01-25-2002 poliovirus vaccine, unspecified formulation [facility] 10-02-2001 measles, mumps and rubella virus vaccine Rosa Kuns Other [facility] 10-02-2001 varicella virus vaccine Rosa Kuns Other [facility] 03-27-2001 diphtheria, tetanus toxoids and acellular pertussis vaccine, unspecified formulation Rosa R Kuns Work Phone: [facility] 03-27-2001 hepatitis B vaccine, pediatric or pediatric/adolescent dosage Rosa Kuns Other [facility] 03-27-2001 pneumococcal conjugate vaccine, 7 valent Rosa Kuns Other [facility] 03-27-2001 pneumococcal Conjugate, unspecified formulation [facility] 02-02-2001 diphtheria, tetanus toxoids and acellular pertussis vaccine, unspecified formulation Rosa R Kuns Work Phone: [facility] 02-02-2001 pneumococcal conjugate vaccine, 7 valent Rosa Kuns Other [employer] Other 02-02-2001 pneumococcal Conjugate, unspecified formulation [facility] 02-02-2001 poliovirus vaccine, inactivated Rosa Kuns Other [employer] Other 02-02-2001 poliovirus vaccine, unspecified formulation [facility] 2000 diphtheria, tetanus toxoids and acellular pertussis vaccine, unspecified formulation Rosa R Kuns Work Phone: [facility] 2000 pneumococcal conjugate vaccine, 7 valent Rosa Kuns Other [employer] Other 2000 pneumococcal Conjugate, unspecified formulation [facility] 2000 poliovirus vaccine, inactivated Rosa Kuns Other [employer] Other 2000 poliovirus vaccine, unspecified formulation [facility] 2000 hepatitis B vaccine, pediatric or pediatric/adolescent dosage Rosa Kuns Other [facility] NEGATED: Highlighted row has not occurred! 9 influenza, seasonal, injectable Patient Objection Rosa Kuns Other [facility] [employer] Other Payers Date Payer Category Payer Self-pay [id number] 2022 Private Health Insurance [id number] 2022 Private Health Insurance [id number] [id number] 2000 Unknown [id number] 2.16.840.1.573499.3.579. 2.356 2000 Unknown [id number] 2.16.840.1.745806.3.579. 2.356 2000 Unknown [id number] 2.16.840.1.039700.3.579. 2.356 2000 Unknown [id number] 2.16.840.1.748202.3.579. 2.1259 2000 Unknown [id number] 2.16.840.1.582054.3.579. 2.1259 2000 Unknown [id number] 2.16.840.1.457681.3.579. 2.1244 2000 Unknown [id number] 2.16.840.1.879228.3.579. 2.1244 1974 Unknown [id number] 2.16.840.1.681090.3.579. 2.593 1959 Private Health Insurance [id number] 2.16.840.1.096904.19 Unknown [facility] Unknown Shelbi BC/BS [id number] Unknown [id number] 2.16.840.1.054111.3.579. 2.531 Unknown [id number] 2.16.840.1.287269.3.579. 2.531 Unknown [id number] 2.16.840.1.086215.3.579. 2.531 Unknown [id number] 2.16.840.1.267143.3.579. 2.531 Unknown [id number] 2.16.840.1.103197.3.579. 2.531 Unknown [id number] 2.16.840.1.216174.3.579. 2.531 Unknown [id number] 2.16.840.1.536458.3.579. 2.531 Social History Date Type Detail Facility Start: 06-16-2023 End: 06-23-2023 No alcohol use No alcohol use [facility] [employer] Other Start: 06-16-2023 End: 06-23-2023 Sex Assigned At [facility] [employer] Other Start: 2000 Sex Assigned At Female F [facility] Start: 04-24-2023 End: 08-12-2023 Tobacco smoking status NHIS Never smoked tobacco (finding) [facility] Start: 06-16-2023 Tobacco use and exposure Smokeless tobacco non-user [facility] Work Phone: Start: 06-23-2023 End: 03-23-2024 Alcohol intake Current drinker of alcohol (finding) [facility] Work Phone: Start: 2000 [facility] Start: 06-13-2023 End: 03-23-2024 Exposure to SARS-CoV-2 (event) Not sure [facility] Tobacco smoking status NHIS Tobacco smoking consumption unknown [facility] Start: 02-06-2024 Gender identity Identifies as female gender (finding) [facility] Goals Date Patient Goal Desired Activity /State Clinical Notes 11-13-2020 to 03-23-2024 Willy Escudero MD - 03/23/2024 8:40 AM EDTPatient InstructionsCandis Rivera SUPERVISOR [employer]RI[employer] - 03/21/2024 2:50 PM EDT Note Date & Type Note Facility 03-23-2024 History of Present illness Narrative Subjective Nuria Minaya is a 23 y.o. female Chief Complaint Follow-up HPI Patient is here for follow-up continue management for history of neurocardiogenic syncope. Since last time I saw her she feels well. She has been increasing her fluid and salt intake. She denies any complaint of chest pain, palpitation, lightheadedness, dizziness or syncope. She apparently had a recent fall resulted in an Achilles injury. Assessment 1. Classic neurocardiogenic syncope with symptoms of palpitation, fluctuating heart rate and orthostatic hypotension. Her previous workup including Holter monitor, event monitor, echocardiogram and stress test all was reassuring. Clinically she fits the clinical picture and did have excellent response to increasing fluid and salt intake with complete resolution of her symptoms 2. Recent ankle injury apparently she jumped off her boyfriend truck resulted in a Kealey tendon rupture Plan 1. I I reviewed with her again the general recommendation for management of neurocardiogenic syncope include increasing fluid and salt intake and assuming supine status if she develop any prodromal symptoms 2. I advised her to notify me with any change in cardiac status or 3. I will see her back in the office in 1 year in follow-up Review of Systems Cardiovascular: Positive for palpitations. All other systems reviewed and are negative. Vitals: 03/23/24 0842 BP: 110/60 BP Location: Left arm Patient Position: Sitting Pulse: 84 Weight: 66.2 kg (146 lb) Height: 1.6 m (5' 3 ) Objective Physical Exam Constitutional: Appearance: Normal appearance. HENT: Nose: Nose normal. Neck: Vascular: No carotid bruit. Cardiovascular: Rate and Rhythm: Normal rate. Pulses: Normal pulses. Heart sounds: Normal heart sounds. Pulmonary: Effort: Pulmonary effort is normal. Abdominal: General: Bowel sounds are normal. Palpations: Abdomen is soft. Musculoskeletal: General: Normal range of motion. Cervical back: Normal range of motion. Right lower leg: No edema. Left lower leg: No edema. Skin: General: Skin is warm and dry. Neurological: General: No focal deficit present. Mental Status: She is alert. Psychiatric: Mood and Affect: Mood normal. Behavior: Behavior normal. Thought Content: Thought content normal. Judgment: Judgment normal. Allergies Amoxicillin and Penicillins Current Medications Current Outpatient Medications: meloxicam (Mobic) 15 mg tablet, Take 1 tablet (15 mg) by mouth once daily., Disp: , Rfl: metFORMIN (Glucophage) 500 mg tablet, Take 1 tablet (500 mg) by mouth once daily with breakfast., Disp: , Rfl: ondansetron (Zofran) 4 mg tablet, Take 1 tablet (4 mg) by mouth every 8 hours if needed for nausea or vomiting., Disp: , Rfl: Assessment/Plan 1. Tachycardia 2. Neurologic cardiac syncope Follow Up In Cardiology 3. Palpitations 4. BMI 25.0-25.9,adult Scribe Attestation By signing my name below, I, Sayda Dallas LPN , Scribe attest that this documentation has been prepared under the direction and in the presence of Willy Escudero MD. Provider Attestation - Scribe documentation All medical record entries made by the Scribe were at my direction and personally dictated by me. I have reviewed the chart and agree that the record accurately reflects my personal performance of the history, physical exam, discussion and plan. documented in this encounter [facility] Work Phone: 03-23-2024 Instructions Sayda Centeno LPN - 03/23/2024 8:40 AM EDT Please bring all medicines, vitamins, and herbal supplements with you when you come to the office. Prescriptions will not be filled unless you are compliant with your follow up appointments or have a follow up appointment scheduled as per instruction of your physician. Refills should be requested at the time of your visit. BMI was above normal measurement. Current weight: 66.2 kg (146 lb) Weight change since last visit (-) denotes wt loss 10 lbs Weight loss needed to achieve BMI 25: 5.2 Lbs Weight loss needed to achieve BMI 30: -23 Lbs Provided instructions on dietary changes Provided instructions on exercise. The following attachments cannot be sent through Care Everywhere.Body Mass Index, Adult (Cymro)documented in this encounter [facility] Work Phone: 03-21-2024 History of Present illness Narrative Reason for Appointment: Patient ID: Nuria Minaya is a 23 y.o. female who presents for Gynecologic Exam (Pt present today for annual visit and discuss lab/US results. Pt was seen on 02/13/2024 for PCOS and orders were given to have done.) Patient presents today for Annual Exam. MEDICATIONS Current Outpatient Medications Medication Instructions linaCLOtide (LINZESS) 72 mcg, Oral, As needed, Do not crush or chew. meclizine (Antivert) 25 MG tablet TAKE 1 TABLET BY MOUTH EVERY DAY AT BEDTIME NEEDED FOR SLEEP FOR 90 DAYS meloxicam (Mobic) 15 MG tablet Every 24 hours metFORMIN (GLUCOPHAGE) 500 mg, Oral, Daily with breakfast ondansetron (Zofran) 4 MG tablet 1 tablet Orally q 6 hrs prn nausea for 30 days ALLERGIES Allergies Allergen Reactions Penicillins Hives, Itching and Rash PROBLEMS Active Ambulatory Problems Diagnosis Date Noted No Active Ambulatory Problems Resolved Ambulatory Problems Diagnosis Date Noted No Resolved Ambulatory Problems Past Medical History: Diagnosis Date Neurocardiogenic syncope PCOS (polycystic ovarian syndrome) HISTORY PAST MEDICAL HISTORY SOCIAL HISTORY Past Medical History: Diagnosis Date Neurocardiogenic syncope PCOS (polycystic ovarian syndrome) Social History Tobacco Use Smoking status: Not on file Smokeless tobacco: Not on file Substance Use Topics Alcohol use: Not on file Drug use: Not on file FAMILY HISTORY No family history on file. SURGICAL HISTORY Past Surgical History: Procedure Laterality Date WISDOM TOOTH EXTRACTION REVIEW OF SYSTEMS Review of Systems: Review of Systems Constitutional: Negative. HENT: Negative. Eyes: Negative. Respiratory: Negative. Cardiovascular: Negative. Gastrointestinal: Negative. Genitourinary: Negative. Musculoskeletal: Negative. Skin: Negative. Neurological: Negative. All other systems reviewed and are negative. Hematological: Negative. Endocrine: Negative. Allergic/Immunologic: Negative. OBJECTIVE Objective: Physical Exam Constitutional: Appearance: Normal appearance. She is well-developed. Genitourinary: Vulva normal. Breasts: Breasts are soft. Right: Normal. Left: Normal. Cardiovascular: Rate and Rhythm: Normal rate and regular rhythm. Pulmonary: Effort: Pulmonary effort is normal. Breath sounds: Normal breath sounds. Abdominal: General: Bowel sounds are normal. There is no distension. Palpations: Abdomen is soft. Tenderness: There is no abdominal tenderness. There is no guarding or rebound. Musculoskeletal: General: No swelling. Normal range of motion. Right lower leg: No edema. Left lower leg: No edema. Neurological: Mental Status: She is alert and oriented to person, place, and time. Skin: General: Skin is warm and dry. Psychiatric: Mood and Affect: Mood normal. Behavior: Behavior normal. Vitals and nursing note reviewed. Exam conducted with a animal hospital office supervisor present. Vitals: There is no height or weight on file to calculate BMI. BP: 116/72 Patient's last menstrual period was 03/13/2024 (exact date). ASSESSMENT & PLAN ICD-10-CM 1. Well woman exam with routine gynecological exam Z01.419 Pap Smear 2. Encounter to discuss test results Z71.2 3. PCOS (polycystic ovarian syndrome) E28.2 4. Irregular periods N92.6 Annual Exam: Patient presents today for an annual exam. Patient states she is doing well and has no complaints. Pap was obtained without difficulty. Reviewed labs and ultrasound with pt. Pt voiced understanding. Pt to continue metformin. No orders of the defined types were placed in this encounter. Follow Up: Patient is to return in one year for annual unless needed otherwise. Documented by Chel Rivera LPN on behalf of: Segun Carmichael DO documented in this encounter [facility] 01-13-2024 Evaluation note Authored January 13, 2024 10:09am Negative CT scan, normal col onoscopy patient noted for abdominal discomfort and irregular bowel movements. Patient with predominance of IBS-C. Patient is negative for weight loss and rectal bleeding [facility] Work Phone: 1(633) 797-590406-17-2024 Evaluation note* Author Cuong Fletcher [facility] Authored December 05, 2023 11:2 3am Patient, positive for abdomi nal pain, bowel movements once or twice per week and abdominal cramping. As with Amitiza patient notes nausea vomiting and abdominal discomfort with Trulance dosing [facility] Work Phone: 1(601) 315-288706-17-2024 Evaluation note* Author Cuong Naik[facility] partnerscort[facility] Authored December 05, 2023 11:2 3am Patient, positive for abdomi nal pain, bowel movements once or twice per week and abdominal cramping. As with Amitiza patient notes nausea vomiting and abdominal discomfort with Trulance dosing [facility]ored January 13, 2024 10:[address] scan, normal col onoscopy patient noted for abdominal discomfort and irregular bowel movements. Patient with predominance of IBS-C. Patient is negative for weight loss and rectal bleeding [facility] Work Phone: 1(700) 928-803804-09-2024 Evaluation note* Author Celeste Hernández [facility] Authored September 27, 2023 9:14 am Sooner if needed, the ER if concerns,The above note written by Celeste Hernández LPN acting as human recorder, note dictated by Dr. Rosa Agee [facility] Work Phone: 1(463) 602-533404-09-2024 Evaluation note* Author Celeste Hernández [facility] Authored September 27, 2023 9:14 am Sooner if needed, the ER if concerns,The above note written by Celeste Hernández LPN acting as human recorder, note dictated by Dr. Rosa Agee Author Cuong [facility] Authored December 05, 2023 11:2 3am Patient, positive for abdomi nal pain, bowel movements once or twice per week and abdominal cramping. As with Amitiza patient notes nausea vomiting and abdominal discomfort with Trulance dosing [facility] Work Phone: 1(906) 889-640802-23-2024 [facility]* Encounter Date Diagnosis Assessment Notes [...] Pt given samples of linzess- 6 boxes [facility] Other 01-04-2024 History of Present illness Narrative* Willy Escudero MD - 06/23/2023 2:20 PM EST Subjective Nuria Minaya is a 22 y.o. female Chief [...] presence of MD Ash. [facility] Work Phone: 1(356) 514-748601-04-2024 Instructions* Patient Instructions* Adis Baugh MA - [...] time of your visit. [facility] Work Phone: [phone] 377-684801-04-2024 Evaluation note* Encounter Date Diagnosis Assessment Notes [...] still being worked up by gastro and SERVICE CLEANER. I do encourage patient to follow the plan of care. I also advised Linzess is not safe with Jun, Hyperlipidemia (ICD-10 - E78.5) [facility] Other 11-07-2023 Evaluation note* Encounter Date Diagnosis [...] constipation type (ICD-10 - K59.00) Review of [facility] report including CT scan and labs. [...] cyst noted upon CT imaging obtained at [facility] on 04/24/23.The patient does report left sided abdominal pain. The patient encouraged following with gynecology who she sees in [facility] . Apr, Leukocytes in urine (ICD-10 - R82.998) Small leukocytes noted upon in house urinalysis.The patient is asymptomatic at this time. Urine specimen sent for culture. Apr, Neurocardiogenic syncope (ICD-10 - R55) The patient is following with roll inspector , states she has been taken off [...] is safe and non addicting, instructions provided. [facility] Other 11-05-2023 Hospital Discharge instructions Additional Instructions 4 capfuls of MiraLAX in juice in the morning and then again in the evening if constipation continues.[facility] Work Phone: 1(580) 884-939311-01-2023 Evaluation note* Encounter Date Diagnosis Assessment Notes Treatment Notes Treatment Clinical Notes Apr, Hyperlipidemia (ICD-10 - E78.5) [facility] Other 03-22-2023 Evaluation note* Encounter Date Diagnosis [...] no improvement in 5 to 7 days [facility] Other 03-16-2023 Evaluation note* Encounter Date Diagnosis Assessment Notes Treatment Notes Treatment Clinical Notes Aug, Sore throat (ICD-10 - J02.9) [facility] Other 01-24-2023 Evaluation note* Encounter Date Diagnosis Assessment Notes Treatment Notes Treatment Clinical Notes Jun, Acute cough (ICD-10 - R05.1) Patient and Dr. Keane were made aware of positive findings. Dr. Keane recommended that she start atb/steriod regimen- see TE for further clinical documentation. [facility] Other 04-12-2022 Evaluation note* Encounter Date Diagnosis Assessment Notes Treatment Notes Treatment Clinical Notes Sep, Hyperlipidemia (ICD-10 - E78.5) [facility] Other 11-18-2021 Evaluation note* Encounter Date Diagnosis [...] pressure and follow with cardiology as scheduled. 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 Medical History ECHO and Stress Test 11/13/2020 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 Medical History Neurocardiogenic syncope Surgical History wisdom teeth [facility] Other Evaluation noteNo assessment information available [facility] Work Phone: Evaluation noteNo InformationNort Tier 3 Other Evaluation note* Diagnosis Neurologic cardiac syncope- Primary Syncope and collapse Palpitations Tachycardia Unspecified tachycardia documented in this encounter [facility] Work Phone: Evaluation note* Diagnosis Onset Date Resolution Status High risk sexual behavior ac sofi Vaginal discharge acute [facility] Work Phone: Evaluation note* Diagnosis Onset Date Resolution Status High risk sexual behavior ac sofi Vaginal discharge acute Constipation acute [facility] Work Phone: Evaluation note* Author Celeste Hernández [facility] Authored September 27, 2023 9:14 am Sooner if needed, the ER if concerns,The above note written by Celeste Hernández LPN acting as human recorder, note dictated by Dr. Rosa Agee [facility] Work Phone: Evaluation note* Diagnosis Tachycardia- Primary Unspecified tachycardia Neurologic cardiac syncope Syncope and collapse Palpitations BMI 25.0-25.9,adult documented in this encounter [facility] Work Phone: Evaluation note* Diagnosis Well woman exam with routine gynecological exam Routine gynecological examination Encounter to discuss test results Other specified counseling PCOS (polycystic ovarian syndrome) Polycystic ovaries Irregular periods documented in this encounter [facility] Author Los Hartman [facility] August 12, 2023 11:05am Note Date/Time August 12, 2023 11:05am [facility] [address] [place] [address] Gastroenterology H&P Signed Patient: Nuria Minaya MR#: [id number] : 2000 Acct:[id number] Age/Sex: 22 / F Adm Date: 4 Loc: Room: Type: [facility] Attending Dr: Los Hartman MD [...] <Electronically signed by Los Hartman MD> 08/12/231104 [facility] Work Phone: Reason for referral (narrative)* Consultation (Routine) - Authorized Specialty Diagnoses / Procedures Referred By Contac t Referred To Contact Cardiology Diagnoses Neurologic cardiac syncope Procedures Follow Up In Cardiology Willy Escudero MD [address] [place] [address], [address] [address] Willy Escudero MD [address] [place] [address] 2, [address] [address] Referral ID Status Reason Start Date Expiration Date V isits Requested Visits Authorized [id number] Authorized 06/23/2023 06/22/2024 1 1 [facility] Work Phone: Reason for referral (narrative)* Consultation (Routine) - Authorized Specialty Diagnoses / Procedures Referred By Frandy shaikh Referred To Contact Cardiology Diagnoses Tachycardia Procedures Follow Up In Cardiology Willy Escudero MD [address] [facility] [address] [place] [address] Willy Escudero MD [address] [facility] [address] [place] [address] Referral ID Status Reason Start Date Expiration Date V isits Requested Visits Authorized [id number] Authorized 03/23/2024 03/23/2025 1 1 [facility] Work Phone: Chief Complaint * NURIA MINAYA is being seen for a 6 month follow-up of. * Patient is in the office for follow-up for a form of POTS being treated with beta-royce therapy that she takes 5 days weekly. [...] patient to drop her weight further * NURIA MINAYA is being seen for a 6 month follow-up of. * Patient is in the office of for follow-up for the problems noted below. She seems to be frustrated with her condition especially occasional asymptomatic drop in blood pressure on beta-royce therapywhich is taken at the lowest dose. She continued to have tachycardia despite beta-royce therapy. She has had no syncope or [...] whether the results will change the management. Lizbeth schedule the patient for tilt table test [...] syndrome with predominant constipation Right foot strain Chief Complaint 1 month follow up/co nstipation right ankle pain M79.671 - Pain in right foot Unknown Reason for Visit Irritable bowel synd shantelle with predominant constipation Right foot strain Advance [...] section and content) Reason Comments Follow-up 4-5m Reason Comments Follow-up 9m Specialty Diagnoses / Procedures Referred By Contac t Referred To Contact Cardiology Diagnoses Neurologic cardiac syncope Procedures Follow Up In Cardiology Willy Escudero MD [address] [place] [address], [place] [id number] Willy Escudero MD [address] [place] [address] 2, [place] [address] Referral ID Status Reason Start Date Expiration Date V isits Requested Visits Authorized [id number] Authorized 06/23/2023 06/22/2024 1 1 Reason Comments Gynecologic Exam Pt present today for annual visit and discuss lab/US results. Pt was seen on 02/13/2024 for PCOS and orders were given to have done. Care Teams (unrecognized sec tion and content) Team Status: Inactive Member Role Status Brenda Agee DO Primary Care Provider Active Miladis Morris MD Attending Provider Active Willy Escudero MD Referring Provider Active Team Status: Active Member Role Status Dates Rosa Agee DO Primary Care Provider Active Team Status: Inactive Member Role Status Dates Rosa Agee DO Primary Care Provider Active PEPPER Berry Attending Provider Active Team Status: Inactive Member Role Status Dates Rosa Agee DO Primary Care Provider Active Pastor Camilo MD Emergency Provider Active Team Status: Inactive Member Role Status Dates Rosa Agee DO Primary Care Provider, Attending Provi jie Active [employer] Relationship Specialty Start Date End Date SatyaRosa levin Daniel, [address] [place] [phone] PCP - General Family Medicine 06/23/23 Team Status: Inactive Member Role Status Brenda Agee DO Attending Provider Active Start: June 23, 2023 End: June 23, 2023 Team Status: Inactive Member Role Status Brenda Agee DO Primary Care Provider Active Sta rt: August 10, 2023 End: August 10, 2023 Latricia Campbell NP-C Attending Provider Active S tart: August 10, [...] 2023 Team Status: Inactive Member Role Status Bredna Agee DO Primary Care Provider Active Sta [...] Provider Active S tart: January 22, 2024 [employer] Relationship Specialty Start Date End Date Rosa Agee DO [address] [place] [address] PCP - General Family Medicine 03/21/24 [employer] Relationship Specialty Start Date End Date Rosa Agee DO PCP - General Family Medicine 06/23/23 [employer] Relationship Specialty Start Date End Date Rosa Agee DO [address] [place] [address] PCP - General Family Medicine 03/21/24 [employer] Relationship Specialty Start Date End Date Rosa Agee DO [address] [place] [address] PCP - General Family Medicine 03/21/24 Team Status: Active Member Role Status Dates Rosa Agee DO Primary Care Provider Active Sta rt: February 17, 2024 Segun Carmichael DO Attending Provider Active Start : February 17, 2024 Team Status: Active Member Role Status Dates Rosa Agee DO Primary Care Provider Active Sta rt: February 29, 2024 Ashutosh Muniz DPM MS Attending Provider Active Start: February 29, 2024 Team Status: Active Member Role Status Dates Rosa Agee DO Primary Care Provider Active Sta rt: March 14, 2024 Ashutosh Muniz DPM MS Attending Provider Active Start: March 14, 2024 Team Status: Active Member Role Status Dates Rosa Agee DO Primary Care Provider Active Sta rt: March 21, 2024 Segun Carmichael DO Attending Provider Active Start : March 21, 2024 Team Status: Active Member Role Status Dates Rosa Agee DO Primary Care Provider Active Sta rt: March 29, 2024 Merritt Shell MD Attending Provider Active S tart: March 29, 2024 Team Status: Inactive Member Role Status Dates Rosa Agee DO Primary Care Provider Active Sta rt: March 29, 2024 End: March 29, 2024 Ashutosh Muniz DPM MS Attending Provider Active Start: March 29, 2024 End: March 29, 2024 Goals (unrecognized section and content) Goals may be documented in a n alternate section INFORMATION SOURCE (unrecogn ized section and content) DATE CREATED AUTHOR 10/22/2022 [facility] DATE CREATED AUTHOR AUTHOR'S ORGANIZ ATION 02/04/2023 [facility] DATE CREATED AUTHOR AUTHOR'S ORGANIZ ATION 02/05/2023 [employer] DATE CREATED AUTHOR AUTHOR'S ORGANIZ ATION 03/23/2024 [facility] DATE CREATED AUTHOR AUTHOR'S ORGANIZ ATION 03/25/2024 [facility] DATE CREATED AUTHOR AUTHOR'S ORGANIZ ATION 04/05/2024 [facility] FOR RECORDS PERTAINING TO PATIENTS WHO ARE [...] BE BASED ON THE PRIMARY CLINICAL RECORDS. [facility] [employer] provides no warranty or guarantee of the accuracy or completeness of information in this document.
--- NOTE | 2024-04-06 13:06 | ED.SKABFB1 ---
HPI - Skin/Abscess/Foreign Bdy General Chief complaint: Skin/Abscess/Foreign Body Stated complaint: SKIN Time Seen by Provider: 04/06/24 12:54 Source: patient Mode of arrival: walk-in Limitations: no limitations History of Present Illness HPI narrative: The patient is coming to the ER with a rash that developed this morning, the rash was all over the body associated with no fever no other complaint The patient just finished using Bactrim last dose was 2 days ago on Tuesday. The patient denies any fever or chills and she was provided with the Bactrim by her customer quality specialist after she had a recent Achilles tendon surgery The patient apparently took some prednisone that she had at home before arrival Related Data Home Medications ?Medication ?Instructions ?Recorded ?Confirmed linaclotide 72 mcg capsule 72 mcg PO DAILY 03/14/24 04/06/24 (Linzess) metformin 500 mg tablet 500 mg PO DAILY 03/14/24 04/06/24 ondansetron HCl 4 mg tablet 4 mg PO Q12H PRN nausea and 03/14/24 04/06/24 vomiting Previous Rx's ?Medication ?Instructions ?Recorded diphenhydramine HCl 25 mg capsule 25 mg PO TID PRN allergic reaction 04/06/24 (Benadryl) #9 caps famotidine 20 mg tablet (Pepcid) 20 mg PO BID #10 tabs 04/06/24 Allergies Allergy/AdvReac Type Severity Reaction Status Date / Time Penicillins Allergy Rash Verified 04/06/24 12:42 Review of Systems ROS Status of ROS 10 or more systems reviewed and unremarkable except as noted in history and below PFSH FORMERLY [facility], 1928–1983 Medical History (Updated 04/06/24 @ 13:26 by Gem Benz MD) Hip pain ?M25.559 - Pain in unspecified hip (ICD-10) Back pain ?M54.9 - Dorsalgia, unspecified (ICD-10) COVID-19 ?U07.1 - COVID-19 (ICD-10) Migraine ?G43.909 - Migraine, unspecified, not intractable, without status migrainosus (ICD-10) IBS (irritable bowel syndrome) ?K58.9 - Irritable bowel syndrome without diarrhea (ICD-10) Constipation ?K59.00 - Constipation, unspecified (ICD-10) Nausea ?R11.0 - Nausea (ICD-10) Contracture, right ankle ?M24.571 - Contracture, right ankle (ICD-10) Cavus deformity of foot ?Q66.70 - Congenital pes cavus, unspecified foot (ICD-10) Right ankle instability ?M25.371 - Other instability, right ankle (ICD-10) Strain of muscle(s) and tendon(s) of peroneal muscle group at lower leg level, right leg, sequela ?S86.311S - Strain of muscle(s) and tendon(s) of peroneal muscle group at lower leg level, right leg, sequela (ICD-10) Strain of right Achilles tendon ?S86.011A - Strain of right Achilles tendon, initial encounter (ICD-10) Left ovarian cyst ?N83.202 - Unspecified ovarian cyst, left side (ICD-10) PCOS (polycystic ovarian syndrome) ?E28.2 - Polycystic ovarian syndrome (ICD-10) Anxiety ?F41.9 - Anxiety disorder, unspecified (ICD-10) Arthritis ?M19.90 - Unspecified osteoarthritis, unspecified site (ICD-10) Tachycardia ?R00.0 - Tachycardia, unspecified (ICD-10) Hypertension ?I10 - Essential (primary) hypertension (ICD-10) Neurogenic syncope ?R55 - Syncope and collapse (ICD-10) Surgical History (Updated 03/14/24 @ 10:21 by Patrizia Wynn NP) H/O colonoscopy ?Z98.890 - Other specified postprocedural states (ICD-10) H/O wisdom tooth extraction ?K08.409 - Partial loss of teeth, unspecified cause, unspecified class (ICD-10) Family History (Updated 03/14/24 @ 09:41 by Patrizia Wynn NP) Other Cancer Family history of DVT Family history of myocardial infarction Social History (Updated 03/14/24 @ 09:37 by Patrizia Wynn NP) Within the past year, how often did you have a drink containing alcohol: 2-3 times a week Smoking status: Current some day smoker Do you use any of these nicotine containing products: vaping products Non-prescribed substance use: denies use 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 Skin examination: The patient have a maculopapular rash all over the upper and lower extremity as well as the body generally General: Well-appearing and in no apparent distress. Skin: Warm, dry, no pallor noted. No rash. Head: Normocephalic, atraumatic. Neck: Supple, non-tender. Eye: Pupils are equal, round and EOMI. No scleral icterus. Ears, Nose, Mouth, and Throat: TM are clear, no nasal mucosal hypertrophy. Oral mucosa is moist, no posterior oropharynx erythema, uvula is mid-line Cardiovascular: Regular Rate and Rhythm without murmur, gallop or rub. Respiratory: No accessory muscle use or respiratory distress. Lungs are clear to auscultation, no wheezing, rales or rhonchi Chest Wall: no tenderness Back: No midline thoracic or lumbar vertebral tenderness. No CVA tenderness Musculoskeletal: normal ROM, no calf or popliteal tenderness, right leg have the splint of the recent surgery toes looks within normal with no vascular injury GI: Abdomen is soft, non-distended. Normal bowel sounds. No masses appreciated. No tenderness to palpation. No rebound, guarding, or rigidity noted. Constitutional Vital Signs, click to edit/add: Last Vital Signs Temp 98.5 F 04/06/24 12:43 Pulse 99 H 04/06/24 12:43 Resp 20 04/06/24 12:43 BP 124/80 04/06/24 12:43 Pulse Ox 99 04/06/24 12:43 O2 Del Method Room Air 04/06/24 12:43 Course Vital Signs Vital signs: Vital Signs Temperature 98.5 F 04/06/24 12:43 Pulse Rate 99 H 04/06/24 12:43 Respiratory Rate 20 04/06/24 12:43 Blood Pressure 124/80 04/06/24 12:43 Pulse Oximetry 99 04/06/24 12:43 Oxygen Delivery Method Room Air 04/06/24 12:43 Temperature 98.5 F 04/06/24 12:43 Pulse Rate 99 H 04/06/24 12:43 Respiratory Rate 20 04/06/24 12:43 Blood Pressure 124/80 04/06/24 12:43 Pulse Oximetry 99 04/06/24 12:43 Oxygen Delivery Method Room Air 04/06/24 12:43 MDM - Skin/Abscess/Foreign Bdy MDM Narrative Medical decision making narrative: Right now there is no exposure to any new medication except for the Bactrim that she finished 2 days ago The patient is having a delayed reaction right now she would be treated only with Benadryl as she have a recent oculus surgery and will avoid the steroid The the patient was provided with Benadryl and IV Pepcid in the ER with she was discharged home with supportive care with instruction to monitor her symptoms and also continue Benadryl and Pepcid for the next 3 days The patient is to follow up with primary care physician in next 2-3 days or to return to the emergency department should any of the signs or symptoms worsen or new symptoms develop. The patient agrees with the following Diagnosis and Treatment plan and the patient will be discharged home. Discharge Plan Discharge Chief Complaint: Skin/Abscess/Foreign Body Clinical Impression: Allergic reaction to drug Patient Disposition: Home, Self-Care Time of Disposition Decision: 13:25 Condition: Good Prescriptions / Home Meds: New diphenhydramine HCl [Benadryl] 25 mg capsule 25 mg PO TID PRN (Reason: allergic reaction) Qty: 9 0RF famotidine [Pepcid] 20 mg tablet 20 mg PO BID Qty: 10 0RF No Action ondansetron HCl 4 mg tablet 4 mg PO Q12H PRN (Reason: nausea and vomiting) metformin 500 mg tablet 500 mg PO DAILY Linzess 72 mcg capsule 72 mcg PO DAILY Print Language: Yi Instructions: General Allergic Reaction (ED) Referrals: ROSA AGEE [Primary Care Provider] - 1 week
[2024-04-06] MEDS: FAMOTIDINE/PF 20 MG/2 ML VIAL IV (13:24)
[2024-04-06] MEDS: DIPHENHYDRAMINE HCL 50 MG/ML VIAL 25 MG IV (13:24)
== END 2024-04-06 13:38 | disposition home or self-care (01) ==
PROVIDERS: Emergency Provider Emergency Medicine; PCP Family Medicine
DX: L27.1 Localized skin eruption due to drugs and medicaments taken internally (principal); T36.8X5A Adverse effect of other systemic antibiotics, initial encounter; F17.200 Nicotine dependence, unspecified, uncomplicated
CPT/HCPCS: 96374; 96375; 99284; J1200

== ENCOUNTER 2024-05-23 15:12 | Outpatient (RCR) | payer OTHER, SELFPAY | END 2024-06-16 07:32 | disposition home or self-care (01) | LOC: PT 15:12 | PROVIDERS: PCP Family Medicine; Visit Provider Podiatrist Foot & Ankle Surgery | DX: M24.571 Contracture, right ankle (principal); S86.311S Strain of muscle(s) and tendon(s) of peroneal muscle group at lower leg level, right leg, sequela; S86.011S Strain of right Achilles tendon, sequela | CPT/HCPCS: 97110; 97112; 97140; 97162 ==

== ENCOUNTER 2024-07-17 15:19 | Outpatient (OUT) | payer OTHER, SELFPAY ==
--- NOTE | 2024-07-17 15:21 | XR_ITS ---
[address] [address] Patient Name: ALONSO MINAYA MRN: [id number] date: 2000 Sex: F Assigned Patient Location: RAD Current Patient Location: RAD Accession/Order Number: [id number] Exam Date: 07/17/2024 15:30 Report Date: 07/17/2024 16:09 At the request of: JW ROBERT Procedure: XR ankle RT min 3V PROCEDURE: XR ankle RT min 3V, XR foot RT min 3V COMPARISON: 02/28/2024 HISTORY: Right Foot And Ankle Pain FINDINGS: BONES:No acute fracture or dislocation of the ankle or foot. Exaggerated plantar arch. No significant degenerative changes SOFT TISSUES:Negative. No visible soft tissue swelling. EFFUSION:None visible. OTHER: Negative. XR/XR ankle RT min 3V IMPRESSION: No acute abnormality Electronically authenticated by: YUMIKO WEINSTEIN Date: 07/17/2024 16:09
--- NOTE | 2024-07-17 15:21 | XR_ITS ---
[address] [address] Patient Name: ALONSO MINAYA MRN: [id number] date: 2000 Sex: F Assigned Patient Location: [facility] Current Patient Location: RAD Accession/Order Number: [id number] Exam Date: 07/17/2024 15:30 Report Date: 07/17/2024 16:09 At the request of: JW ROBERT Procedure: XR foot RT min 3V PROCEDURE: XR ankle RT min 3V, XR foot RT min 3V COMPARISON: 02/28/2024 HISTORY: Right Foot And Ankle Pain FINDINGS: BONES:No acute fracture or dislocation of the ankle or foot. Exaggerated plantar arch. No significant degenerative changes SOFT TISSUES:Negative. No visible soft tissue swelling. EFFUSION:None visible. OTHER: Negative. XR/XR foot RT min 3V IMPRESSION: No acute abnormality Electronically authenticated by: YUMIKO WEINSTEIN Date: 07/17/2024 16:09
--- OUTSIDE RECORDS SUMMARY | 2024-07-17 15:40 | XMS_ITS | CCD ---
Author Organization [facility] Care Team Providers Care Aquatic Director Name Role Phone Rosa Agee Unavailable Unavailable [...] Emergency Provider DO Rosa Agee Attending Provider Kuns DO, Rosa Daniel Primary Care Provider Cuong Fletcher Unavailable Kuns, DO Rosa Primary Care Provider [phone] PEPPER Campbell Attending Provider MD Los Hartman Attending Provider Kuns, DO Rosa Primary Care Provider PEPPER Campbell Attending Provider MD Los Hartman Attending Provider [phone] Kuns, DO Rosa Primary Care Provider MICHAEL Fletcher Attending Provider MICHAEL Martini Attending Provider SEGUN CARMICHAEL Attending Unavailable SEGUN CARMICHAEL Attending Unavailable WILLY ESCUDERO Attending Unavailable KUNS, ROSA R Primary Care Unavailable WILLY ESCUDERO Attending Unavailable WILLY ESCUDERO Referring Unavailable KUNS, ROSA R Primary Care Unavailable Kuns DO, Rosa R Primary Care Provider Satyas , Rosa R Primary Care Provider [phone] Kuns, DO Rosa Primary Care Provider [phone] GLENNY Muniz Attending Provider Los Hartman Admitting Unavailable Los Hartman Attending Unavailable Kuns, Rosa Primary Care Unavailable Pastor Camilo Admitting Unavailable Pastor Camilo Attending Unavailable Kuns, Rosa Primary Care Unavailable Ashtuosh Muniz Admitting Unavailable Ashutosh Muniz Attending Unavailable Kuns, Rosa Primary Care Unavailable Cuong Fletcher Admitting Unavailable Cuong Fletcher Attending Unavailable Kuns, Rosa Primary Care Unavailable Latricia Campbell Admitting Unavailable Latricia Campbell Attending Unavailable Kuns, Rosa Primary Care Unavailable Kuns, Rosa Attending Unavailable Kuns, Rosa Admitting Unavailable Kuns, Rosa Primary Care Unavailable Nicole Martini Admitting Unavailable Nicole Martini Attending Unavailable Kuns, Rosa Primary Care Unavailable Unavailable Primary Care Provider Unavailabl e Allergies Allergy Classification Reported Allergen(s) Allergy Type Date of Onset Reaction(s) Facility Penicillins (antibiotic) (2 sources) Amoxicillin Drug Allergy 01-22-20 [facility] (5 sources) Penicillins; Translations: [Penicillins] Allergy to drug (finding) 06-16-20 [place] [id number] Repository (20 sources) Penicillin G Drug Allergy 08-10-19 [facility] (7 sources) Penicillin; Translations: [penicillin V] Drug Allergy 06-22-19 [facility] (20 sources) Amoxicillin; Translations: [AMOXICILLIN] Drug Allergy 06-23-19 [facility] (1 source) Amoxicillin Drug Allergy [facility] Repository (2 sources) Penicillins Drug Intolerance 06-16-20 [facility] Work Phone: (7 sources) Penicillins Drug Allergy 07-15-19 15 Hives, Itching, Rash [facility] Work Phone: (1 source) Amoxicillin Drug Allergy 01-22-20 24 [facility] Repository (1 source) Penicillin Drug Allergy 01-22-20 [facility] Repository (1 source) Sulfamethoxazole Drug Allergy 07-03-19 25 Hives whole body [facility] (1 source) Trimethoprim Drug Allergy 07-03-19 25 Hives whole body [facility] Medications Current Medications Medication Drug Class(es) Dates [...] 72 MCG PO Daily January 13, 2024 9:00am Start: 07-18-2023 Linzess 145 14 5mcg 1 PO Every AM Jun, Active Start: 04-26-2023 End: 09-09-2023 take 1 capsule by mouth once daily Linaclotide (Linzess) 72 mcg capsule Discontinued 72 MCG PO Daily 07 19August 12, 2023 12:00am September 09, 2023 1:31pm 1 capsule daily Start: 04-26-2023 Linzess 72 [...] Active metFORMIN hydrochloride 500 mg oral tablet (9 sources) Biguanide Start: 02-13-2024 End: 02-12-2025 take 1 tablet by mouth once daily Metformin 500 mg tablet Active 500 MG PO Daily July 03, 2024 12:00am Sorgho (No Known Home Meds) (2 sources) Start: 04-24-2023 Sorgho (No Known Home Meds) Active April 23, 2023 11:00pm ondansetron 4 mg oral tablet (8 sources) Serotonin-3 Receptor Antagonist Start: 12-09-2023 take [...] 1 January 22, 2024 12:00am As directed Pneumatic Walking Boot unit (1 source) Start: 01-22-2024 Pneumatic Walk ing Boot unit Active 0 .Route 1 January 21, 2024 11:00pm As directed polyethylene glycol 3350 84254 mg powder for oral solution (1 source) [...] 0 06/23/2023 Discontinued (Other) Norgestimate-Ethi nyl Estradiol (8 sources) Progestin, Estrogen Start: 09-27-2023 End: 12-05-2023 Norgestimate-Ethinyl Estradi ol (Keyla) 0.25-35 mg-mcg tablet Discontinued 1 TAB PO As Directed September 26, 2023 11:00pm December 05, 2023 9:47am Start: 09-27-2023 End: 12-05-2023 Norgestimate-Ethinyl Estradi ol (Keyla) 0.25-35 mg-mcg tablet Discontinued 1 TAB PO As Directed September 27, 2023 12:00am December 05, 2023 10:47am Start: 09-27-2023 Norgestimate-E thinyl Estradiol (Keyla) 0.25-35 mg-mcg tablet Active 1 TAB PO As Directed September 27, 2023 12:00am fluocinonide 0.5 mg/ml topical solution (8 sources) Corticosteroid Start: 09-27-2023 End: 12-05-2023 Fluocinonide 0.05 % solution Discontinued TOPICAL September 26, 2023 11:00pm December 05, 2023 9:47am Start: 09-27-2023 End: 12-05-2023 Fluocinonide Discontinued TO PICAL September 27, 2023 12:00am December 05, 2023 10:47am ketoconazole 20 mg/ml medicated shampoo (8 sources) Azole Antifungal Start: 09-27-2023 End: 12-05-2023 Ketoconazole 2 % shampoo Discontinued TOPICAL September 26, 2023 11:00pm December 05, 2023 9:47am Start: 09-27-2023 End: 12-05-2023 Ketoconazole Discontinued TO PICAL September 27, 2023 12:00am December 05, 2023 10:47am lubiprostone (9 sources) Chloride Channel Activator Start: 09-09-2023 End: 09-20-2023 take 1 capsule by mouth twice daily Lubiprostone 24 mcg capsule Discontinued 24 MCG PO Twice daily 60 September 08, 2023 11:00pm September 20, 2023 1:08pm Start: 09-09-2023 End: 09-20-2023 take 24 ug by mouth twice daily Lubiprostone Discontinued 24 MCG PO Twice daily 60 September 09, 2023 12:00am September 20, 2023 2:08pm methylPREDNISolone 4 mg oral tablet (10 sources) Corticosteroid Start: 04-06-2024 End: 07-03-2024 take 1 tablet by mouth once Methylprednisolone (Medrol (Benjy)) 4 mg tablets,dose pack Discontinued 0 PO per package directions April 05, 2024 11:00pm July 03, 2024 3:20pm PO PER PKG DIR for 6 days Start: 07-13-2022 methylPREDNISo lone 4 MG as directed Orally as directed Jun, Not-Taking metoprolol tartrate 25 mg oral tablet (20 sources) beta-Adrenergic Royce Start: 09-08-2021 End: 04-24-2023 take 1 tablet by mouth once daily Metoprolol Tartrate 25 mg Tablet Discontinued 25 MG PO Daily June 22, 2022 12:00am April 24, 2023 8:43pm metroNIDAZOLE 500 mg oral tablet (12 sources) Nitroimidazole Antimicrobial Start: 08-10-2023 End: 09-27-2023 take 1 tablet by mouth twice daily Metronidazole 500 mg tablet Discontinued 500 MG PO Twice daily 14 August 10, 2023 12:00am September 27, 2023 7:58am Plecanatide (Trulance) 3 mg tablet (9 sources) Start: 09-20-2023 End: 12-05-2023 take 1 tablet by mouth once daily Plecanatide (Trulance) 3 mg tablet Discontinued 3 MG PO Daily 90 September 19, 2023 11:00pm December 05, 2023 9:47am Start: 09-20-2023 End: 12-05-2023 take 1 tablet [...] Date Documented Da te Episodic/Chronic Abdominal pain (15 sources) Abdominal pain; Translations: [Unspecified abdominal pain] Onset: 04-24-2023 04-24-2023 Episodic Administrative/social admission (2 sources) Patient encounter status; [...] and female climacteric states] Chronic Menstrual disorders (4 sources) Irregular periods; Translations: [Irregular menstruation, unspecified] 03-21-2024 Chronic Other bone disease and musculoskeletal deformities (20 sources) Juvenile osteochondrosis of spine; 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, site unspecified] 08-10-2023 Chronic Other connective tissue disease (4 sources) Foot pain; Translations: [Pain in right foot] 01-22-2024 Episodic Other connective tissue disease (1 source) Pain in right foot; Translations: [Pain in right foot] Onset: 01-22-2024 Episodic Other ear and sense organ disorders (3 sources) Otalgia, right ear; Translations: [OTALGIA RIGHT EAR] Onset: 10-20-2022 Episodic Other endocrine disorders (4 sources) Polycystic ovary syndrome; Translations: [Polycystic ovarian syndrome] 03-21-2024 Chronic Other female genital disorders (4 sources) Vaginal discharge; Translations: [Other specified noninflammatory disorders of vagina] 08-10-2023 Episodic Other female genital disorders (4 sources) Other specified noninflammatory disorders of vagina; Translations: [Leukorrhea, not specified as infective] 08-10-2023 Episodic Other gastrointestinal disorders (4 sources) Irritable bowel syndrome characterized by constipation; Translations: [Irritable bowel syndrome with constipation] 01-13-2024 Chronic Other gastrointestinal disorders (3 sources) Irritable bowel syndrome with constipation; Translations: [Irritable bowel syndrome] 01-13-2024 Chronic Other gastrointestinal disorders (20 sources) Constipation; Translations: [Constipation, unspecified] 04-24-2023 Episodic Other gastrointestinal disorders (15 sources) Constipation, unspecified; Translations: [Constipation, unspecified] Onset: 08-12-2023 Episodic Other gastrointestinal disorders (1 source) Abdominal bloating; Translations: [Abdominal distension (gaseous)] 07-03-2024 Episodic Other gastrointestinal disorders (1 source) Abdominal distension (gaseous); Translations: [Flatulence, eructation, and gas pain] 07-03-2024 Episodic Other nervous system disorders (20 sources) [...] MEDIA UNSPECIFIED RIGHT EAR] Onset: 10-21-2022 Episodic Residual codes; unclassified (20 sources) Difficulty sleeping ; Translations: [Sleep disorder, unspecified] 08-10-2023 Episodic Residual codes; unclassified (5 sources) Sleep disorder, unspecified; Translations: [Sleep disturbance, unspecified] Episodic Residual codes; unclassified (4 sources) Flushing; Translations: [Flushing] 08-10-2023 Episodic Residual codes; unclassified (4 sources) High risk sexual behavior; Translations: [High risk heterosexual behavior] 08-10-2023 Episodic Residual codes; unclassified (1 source) History of operation on musculoskeletal system; Translations: [Other specified postprocedural states] 07-03-2024 Episodic Spondylosis; intervertebral disc disorders; other back problems (20 sources) Displacement of thoracic intervertebral disc without myelopathy; Translations: [Other intervertebral disc displacement, thoracic region] 08-10-2023 Chronic Spondylosis; intervertebral disc disorders; other back problems (14 sources) Low back pain; Translations: [Low back pain] Episodic Sprains and strains (8 sources) Unspecified sprain of right wrist, initial encounter; Translations: [Strain of foot] Episodic Past or Other Problems Problem Classification Problem Date Documented Da te Episodic/Chronic Genitourinary symptoms and ill-defined conditions (6 sources) Leukocytes in urine; Translations: [Other abnormal findings in urine] Onset: 04-26-2023 Episodic Ovarian cyst (7 sources) Cyst of left ovary; Translations: [Unspecified ovarian cyst, left side] Episodic Residual codes; unclassified (2 sources) Body [...] Basophils (Bld) [#/Vol] 0.0 10 3/uL 0.0-0.1 [facility] Basophils/100 WBC Auto (Bld) on 03-29-2024 Basophils/100 WBC (Bld) 0.2 % 0.2-2.0 F [facility] Eosinophils/100 WBC Auto (Bl d)on 03-29-2024 Eosinophils/100 WBC (Bld) 0.9 % 0.9-7.0 [facility] Erythrocyte distribution wid th Auto (RBC) [Ratio]on 03-29-2024 Erythrocyte distribution width (RBC) [Ratio] 12.5 % 11.0-15.0 [facility] Hematocrit Auto (Bld) [Volum e fraction]on 03-29-2024 Hematocrit (Bld) [Volume fraction] 40.8 % 36.0-48.0 [facility] Hemoglobin [Mass/volume] in Bloodon 03-29-2024 Hemoglobin (Bld) [Mass/Vol] 14.5 g/dL 12.0-16.0 [facility] Smith 03-29-2024 L Specimen: [id number] Received: 03/30/24-1499 Status: NIALL Martinez Num: [id number] Spec Type: Surgical Subm Dr: Ashutosh Muniz DPM, MS Tissues: A Tendon/Sheath (RT PERONEAL TENDON) Procedures: HE, Gross/Micro L3 Age/ Patient Sex Location Account Attending Physician Nuria Minaya LABELL [id number] Ashutosh Muniz DPM, MS SPEC NUM: [id number] RECD: 03/30/24 STATUS: ZACHApple MARTINEZ NUM: [id number] VIDA: 03/29/[address]: Ashutosh Muniz DPM, MS ENTERED: 03/30/[address] [facility] [address]: Lyla Ayala SPEC TYPE: Surgical DEPT: FARHAD GIRALDO ENTERED BY: [id number] RECV BY: [id number] ORDERED: HE, Gross/Micro L3 ORDERED: HE, Gross/Micro L3 Pathological Diagnosis Right ankle, peroneal tendinous tissue, excision: - Reactive tendinous tissue with fibrosis and skeleton muscle. Clinical Information Strain of right Achilles tendon, instability of right ankle Gross Description The specimen is received in formalin with the patient's name and right peroneal tendon and consists of two pieces of white fibrous tissue with attached muscle measuring 0.7 and 2.6 cm in greatest dimension. The specimen is submitted in toto in cassette A1. Microscopic Description Microscopic examination. CPT Codes 08108 Specimen: [id number] Received: 03/30/24 Status: NIALL Martinez Num: [id number] Spec Type: Surgical Subm Dr: Ashutosh Muniz DPM, MS Tissues: A Tendon/Sheath (RT PERONEAL TENDON) Procedures: HE, Gross/Maggi L3 Patient: Nuria Minaya [id number] (Continued) Signed (signature on file) Devan Connolly MD 04/19/24 0959 Normal [facility] Laboratory - Hematology and Cell countson 03-29-2024 Immature granulocytes/100 WBC (Bld) 0.2 % 0.0-0.5 [facility] Leukocytes [#/volume] correc darya for nucleated erythrocytes in Blood by Automated counon 03-29-2024 WBC corrected for nucl RBC Auto (Bld) [#/Vol] 8.2 10 3/uL 4.0-11.0 [facility] Lymphocytes Auto (Bld) [#/Vo l]on 03-29-2024 Lymphocytes (Bld) [#/Vol] 2.5 10 3/uL 1.2-3.8 [facility] Lymphocytes/100 WBC Auto (Bl d)on 03-29-2024 Lymphocytes/100 WBC (Bld) 30.3 % 20.5-60.0 [facility] MCH Auto (RBC) [Entitic mass ]on 03-29-2024 MCH (RBC) [Entitic mass] 32.2 pg 26.7-34.0 [facility] MCHC Auto (RBC) [Mass/Vol]on 03-29-2024 MCHC (RBC) [Mass/Vol] 35.5 g/dL High 29.9-35.[address] [facility] MCV Auto (RBC) [Entitic vol] on 03-29-2024 MCV (RBC) [Entitic vol] 90.7 fL 81.0-99.0 F [facility] Monocytes Auto (Bld) [#/Vol] on 03-29-2024 Monocytes (Bld) [#/Vol] 0.5 10 3/uL 0.3-0.8 [facility] Monocytes/100 WBC Auto (Bld) on 03-29-2024 Monocytes/100 WBC (Bld) 5.8 % 1.7-12.0 F [facility] Neutrophils Auto (Bld) [#/Vo l]on 03-29-2024 Neutrophils (Bld) [#/Vol] 5.1 10 3/uL 1.4-6.5 [facility] Neutrophils/100 WBC Auto (Bl d)on 03-29-2024 Neutrophils/100 WBC (Bld) 62.6 % 43.0-75.0 [facility] No Panel Informationon 03-29 Eosinophils # (Auto) 0.1 10 3/uL 0.0-0.[address] [facility] Human Chorionic Gonadotropin, Qual Negative NEGATIVE [facility] Immature Granulocyte # (Auto) 0.02 10 3/uL 0.00-0.03 [facility] Platelet mean volume Auto (B ld) [Entitic vol]on 03-29-2024 Platelet mean volume (Bld) [Entitic vol] 10.5 fL 9.5-13.5 [facility] Platelets Auto (Bld) [#/Vol] on 03-29-2024 Platelets (Bld) [#/Vol] 216 10 3/uL 150-450 [facility] RBC Auto (Bld) [#/Vol]on RBC (Bld) [#/Vol] 4.50 10 6/uL 4.20-5.40 [facility] IGP,APTIMA HPV,AGE GDLNon AGE GDLN ACOG TESTING Note . [facility] Comment on above: TESTS RESULT FLAG RUST REF RANGE LAB Clinician Provided Cytology Information Source.............Cervix;Endocervix No. of containers..01 ThinPrep Vial Age Yonio PRADIPOG Gricelda... FLAG LEGEND: L-Low Normal,H-High Normal,LL-Alert Low,HH-Alert High <-Panic Low,>-Panic High,A-Abnormal,AA-Critical Abnormal Performed at: 01 =G [facility] [address] Kaela Garcia MD, IGP, RFX APTIMA HPV ASCU Note . [facility] Comment on above: TESTS RESULT FLAG RUST REF RANGE LAB DIAGNOSIS: 02 NEGATIVE FOR INTRAEPITHELIAL LESION OR MALIGNANCY. Specimen adequacy: 02 Satisfactory for evaluation. Endocervical and/or squamous metaplastic cells (endocervical component) are present. Partially obscuring thick areas are present. Performed by: Patricia Caballero Licensed Practical Vocational Nurse ([facility] [place]) . 02 Note: Note 02 The Pap smear is a screening test designed to aid in the detection of premalignant and malignant conditions of the uterine cervix. It is not a diagnostic procedure and should not be used as the sole means of detecting cervical cancer. Both false-positive and false-negative reports do occur. Test Methodology: Note 02 The [facility] Research(R) Steerer was unable to read this specimen. Therefore a manual review was performed. FLAG LEGEND: L-Low Normal,H-High Normal,LL-Alert Low,HH-Alert High <-Panic Low,>-Panic High,A-Abnormal,AA-Critical Abnormal Performed at: [address] [phone] Kaela Garcia MD, . 02 The HPV DNA reflex criteria were not met with this specimen result therefore, no HPV testing was performed. The HPV DNA reflex criteria were not met with this specimen result therefore, no HPV testing was performed. Performed at: =[address] [id number] Corrective Therapy Aide: Kaela Garcia MD, Phone: [phone] Performed at: [address] [id number] Corrective Therapy Aide: Kaela Garcia MD, Phone: [phone] BRUSH-SPATULA CERVIX ENDOCERVIX [facility] Human papilloma virus 16+18+ 31+33+35+39+45+51+52+56+58+59+66+68 DNA [Presence] in [place] 03-21-2024 HPV 16+18+31+33+35+39+45+51 +52+56+58+59+66+68 DNA Probe+sig amp Ql (Cvx) Note . [facility] Comment on above: TESTS RESULT FLAG UN ITS REF RANGE LAB -DIAGNOSIS: 02 NEGATIVE FOR INTRAEPITHELIAL LESION OR MALIGNANCY.Specimen adequacy: 02 Satisfactory for evaluation. Endocervical and/or squamous metaplastic cells (endocervical component) are present. Partially obscuring thick areas are present.Performed by: 02 Ciarra Caballero, Licensed Practical Vocational Nurse ([facility] [place]). 02Note: Note 02 The Pap smear is a screening test designed to aid in the detection of premalignant and malignant conditions of the uterine cervix. It is not a diagnostic procedure and should not be used as the sole means of detecting cervical cancer. Both false-positive and false-negative reports do occur.Test Methodology: Note 02 The [facility] Research(R) Steerer was unable to read this specimen. Therefore a manual review was performed. -------- FLAG LEGEND: L-Low Normal,H-High Normal,LL-Alert Low,HH-Alert High <-Panic Low,>-Panic High,A-Abnormal,AA-Critical Abnormal ------Performed at:02 [facility] [address] [place] [address] Kaela Garcia MD, . 02 The HPV DNA reflex criteria were not met with this specimen result therefore, no HPV testing was performed.The HPV DNA reflex criteria were not met with this specimenresult therefore, no HPV testing was performed.Performed at: =G - [facility] [id number] [facility], [place] [id number] Director: Kaela Garcia MD, Phone: [phone] at: - [facility] [place], [place] [id number] Director: Kaela Garcia MD, Phone: [phone] No Panel Informationon 03-21 Reference Lab Test Patient Age Note . [facility] Comment on above: TESTS RESULT FLAG UN ITS REF RANGE LAB - Clinician Provided Cytology Information Source.............Cervix;Endocervix No. of containers..01 ThinPrep VialAge Algo ACOG Gricelda... FLAG LEGEND: L-Low Normal,H-High Normal,LL-Alert Low,HH-Alert High <-Panic Low,>-Panic High,A-Abnormal,AA-Critical Abnormal ------Performed at:01 [facility] [address] [place] [address] Kaela Garcia MD, Basophils Auto (Bld) [#/Vol] on 03-14-2024 Basophils (Bld) [#/Vol] 0.0 10 3/uL 0.0-0.1 [facility] Basophils/100 WBC Auto (Bld) on 03-14-2024 Basophils/100 WBC (Bld) 0.4 % 0.2-2.0 [facility] Eosinophils/100 WBC Auto (Bl d)on 03-14-2024 Eosinophils/100 WBC (Bld) 0.9 % 0.9-7.0 [facility] Erythrocyte distribution wid th Auto (RBC) [Ratio]on 03-14-2024 Erythrocyte distribution width (RBC) [Ratio] 12.8 % 11.0-15.0 [facility] Estimated glomerular filtrat ion rate (GFR) non- Americanon 03-14-2024 GFR/1.73 sq M.predicted among non-blacks MDRD (S/P/Bld) [Vol rate/Area] mL/min/{1.73_m2} >=60 [facility] Hematocrit Auto (Bld) [Volum e fraction]on 03-14-2024 Hematocrit (Bld) [Volume fraction] 40.2 % 36.0-48.0 [facility] Hemoglobin [Mass/volume] in Bloodon 03-14-2024 Hemoglobin (Bld) [Mass/Vol] 13.8 g/dL 12.0-16.0 [facility] Laboratory - Chemistry and C hemistry - challengeon 03-14-2024 Calcium [Mass/Vol] 8.5 mg/dL 8.5-10.1 [facility] Chloride [Moles/Vol] 105 mmol/L 98-107 [facility] CO2 [Moles/Vol] 29.3 mmol/L 21.0-32.0 [facility] Creatinine [Mass/Vol] 0.57 mg/dL 0.55-1.[address] [facility] GFR/1.73 sq M.predicted MDRD (S/P/Bld) [Vol rate/Area] mL/min/{1.73_m2} >=60 [facility] Glucose [Mass/Vol] 87 mg/dL 74-106 [facility] Potassium [Moles/Vol] 3.8 mmol/L 3.5-5.[address] [facility] Sodium [Moles/Vol] 138 mmol/L 136-145 [facility] Urea nitrogen [Mass/Vol] 20.0 mg/dL High 7.0-18.0 [facility] Urea nitrogen/Creatinine [Mass ratio] 35.1 mg/mg [facility] Laboratory - Hematology and Cell countson 03-14-2024 Immature granulocytes/100 WBC (Bld) 0.1 % 0.0-0.5 [facility] Leukocytes [#/volume] correc darya for nucleated erythrocytes in Blood by Automated counon 03-14-2024 WBC corrected for nucl RBC Auto (Bld) [#/Vol] 6.7 10 3/uL 4.0-11.0 [facility] Lymphocytes Auto (Bld) [#/Vo l]on 03-14-2024 Lymphocytes (Bld) [#/Vol] 1.8 10 3/uL 1.2-3.8 [facility] Lymphocytes/100 WBC Auto (Bl d)on 03-14-2024 Lymphocytes/100 WBC (Bld) 27.1 % 20.5-60.0 [facility] MCH Auto (RBC) [Entitic mass ]on 03-14-2024 MCH (RBC) [Entitic mass] 32.1 pg 26.7-34.0 [facility] MCHC Auto (RBC) [Mass/Vol]on 03-14-2024 MCHC (RBC) [Mass/Vol] 34.3 g/dL 29.9-35.[address] [facility] MCV Auto (RBC) [Entitic vol] on 03-14-2024 MCV (RBC) [Entitic vol] 93.5 fL 81.0-99.0 F [facility] Monocytes Auto (Bld) [#/Vol] on 03-14-2024 Monocytes (Bld) [#/Vol] 0.4 10 3/uL 0.3-0.8 [facility] Monocytes/100 WBC Auto (Bld) on 03-14-2024 Monocytes/100 WBC (Bld) 6.3 % 1.7-12.0 F [facility] Neutrophils Auto (Bld) [#/Vo l]on 03-14-2024 Neutrophils (Bld) [#/Vol] 4.4 10 3/uL 1.4-6.5 [facility] Neutrophils/100 WBC Auto (Bl d)on 03-14-2024 Neutrophils/100 WBC (Bld) 65.2 % 43.0-75.0 [facility] No Panel Informationon 03-14 Eosinophils # (Auto) 0.1 10 3/uL 0.0-0.[address] [facility] Immature Granulocyte # (Auto) 0.01 10 3/uL 0.00-0.03 [facility] Platelet mean volume Auto (B ld) [Entitic vol]on 03-14-2024 Platelet mean volume (Bld) [Entitic vol] 10.5 fL 9.5-13.5 [facility] Platelets Auto (Bld) [#/Vol] on 03-14-2024 Platelets (Bld) [#/Vol] 222 10 3/uL 150-450 [facility] RBC Auto (Bld) [#/Vol]on RBC (Bld) [#/Vol] 4.30 10 6/uL 4.20-5.40 [facility] Serum or plasma anion gap de terminationon 03-14-2024 Anion gap [Moles/Vol] 7.5 mmol/L [facility] HCG ( test) IA.rapi d Ql (U)on 02-29-2024 HCG ( test) Ql (U) Negative NEGATIVE [facility] ALL CBC WITH AUTO DIFFon BASOPHILS ABSOLUTE AUTO 0.0 N [facility] Basophils/100 WBC (Bld) 0.2 % 0.2 - 2.0 % [facility] Eosinophils/100 WBC (Bld) 0.1 % Low 0.9 - 7.0 % [facility] Erythrocyte distribution width (RBC) [Ratio] 12.7 % 11.0 - 15.0 % [facility] Hematocrit (Bld) [Volume fraction] 44.7 % 36.0 - 48.0 % [facility] Hemoglobin (Bld) [Mass/Vol] 15.3 g/dL 12.0 - 16.0 g/dL [facility] IMMATURE GRANULOCYTES ABS AUTO 0.05 High [facility] Immature granulocytes/100 WBC (Bld) 0.4 % 0.0 - 0.5 % [facility] Interpretation and review of laboratory results Abnormal [facility] LYMPHOCYTES ABSOLUTE AUTO 1.4 [facility] Lymphocytes/100 WBC (Bld) 11.6 % Low 20.5 - 60.0 % [facility] MCH (RBC) [Entitic mass] 31.4 pg 26.7 - 34.0 pg [facility] MCHC (RBC) [Mass/Vol] 34.2 g/dL 29.9 - 35.2 g/dL [facility] MCV (RBC) [Entitic vol] 91.8 fL 81.0 - 99.0 fL [facility] MONOCYTES ABSOLUTE AUTO 0.3 N [facility] Monocytes/100 WBC (Bld) 2.5 % 1.7 - 12.0 % [facility] NEUTROPHILS ABSOLUTE AUTO 10.4 High [facility] Neutrophils/100 WBC (Bld) 85.2 % High 43.0 - 75.0 % [facility] Platelet mean volume (Bld) [Entitic vol] 10.5 fL 9.5 - 13.5 fL [facility] TBH EO # 0.0 [facility] PLT 234 [facility] RBC 4.87 [facility] WBC 12.2 High [facility] Basophils Auto (Bld) [#/Vol] on 02-17-2024 Basophils (Bld) [#/Vol] 0.0 10 3/uL 0.0-0.1 [facility] Basophils/100 WBC Auto (Bld) on 02-17-2024 Basophils/100 WBC (Bld) 0.2 % 0.2-2.0 F [facility] Eosinophils/100 WBC Auto (Bl d)on 02-17-2024 Eosinophils/100 WBC (Bld) 0.1 % Low 0.9-7.0 [facility] Erythrocyte distribution wid th Auto (RBC) [Ratio]on 02-17-2024 Erythrocyte distribution width (RBC) [Ratio] 12.7 % 11.0-15.0 [facility] Glucose mean value [Mass/vol ume] in Blood Estimated from glycated hemoglobinon 02-17-2024 Average glucose Estimated from glycated hemoglobin (Bld) [Mass/Vol] 85 mg/dL [facility] Hematocrit Auto (Bld) [Volum e fraction]on 02-17-2024 Hematocrit (Bld) [Volume fraction] 44.7 % 36.0-48.0 [facility] Hemoglobin [Mass/volume] in Bloodon 02-17-2024 Hemoglobin (Bld) [Mass/Vol] 15.3 g/dL 12.0-16.0 [facility] Laboratory - Chemistry and C hemistry - challengeon 02-17-2024 Free T4 [Mass/Vol] 0.98 ng/dL 0.76-1.46 [facility] TSH Qn 0.827 m[IU]/L 0.358-3.74 0 [facility] - Hematology and Cell countson 02-17-2024 HbA1c (Bld) [Mass fraction] 4.6 % 4.5-6.2 [facility] Comment on above: ADA RECOMMENDED LIMI T 4.0 - 6.0ADA THERAPEUTIC TARGET < 7.0ACTION SUGGESTED> 7.0 Immature granulocytes/100 WBC (Bld) 0.4 % 0.0-0.5 [facility] Leukocytes [#/volume] correc darya for nucleated erythrocytes in Blood by Automated counon 02-17-2024 WBC corrected for nucl RBC Auto (Bld) [#/Vol] 12.2 10 3/uL High 4.0-11.0 [facility] Lymphocytes Auto (Bld) [#/Vo l]on 02-17-2024 Lymphocytes (Bld) [#/Vol] 1.4 10 3/uL 1.2-3.8 [facility] Lymphocytes/100 WBC Auto (Bl d)on 02-17-2024 Lymphocytes/100 WBC (Bld) 11.6 % Low 20.5-60.0 [facility] MCH Auto (RBC) [Entitic mass ]on 02-17-2024 MCH (RBC) [Entitic mass] 31.4 pg 26.7-34.0 [facility] MCHC Auto (RBC) [Mass/Vol]on 02-17-2024 MCHC (RBC) [Mass/Vol] 34.2 g/dL 29.9-35.2 [facility] MCV Auto (RBC) [Entitic vol] on 02-17-2024 MCV (RBC) [Entitic vol] 91.8 fL 81.0-99.0 F [facility] Monocytes Auto (Bld) [#/Vol] on 02-17-2024 Monocytes (Bld) [#/Vol] 0.3 10 3/uL 0.3-0.8 [facility] Monocytes/100 WBC Auto (Bld) on 02-17-2024 Monocytes/100 WBC (Bld) 2.5 % 1.7-12.0 F [facility] Mullerian inhibiting substan ce [Mass/volume] in Serum or Plasmaon 02-17-2024 Mullerian inhibiting substance [Mass/Vol] 9.99 ng/mL . [facility] Comment on above: For assays employing antibodies, the possibility exists forinterference by heterophile antibodies in the samples.11.Millicent Lantigua Interferences in Immunoassays - still a threat. Clin. Chem. 2000; 46: 0785-1418.This test was developed and its performance characteristicsdetermined by [employer]. It has not been cleared or approvedby the Food and Drug Administration.Reference Range:Females 20 - 25y: 1.23 - 11.51Median 4.70AMH concentrations of >= 1.06 ng/mL is correlated with abetter response to ovarian stimulation, produced moreretrievable oocytes and higher odds of live accordingto Jeevan et al. Fertility and Sterility. 2010:94:8274-6987. The current AMH test method correlates withthe [...] or exclude an AMH-secreting ovarian tumor.Performed at: [facility] [address] [place] [id number] Director: Adán Smith MD, Phone: [phone] Neutrophils Auto (Bld) [#/Vo l]on 02-17-2024 Neutrophils (Bld) [#/Vol] 10.4 10 3/uL High 1.4-6.5 [facility] Neutrophils/100 WBC Auto (Bl d)on 02-17-2024 Neutrophils/100 WBC (Bld) 85.2 % High 43.0-75.0 [facility] No Panel Informationon 02-16 Dehydroepiandrosterone (DHEA) 70 ng/dL 31-701 [facility] Comment on above: This test was develo ped and its performance characteristicsdetermined by [employer]. It has not been cleared orapproved by the Food and Drug Administration.Performed at: - [address] [id number] Director: Mariana Santoro MD, Phone: [phone] Dehydroepiandrosterone Sulfate 94.8 ug/dL Abnormal 110.0-431. 7 [facility] Eosinophils # (Auto) 0.0 10 3/uL 0.0-0.[address] [facility] Follicle Stimulating Hormone 6.5 mIU/mL . [facility] Comment on above: Adult Female Range F ollicular phase 3.5 - 12.5 Ovulation phase 4.7 - 21.5 Luteal phase 1.7 - 7.7 Postmenopausal 25.8 - 134.8Performed at: [facility] [address] [id number] Director: Liban Seaman PhD, Phone: [phone] Human Chorionic Gonadotropin, Quant <1 mIU/mL [facility] Comment on above: 5-50 0.2-1 KBWW28-56 0 1-2 SVFUQ259-0,000 2-3 FWWOX674-51,000 3-4 WEEKS1,000-50,000 4-5 WEEKS10,000-100,000 5-6 WEEKS15,000-200,000 6-8 WEEKS10,000-100,000 2-3 MONTHS Immature Granulocyte # (Auto) 0.05 10 3/uL High 0.00-0.03 [facility] Platelet mean volume Auto (B ld) [Entitic vol]on 02-17-2024 Platelet mean volume (Bld) [Entitic vol] 10.5 fL 9.5-13.5 [facility] Platelets Auto (Bld) [#/Vol] on 02-17-2024 Platelets (Bld) [#/Vol] 234 10 3/uL 150-450 [facility] RBC Auto (Bld) [#/Vol]on RBC (Bld) [#/Vol] 4.87 10 6/uL 4.20-5.40 [facility] Serum or plasma lutropin yu surement (units/volume)on 02-17-2024 Lutropin Qn 15.0 m[IU]/mL . [facility] Comment on above: Adult Female Range F ollicular phase 2.4 - 12.6 Ovulation phase 14.0 - 95.6 Luteal phase 1.0 - 11.4 Postmenopausal 7.7 - 58.5 XR foot RT min 3V*on 024 XR foot RT min 3V* [facility] [place] [address] XRay Report Signed Patient: Nuria Minaya MR#: [id number] 76 : 2000 Acct:[id number] Age/Sex: 23 / F ADM Date: 01/22/24 Loc: [facility] Room: Type: [facility] Attending Dr: Nicole Martini APRN Copies [...] Ha Reyes M.D.01/22/2024 11:49 AM Dictation Location: [place] [address] Transcribed By: [facility] 01/22/24 1149 Dictated By: Ha Reyes DO 01/22/24 1145 Signed By: 01/22/24 1149 Normal [facility] Celiacon 12-09-2023 Deamidated Gliadin Abs, IgA 5 Normal 0-19 [facility] Comment on above: Result Comment: Nega tive 0 - 19 Weak Positive 20 - 30 Moderate to Strong Positive >30 Performed By: #### C ELIAC #### [facility] , Deamidated Gliadin Abs, IgG 4 Normal 0-19 [facility] Comment on above: Result Comment: Nega tive 0 - 19 Weak Positive 20 - 30 Moderate to Strong Positive >30 Performed By: #### C ELIAC #### [facility] , Endomysial Antibody IgA Negative Normal Negative [facility] Comment on above: Performed By: #### C ELIAC #### [facility] , Immunoglobulin A, Qn, Serum 120 mg/dL Normal 87-352 [facility] Comment on above: Result Comment: Perf ormed at: [employer] - [facility] [address] [id number] Corrective Therapy Aide: Liban Seaman PhD, Phone: [phone] PERFORMED BY: [facility] [address] [place] [id number] PATHOLOGIST SALT WASHER LAYNE ROSA M.D. Performed By: #### C ELIAC #### [facility] , T-Transglutaminase (tTG) IgA <2 Normal 0-3 [facility] Comment on above: Result Comment: Nega tive 0 - 3 Weak Positive 4 - 10 Positive >10 Tissue Transglutaminase (tTG) has been identified as the endomysial antigen. Studies have demonstr- ated that endomysial IgA antibodies have over 99% specificity for gluten sensitive enteropathy. Performed By: #### C ELIAC #### [facility] , T-Transglutaminase (tTG) IgG 4 Normal 0-5 [facility] Comment on above: Result Comment: Nega tive 0 - 5 Weak Positive 6 - 9 Positive >9 Performed By: #### C ELIAC #### [facility] , IgA [Mass/volume] in Serum o r PlasmaOrdered By: Cuong Fletcher on 12-09-2023 IgA [Mass/Vol] 120 mg/dL 87-352 [facility] Comment on above: Performed at: - [employer] [id number] Director: Liban Seaman PhD, Phone: [phone] No Panel InformationOrdered By: Cuong Fletcher on 12-09-2023 Endomysial IgA Antibody Negative Negative [facility] Serum gliadin peptide IgA an tibody assay (units/volume)Ordered By: Cuong Fletcher on 12-09-2023 Gliadin peptide IgA Qn (S) 5 units 0-19 [facility] Comment on above: Negative 0 - 19 Weak Positive 20 - 30 Moderate to Strong Positive >30 Serum gliadin peptide IgG an tibody assay (units/volume)Ordered By: Cuong Fletcher on 12-09-2023 Gliadin peptide IgG Qn (S) 4 units 0-19 [facility] Comment on above: Negative 0 - 19 Weak Positive 20 - 30 Moderate to Strong Positive >30 Serum tissue transglutaminas e (tTG) IgA antibody assay (units/volume)Ordered By: Cuong Fletcher on 12-09-2023 tTG IgA Qn (S) <2 U/mL 0-3 [facility] Comment on above: Negative 0 - 3 Weak Positive 4 - 10 Positive >10 Tissue Transglutaminase (tTG) has been identified as the endomysial antigen. Studies have demonstr- ated that endomysial IgA antibodies have over 99% specificity for gluten sensitive enteropathy. Serum tissue transglutaminas e (tTG) IgG antibody assay (units/volume)Ordered By: Cuong Fletcher on 12-09-2023 tTG IgG Qn (S) 4 U/mL 0-5 [facility] Comment on above: Negative 0 - 5 Weak Positive 6 - 9 Positive >9 HCG ( test) IA.rapi d Ql (U)Ordered By: [place] on 08-12-2023 HCG ( test) Ql (U) Negative [facility] HCG,Urineon 08-12-2023 Beta HCG ( test) Ql (U) Negative Normal [facility] Comment on above: Result Comment: PERF ORMED BY: [place] [address] PATHOLOGIST SALT WASHER LAYNE ROSA M.D. Performed By: #### U HCG #### [address] Laboratory - Microbiology an d Antimicrobial susceptibilityOrdered By: Latricia Campbell on 08-10-2023 N. gonorrhoeae DNA EMERITA+probe Ql (Unsp spec) Negative Negative [facility] Comment on above: Performed at: = - [address] [place] [id number] Director: Kaela Garcia MD, Phone: [phone] No Panel InformationOrdered By: Latricia Campbell on 08-10-2023 Concepcion albicans (EMERITA) Negative Negative [facility] Comment on above: This test was develo ped and its performance characteristicsdetermined by [facility]. It has not been cleared orapproved by the Food and Drug Administration. Concepcion glabrata (EMERITA) Negative Negative [facility] Comment on above: This test was develo ped and its performance characteristicsdetermined by [employer]. It has not been cleared orapproved by the Food and Drug Administration. Chlamydia trachomatis (EMERITA) (LAB) Negative Negative [facility] Trichomonas vaginalis (EMERITA) Negative Negative [facility] Vaginal fluid Atopobium vagi dillon DNA detection by probe and target amplification methoOrdered By: Latricia Campbell on 08-10-2023 A. vaginae DNA EMERITA+probe Ql (Vag fld) High - 2 Score . [facility] Vaginal fluid Megasphaera sp ecies type 1 DNA detection by probe and target amplificatOrdered By: Latricia Campbell on 08-10-2023 Megasphaera sp type 1 DNA EMERITA+probe Ql (Vag fld) High - 2 Score . [facility] Comment on above: Calculate total scor e by adding the 3 individual bacterialvaginosis (BV) marker scores together. Total score isinterpreted as follows:Total score 0-1: Indicates the absence of BV.Total score 2: Indeterminate for BV. Additional clinical data should be evaluated to establish a diagnosis.Total score 3-6: Indicates the presence of BV.This test was developed and its performance characteristicsdetermined by [employer]. It has not been cleared or approvedby the Food and Drug Administration. Vaginal fluid bacterial vagi nosis associated bacterium 2 DNA detection by probe and tOrdered By: Latricia Campbell on 08-10-2023 Bacterial vaginosis associated bacterium 2 DNA EMERITA+probe Ql (Vag fld) High - 2 Score . [facility] Vaginitis Plus (VG+)on 08-10 Atopobium Vaginae High - 2 Critically abnormal . [facility] Comment on above: Order Comment: SOURC E OF SPECIMEN: SWAB Performed By: #### V AGINITIS+ #### [facility] , BVAB2 High - 2 Critically abnormal . [facility] Comment on above: Order Comment: SOURC E OF SPECIMEN: SWAB Performed By: #### V AGINITIS+ #### [facility] , Concepcion Albicans, EMERITA Negative Normal Negative [facility] Comment on above: Order Comment: SOURC E OF SPECIMEN: SWAB Result Comment: This test was developed and its performance characteristics determined by [employer]. It has not been cleared or approved by the Food and Drug Administration. Performed By: #### V AGINITIS+ #### [facility] , Concepcion Glabrata, EMERITA Negative Normal Negative [facility] Comment on above: Order Comment: SOURC E OF SPECIMEN: SWAB Result Comment: This test was developed and its performance characteristics determined by [employer]. It has not been cleared or approved by the Food and Drug Administration. PERFORMED BY: [address] [id number] PATHOLOGIST SALT WASHER LAYNE ROSA M.D. Performed By: #### V AGINITIS+ #### [facility] , Chlamydia Trachomotis, EMERITA Negative Normal Negative [facility] Comment on above: Order Comment: SOURC E OF SPECIMEN: SWAB Performed By: #### V AGINITIS+ #### [facility] , Megasphaera High - 2 Critically abnormal . [facility] Comment on above: Order [...] developed and its performance characteristics determined by [employer]. It has not been cleared or approved by the Food and Drug Administration. Performed By: #### V AGINITIS+ #### [facility] , Neisseria Gonorrhoeae, EMERITA Negative Normal Negative [facility] Comment on above: Order Comment: SOURC E OF SPECIMEN: SWAB Result Comment: Perf ormed at: =G - [facility] [place] [address] [facility] Hospital[facility], [place] [id number] Corrective Therapy Aide: Kaela Garcia MD, Phone: [phone] Performed By: #### V AGINITIS+ #### [facility] , Tric Vag EMERITA Negative Normal Negative [facility] Comment on above: Order Comment: SOURC E OF SPECIMEN: SWAB Performed By: #### V AGINITIS+ #### [facility] , Urine 10 SGon 04-26-2023 Albumin DL <= 20 mg/L (U) [Mass/Vol] trace [employer] Other Albumin DL <= 20 mg/L (U) [Mass/Vol] small [employer] Other pH (U) 6.5 [pH] [employer] Other Urine 10 SG Negative [employer] Other Urine 10 SG 1.025 [employer] Other Urine 10 SG 0.2 [employer] Other Urine Cultureon 04-26-2023 Bacteria identified Cx Nom (U) Reason for Exam Leukocytes in urine Urine Reason for Exam: Leukocytes in urine : Urine 50,000 colonies/ml mixed bacterial skin contaminants 2 Days PERFORMED BY: [place] [address] PATHOLOGIST SALT WASHER LAYNE ROSA M.D. Normal [facility] Comment on above: Performed By: #### C UU #### [facility] [address] [place] [id number] [facility] CT abdomen pelvis w conon CT abdomen pelvis w [facility] [address] [place] [address] CT Scan Report Signed Patient: Nuria Minaya MR#: [id number] 76 : 2000 Acct:[id number] Age/Sex: 22 / F ADM Date: 04/24/23 Loc: ER Room: Type: [facility] ER Attending Dr: Copies to: Pastor [...] Josias Blum M.D.04/25/2023 10:29 AM Dictation Location: [place] [address] Transcribed By: [facility] 04/25/23 1029 Dictated By: Josias Blum II, MD 04/25/23 1011 Signed By: 04/25/23 1029 Normal [facility] Automated basophil %Ordered By: Pastor Camilo on 04-24-2023 Basophils/100 WBC (Bld) 0.6 % Normal . F [facility] Comment on above: Performed By: #### C BC, BMP #### [address] Automated basophil countOrde red By: Pastor Camilo on 04-24-2023 Basophils (Bld) [#/Vol] 0.1 10*3/uL Normal 0.0-0.2 [facility] Comment on above: Result Comment: PERF ORMED BY: [place] [address] PATHOLOGIST SALT WASHER LAYNE ROSA M.D. Performed By: #### C BC, BMP #### [address] Automated blood monocyte cou ntOrdered By: Pastor Camilo on 04-24-2023 Monocytes (Bld) [#/Vol] 0.6 10*3/uL Normal 0.0-0.8 [facility] Comment on above: Performed By: #### C BC, BMP #### [address] Automated eosinophil %Ordere d By: Pastor Camilo on 04-24-2023 Eosinophils/100 WBC (Bld) 1.0 % Normal . [facility] Comment on above: Performed By: #### C BC, BMP #### [address] Automated eosinophil countOr dered By: Pastor Camilo on 04-24-2023 Eosinophils (Bld) [#/Vol] 0.1 10*3/uL Normal 0.0-0.45 [facility] Comment on above: Performed By: #### C BC, BMP #### [address] Automated erythrocytes count in urine sediment (number/area)Ordered By: Pastor Camilo on 04-24-2023 RBC Auto (Urine sed) [#/Area] 5-9 [HPF] 0-4 [facility] Automated leukocytes count i n urine sediment (number/area)Ordered By: Pastor Camilo on 04-24-2023 WBC Auto (Urine sed) [#/Area] 5-9 [HPF] 0-4 [facility] Automated monocyte %Ordered By: Pastor Camilo on 04-24-2023 Monocytes/100 WBC (Bld) 7.0 % Normal . F [facility] Comment on above: Performed By: #### C BC, BMP #### [address] Automated neutrophil %Ordere d By: Pastor Camilo on 04-24-2023 Neutrophils/100 WBC (Bld) 57.0 % Normal . [facility] Comment on above: Performed By: #### C BC, BMP #### [address] Automated urine color determ inationOrdered By: Pastor Camilo on 04-24-2023 Color (U) Yellow Normal Yellow [facility] Comment on above: Order Comment: Name Collection Type:: Clean-Voided Midstream Performed By: #### C UU, ADDONUAPLUS, UHCG #### [address] Basic Metabolic Panelon 11-0 Creatinine Clr Calc Pharmacy 117.43 Normal [facility] Comment on above: Result Comment: PERF ORMED BY: [place] [address] PATHOLOGIST SALT WASHER LAYNE ROSA M.D. Performed By: #### C BC, BMP #### [address] GFR/1.73 sq M.predicted MDRD (S/P/Bld) [Vol rate/Area] mL/min/{1.73_m2} Normal [facility] Comment on above: Performed By: #### C BC, BMP #### [address] Bilirubin Test strip Ql (U)O rdered By: Pastor Camilo on 04-24-2023 Bilirubin Ql (U) Negative Negative [facility] Calcium [Mass/volume] in Ser um or PlasmaOrdered By: Pastor Camilo on 04-24-2023 Calcium [Mass/Vol] 9.6 mg/dL Normal 8.6-10.3 [facility] Comment on above: Performed By: #### C BC, BMP #### [address] Carbon dioxide, total [Moles /volume] in Serum or PlasmaOrdered By: Pastor Camilo on 04-24-2023 CO2 [Moles/Vol] 27.6 mmol/L Normal 21.0-31.0 [facility] Comment on above: Performed By: #### C BC, BMP #### [address] Chloride [Moles/volume] in S mary or PlasmaOrdered By: Pastor Camilo on 04-24-2023 Chloride [Moles/Vol] 105 mmol/L Normal 98-107 [facility] Comment on above: Performed By: #### C BC, BMP #### [address] Complete Blood Count Auto Di ffon 04-24-2023 Mean Corpuscular HGB Conc 34.2 g/dL Normal 32.0-35.0 [facility] Comment on above: Performed By: #### C BC, BMP #### [address] Monocytes/100 WBC (Bld) 16.95 % Normal 0.00-20.00 [facility] Comment on above: Performed By: #### C BC, BMP #### [address] NRBC% 0.2 /100{WBC} Normal 0-0.5 [facility] Comment on above: Performed By: #### C BC, BMP #### [address] Creatinine [Mass/volume] in Serum or PlasmaOrdered By: Pastor Camilo on 04-24-2023 Creatinine [Mass/Vol] 0.68 mg/dL Normal 0.60-1.[address] [facility] Comment on above: Performed By: #### C BC, BMP #### [facility] [address] [place] [address] [place] Dipstick and Microscopicon 1 06-24-2022 Appearance (U) Clear Normal Clear [facility] Comment on above: Order Comment: Name Collection Type:: Clean-Voided Midstream Performed By: #### C UU, ADDONUAPLUS, UHCG #### [place] [address] [place] Bacteria,Urine 1+ High None Seen [facility] Comment on above: Order Comment: Name Collection Type:: Clean-Voided Midstream Performed By: #### C UU, ADDONUAPLUS, UHCG #### [place] [address] [place] Bilirubin,Urine Negative Normal Negative [facility] Comment on above: Order Comment: Name Collection Type:: Clean-Voided Midstream Performed By: #### C UU, ADDONUAPLUS, UHCG #### [address] Glucose Ql (U) Normal Normal Normal [facility] Comment on above: Order Comment: Name Collection Type:: Clean-Voided Midstream Performed By: #### C UU, ADDONUAPLUS, UHCG #### [place] [address] [place] Hyaline Casts,Urine None Seen Normal 0-8 [facility] Comment on above: Order Comment: Name Collection Type:: Clean-Voided Midstream Performed By: #### C UU, ADDONUAPLUS, UHCG #### [place] [address] [place] Ketones Ql (U) Negative Normal Negative [facility] Comment on above: Order Comment: Name Collection Type:: Clean-Voided Midstream Performed By: #### C UU, ADDONUAPLUS, UHCG #### [place] [address] [place] Leukocyte esterase Test strip Ql (U) 2+ High Negative [facility] Comment on above: Order Comment: Name Collection Type:: Clean-Voided Midstream Performed By: #### C UU, ADDONUAPLUS, UHCG #### [place] [address] [place] Nitrite,Urine Negative Normal Negative [facility] Comment on above: Order Comment: Name Collection Type:: Clean-Voided Midstream Performed By: #### C UU, ADDONUAPLUS, UHCG #### [place] [address] [place] Occult Blood,Urine Negative Normal Negative [facility] Comment on above: Order Comment: Name Collection Type:: Clean-Voided Midstream Performed By: #### C UU, ADDONUAPLUS, UHCG #### [place] [address] [place] Protein,Urine Negative Normal Negative [facility] Comment on above: Order Comment: Name Collection Type:: Clean-Voided Midstream Performed By: #### C UU, ADDONUAPLUS, UHCG #### [place] [address] [place] RBC,Urine 5-9 High 0-4 [facility] Comment on above: Order Comment: Name Collection Type:: Clean-Voided Midstream Performed By: #### C UU, ADDONUAPLUS, UHCG #### [address] Specificy [place],Urine 1.013 Normal 1.00 1-1.03 0 [facility] Comment on above: Order Comment: Name Collection Type:: Clean-Voided Midstream Performed By: #### C UU, ADDONUAPLUS, UHCG #### [place] [address] [place] Squamous Epithelial Cell,Urine 3-4 High 0-2 [facility] Comment on above: Order Comment: Name Collection Type:: Clean-Voided Midstream Performed By: #### C UU, ADDONUAPLUS, UHCG #### [place] [address] [place] Urobilinogen,Urine Normal Normal Normal [facility] Comment on above: Order Comment: Name Collection Type:: Clean-Voided Midstream Performed By: #### C UU, ADDONUAPLUS, UHCG #### [address] WBC,Urine 5-9 High 0-4 [facility] Comment on above: Order Comment: Name Collection Type:: Clean-Voided Midstream Performed By: #### C UU, ADDONUAPLUS, UHCG #### [address] Erythrocyte distribution wid th [Ratio] by Automated countOrdered By: Pastor Camilo on 04-24-2023 Erythrocyte distribution width (RBC) [Ratio] 13.7 % Normal 11.9-15.3 [facility] Comment on above: Performed By: #### C BC, BMP #### [address] Erythrocytes [#/volume] in B lood by Automated countOrdered By: Pastor Camilo on 04-24-2023 RBC (Bld) [#/Vol] 4.68 10*6/uL Normal 3.60-5.00 [facility] Comment on above: Performed By: #### C BC, BMP #### [address] Glucose [Mass/volume] in Ser um or PlasmaOrdered By: Pastor Camilo on 04-24-2023 Glucose [Mass/Vol] 69 mg/dL Low 70-100 [facility] Comment on above: ADA recommended refe rence rangeRandom Glucose Reference Range is dependent on time and content of last meal. Glucose of more than 200 mg/dL in a nonstressed, ambulatory subject supports the diagnosis of Diabetes Mellitus. Result Comment: [place] om Glucose Reference Range is dependent on time and content of last meal. Glucose of more than 200 mg/dL in a nonstressed, ambulatory subject supports the diagnosis of Diabetes Mellitus. ADA recommended reference range Performed By: #### C BC, BMP #### [address] HCG ( test) IA.rapi d Ql (U)Ordered By: Pastor Camilo on 04-24-2023 HCG ( test) Ql (U) Negative [facility] HCG,Urineon 04-24-2023 Beta HCG ( test) Ql (U) Negative Normal [facility] Comment on above: Order Comment: Name Collection Type:: Clean-Voided Midstream Result Comment: PERF ORMED BY: [place] [address] PATHOLOGIST SALT WASHER LAYNE ROSA M.D. Performed By: #### C UU, ADDONUAPLUS, CG ####[facility] [place] [address] Hematocrit [Volume Fraction] of Blood by Automated countOrdered By: Pastor Camilo on 04-24-2023 Hematocrit (Bld) [Volume fraction] 43.6 % Normal 34.0-46.4 [facility] Comment on above: Performed By: #### C BC, BMP #### [address] Hemoglobin [Mass/volume] in BloodOrdered By: Pastor Camilo on 04-24-2023 Hemoglobin (Bld) [Mass/Vol] 14.9 g/dL Normal 11.8-15.4 [facility] Comment on above: Performed By: #### C BC, BMP #### [address] Ketones Auto test strip (U) [Mass/Vol]Ordered By: Pastor Camilo on 04-24-2023 Ketones (U) [Mass/Vol] Negative Negative [facility] - UrinalysisOrder ed By: Pastor Camilo on 04-24-2023 Hyaline casts LM Ql (Urine sed) None seen [LPF] 0-8 [facility] Leukocytes [#/volume] correc darya for nucleated erythrocytes in Blood by Automated counOrdered By: Pastor Camilo on 04-24-2023 WBC corrected for nucl RBC Auto (Bld) [#/Vol] 8.7 10*3/uL 3.8-11.6 [facility] Leukocytes [#/volume] in Blo od by Automated countOrdered By: Pastor Camilo on 04-24-2023 WBC (Bld) [#/Vol] 8.7 10*3/uL Normal 3.8-11.6 [facility] Comment on above: Performed By: #### C BC, BMP #### [place] [address] [place] Lymphocytes [#/volume] in Bl ood by Automated countOrdered By: Pastor Camilo on 04-24-2023 Lymphocytes (Bld) [#/Vol] 3.0 10*3/uL Normal 1.00-4.8 [facility] Comment on above: Performed By: #### C BC, BMP #### [address] Lymphocytes/100 leukocytes i n Blood by Automated countOrdered By: Pastor Camilo on 04-24-2023 Lymphocytes/100 WBC (Bld) 34.4 % Normal . [facility] Comment on above: Performed By: #### C BC, BMP #### [address] MCH [Entitic mass] by Automa darya countOrdered By: Pastor Camilo on 04-24-2023 MCH (RBC) [Entitic mass] 31.9 pg Normal 24.7-34.3 [facility] Comment on above: Performed By: #### C BC, BMP #### [address] MCHC Auto (RBC) [Mass/Vol]Or dered By: Pastor Camilo on 04-24-2023 MCHC (RBC) [Mass/Vol] 34.2 g/dL 32.0-35.[address] [facility] MCV [Entitic volume] by Auto mated countOrdered By: Pastor Camilo on 04-24-2023 MCV (RBC) [Entitic vol] 93.3 fL Normal 80-100 [facility] Comment on above: Performed By: #### C BC, BMP #### [place] [address] [place] Monocyte distribution width [Entitic volume] in Blood by AutomatedOrdered By: Pastor Camilo on 04-24-2023 Monocyte distribution width Auto (Bld) [Entitic vol] 16.95 % 0.00-20.00 [facility] Neutrophils [#/volume] in Bl ood by Automated countOrdered By: Pastor Camilo on 04-24-2023 Neutrophils (Bld) [#/Vol] 5.0 10*3/uL Normal 1.8-7.7 [facility] Comment on above: Performed By: #### C SKYLAR, BMP #### [facility] [address] Nitrite Test strip Ql (U)Ord ered By: Pastor Camilo on 04-24-2023 Nitrite Ql (U) Negative Negative [facility] No Panel InformationOrdered By: Pastor Camilo on 04-24-2023 Estimated GFR (CKD-EPI) > 60.0 mL/Min [facility] Creatinine Clearance (Chem 117.43 [facility] Nucleated erythrocytes [Pres ence] in Blood by Automated countOrdered By: Pastor Camilo on 04-24-2023 Nucleated RBC Auto Ql (Bld) 0.2 /100{WBC} 0-0.5 [facility] Platelet mean volume [Entiti c volume] in Blood by Automated countOrdered By: Pastor Camilo on 04-24-2023 Platelet mean volume (Bld) [Entitic vol] 8.8 fL Normal 6.3-10.7 [facility] Comment on above: Performed By: #### C SKYLAR, BMP #### [facility] [address] [place] [address] Platelets [#/volume] in Bloo d by Automated countOrdered By: Pastor Camilo on 04-24-2023 Platelets (Bld) [#/Vol] 224 10*3/uL Normal 150-450 [facility] Comment on above: Performed By: #### C SKYLAR, BMP #### [address] Potassium [Moles/volume] in Serum or PlasmaOrdered By: Pastor Camilo on 04-24-2023 Potassium [Moles/Vol] 3.3 mmol/L Low 3.5-5.[address] [facility] Comment on above: Performed By: #### C BC, BMP #### [address] Protein Auto test strip (U) [Mass/Vol]Ordered By: Pastor Camilo on 04-24-2023 Protein (U) [Mass/Vol] Negative Negative [facility] Serum or plasma anion gap de terminationOrdered By: Pastor Camilo on 04-24-2023 Anion gap [Moles/Vol] 10.7 mmol/L Normal 6.0-15.0 [facility] Comment on above: Performed By: #### C BC, BMP #### [address] Sodium [Moles/volume] in Ser um or PlasmaOrdered By: Pastor Camilo on 04-24-2023 Sodium [Moles/Vol] 140 mmol/L Normal 136-145 [facility] Comment on above: Performed By: #### C BC, BMP #### [address] Specific gravity Auto test s trip (U) [Rel density]Ordered By: Pastor Camilo on 04-24-2023 Specific gravity (U) [Rel density] 1.013 1.001-1.03 0 [facility] Squamous epithelial cells de tection in urine sediment by light microscopyOrdered By: Pastor Camilo on 04-24-2023 Epithelial cells.squamous LM Ql (Urine sed) 3-4 [HPF] 0-2 [facility] Urea nitrogen [Mass/volume] in Serum or PlasmaOrdered By: Pastor Camilo on 04-24-2023 Urea nitrogen [Mass/Vol] 11 mg/dL Normal 7-25 [facility] Comment on above: Performed By: #### C BC, BMP #### [address] Urine Cultureon 04-24-2023 Bacteria identified Cx Nom (U) >100,000 colonies/ml mixed bacterial skin contaminants 2 Days PERFORMED BY: [place] [address] PATHOLOGIST SALT WASHER LAYNE ROSA M.D. Normal [facility] Comment on above: Performed By: #### C UUBERTA UHCG ####[facility] [id number] Urine bacteria detection by automated methodOrdered By: aPstor Camilo on 04-24-2023 Bacteria Auto Ql (U) 1+ None Seen [facility] Urine clarity by refractomet ry automatedOrdered By: Pastor Camilo on 04-24-2023 Clarity Refractometry automated (U) Clear Clear [facility] Urine glucose measurement by automated test strip (mass/volume)Ordered By: Pastor Camilo on 04-24-2023 Glucose Auto test strip (U) [Mass/Vol] Normal mg/dL Normal [facility] Urine hemoglobin detection b y automated test stripOrdered By: Pastor Camilo on 04-24-2023 Hemoglobin Auto test strip Ql (U) Negative Negative [facility] Urine leukocyte esterase det ection by automated test stripOrdered By: Pastor Camilo on 04-24-2023 Leukocyte esterase Auto test strip Ql (U) 2+ Negative [facility] Urine pH measurement by auto mated test stripOrdered By: Pastor Camilo on 04-24-2023 pH (U) 6.5 [pH] Normal 5.0-9.0 [facility] Comment on above: Order Comment: Name Collection Type:: Clean-Voided Midstream Performed By: #### C BERTA [facility] #### [facility] [address] Urobilinogen Auto test strip (U) [Mass/Vol]Ordered By: Pastor Camilo on 04-24-2023 Urobilinogen (U) [Mass/Vol] Normal mg/dL Normal [facility] Office Visit (Cardiology)on 02-03-2023 Follow-up visit Diagnoses/Problems [...] sinus rhythm with normal QTc interval and CO and QRS duration. Assessment 1. Classic neurocardiogenic [...] pharmacologic therapy Surgical History Problems History of Gurley tooth extraction Current Meds Medication NameInstruction Lo [...] negative for complaint. Vitals Vital Signs Recorded: [id number] 03:43PMRecorded: [id number] 03:40PM Systolic Baphhys190, LUE, Sitting Diastolic Emswzjx09, LUE, Sitting Systolic Xzkcvyfs745, LLE, Standing Diastolic Aaymnsmh20, LLE, Standing Heart Rate Huepbfk51, L Radial Heart Rate Xpzvvofu03, L Radial Heart Rate88, L Radial Lxdddaxz203, LUE, Sitting Sjjtxtyzk17, LUE, Sitting Height5 ft 3 in Etlmqc343 lb BMI Dxfzfzgzft86.98 kg/m2 BSA Calculated1.67 Tobacco Useb) No PHQ-2 [...] Electronically sign (more content not included)... Normal [employer] XR forearm RT 2V*on 09-09-19 XR forearm RT 2V* [facility] [employer] Other XR forearm RT 2V* [facility] [employer] Other XR forearm RT 2V* [address] [facility] [employer] Other XR forearm RT 2V* Noah NINI [address] [place] [employer] Other XR forearm RT 2V* XRay Report [employer] Other XR forearm RT 2V* Signed [facility] [employer] Other XR forearm RT 2V* Patient: Micky Minaya MR#: [id number] [place] [employer] Other XR forearm RT 2V* : 2000 Acct:[id number] [place] [employer] Other XR forearm RT 2V* Age/Sex: 21 / F ADM Date: 09/08/22 [employer] Other XR forearm RT 2V* Loc: XDUCLY Room: pe: REG CLI [employer] Other XR forearm RT 2V* Attending Dr: Latircia PABON [employer] Other XR forearm RT 2V* Copies to: PEPPER Maria [employer] Other XR forearm RT 2V* Ordering Provider: PEPPER Maria [employer] Other XR forearm RT 2V* Date of Service: 09/08/22 [employer] Other XR forearm RT 2V* XR/XR wrist RT min 3V*: RIGHT WRIST INJURY [employer] Other XR forearm RT 2V* ([id number]) XR/XR forearm RT 2V*: RIGHT ARM INJURY [employer] Other XR forearm RT 2V* XR wrist RT min 3V*, XR forearm RT 2V* 09/08/2022 6:43 PM [employer] Other XR forearm RT 2V* SIGNS AND SYMPTOMS: Fall onto right arm with continued right wrist pain along the radial aspect of [employer] Other XR forearm RT 2V* the wrist and right forearm [employer] Other XR forearm RT 2V* PROTOCOL: Frontal, lateral, and oblique radiographs of the right wrist. Frontal and lateral [employer] Other XR forearm RT 2V* radiographs of the r ight forearm. [employer] Other XR forearm RT 2V* COMPARISON: None [employer] Other XR forearm RT 2V* FINDINGS: [employer] Other XR forearm RT 2V* Right wrist: [employer] Other XR forearm RT 2V* The radiocarpal join t space is preserved. The carpal rows are preserved. There is no evidence of [employer] Other XR forearm RT 2V* fracture or dislocat ion. No significant soft tissue swelling. [employer] Other XR forearm RT 2V* Right forearm: Nor [employer] Other XR forearm RT 2V* The bones are in anatomic alignment. There is no soft tissue swelling. No fracture. The visualized [employer] Other XR forearm RT 2V* wrist and elbow are grossly intact. [employer] Other XR forearm RT 2V* X R/XR wrist RT min 3V* [employer] Other XR forearm RT 2V* IMPRESSION: [employer] Other XR forearm RT 2V* No fracture. [employer] Other XR forearm RT 2V* Impression dictated by: Josias Blum M.D.09/08/2022 7:15 PM [place] [employer] Other XR forearm RT 2V* Dictation Location: RADIO-PC-13 [facility] [employer] Other XR forearm RT 2V* Transcribed By: MISHA 09/08/221914 [facility] [employer] Other XR forearm RT 2V* Dictated By: Josias Blum II, MD 09/08/221910 [place] [employer] Other XR forearm RT 2V* Signed By: [facility] [employer] Other XR forearm RT 2V* 09/08/221914 [facility] [employer] Other Quick Strepon 09-02-2022 S. pyogenes Org specific cx Ql (Throat) Negative [facility] [employer] Other Quick Strep [facility] [employer] Other COVID + FLU Quick Testingon 07-13-2022 SARS-CoV-2 (COVID-19) RNA EMERITA+probe Ql (Unsp spec) Negative [place] [employer] Other COVID + FLU Quick Testing Negative [facility] [employer] Other RSVon 07-13-2022 RSV Ag IA Ql (Unsp spec) Positive [facility] [employer] Other No Panel Informationon 06-23 [facility] 250 DO Work Phone: Office Visit (Cardiology)on 05-24-2022 Follow-up visit Diagnoses/Problems Assessed Tachycardia (785.0) (R00.0) Palpitations (785.1) (R00.2) Hypertension, isolated systolic (401.9) (I10) Never a smoker Overweight with body mass index (BMI) of 27 to 27.9 in adult (278.02,V85.23) (E66.3,Z68.27) Orders Hypertension, isolated systolic, Palpitations, Tachycardia Tilt Table; Status:Hold For - Scheduling,Retrospective Authorization; Requested for:[id number]; Overweight with body mass index (BMI) of 27 to 27.9 in adult Healthy Weight Tips; Status:Complete - Retrospective Authorization; Done: [id number] Some eating tips that can help you lose weight.; Status:Complete - Retrospective Authorization; Done: [id number] SocHx: Never a smoker Tobacco Use Screening; Status:Complete; Done: [id number] Patient Instructions Please bring all medicines, vitamins, [...] is inconsequential Surgical History Problems History of Gurley tooth extraction Current Meds Medication NameInstruction Metoprolol [...] negative for complaint. Vitals Vital Signs Recorded: [id number] 03:43PM Heart Rate80, R Radial Vswmvnqn636, RUE, Sitting Dsopugztc71, RUE, Sitting Height5 ft 3 in Vruiml095 lb BMI Odztsrauuu50.28 kg/m2 BSA Calculated1.73 Tobacco Useb) No Falls [...] May 24 2022 6:43PM EST (Author) Normal [employer] Tobacco Screening.on 022 Fall risk assessment a) No falls within the last year [facility] 250 DO Work Phone: Tobacco use status CP b) No [facility] [employer] y 250 DO Work Phone: Tobacco Screening.on 022 Adult depression screening assessment No [facility] [facility] 250 DO Work Phone: Tobacco use status [facility] b) No M [facility] 250 DO Work Phone: Vital Signs Date Time Vital Sign Value Performing Clinician Facility 07-03-2024 15:19-0500 Body height 162.56 cm [facility] 07-03-2024 15:19-0500 Body mass index (BMI) [Ratio] 24.2 kg/m2 [facility] 07-03-2024 15:19050 Body weight 64 kg [facility] 03-23-2024 08:42-0400 Body height 160 cm Willy Escudero MD Work Phone: [facility] 03-23-2024 08:42-0400 Body mass index (BMI) [Ratio] 25.86 kg/m2 Willy Escudero MD Work Phone: [facility] 03-23-2024 08:42-0400 Body weight 66.22 kg Willy Escudero MD Work Phone: [facility] 03-23-2024 08:42-0400 Diastolic blood pressure 60 mm[Hg] Willy Escudero MD Work Phone: [facility] 03-23-2024 08:42-0400 Heart rate 84 /min Willy Escudero MD Work Phone: [facility] 03-23-2024 08:42-0400 Systolic blood pressure 110 mm[Hg] Willy Escudero MD Work Phone: [facility] 03-21-2024 15:28-0400 Body weight 66.22 kg Segun Jany DO Work Phone: [facility] 03-21-2024 15:28-0400 Diastolic blood pressure 72 mm[Hg] Segun Jany DO Work Phone: [facility] 03-21-2024 15:28-0400 Systolic blood pressure 116 mm[Hg] Segun Jany DO Work Phone: [facility] 02-13-2024 13:29-0400 Body weight 65.23 kg Segun Jany DO Work Phone: [facility] 02-13-2024 13:29-0400 Diastolic blood pressure 68 mm[Hg] Segun Jany DO Work Phone: [facility] 02-13-2024 13:29-0400 Systolic blood pressure 108 mm[Hg] Segun Jany DO Work Phone: [facility] 01-22-2024 10:54-0400 Body height 162.56 cm DO Rosa Kuns Work Phone: [facility] 01-22-2024 10:54-0400 Body mass index (BMI) [Ratio] 24.4 kg/m2 DO Rosa Kuns Work Phone: [facility] 01-22-2024 10:54-0400 Body temperature 98 [degF] DO Rosa Kuns Work Phone: [facility] 01-22-2024 10:54-0400 Body weight 64.58 kg DO Rosa Kuns Work Phone: [facility] 01-22-2024 10:54-0400 Diastolic blood pressure 66 mm[Hg] DO Rosa Kuns Work Phone: [facility] 01-22-2024 10:54-0400 Heart rate 74 /min DO Rosa Kuns Work Phone: [facility] 01-22-2024 10:54-0400 Respiratory rate 18 /min DO Rosa Kuns Work Phone: [facility] 01-22-2024 10:54-0400 SaO2% (BldA) [Mass fraction] 98 % DO Rosa Kuns Work Phone: [facility] 01-22-2024 10:54-0400 Systolic blood pressure 101 mm[Hg] DO Rosa Kuns Work Phone: [facility] 01-13-2024 09:47-0400 Body height 162.56 cm DO Rosa Kuns Work Phone: [facility] 01-13-2024 09:47-0400 Body mass index (BMI) [Ratio] 24 kg/m2 DO Rosa Kuns Work Phone: [facility] 01-13-2024 09:47-0400 Body weight 63.5 kg DO Rosa Kuns Work Phone: [facility] 12-05-2023 10:45-0400 Body height 160.02 cm [facility] 12-05-2023 10:45-0400 Body mass index (BMI) [Ratio] 24.5 kg/m2 [facility] 12-05-2023 10:45-0400 Body weight 63 kg [facility] 09-27-2023 09:06-0400 Body height 160.02 cm DO Rosa Kuns Work Phone: [facility] 09-27-2023 09:06-0400 Body mass index (BMI) [Ratio] 24.7 kg/m2 DO Rosa Kuns Work Phone: [facility] 09-27-2023 09:06-0400 Body weight 63.5 kg DO Rosa Kuns Work Phone: [facility] 09-27-2023 09:06-0400 Diastolic blood pressure 64 mm[Hg] DO Rosa Kuns Work Phone: [facility] 09-27-2023 09:06-0400 Heart rate 98 /min DO Rosa Kuns Work Phone: [facility] 09-27-2023 09:06-0400 Respiratory rate 16 /min DO Rosa Kuns Work Phone: [facility] 09-27-2023 09:06-0400 SaO2% (BldA) [Mass fraction] 98 % DO Rosa Kuns Work Phone: [facility] 09-27-2023 09:06-0400 Systolic blood pressure 104 mm[Hg] DO Rosa Kuns Work Phone: [facility] 09-20-2023 13:59-0400 Body height 160.02 cm DO Rosa Kuns Work Phone: [facility] 09-20-2023 13:59-0400 Body mass index (BMI) [Ratio] 23.9 kg/m2 DO Rosa Kuns Work Phone: [facility] 09-20-2023 13:59-0400 Body weight 61.23 kg DO Rosa Kuns Work Phone: [facility] 08-12-2023 11:55-0500 Diastolic blood pressure 74 mm[Hg] DO Rosa Kuns Work Phone: [facility] 08-12-2023 11:55-0500 Heart rate 81 /min DO Rosa Kuns Work Phone: [facility] 08-12-2023 11:55-0500 Respiratory rate 18 /min DO Rosa Kuns Work Phone: [facility] 08-12-2023 11:55-0500 SaO2% (BldA) [Mass fraction] 99 % DO Rosa Kuns Work Phone: [facility] 08-12-2023 11:55-0500 Systolic blood pressure 108 mm[Hg] DO Rosa Kuns Work Phone: [facility] 08-12-2023 10:27-0500 Body height 160.02 cm DO Rosa Kuns Work Phone: [facility] 08-12-2023 10:27-0500 Body temperature 98.2 [degF] DO Rosa Kuns Work Phone: [facility] 08-12-2023 10:27-0500 Body weight 61.23 kg DO Rosa Agee Work Phone: [facility] 08-10-2023 12:35-0500 Body height 160.02 cm [facility] 08-10-2023 12:35-0500 Body mass index (BMI) [Ratio] 23.7 kg/m2 [facility] 08-10-2023 12:35-0500 Body temperature 98.6 [degF] [facility] 08-10-2023 12:35-0500 Body weight 60.78 kg [facility] 08-10-2023 12:35-0500 Diastolic blood pressure 74 mm[Hg] [facility] 08-10-2023 12:35-0500 Heart rate 94 /min [facility] 08-10-2023 12:35-0500 Respiratory rate 18 /min [facility] 08-10-2023 12:35-0500 SaO2% (BldA) [Mass fraction] 99 % [facility] 08-10-2023 12:35-0500 Systolic blood pressure 118 mm[Hg] [facility] 06-23-2023 14:29-0500 Body height 160 cm Willy Escudero MD Work Phone: [facility] 06-23-2023 14:29-0500 Body mass index (BMI) [Ratio] 24.09 kg/m2 Willy Escudero MD Work Phone: [facility] 06-23-2023 14:29-0500 Body weight 61.69 kg Willy Escudero MD Work Phone: [facility] 06-23-2023 14:29-0500 Diastolic blood pressure 80 mm[Hg] Willy Escudero MD Work Phone: [facility] 06-23-2023 14:29-0500 Heart rate 70 /min Willy Escudero MD Work Phone: [facility] 06-23-2023 14:29-0500 Systolic blood pressure 110 mm[Hg] Willy Escudero MD Work Phone: [facility] 06-23-2023 12:30-0500 Body height 160.02 cm Rosa Kuns Other [facility] 06-23-2023 12:30-0500 Body mass index (BMI) [Ratio] 24.09 kg/m2 Rosa Kuns Other [facility] [employer] Other 06-23-2023 12:30-0500 Body weight 61.69 kg Rosa Kuns Other [facility] [employer] Other 06-23-2023 12:30-0500 Body weight 61.68 kg [facility] 06-23-2023 12:30-0500 Diastolic blood pressure 64 mm[Hg] Rosa Kuns Other [facility] 06-23-2023 12:30-0500 Respiratory rate 16 /min Rosa Kuns Other [employer] Other 06-23-2023 12:30-0500 SaO2% (BldA) [Mass fraction] 99 % Rosa Kuns Other [employer] Other 06-23-2023 12:30-0500 Systolic blood pressure 104 mm[Hg] Rosa Kuns Other [facility] 04-26-2023 08:45-0500 Body height 160.02 cm Rosa Kuns Other [employer] Other 04-26-2023 08:45-0500 Body mass index (BMI) [Ratio] 24.8 kg/m2 Rosa Kuns Other [employer] Other 04-26-2023 08:45-0500 Body weight 63.5 kg Rosa Kuns Other [place] [employer] Other 04-26-2023 08:45-0500 Diastolic blood pressure 80 mm[Hg] Rosa Kuns Other [employer] Other 04-26-2023 08:45-0500 Respiratory rate 16 /min Rosa Kuns Other [employer] Other 04-26-2023 08:45-0500 SaO2% (BldA) [Mass fraction] 97 % Rosa Kuns Other [facility] [employer] Other 04-26-2023 08:45-0500 Systolic blood pressure 116 mm[Hg] Rosa Kuns Other [facility] [employer] Other 04-24-2023 22:52-0500 Diastolic blood pressure 71 mm[Hg] DO Rosa Kuns Work Phone: [facility] 04-24-2023 22:52-0500 Heart rate 88 /min DO Rosa Kuns Work Phone: [facility] 04-24-2023 22:52-0500 Respiratory rate 18 /min DO Rosa Kuns Work Phone: [facility] 04-24-2023 22:52-0500 SaO2% (BldA) [Mass fraction] 98 % DO Rosa Kuns Work Phone: [facility] 04-24-2023 22:52-0500 Systolic blood pressure 117 mm[Hg] DO Rosa Kuns Work Phone: [facility] 04-24-2023 20:42-0500 Body height 160.02 cm DO Rosa Kuns Work Phone: [facility] 04-24-2023 20:42-0500 Body temperature 98.8 [degF] DO [employer] Work Phone: [facility] 04-24-2023 20:42-0500 Body weight 64.7 kg DO [employer] Work Phone: [facility] 09-08-2022 19:30-0400 Body height 160.02 cm Latricia Shannan Other [employer] Other 09-08-2022 19:30-0400 Body mass index (BMI) [Ratio] 25.86 kg/m2 Latricia Shannan Other [employer] Other 09-08-2022 19:30-0400 Body temperature 100.3 [degF] Latricia Shannan Other [employer] Other 09-08-2022 19:30-0400 Body weight 66.23 kg Latricia Shannan Other [employer] Other 09-08-2022 19:30-0400 Diastolic blood pressure 81 mm[Hg] Latricia Shannan Other [employer] Other 09-08-2022 19:30-0400 Respiratory rate 18 /min Latricia Shannan Other [employer] Other 09-08-2022 19:30-0400 SaO2% (BldA) [Mass fraction] 99 % Latricia Shannan Other [employer] Other 09-08-2022 19:30-0400 Systolic blood pressure 124 mm[Hg] Latricia Campbell Other [employer] Other 06-23-2022 10:03-0500 Diastolic blood pressure 71 mm[Hg] DO Rosa Kuns Work Phone: [facility] 06-23-2022 10:03-0500 Heart rate 101 /min DO Rosa Kuns Work Phone: [facility] 06-23-2022 10:03-0500 Systolic blood pressure 122 mm[Hg] DO Rosa Kuns Work Phone: [facility] 06-23-2022 09:21-0500 SaO2% (BldA) [Mass fraction] 99 % DO Rosa Kuns Work Phone: [facility] 06-22-2022 09:33-0500 Body height 160.02 cm DO Rosa Kuns Work Phone: [facility] 06-22-2022 09:33-0500 Body weight 69.85 kg DO Rosa Kuns Work Phone: [facility] 05-24-2022 15:43-0500 Body height 160.02 cm Rosa R Kuns Work Phone: [facility] 250 DO Work Phone: 05-24-2022 15:43-0500 Body mass index (BMI) [Ratio] 27.28 kg/m2 Rosa R Kuns Work Phone: [facility] 250 DO Work Phone: 05-24-2022 15:43-0500 Body surface area Derived from formula 1.73 m2 Rosa R Kuns Work Phone: [facility] 250 DO Work Phone: 05-24-2022 15:43-0500 Body weight 69.85 kg Rosa R Kuns Work Phone: [facility] 250 DO Work Phone: 05-24-2022 15:43-0500 Diastolic blood pressure 62 mm[Hg] Rosa R Kuns Work Phone: [facility] 250 DO Work Phone: 05-24-2022 15:43-0500 Heart rate 80 /min Rosa R Kuns Work Phone: [facility] 250 DO Work Phone: 05-24-2022 15:43-0500 Systolic blood pressure 100 mm[Hg] Rosa R Kuns Work Phone: [facility] 250 DO Work Phone: 09-08-2021 15:55-0400 Body height 160.02 cm Rosa R Kuns Work Phone: [facility] 250 DO Work Phone: 09-08-2021 15:55-0400 Body mass index (BMI) [Ratio] 26.47 kg/m2 Rosa R Kuns Work Phone: [facility] 250 DO Work Phone: 09-08-2021 15:55-0400 Body surface area Derived from formula 1.71 m2 Rosa R Kuns Work Phone: [facility] 250 DO Work Phone: 09-08-2021 15:55-0400 Body weight 67.77 kg Rosa R Kuns Work Phone: [facility] 250 DO Work Phone: 09-08-2021 15:55-0400 Diastolic blood pressure 77 mm[Hg] Rosa R Kuns Work Phone: [facility] 250 DO Work Phone: 09-08-2021 15:55-0400 Heart rate 83 /min Rosa R Kuns Work Phone: [facility] 250 DO Work Phone: 09-08-2021 15:55-0400 Systolic blood pressure 116 mm[Hg] Rosa Hernadezs Work Phone: [facility] 250 DO Work Phone: 05-07-2021 14:30-0500 Body height 160.02 cm Rosaladonna Hernadezs Other [place] [employer] Other 05-07-2021 14:30-0500 Body mass index (BMI) [Ratio] 26.39 kg/m2 Rosaladonna Hernadezs Other [employer] Other 05-07-2021 14:30-0500 Body weight 67.59 kg Rosaladonna Hernadezs Other [employer] Other 05-07-2021 14:30-0500 Diastolic blood pressure 78 mm[Hg] Rosa Satyas Other [place] [employer] Other 05-07-2021 14:30-0500 Respiratory rate 16 /min Rosaladonna Hernadezs Other [employer] Other 05-07-2021 14:30-0500 SaO2% (BldA) [Mass fraction] 98 % Rosaladonna Agee Other [place] [employer] Other 05-07-2021 14:30-0500 Systolic blood pressure 122 mm[Hg] Rosa Satyas Other [employer] Other Encounters Encounter Date Encounter Type Care Provider Facility Start: 07-03-2024 End: 07-03-2024 ambulatory [facility] Work Phone: Start: 07-03-2024 End: 07-03-2024 Patient encounter procedure [facility] Work Phone: Start: 04-06-2024 Non-patient / Non-visit [facility] [place] Work Phone: Start: 03-29-2024 End: 03-29-2024 ambulatory DO Rosa Kuns Work Phone: [facility] Work Phone: Start: 03-29-2024 End: 03-29-2024 Departed Referred DO Rosa Kuns Work Phone: [facility] Start: 03-29-2024 Non-patient / Non-visit DO Celina tt Kuns Work Phone: [facility] Work Phone: Start: 03-23-2024 End: 03-23-2024 Office outpatient visit 15 minutes Willy Escudero MD Work Phone: [facility] Comment on above: Tachycardia (Primary Dx); Neurologic cardiac syncope; Palpitations; BMI 25.0-25.9,adult Start: 03-23-2024 End: 03-23-2024 ambulatory [facility] Start: 03-21-2024 Non-patient / Non-visit DO Celina tt Kuns Work Phone: [facility] Work Phone: Start: 03-21-2024 [...] periods Start: 03-21-2024 End: 03-21-2024 ambulatory SEGUN BELTRANO Not Available Start: 03-21-2024 End: 03-21-2024 Bamboo flowsheet Segun Jany DO Work Phone: [facility] Start: 03-21-2024 End: 03-28-2024 Bamboo flowsheet Segun Jany DO Work Phone: [facility] Start: 03-21-2024 End: 03-28-2024 Clinisync Result Encounter Segun Jany DO Work Phone: [facility] Unsolicited Start: 03-14-2024 Non-patient / Non-visit DO Celina tt Kuns Work Phone: [facility] Work Phone: Start: 02-29-2024 Non-patient / Non-visit DO Celina tt Kuns Work Phone: [facility] Work Phone: Start: 02-17-2024 Non-patient / Non-visit DO Celina tt Kuns Work Phone: [facility] Work Phone: Start: 02-17-2024 End: 02-17-2024 Clinisync Result Encounter Segun Jany DO Work Phone: [facility] Unsolicited Start: 02-17-2024 End: 02-17-2024 Clinisync Result Encounter Segun Jany DO Work Phone: [facility] Unsolicited Start: 02-13-2024 End: 02-13-2024 Bamboo flowsheet Segun Jany DO Work Phone: [facility] Start: 02-13-2024 End: 02-13-2024 Bamboo flowsheet Segun Jany DO Work Phone: [facility] Start: 02-13-2024 End: 02-13-2024 Office outpatient visit 15 minutes Segun Jany DO Work Phone: [facility] Comment on above: PCOS (polycystic ova peña syndrome); Irregular periods/menstrual cycles; Cyst of ovary, unspecified laterality Start: 02-13-2024 End: 02-13-2024 ambulatory SEGUN CARMICHAEL Not Available Start: 01-22-2024 End: 01-22-2024 Patient encounter procedure DO Rosa Kuns Work Phone: [facility] [place] Work Phone: Start: 01-22-2024 End: 01-22-2024 ambulatory DO Rosa Kuns Work Phone: [facility] Work Phone: Start: 01-22-2024 End: 01-22-2024 ambulatory DO Rosa Kuns Work Phone: [facility] Work Phone: Start: 01-22-2024 End: 01-22-2024 Patient encounter procedure DO Rosa Kuns Work Phone: [facility] [place] Work Phone: Start: 01-13-2024 End: 01-13-2024 ambulatory DO Rosa Kuns Work Phone: [facility] Work Phone: Start: 01-13-2024 End: 01-13-2024 Patient encounter procedure DO Rosa Kuns Work Phone: [facility] Work Phone: Start: 12-09-2023 End: 12-09-2023 Patient encounter procedure DO Rosa Kuns Work Phone: [facility] [place] Work Phone: Start: 12-09-2023 End: 12-09-2023 ambulatory DO Rosa Kuns Work Phone: [facility] Work Phone: Start: 12-05-2023 End: 12-05-2023 ambulatory [facility] Work Phone: Start: 12-05-2023 End: 12-05-2023 Patient encounter procedure [facility] Work Phone: Start: 09-27-2023 End: 09-27-2023 ambulatory DO Rosa Kuns Work Phone: [facility] Work Phone: Start: 09-27-2023 End: 09-27-2023 Patient encounter procedure DO Rosa Kuns Work Phone: [facility] [place] Work Phone: Start: 09-20-2023 End: 09-20-2023 ambulatory DO Rosa Kuns Work Phone: [facility] Work Phone: Start: 09-20-2023 End: 09-20-2023 Patient encounter procedure DO Rosa Kuns Work Phone: [facility] Gastroenterology Work Phone: Start: 08-12-2023 Non-patient / Non-visit DO Celina tt Kuns Work Phone: [facility] Gastroenterology Work Phone: Start: 08-12-2023 End: 08-12-2023 Admission to same day surgery center DO Rosa Kuns Work Phone: [facility] Work Phone: Start: 08-12-2023 End: 08-12-2023 ambulatory DO Rosa Kuns Work Phone: [facility] Work Phone: Start: 08-10-2023 End: 08-10-2023 ambulatory DO Rosa Kuns Work Phone: [facility] Work Phone: Start: 08-10-2023 End: 08-10-2023 Departed Referred DO Rosa Agee Work Phone: [facility] [place] Work Phone: Start: 08-10-2023 End: 08-10-2023 ambulatory [facility] Work Phone: Start: 08-10-2023 End: 08-10-2023 Patient encounter procedure [facility] [place] Work Phone: Start: 08-01-2023 End: 08-01-2023 ambulatory Cuong Fletcher Other [employer] Other Start: 08-01-2023 Telephone encounter Cuong [employer] Start: 07-15-2023 End: 07-15-2023 ambulatory Cuong Fletcher Other [employer] Other Start: 07-15-2023 Office outpatient ne w 30 minutes Cuong [facility] Start: 06-23-2023 End: 06-23-2023 ambulatory [employer] [place] [employer] [place] [employer] Other Start: 06-23-2023 End: 06-23-2023 Office outpatient visit 15 minutes Willy Escudero MD Work Phone: [facility] Comment on above: Neurologic cardiac s yncope (Primary Dx); Palpitations; Tachycardia Start: 06-23-2023 End: 06-23-2023 Patient encounter procedure [facility] [place] Work Phone: Start: 04-26-2023 Encounter for genera l adult medical examination without abnormal findings Rosa Agee [facility] [place] Start: 04-26-2023 Patient encounter status Rosa Agee Other [employer] Other Start: 04-26-2023 Periodic preventive med est patient 18-39 yrs Rosa Agee [facility] [place] Start: 04-26-2023 End: 04-26-2023 Patient encounter procedure DO Rosa Agee Work Phone: [facility] [place] Work Phone: Start: 04-26-2023 End: 04-26-2023 ambulatory DO Rosaladonna Agee Work Phone: [facility] Work Phone: Start: 04-24-2023 End: 04-24-2023 Emergency department patient visit DO Rosaladonna Agee Work Phone: [facility] Work Phone: Start: 04-20-2023 End: 04-20-2023 ambulatory Rosa Agee Other [employer] Other Start: 04-20-2023 Telephone encounter Rosa Agee [facility] Start: 02-03-[address] Rosa Agee Facility: Start: 10-20-2022 End: 10-20-[address] ROSA AGEE Facility:H1 Start: 09-08-2022 End: 09-08-2022 Patient encounter procedure DO Rosa Agee Work Phone: [facility] [place] Work Phone: Start: 09-08-2022 End: 09-08-2022 ambulatory DO Rosaladonna Agee Work Phone: [facility] Work Phone: Start: 09-08-2022 Office outpatient vi sit 15 minutes Latricia Campbell [facility] Start: 09-08-2022 Telephone encounter Rosa Agee [facility] Start: 09-02-2022 End: 09-02-2022 ambulatory Rosa Agee Other [employer] Other Start: 09-02-2022 Nursing evaluation o f patient and report Rosa Agee [facility] Start: 09-02-2022 Telephone encounter Rosa Agee [facility] Start: 07-24-2022 Chart Update Rosa Agee Work Phone: [facility] 250 DO Work Phone: Start: 07-13-2022 End: 07-13-2022 ambulatory Rosa Agee Other [facility] [employer] Other Start: 07-13-2022 Nursing evaluation o f patient and report Rosa Agee [facility] Start: 07-13-2022 Telephone encounter Rosa Agee [facility] Start: 07-12-2022 End: 07-12-2022 ambulatory Rosa Agee Other [facility] [employer] Other Start: 07-12-2022 Telephone encounter Rosa Agee [facility] Start: 06-25-2022 Chart Update Rosa Agee Work Phone: [facility] 250 DO Work Phone: Start: 06-23-[address] Rosa Agee Facility:[id number] Start: 06-23-2022 End: 06-23-2022 ambulatory DO Rosa Agee Work Phone: [facility] Work Phone: Start: 06-23-2022 End: 06-23-2022 Patient encounter procedure DO Rosa Kuns Work Phone: [facility]Electro[facility]ostics Work Phone: Start: 05-24-2022 Office outpatient vi sit 25 minutes [facility] Work Phone: Start: 05-24-[address] Miladis Morris Facility: Start: 09-29-2021 End: 09-29-2021 ambulatory Rosa Kuns Other [facility] [employer] Other Start: 09-29-2021 Telephone encounter Rosa Kuns [facility] Start: 09-08-2021 Office outpatient vi sit 15 minutes Rosa R Kuns Work Phone: [facility] 250 DO Work Phone: Start: 05-07-2021 End: 05-07-2021 ambulatory Rosa Kuns Other [facility] [employer] Other Start: 05-07-2021 Office outpatient vi sit 25 minutes Rosa Kuns [facility] Procedures Date Procedure Procedure Detail Performing Clinician Start: 03-21-2024 IGP,APTIMA HPV,AGE GDLN Segun Jany DO Work Phone: Start: 02-17-2024 ALL CBC WITH AUTO DIFF Segun Jany DO Work Phone: Start: 01-22-2024 [...] Extraction of wisdom tooth B rett R Kuns Work Phone: Plan of Treatment Date Care Activity Detail Author Start: 2050 Zoster Vaccines (1 of 2) Zoste r Vaccines (1 of 2) [facility] Start: 03-18-2032 DTaP/Tdap/Td Vaccine s (8 - Td or Tdap) DTaP/Tdap/Td Vaccines (8 - Td or Tdap) [facility] Start: 03-29-2025 End: 03-29-2025 Patient encounter procedure 03/29/2025 9:10 AM EDT Office Visit [place] [id number] [facility] [address] [place] [address] Willy Escudero MD [address] [facility] [address] [place] [address] [facility] Start: 10-06-2024 Screening for malign ant neoplasm of cervix [facility] Start: 03-23-2024 End: 03-23-2024 Patient encounter procedure 03/23/2024 8:40 AM EDT Office Visit [place] [id number] [facility] [address] [place] [address] Willy Escudero MD [address] [facility] [address] [place] [address] [facility] Start: 03-21-2024 End: 03-21-2024 Patient encounter procedure [facility] Comment on above: Arrived Start: 02-19-2024 COVID-19 Vaccine ( season) COVID-19 Vaccine ( season) [facility] Start: 02-19-2024 Influenza vaccination Influenza Vacc ine (#1) [facility] Start: 02-13-2024 End: 02-12-2025 Antimullerian hormone (AMH) Antimullerian hormone (AMH) Lab Routine PCOS (polycystic ovarian syndrome) Irregular periods/menstrual cycles Cyst of ovary, unspecified laterality Expected: 02/13/2024 (Approximate), Expires: 02/12/2025 [facility] Comment on above: Expected: 02/13/2024 (Approximate), Expires: 02/12/2025 Start: 02-13-2024 End: 02-12-2025 DHEA DHEA Lab Routine PCOS (polycystic ovarian syndrome) Irregular periods/menstrual cycles Cyst of ovary, unspecified laterality Expected: 02/13/2024 (Approximate), Expires: 02/12/2025 [facility] Comment on above: Expected: 02/13/2024 (Approximate), Expires: 02/12/2025 Start: 02-13-2024 End: 02-12-2025 US for US PELVIS-TRANSVAG IF INDICATED Imaging Routine PCOS (polycystic ovarian syndrome) Irregular periods/menstrual cycles Cyst of ovary, unspecified laterality Expected: 02/13/2024 (Approximate), Expires: 02/12/2025 [facility] Healthcare Comment on above: Expected: 02/13/2024 (Approximate), Expires: 02/12/2025 Start: 02-13-2024 End: 02-13-2024 Patient encounter procedure 02/13/2024 1:10 PM EDT Office Visit [facility] [address] [place] [id number] Segun Carmichael, [address] [place] [address] Arrived [facility] Comment on above: Arrived Start: 12-09-2023 [facility] Start: 08-12-2023 [facility] Start: 08-10-2023 [facility] Start: 04-26-2023 Bacteria identified in Urine by Culture Urine Culture [facility] Start: 04-24-2023 Computed tomography of abdomen and pelvis with contrast CT abdomen pelvis w con [facility] Start: 04-24-2023 CT Abdomen and Pelvi s W contrast IV [facility] Start: 04-24-2023 Bacteria identified in Urine by Culture [facility] Start: 04-24-2023 Urine culture Urine Culture [facility] Start: 02-18-2023 Influenza vaccination Influenza Vacc ine (#1) [facility] Start: 11-24-2022 FUV, Provider: Willy Escudero, Status: Pen, Time: 3:10 PM FUV, Provider: Willy Escudero, Status: Pen, Time: 3:10 PM [facility] [place] 250 DO Work Phone: Start: 05-13-2022 Hepatitis B Vaccines (3 of 3 - 3-dose series) Hepatitis B Vaccines (3 of 3 - 3-dose series) [facility] Start: 03-10-2022 FUV, Provider: Miladis Morris, Status: Pen, Time: 9:50 AM FUV, Provider: Miladis Morris, Status: Pen, Time: 9:50 AM [facility] [address] 250 DO Work Phone: Start: 2021 Screening for malign ant neoplasm of cervix HPV/Cotest [facility] Start: 07-02-2021 COVID-19 Vaccine (3 - Pfizer series) COVID-19 Vaccine (3 - Pfizer series) [facility] Start: 2018 Hepatitis C screening Hepatitis C [facility] Start: 09-22-2015 HPV Vaccines (1 - 3- dose series) HPV Vaccines (1 - 3-dose series) [facility] Start: 09-22-2011 HPV Vaccines (1 - 2- dose series) HPV Vaccines (1 - 2-dose series) [facility] Start: 2000 HIV screening HIV Screening [facility] Start: 2000 Lipid panel Lipid Panel [facility] Start: 2000 Yearly Adult Physical Yearly Adult P hysical [facility] Atopobium vaginae DN A [Presence] in Vaginal fluid by EMERITA with probe detection [facility] Bacterial vaginosis associated bacterium 2 DNA [Presence] in Vaginal fluid by EMERITA with probe detection [facility] CBC W Auto Different ial panel - Blood CBC and differential Lab Routine PCOS (polycystic ovarian syndrome) Irregular periods/menstrual cycles Cyst of ovary, unspecified laterality Ordered: 02/13/2024 [facility] [employer] Comment on above: Ordered: 02/13/2024 Cytology Cervical or vaginal smear or scraping study Pap Smear Pathology and Cytology Routine Well woman exam with routine gynecological exam Ordered: 03/21/2024 [facility] [employer] Work Phone: Comment on above: Ordered: 03/21/2024 DHEA-sulfate DHEA-sulfate Lab Routine PCOS (polycystic ovarian syndrome) Irregular periods/menstrual cycles Cyst of ovary, unspecified laterality Ordered: 02/13/2024 [facility] Comment on above: Ordered: 02/13/2024 Endomysial antibody IgA level [facility] Follicle stimulating hormone Follicle stimulating hormone Lab Routine PCOS (polycystic ovarian syndrome) Irregular periods/menstrual cycles Cyst of ovary, unspecified laterality Ordered: 02/13/2024 [facility] Comment on above: Ordered: 02/13/2024 Gliadin peptide IgA Ab [Units/volume] in Serum [facility] Gliadin peptide IgG Ab [Units/volume] in Serum [facility] hCG, quantitative, hCG, quantitative, Lab Routine PCOS (polycystic ovarian syndrome) Irregular periods/menstrual cycles Cyst of ovary, unspecified laterality Ordered: 02/13/2024 [facility] Work Phone: Comment on above: Ordered: 02/13/2024 Hemoglobin A1c/Hemoglobin.total in Blood Hemoglobin A1c Lab Routine PCOS (polycystic ovarian syndrome) Irregular periods/menstrual cycles Cyst of ovary, unspecified laterality Ordered: 02/13/2024 [facility] Comment on above: Ordered: 02/13/2024 IgA [Mass/volume] in Serum or Plasma [facility] Luteinizing hormone Luteinizing hormone Lab Routine PCOS (polycystic ovarian syndrome) Irregular periods/menstrual cycles Cyst of ovary, unspecified laterality Ordered: 02/13/2024 [facility] Comment on above: Ordered: 02/13/2024 Megasphaera sp type 1 DNA [Presence] in Vaginal fluid by EMERITA with probe detection [facility] Patient Education Constipation, Adult ED [facility] Work Phone: Patient referral [facility] Work Phone: Thyrotropin [Units/v olume] in Serum or Plasma TSH Lab Routine PCOS (polycystic ovarian syndrome) Irregular periods/menstrual cycles Cyst of ovary, unspecified laterality Ordered: 02/13/2024 [facility] Comment on above: Ordered: 02/13/2024 Thyroxine (T4) free [Mass/volume] in Serum or Plasma T4, free Lab Routine PCOS (polycystic ovarian syndrome) Irregular periods/menstrual cycles Cyst of ovary, unspecified laterality Ordered: 02/13/2024 [facility] Comment on above: Ordered: 02/13/2024 Tissue transglutamin ase IgA Ab [Units/volume] in Serum [facility] Tissue transglutamin ase IgG Ab [Units/volume] in Serum [facility] Immunizations Immunization Date Immunization Notes Care Provider Marla yost 11-18-2023 influenza virus vaccine, unspecified formulation Segun Carmichael DO Work Phone: [facility] 03-18-2022 Hepatitis B vaccine (recombinant), CpG adjuvanted Rosa Agee Work Phone: [place] [address] DO Work Phone: 03-18-2022 hepatitis B vaccine, pediatric or pediatric/adolescent dosage Willy Escudero MD Work Phone: [facility] Work Phone: 03-18-2022 influenza, injectable, quadrivalent, preservative free Rosa Agee Work Phone: [facility] 03-18-2022 tetanus toxoid, reduced diphtheria toxoid, and acellular pertussis vaccine, adsorbed Rosa Agee Work Phone: [facility] 03-18-2022 varicella virus vaccine Rosa Agee Work Phone: [facility] 03-18-2022 influenza virus vaccine, unspecified formulation Willy Escudero MD Work Phone: [facility] Work Phone: 05-07-2021 Pfizer-BioNTech COVID-19 Vacc 30 MCG/0.3ML Intramuscular Suspension Rosa Agee Work Phone: [facility] 04-16-2021 Pfizer-BioNTech COVID-19 Vacc 30 MCG/0.3ML Intramuscular Suspension Rosa Agee Work Phone: [facility] 02-08-2018 meningococcal polysaccharide (groups A, C, Y and W-135) diphtheria toxoid conjugate vaccine (MCV4P) Rosa Kuns Other [facility] 02-18-2005 diphtheria, tetanus toxoids and acellular pertussis vaccine, unspecified formulation Rosa R Kuns Work Phone: [facility] 02-18-2005 measles, mumps and rubella virus vaccine Rosa Kuns Other [facility] 02-18-2005 poliovirus vaccine, inactivated Rosa Kuns Other [facility] 02-18-2005 poliovirus vaccine, unspecified formulation [facility] 01-25-2002 diphtheria, tetanus toxoids and acellular pertussis vaccine, unspecified formulation Rosa R Kuns Work Phone: [facility] 01-25-2002 poliovirus vaccine, inactivated Rosa Kuns Other [employer] Other 01-25-2002 poliovirus vaccine, unspecified formulation [facility] 10-02-2001 measles, mumps and rubella virus vaccine Rosa Kuns Other [facility] 10-02-2001 varicella virus vaccine Rosa Kuns Other [facility] 03-27-2001 diphtheria, tetanus toxoids and acellular pertussis vaccine, unspecified formulation Rosa R Kuns Work Phone: [facility] 03-27-2001 hepatitis B vaccine, pediatric or pediatric/adolescent dosage Rosa Kuns Other [facility] 03-27-2001 pneumococcal conjugate vaccine, 7 valent Rosa Kuns Other [facility] 03-27-2001 pneumococcal Conjugate, unspecified formulation [facility] 02-02-2001 diphtheria, tetanus toxoids and acellular pertussis vaccine, unspecified formulation Rosa R Kuns Work Phone: [facility] 02-02-2001 pneumococcal conjugate vaccine, 7 valent Rosa Kuns Other [employer] Other 02-02-2001 pneumococcal Conjugate, unspecified formulation [facility] 02-02-2001 poliovirus vaccine, inactivated Rosa Satyas Other [employer] Other 02-02-2001 poliovirus vaccine, unspecified formulation [facility] 2000 diphtheria, tetanus toxoids and acellular pertussis vaccine, unspecified formulation Rosa Agee Work Phone: [facility] 2000 pneumococcal conjugate vaccine, 7 valent Rosa Agee Other [employer] Other 2000 pneumococcal Conjugate, unspecified formulation [facility] 2000 poliovirus vaccine, inactivated Rosa Satyas Other [employer] Other 2000 poliovirus vaccine, unspecified formulation [facility] 2000 hepatitis B vaccine, pediatric or pediatric/adolescent dosage Rosa Agee Other [facility] NEGATED: Highlighted row has not occurred! 9 influenza, seasonal, injectable Patient Objection Rosa Agee Other [place] [employer] Other Payers Date Payer Category Payer Self-pay [id number] 2022 Private Health Insurance [id number] 2022 Private Health Insurance [id number] [id number] 2000 Unknown [id number] 2.16.840.1.922217.3.579. 2.356 2000 Unknown [id number] 2.16.840.1.478157.3.579. 2.356 2000 Unknown [id number] 2.16.840.1.045237.3.579. 2.356 2000 Unknown [id number] 2.16.840.1.939136.3.579. 2.1259 2000 Unknown [id number] 2.16.840.1.740532.3.579. 2.1259 2000 Unknown [id number] 2.16.840.1.681978.3.579. 2.1244 2000 Unknown [id number] 2.16.840.1.891886.3.579. 2.1244 1974 Unknown [id number] 2.16.840.1.869041.3.579. 2.593 1959 Private Health Insurance [id number] 2.16.840.1.880065.19 Unknown [facility] Unknown [place] BC/BS [id number] Unknown [id number] 2.16.840.1.941373.3.579. 2.531 Unknown [id number] 2.16.840.1.990045.3.579. 2.531 Unknown [id number] 2.16.840.1.359473.3.579. 2.531 Unknown [id number] 2.16.840.1.758411.3.579. 2.531 Unknown [id number] 2.16.840.1.470215.3.579. 2.531 Unknown [id number] 2.16.840.1.944054.3.579. 2.531 Unknown [id number] 2.16.840.1.795946.3.579. 2.531 Social History Date Type Detail Facility Start: 06-16-2023 End: 06-23-2023 No alcohol use No alcohol use [facility] [employer] Other Start: 06-16-2023 End: 06-23-2023 Sex Assigned At [facility] [address] [employer] Other Start: 2000 Sex Assigned At Female F [facility] Start: 04-24-2023 End: 08-12-2023 Tobacco smoking status NHIS Never smoked tobacco (finding) [facility] Start: 06-16-2023 Tobacco use and exposure Smokeless tobacco non-user [facility] Work Phone: Start: 06-23-2023 End: 03-23-2024 Alcohol intake Current drinker of alcohol (finding) [facility] Work Phone: Start: 2000 Sex Assigned At Not on file [facility] Work Phone: Start: 06-13-2023 End: 03-23-2024 Exposure to SARS-CoV-2 (event) Not sure [facility] Tobacco smoking status NHIS Tobacco smoking consumption unknown [facility] Start: 02-06-2024 Gender identity Identifies as female gender (finding) [facility] Start: 07-03-2024 Sex Female (finding) [facility] Goals Date Patient Goal Desired Activity /State Clinical Notes 11-13-2020 to 03-23-2024 Willy Escudero MD - 03/23/2024 8:40 AM EDTPatient InstructionsAttaTyler Rivera, PROSPER - 03/21/2024 2:50 PM EDTStiarra Ortiz LPN - 02/13/2024 1:10 PM EDT Note Date & Type Note [...] By signing my name below, I, Sayda Luisana Dallas LPNibtaryn attest that this documentation has been prepared [...] discussion and plan. documented in this encounter [facility] Work Phone: 03-23-2024 Instructions Sayda Centeno LPN [...] sent through Care Everywhere.Body Mass Index, Adult (Kinyarwanda)documented in this encounter [facility] Work Phone: 03-21-2024 History of Present illness [...] nursing note reviewed. Exam conducted with a funeral sales manager present. Vitals: There is no height or [...] Chel Rivera LPN on behalf of: Segun Camrichael DO documented in this encounter [facility] 02-13-2024 History of Present illness Narrative Reason for Appointment: Patient ID: Nuria Minaya is a 23 y.o. female who presents for Discuss PCOS Patient presents today for Consult appointment. MEDICATIONS Current Outpatient Medications Medication Instructions ondansetron (Zofran) 4 MG tablet 1 tablet [...] SYSTEMS Review of Systems: Review of Systems All other systems reviewed and are negative. OBJECTIVE Objective: Physical Exam Constitutional: Appearance: Normal appearance. She is well-developed. Cardiovascular: Rate and Rhythm: Normal rate and [...] nursing note reviewed. Exam conducted with a funeral sales manager present. Vitals: There is no height or weight on file to calculate BMI. BP: 108/68 Patient's last menstrual period was 02/03/2024. ASSESSMENT & PLAN ICD-10-CM 1. PCOS (polycystic ovarian syndrome) E28.2 Patient presents today for consult to discuss PCOS. Patient voiced that she has tried OCP, IUD and Nexplanon with no improvement. Patient does not desire to be on control as she has had issues with every type of control she has been on. Patient has never tried Metformin as discussed and patients main concern is ovarian cyst & wanting to be able to conceive. Patient does not desire to conceive at this time, but patient stated that she would like to have them in the future. Patient voiced that she has history of cyst and had an ultrasound done in the past few months at [facility]. Nursing will obtain US results. Discussed Metformin in the future to assist with symptoms. Patient to setup annual/review results appt in 4-6 weeks to review labs & US. Documented by Henrietta Ortiz LPN on behalf of: Segun Carmichael DO documented in this encounter [facility] 01-13-2024 Evaluation note Authored January 13, 2024 10:09am Negative CT scan, normal col onoscopy patient noted for abdominal discomfort and irregular bowel movements. Patient with predominance of IBS-C. Patient is negative for weight loss and rectal bleeding [facility] Work Phone: 1([phone]) 424-962506-17-2024 Evaluation note* Author Cuong Fletcher [facility] Authored December 05, 2023 11:2 3am Patient, positive for abdomi nal pain, bowel movements once or twice per week and abdominal cramping. As with Amilayneza patient notes nausea vomiting and abdominal discomfort with Trulance dosing [facility] Work Phone: 1([phone]) 473-891206-17-2024 Evaluation note* Author Cuong Naikformerly [facility] Authored December 05, 2023 11:2 3am Patient, positive for abdomi nal pain, bowel movements once or twice per week and abdominal cramping. As with Amitiza patient notes nausea vomiting and abdominal discomfort with Trulance dosing [facility] Authored January 13, 2024 10:[address] scan, normal col onoscopy patient noted for abdominal discomfort and irregular bowel movements. Patient with predominance of IBS-C. Patient is negative for weight loss and rectal bleeding [facility] Work Phone: 1([phone]) 947-938304-09-2024 Evaluation note* Author Celeste Hernández [facility] Authored September 27, 2023 9:14 am Sooner if needed, the ER if concerns,The above note written by Celeste Hernández LPN acting as human recorder, note dictated by Dr. Rosa Agee [facility] Work Phone: 1(738) 591-874704-09-2024 Evaluation note* Author Celeste Hernández [facility] Authored September 27, 2023 9:14 am Sooner if needed, the ER if concerns,The above note written by Celeste Hernández LPN acting as human recorder, note dictated by Dr. Rosa Agee Author Cuong [facility] Authored December 05, 2023 11:2 3am Patient, positive for abdomi nal pain, bowel movements once or twice per week and abdominal cramping. As with Amitiza patient notes nausea vomiting and abdominal discomfort with Trulance dosing [facility] Work Phone: 1(729) 130-711602-23-2024 [facility]* Encounter Date Diagnosis Assessment [...] Pt given samples of linzess- 6 boxes [employer] Other 01-04-2024 History of Present illness Narrative* [...] Ash. [facility]: 1(616) 158-851801-04-2024 Instructions* Patient Instructions* Adis Baugh MA - [...] visit. [facility]: 1(339) 454-115001-04-2024 Evaluation note* Encounter Date Diagnosis Assessment Notes [...] still being worked up by gastro and ROAD ROLLER OPERATOR. I do encourage patient to follow the plan of care. I also advised Linzess is not safe with Jun, Hyperlipidemia (ICD-10 - E78.5) [employer] Other 11-07-2023 Evaluation note* Encounter Date Diagnosis [...] constipation type (ICD-10 - K59.00) Review of [facility] [place] including CT scan and labs. [...] cyst noted upon CT imaging obtained at [facility] on 04/24/23.The patient does report left sided abdominal pain. The patient encouraged following with gynecology who she sees in [facility] . Apr, Leukocytes in urine (ICD-10 - R82.998) Small leukocytes noted upon in house urinalysis.The patient is asymptomatic at this time. Urine specimen sent for culture. Apr, Neurocardiogenic syncope (ICD-10 - R55) The patient is following with director of business systems , states she has been taken off [...] is safe and non addicting, instructions provided. [employer] Other 11-05-2023 Hospital Discharge instructions Additional Instructions 4 capfuls of MiraLAX in juice in the morning and then again in the evening if constipation continues.[facility] Work Phone: 1(168) 152-564011-01-2023 Evaluation note* Encounter Date Diagnosis Assessment Notes Treatment Notes Treatment Clinical Notes Apr, Hyperlipidemia (ICD-10 - E78.5) [employer] Other 03-22-2023 Evaluation note* Encounter Date Diagnosis [...] no improvement in 5 to 7 days [employer] Other 03-16-2023 Evaluation note* Encounter Date Diagnosis Assessment Notes Treatment Notes Treatment Clinical Notes Aug, Sore throat (ICD-10 - J02.9) [employer] Other 01-24-2023 Evaluation note* Encounter Date Diagnosis Assessment Notes Treatment Notes Treatment Clinical Notes Jun, Acute cough (ICD-10 - R05.1) Patient and Dr. Keane were made aware of positive findings. Dr. Keane recommended that she start atb/steriod regimen- see TE for further clinical documentation. [employer] Other 04-12-2022 Evaluation note* Encounter Date Diagnosis Assessment Notes Treatment Notes Treatment Clinical Notes Sep, Hyperlipidemia (ICD-10 - E78.5) [employer] Other 11-18-2021 Evaluation note* Encounter Date Diagnosis [...] pressure and follow with cardiology as scheduled. 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 Medical History Neurocardiogenic syncope Surgical History wisdom teeth [employer] Other Evaluation noteNo assessment information available [facility] Work Phone: Evaluation noteNo InformationNort [employer] Other Evaluation note* Diagnosis Neurologic cardiac syncope- Primary Syncope and collapse Palpitations Tachycardia Unspecified tachycardia documented in this encounter [facility] Work Phone: Evaluation note* Diagnosis Onset Date Resolution Status High risk sexual behavior ac sofi Vaginal discharge acute [facility] Work Phone: Evaluation note* Diagnosis Onset Date Resolution Status High risk sexual behavior ac sofi Vaginal discharge acute Constipation acute [facility] Work Phone: Evaluation note* Author Celeste Hernández [facility] Authored September 27, 2023 9:14 am Sooner if needed, the ER if concerns,The above note written by Celeste Hernández LPN acting as human recorder, note dictated by Dr. Rosa Agee [facility] Work Phone: Evaluation note* Diagnosis Tachycardia- Primary Unspecified tachycardia Neurologic cardiac syncope Syncope and collapse Palpitations BMI 25.0-25.9,adult documented in this encounter [facility] Work Phone: Evaluation note* Diagnosis Well woman exam with routine gynecological exam Routine gynecological examination Encounter to discuss test results Other specified counseling PCOS (polycystic ovarian syndrome) Polycystic ovaries Irregular periods [facility] Diagnosis PCOS (polycystic ovarian syndrome) Polycystic ovaries Irregular periods/menstrual cycles Cyst of ovary, unspecified laterality [facility] Diagnosis Onset Date Resolution Status Admit Date Bloating acute July 03, 2024 3:16pm Constipation acute June 3:16pm [facility] Work Phone: History and physical note Author Los Hartman [facility] August 12, 2023 11:05am Note Date/Time August 12, 2023 11:05am [facility] [address] [place] [address] Gastroenterology H&P Signed Patient: Nuria Minaya MR#: [id number] : 2000 Acct:[id number] Age/Sex: 22 / F Adm Date: 4 [...] signed by Los Hartman MD> 08/12/23 [address] [facility] Work Phone: Reason for referral (narrative)* Consultation (Routine) - Authorized Specialty Diagnoses / Procedures Referred By Contac t Referred To Contact Cardiology Diagnoses Neurologic cardiac syncope Procedures Follow Up In Cardiology Willy Escudero MD [address] [place] [address], [address] [address] Willy Escudero MD [address] [place] [address] [address], [address] [address] Referral ID Status Reason Start Date Expiration Date V isits Requested Visits Authorized [id number] Authorized 06/23/2023 06/22/2024 1 1 [facility] Work Phone: Reason for referral (narrative)* Consultation (Routine) - Authorized Specialty Diagnoses / Procedures Referred By Contac t Referred To Contact Cardiology Diagnoses Tachycardia Procedures Follow Up In Cardiology Willy Escudero MD [address] [facility] [address] [place] [address] Willy Escudero MD [address] [facility] [address] [place] [address] Referral ID Status Reason Start Date Expiration Date V isits Requested Visits Authorized [id number] Authorized 03/23/2024 03/23/[address] [facility] Work Phone: Chief Complaint * NURIA [...] shantelle with predominant constipation Right foot strain Chief Complaint Admit Date Amb Documentation April 06, 2024 8 :40am Amb Documentation April 06, 2024 8 :59am 6 MONTH FOLLOW UP / CONSTIPATION July 03, 2024 3:16pm Reason for Visit Admit Date Bloating July 03, 2024 3 :16pm Constipation July 03, 2024 3 :16pm Advance Directives Advance Directive Response Recorded Date/ [...] 9m Specialty Diagnoses / Procedures Referred By Frandy shaikh Referred To Contact Cardiology Diagnoses Neurologic cardiac syncope Procedures Follow Up In Cardiology Willy Escudero MD [address] [place] [address] 2, [address] [address] Willy Escudero MD [address] [place] [address] 2, [address] [address] Referral ID Status Reason Start Date Expiration Date V isits Requested Visits Authorized [id number] Authorized 06/23/2023 06/22/2024 1 1 Reason Comments Gynecologic Exam Pt present today for annual visit and discuss lab/US results. Pt was seen on 02/13/2024 for PCOS and orders were given to have done. Reason Comments Discuss PCOS Care Teams (unrecognized sec tion and content) Team Status: Active Member Role Status Brenda Agee DO Primary Care Provider Active Team Status: Active Member Role Status Brenda Agee DO Primary Care Provider Active Sta rt: April 06, 2024 Celeste Hernández LPN Attending Provider Active Sta rt: April 06, 2024 Team Status: Inactive Member Role Status Brenda Agee DO Primary Care Provider Active Sta rt: July 03, 2024 End: July 03, 2024 Cuong Fletcher APRN Attending Provider Active Start: July 03, 2024 End: July 03, 2024 Team Status: Inactive Member Role Status Brenda [...] Primary Care Provider, Attending Provi jie Active Aquatic Director Relationship Specialty Start Date End Date Rosa Agee DO [address] [place] [phone] PCP - General Family Medicine 06/23/23 Team [...] 2024 Team Status: Active Member Role Status Brenda Agee DO Primary Care Provider Active Sta rt: January 22, 2024 Nicole Martini APRN Attending Provider Active S tart: January 22, 2024 Aquatic Director Relationship Specialty Start Date End Date Rosa Agee DO [address] [place] [phone] PCP - General Family Medicine 03/21/24 Aquatic Director Relationship Specialty Start Date End Date Rosa Agee DO PCP - General Family Medicine 06/23/23 Aquatic Director Relationship Specialty Start Date End Date Rosa Agee DO [address] [facility] [place] [phone] PCP - General Family Medicine 03/21/24 Aquatic Director Relationship Specialty Start Date End Date Rosa Agee DO [address] [place] [phone] PCP - General Family Medicine 03/21/24 Team [...] March 29, 2024 End: March 29, 2024 Team Status: Active Member Role Status Dates Rosa Agee DO Primary Care Provider Active Sta rt: April 06, 2024 Celeste Hernández LPN Attending Provider Active Sta rt: April 06, 2024 Team Status: Inactive Member Role Status Dates Rosa Agee DO Primary Care Provider Active Sta rt: July 03, 2024 End: July 03, 2024 Cuong Fletcher APRN Attending Provider Active Start: July 03, 2024 End: July 03, 2024 Goals (unrecognized section and content) Goals may be documented in a n alternate section INFORMATION SOURCE (unrecogn ized section and content) DATE CREATED AUTHOR 10/22/2022 [facility] DATE CREATED AUTHOR AUTHOR'S ORGANIZ ATION 02/04/2023 [facility] DATE CREATED AUTHOR AUTHOR'S ORGANIZ ATION 02/05/2023 [employer] DATE CREATED AUTHOR AUTHOR'S ORGANIZ ATION 03/23/2024 [facility] EPIC DATE CREATED AUTHOR AUTHOR'S ORGANIZ ATION 03/25/2024 [facility] DATE CREATED AUTHOR AUTHOR'S ORGANIZ ATION 04/21/2024 [facility] FOR RECORDS PERTAINING TO PATIENTS [...] BE BASED ON THE PRIMARY CLINICAL RECORDS. [facility] [employer] provides no warranty or guarantee of the accuracy or completeness of information in this document.
== END 2024-07-17 15:20 | disposition home or self-care (01) ==
LOC: RAD 15:19
PROVIDERS: PCP Family Medicine; Visit Provider Podiatrist Foot & Ankle Surgery
DX: M25.571 Pain in right ankle and joints of right foot (principal)
CPT/HCPCS: 73610; 73630

== ENCOUNTER 2025-05-07 19:05 | Outpatient (REF) | payer OTHER, SELFPAY ==
--- OUTSIDE RECORDS SUMMARY | 2025-05-07 19:09 | XMS_ITS | CCD ---
Author Organization [facility] Care Team Providers Care Soil Science Technical Officer Name Role Phone Rosa Agee Unavailable Unavailable Unavailable Rosa Agee Unavailable DO Rosa Agee Primary Care Provider MD Miladis Morris Attending Provider MD Willy Escudero Referring Provider DO Rosa Agee Primary Care Provider [phone] MD Miladis Morris Attending Provider [phone] MD Willy Escudero Referring Provider PEPPER Campbell Attending Provider Latricia Campbell Unavailable DR ROSA AGEE Primary Care Unavailable DIAB ., OLU Attending Unavailable DIAB ., OLU Consulting Unavailable DIAB ., OLU Admitting Unavailable Chris, Dr. Rosa Sanchez Primary Care Unavaildanish Escudero, Dr. Oden Attending Unavaila ble Chris, Dr. Rosa Sanchez Primary Care Unavailabl e Zhanna, Dr. Oden Attending Unavaila hui Escudero, Dr. Oden Referring Unavaila hui Morris, Dr. Miladis Franco Attending Tiana vailable Alexandra, Dr. Miladis Franco Referring Tiana vailable Chris, Dr. Rosa Sanchez Primary Care Unavailabl e DO Rosa Agee Primary Care Provider MD Pastor Camilo Emergency Provider DO Rosa Agee Attending Provider [phone] Rosa Agee DO Primary Care Provider Cuong Fletcher Unavailable Kuns, DO Rosa Primary Care Provider [phone] PEPPER Campbell Attending Provider [phone] MD Los Hartman Attending Provider Kuns, DO Rosa Primary Care Provider PEPPER Campbell Attending Provider MD Los Hartman Attending Provider [phone] Satyas, DO Rosa Primary Care Provider MICHAEL Fletcher Attending Provider MICHAEL Martini Attending Provider [phone] SEGUN CARMICHAEL Attending Unavailable SEGUN CARMICHAEL Attending Unavailable WILLY ESCUDERO Attending Unavailable KUNS, ROSA R Primary Care Unavailable ZHANNA, PARKERF Attending Unavailable TRABDEMETRICE GOODENHAF Referring Unavailable KUNS, ROSA R Primary Care Unavailable Kuns Rosa MARRUFO R Primary Care Provider Satyas Rosa MARRUFO R Primary Care Provider Satyas, DO Rosa Primary Care Provider GLENNY Muniz Attending Provider [phone] Unavailable Primary Care Provider Unavailabl e Satyas Celina MARRUFOtt Primary Care Provider [phone] Cuong Fletcher APRN Attending Provider Kuns DO, Rosa Attending Provider [phone] Ashutosh Muniz Attending Unavailable Satyas, Rosa Primary Care Unavailable Ashutosh Muniz Admitting Unavailable Nicole Martini Admitting Unavailable Nicole Martini Attending Unavailable Kuns, Rosa Primary Care Unavailable Kuns, Rosa Admitting Unavailable Kuns, Rosa Attending Unavailable NON STAFF Primary Care Unavailable Kuns DO, Rosa R Primary Care Provider Allergies Allergy ClassificationReported Allergen(s)Allergy TypeDate of OnsetReaction(s) FacilityPenicillins (antibiotic) (2 sources)AmoxicillinDrug Dnxjcku84-69-4315gqjdWbobtvxjuThe [facility] (5 sources)Penicillins; Translations: [Penicillins]Allergy to drug (finding) 62-07-4347[place]ercLSMichel[place] [address] Repository (20 sources)Penicillin GDrug Adftgre33-03-4898nzwwTwtiopfwuThe [facility] (6 sources)PenicillinDrug Bgzqkpq73-00-8215PoreIammvjcznSt. Mary's [facility] (20 sources)Amoxicillin; Translations: [AMOXICILLIN]Drug Szfzdzo24-01-7901wyscAultman Hospital (1 source)AmoxicillinDrug AllergyHocking [facility] Repository (2 sources)PenicillinsDrug Lkxqrhjfjwx16-69-6751EeixNcpzfifosdMercy Health [facility] Hospital Work Phone: (8 sources)PenicillinsDrug Iobtefa35-22-5417Esmnp, Itching, RashNOMS Healthcare Work Phone: (5 sources)Sulfamethoxazole; Translations: [sulfamethoxazole]Drug Allergy 16-91-3622Moqdf [facility] (5 sources)Trimethoprim; Translations: [trimethoprim]Drug Cditbsc50-74-4386Yhenc [facility] (1 source)AmoxicillinDrug Zcpjboi65-92-2819KyecvkgzgHolzer Hospital Repository (1 source)PenicillinDrug Mbyhfle76-52-8881IzorhqmlcHolzer Hospital Repository Medications Current Medications MedicationDrug Class(es)DatesSig (Normalized)Sig (Original)hydrOXYzine hydrochloride 25 mg oral tablet (1 source)AntihistamineStart: 76-81-7548xtmw 1-2 tablets by mouth once daily as neededhydrOXYzine HCl 25 MG 1-2 tablet as needed Orally Once a day for 30 days Apr, Activemeclizine hydrochloride 25 mg oral tablet (8 sources)AntiemeticStart: 38-81-7577ylex 1 tablet by mouth once daily at bedtime as needed for sleepmeclizine (Antivert) 25 MG tablet TAKE 1 TABLET BY MOUTH EVERY DAY AT BEDTIME NEEDED FOR SLEEP FOR 90 DAYS 06/23/2023 Active Start: 06-23-2023 End: 84-72-7535wtvz 1 tablet by mouth at bedtime as needed for sleepmeloxicam 15 mg oral tablet (4 sources)Nonsteroidal Anti-inflammatory DrugStart: 32-27-6203fuxyytqaa (Mobic) 15 MG tablet 1 (one) time each day at the same time 02/28/2024 ActivemetFORMIN hydrochloride 500 mg oral tablet (12 sources)BiguanideStart: 02-13-2024 End: 56-85-4081psji 1 tablet by mouth once dailynitrofurantoin, macrocrystals 25 mg / nitrofurantoin, monohydrate 75 mg oral capsule (2 sources)Nitrofuran AntibacterialStart: 41-70-0405toau 1 capsule by mouth twice daily at mealtimeNo Name (No Known Home Meds) (2 sources)Start: 62-39-7837Rm Name (No Known Home Meds) Active April 23, 2023 11:00pmondansetron 4 mg oral tablet (9 sources)Serotonin-3 Receptor AntagonistStart: 14-00-4015mypo 1 tablet by mouth every six hours as needed for nauseaondansetron (Zofran) 4 MG tablet 1 tablet Orally q 6 hrs prn nausea for 30 days 12/09/2023 Activetake 1 tablet by mouth every eight hours as neededondansetron (Zofran) 4 mg tablet Take 1 tablet (4 mg) by mouth every 8 hours if needed for nausea or vomiting. ActivePneumatic Walking Boot (3 sources)Start: 46-31-0473Chvqbodwx Walking Boot Active 0 .Route 1 January 22, 2024 12:00am As directedpolyethylene glycol 3350 16437 mg powder for oral solution (1 source)Osmotic LaxativeMiraLax 17 GM 1 packet mixed with 8 ounces of fluid Orally Once a day Activetenapanor 50 mg oral tablet (3 sources)Start: 96-14-4206qnne 1 tablet by mouth once daily at dinner Completed/Discontinued Medications MedicationDrug Class(es)DatesSig (Normalized)Sig (Original)azithromycin 250 mg oral tablet (9 sources)Macrolide AntimicrobialStart: 83-88-8836Mzldvqcrw Z-Benjy 250 MG 2 tablets on the first day, then 1 tablet daily for 4 days Orally Once a dayfor 5 days Jun, Not-TakingStart: 35-57-3636Bmiismtjt Z-Benjy 250 MG as directed Orally as directed Jun, ActiveEthinyl Estradiol / Ferrous fumarate / Norethindrone (1 source)Estrogen End: 23-31-6603aoyy 1 tablet by mouth once dailynorethindrone-e.estradioL-iron (Lo Loestrin) 1 mg-10 mcg (24)/10 mcg (2) tablet Take 1 tablet by mouth once daily. 0 06/23/2023 Discontinued (Other)Norgestimate-Ethinyl Estradiol (11 sources)Progestin, EstrogenStart: 09-27-2023 End: 04-08-8847Funenfzkbwjb-Ethinyl Estradiol (Keyla) 0.25-35 mg-mcg tablet Discontinued 1 TAB PO As Directed 2023 11:00pm December 05, 2023 9:47am Start: 09-27-2023 End: 79-23-0681Jxwtytzlfqgv-Ethinyl Estradiol (Keyla) 0.25-35 mg-mcg tablet Discontinued 1 TAB PO As Directed 2023 12:00am December 05, 2023 10:47am Start: 00-93-5824Onvwcofovjpu-Ethinyl Estradiol (Keyla) 0.25-35 mg-mcg tablet Active 1 TAB PO As Directed September 27, 2023 12:00amfluocinonide 0.5 mg/ml topical solution (11 sources)CorticosteroidStart: 09-27-2023 End: 94-50-3096Nfogrhrhqkir 0.05 % solution Discontinued TOPICAL September 27, 2023 12:00am December 05, 2023 10:47amStart: 09-27-2023 End: 76-03-2530Odiglkprsoep Discontinued TOPICAL September 27, 2023 12:00am December 05, 2023 10:47amketoconazole 20 mg/ml medicated shampoo (11 sources)Azole AntifungalStart: 09-27-2023 End: 97-06-4643Oaazuqevevgx 2 % shampoo Discontinued TOPICAL September 27, 2023 12:00am December 05, 2023 10:47amStart: 09-27-2023 End: 94-03-7088Qzkdcbabjkiq Discontinued TOPICAL September 27, 2023 12:00am December 05, 2023 10:47amlinaclotide 0.072 mg oral capsule (20 sources)Guanylate Cyclase-C AgonistStart: 12-05-2023 End: 23-36-1416labz 1 capsule by mouth once dailyLinaclotide (Linzess) 72 mcg capsule Discontinued 72 MCG PO Daily 30 January 13, 2024 10:00am December 31, 2024 3:44pmStart: 88-06-4453Eekazvq 145 145mcg 1 PO Every AM Jun, Active Start: 04-26-2023 End: 80-06-0412mawm 1 capsule by mouth once dailyLinaclotide (Linzess) 72 mcg capsule Discontinued 72 MCG PO Daily 07 19August 12, 2023 1:00am September 09, 2023 2:31pm 1 capsule dailyStart: 49-33-9985Dksaqok 72 MCG 1 capsule at least 30 minutes before the first meal of the day on an empty stomach Orally Once a day for 30 days 2 samples provided Apr, Activelubiprostone 0.024 mg oral capsule (12 sources)Chloride Channel ActivatorStart: 09-09-2023 End: 36-32-7643iyoc 1 capsule by mouth twice dailyLubiprostone 24 mcg capsule Discontinued 24 MCG PO Twice daily 60 September 09, 2023 12:00am 2023 2:08pmStart: 09-09-2023 End: 17-74-0506jjpj 1 capsule by mouth twice dailyLubiprostone 24 mcg capsule Discontinued 24 MCG PO Twice daily 60 September 08, 2023 11:00pm 2023 1:08pmStart: 09-09-2023 End: 21-34-3884yjno 24 ug by mouth twice dailyLubiprostone Discontinued 24 MCG PO Twice daily 60 September 09, 2023 12:00am September 20, 2023 2:08pm methylPREDNISolone 4 mg oral tablet (13 sources)CorticosteroidStart: 04-06-2024 End: 50-27-3471jvsa 1 tablet by mouth onceMethylprednisolone (Medrol (Benjy)) 4 mg tablets,dose pack Discontinued 0 PO per package directions April 06, 2024 12:00am July 03, 2024 4:20pm PO PER PKG DIR for 6 daysStart: 02-17-8182ohcsdoBOWGCEDqiylg 4 MG as directed Orally as directed Jun, Not-Takingmetoprolol tartrate 25 mg oral tablet (20 sources)beta-Adrenergic BlockerStart: 09-08-2021 End: 00-32-4365snqm 1 tablet by mouth once dailyMetoprolol Tartrate 25 mg Tablet Discontinued 25 MG PO Daily June 22, 2022 1:00am April 9:43pm metroNIDAZOLE 500 mg oral tablet (15 sources)Nitroimidazole AntimicrobialStart: 08-10-2023 End: 75-11-7422pgdt 1 tablet by mouth twice dailyMetronidazole 500 mg tablet Discontinued 500 MG PO Twice daily 14 August 10, 2023 1:00am September 27, 2023 8:58amplecanatide 3 mg oral tablet (3 sources)Start: 09-20-2023 End: 45-49-8273ftke 1 tablet by mouth once dailyPlecanatide (Trulance) 3 mg tablet Discontinued 3 MG PO Daily September 20, 2023 12:00am December 05, 2023 10:47amPlecanatide (Trulance) 3 mg tablet (9 sources)Start: 09-20-2023 End: 45-05-0980xqyb 1 tablet by mouth once dailyPlecanatide (Trulance) 3 mg tablet Discontinued 3 MG PO Daily 90 September 19, 2023 11:00pm December 05, 2023 9:47amStart: 09-20-2023 End: 53-54-2421bxyq 1 tablet by mouth once dailyPlecanatide (Trulance) 3 mg tablet Discontinued 3 MG PO Daily 90 September 20, 2023 12:00am December 05, 2023 10:47amStart: 44-75-4825nfwv 1 tablet by mouth once dailyPlecanatide (Trulance) 3 mg tablet Active 3 MG PO Daily September 20, 2023 12:00amPneumatic Walking Boot unit (4 sources)Start: 01-22-2024 End: 05-19-9861Cjhvavxjm Walking Boot unit Discontinued 0 .Route 1 January 22, 2024 12:00am January 15, 2025 4:13pmAs directedStart: 63-65-9403Jqsgsvltd Walking Boot unit Active 0 .Route 1 January 22, 2024 12:00am As directedStart: 57-33-6594Tdttnvdgf Walking Boot unit Active 0 .Route January 21, 2024 11:00pm As directed Problems Active Problems Problem ClassificationProblemDateDocumented DateEpisodic/ChronicAbdominal pain (17 sources)Abdominal pain; Translations: [Unspecified abdominal pain]04-24-2023 EpisodicAdministrative/social admission (2 sources)Patient encounter status; Translations: [Person consulting for explanation of examination or test findings]42-78-7046MorfjvtfBiwftlu disorders (20 sources)Anxiety; Translations: [Anxiety disorder, unspecified]08-10-2023 ChronicCardiac dysrhythmias (20 sources)Tachycardia; Translations: [Tachycardia, unspecified]Onset: 05-07-2021 Resolved: 35-91-3132BvthhywqEluhgscro of lipid metabolism (20 sources)Hyperlipidemia; Translations: [Hyperlipidemia, unspecified]Onset: 09-29-2021 Resolved: 01-41-4900IggakieUpkoqyvaf hypertension (20 sources)Systolic hypertension; Translations: [Unspecified essential hypertension]49-97-4220TdumuvcDofrjhnxhjjdw symptoms and ill-defined conditions (13 sources)Leukocytes in urine; Translations: [Other abnormal findings in urine]Onset: 51-34-1273NagupjolJidyncqkuxcrj and screening for infectious disease (20 sources)Anti-nuclear factor positive; Translations: [Other specified abnormal immunological findings in serum]85-79-7978YrvpcqboFufsqgxchnlf; infection of eye (except that caused by tuberculosis or sexually transmitteddisease) (1 source)Unspecified conjunctivitis; Translations: [UNSPECIFIED CONJUNCTIVITIS] Onset: 28-81-3978KrlqstwcJalkokx and fatigue (18 sources)Asthenia; Translations: [Weakness]82-11-0334FckowtiuLqnlgamoit disorders (14 sources)Menopausal flushing; Translations: [Menopausal and female climacteric states]ChronicMenstrual disorders (4 sources)Irregular periods; Translations: [Irregular menstruation, unspecified]42-96-1084FllppwkPenge bone disease and musculoskeletal deformities (20 sources)Juvenile osteochondrosis of spine; 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, site unspecified]61-91-3114TdtfnyhRlmei connective tissue disease (4 sources)Foot pain; Translations: [Pain in right foot]24-44-4356EjtrcvazHflxz connective tissue disease (3 sources)Pain in right foot; Translations: [Pain in right foot]01-22-2024 EpisodicOther ear and sense organ disorders (3 sources)Otalgia, right ear; Translations: [OTALGIA RIGHT EAR]Onset: 29-10-2056WnjrvmdmSpjit endocrine disorders (4 sources)Polycystic ovary syndrome; Translations: [Polycystic ovarian syndrome]79-95-7764ZjwrigzErjgm female genital disorders (4 sources)Vaginal discharge; Translations: [Other specified noninflammatory disorders of vagina]27-31-4198TkthbaqzImtyt female genital disorders (4 sources)Other specified noninflammatory disorders of vagina; Translations: [Leukorrhea, not specified as infective]44-94-4270IgjmulhoIwzsr gastrointestinal disorders (10 sources)Irritable bowel syndrome characterized by constipation; Translations: [Irritable bowel syndrome with constipation]75-45-5907XjbamylSkcxf gastrointestinal disorders (3 sources)Irritable bowel syndrome with constipation; Translations: [Irritable bowel syndrome]79-01-4726JondzyfXdcwg gastrointestinal disorders (20 sources)Constipation; Translations: [Constipation, unspecified]04-24-2023 EpisodicOther gastrointestinal disorders (13 sources)Constipation, unspecified; Translations: [Constipation, unspecified] EpisodicOther gastrointestinal disorders (7 sources)Abdominal bloating; Translations: [Abdominal distension (gaseous)] 72-29-6242UtezjjhrQyits gastrointestinal disorders (1 source)Abdominal distension (gaseous); Translations: [Flatulence, eructation, and gas pain]06-92-5156HgyihxaoGuxdv nervous system disorders (20 sources)Polyneuropathy; Translations: [Polyneuropathy, unspecified] 36-58-2592AghusxwKljoy nervous system disorders (14 sources)Numbness of lower limb ; Translations: [Anesthesia of skin]Episodic Other non-traumatic joint disorders (1 source)Pain in right wristEpisodicOther nutritional; endocrine; and metabolic disorders (6 sources)Overweight in adulthood with body mass index of 25 or more but less than 30; Translations: [Overweight]Onset: 300207-01-0047OwlzoygoBlenz nutritional; endocrine; and metabolic disorders (2 sources)Body mass index (BMI) 25.0-25.9, adult; Translations: [Body mass index (BMI) 25.0-25.9, adult]Onset: 38-03-0658AixfhopwJdtaf upper respiratory infections (1 source)Acute pharyngitis, unspecifiedEpisodicOtitis media and related conditions (1 source)Otitis media, unspecified, right ear; Translations: [OTITIS MEDIA UNSPECIFIED RIGHT EAR]Onset: 50-30-8281BbhvzbspIdquegme codes; unclassified (20 sources)Difficulty sleeping ; Translations: [Sleep disorder, unspecified] 58-24-0957FfnkkgraSgxvixzi codes; unclassified (5 sources)Sleep disorder, unspecified; Translations: [Sleep disturbance, unspecified]EpisodicResidual codes; unclassified (4 sources)Flushing; Translations: [Flushing]28-45-3794BpmskjmmFtupfptg codes; unclassified (4 sources)High risk sexual behavior; Translations: [High risk heterosexual behavior]08-17-4871AemjvfnuNcodqspx codes; unclassified (4 sources)High risk heterosexual behavior; Translations: [High-risk sexual behavior]89-12-2677VghwepykMlkpmpck codes; unclassified (4 sources)History of operation on musculoskeletal system; Translations: [Other specified postprocedural states]44-28-8982GohmewioEqqftxlxeez; intervertebral disc disorders; other back problems (20 sources)Displacement of thoracic intervertebral disc without myelopathy; Translations: [Other intervertebral disc displacement, thoracic region] 52-25-3608FjrotbcRpsofpwbhut; intervertebral disc disorders; other back problems (14 sources)Low back pain; Translations: [Low back pain]EpisodicSprains and strains (11 sources)Unspecified sprain of right wrist, initial encounter; Translations: [Strain of foot]Episodic Past or Other Problems Problem ClassificationProblemDateDocumented DateEpisodic/ChronicOther connective tissue disease (1 source)Pain in right foot; Translations: [Pain in right foot]Onset: 17-46-8709BaipcixyOibnfoe cyst (7 sources)Cyst of left ovary; Translations: [Unspecified ovarian cyst, left side]EpisodicResidual codes; unclassified (2 sources)Body mass index 20-24 - normal; Translations: [Body mass index (BMI) 24.0-24.9, adult]Onset: 06-23-2023 Resolved: 471666-04-2120InlyxayqPqtcdof (11 sources)Vasovagal syncope; Translations: [Syncope and collapse]Onset: 04-18-8306FpokndedTwlkgdngtwjl (4 sources)Never smoked tobacco; Translations: [Never a smoker]Unclassified (1 source)Acute cough R05.1 Results Test NameValueInterpretationReference RangeFacilityUrine Cultureon 01-15-2025 Bacteria identified Cx Nom (U)<9,000 colonies/ml mixed bacterial skin contaminants 2 Days PERFORMED BY: [place] [address] PATHOLOGIST PAINT SPRAY TENDER EFREN SPARKS M.D.NormalNorth Shore Medical Center Physician GroupComment on above: Performed By: #### CUU #### [place] [address] USABasophils Auto (Bld) [#/Vol]on 74-95-6057Kaysmtakg (Bld) [#/Vol]0.0 10 3/uL0.0-0.1FBarney Children's Medical CenterBasophils/100 WBC Auto (Bld)on 86-30-9396Zsahfihze/100 WBC (Bld)0.2 %0.2-2.0[facility] HospitalEosinophils/100 WBC Auto (Bld)on 76-01-5639Vhxvzjspkxy/100 WBC (Bld)0.9 % 0.9-7.0[facility] HospitalErythrocyte distribution width Auto (RBC) [Ratio]on 08-50-6676Sdlapwdafho distribution width (RBC) [Ratio]12.5 % 11.0-15.0[facility] HospitalHematocrit Auto (Bld) [Volume fraction]on 17-24-6994Ucequvfkbw (Bld) [Volume fraction]40.8 %36.0-48.0[facility] HospitalHemoglobin [Mass/volume] in Bloodon 63-87-7630Nbqxznguis (Bld) [Mass/Vol]14.5 g/dL12.0-16.0Holzer HospitalLon 86-86-7721CValcxgnx: [id number] Received: 03/30/24 Status: NIALL Lastmaribeth Num: [id number] Spec Type: Surgical Subm Dr: Ashutosh Muniz DPM, [place] Tissues: A Tendon/Sheath (RT PERONEAL TENDON) Procedures: HE, Gross/Micro L3 Age/ Patient Sex Location Account Attending Physician MinayaNuria Bren / LABELL [id number] Ashutosh Muniz DPM, MS SPEC NUM: [id number] RECD: 03/30/24 STATUS: ZACHApple MARTINEZ NUM: [id number] VIDA: 03/29/[address]: Ashutosh Muniz DPM, MS ENTERED: 03/30/24 [facility] DR: Lyla Ayala SPEC TYPE: Surgical DEPT: FARHAD GIRALDO ENTERED BY: [id number] RECV BY: [id number] ORDERED: HE, Gross/Micro L3 ORDERED: HE, Gross/Micro [...] A1. Microscopic Description Microscopic examination. CPT Codes 65652 Specimen: [id number] Received: 03/30/24-1500 Status: NIALL Martinez Num: [id number] Spec Type: Surgical Subm Dr: Ashutosh Muniz,GLENNY, MS Tissues: A Tendon/Sheath (RT PERONEAL TENDON) Procedures: Lindsay CARL/aMggi L3 Patient: Nuria Minaya [id number] (Continued) Signed (signature on file) Vincenzo Connolly MD 04/19/24 0959Normal [facility] Physician GroupLaboratory - Hematology and Cell countson 71-18-9615Pliytnzh granulocytes/100 WBC (Bld)0.2 %0.0-0.5FBarney Children's Medical CenterLeukocytes [#/volume] corrected for nucleated erythrocytes in Blood by Automated counon 50-49-9969XNL corrected for nucl RBC Auto (Bld) [#/Vol]8.2 10 3/uL4.0-11.0Holzer HospitalLymphocytes Auto (Bld) [#/Vol]on 43-38-0376Jtggkqqnqux (Bld) [#/Vol]2.5 10 3/uL1.2-3.8Hol[facility] HospitalLymphocytes/100 WBC Auto (Bld)on 03-29-2024 Lymphocytes/100 WBC (Bld)30.3 %20.5-60.0[facility] HospitalH Auto (RBC) [Entitic mass]on 36-17-1286DAZ (RBC) [Entitic mass]32.2 pg26.7-34.0 [facility] HospitalHC Auto (RBC) [Mass/Vol]on 45-65-8410TUQU (RBC) [Mass/Vol]35.5 g/sDPezh13.9-35.2FCoshocton Regional Medical CenterV Auto (RBC) [Entitic vol]on 51-55-2182THC (RBC) [Entitic vol]90.7 fL81.0-99.0[facility] HospitalMonocytes Auto (Bld) [#/Vol]on 77-62-6836Szipyrgkc (Bld) [#/Vol]0.5 10 3/uL0.3-0.8[facility] HospitalMonocytes/100 WBC Auto (Bld)on 84-68-4977Tcqrqdsra/100 WBC (Bld)5.8 %1.7-12.0[facility] HospitalNeutrophils Auto (Bld) [#/Vol]on 80-59-5710Fpqbfxqwatr (Bld) [#/Vol]5.1 10 3/uL1.4-6.5FBarney Children's Medical CenterNeutrophils/100 WBC Auto (Bld)on 46-92-7818Dmccyobpqra/100 WBC (Bld)62.6 %43.0-75.0Holzer HospitalNo Panel Informationon 28-17-9799Mndiqjkasak # (Auto)0.1 10 3/uL0.0-0.7FBarney Children's Medical CenterHuman Chorionic Gonadotropin, QualNegativeNEGATIVEHolzer HospitalImmature Granulocyte # (Auto)0.02 10 3/uL0.00-0.03Firelands Regional Medical CenterPlatelet mean volume Auto (Bld) [Entitic vol]on 90-93-9507Sfccbpmc mean volume (Bld) [Entitic vol] 10.5 fL9.5-13.5FBarney Children's Medical CenterPlatelets Auto (Bld) [#/Vol]on 22-84-7043Zmwfgorez (Bld) [#/Vol]216 10 3/gX970-029GhdyittshHolzer HospitalRBC Auto (Bld) [#/Vol]on 20-42-0906SGL (Bld) [#/Vol]4.50 10 6/uL4.20-5.40 [facility] HospitalIGP,APTIMA HPV,AGE GDLNon 57-47-0972SNW GDLN ACOG TESTINGNote.NOMS HealthcareComment on above:TESTS RESULT FLAG UNITS REF RANGE LAB Clinician Provided Cytology Information Source.............Cervix;Endocervix No. of containers..01 ThinPrep Vial Age Algo ACOG Gricelda... -18 07 FLAG LEGEND: L-Low Normal,H-High Normal,LL-Alert Low,HH-Alert High <-Panic Low,>-Panic High,A-Abnormal,AA-Critical Abnormal Performed at: 01 =G [facility] [address] [place] [address] Kaela Garcia MD, IGP, RFX APTIMA HPV ASCUNote.NOMS [facility] County HospitalComment on above:TESTS RESULT FLAG UNITS REF RANGE LAB DIAGNOSIS: 02 NEGATIVE FOR INTRAEPITHELIAL LESION OR MALIGNANCY. Specimen adequacy: 02 Satisfactory for evaluation. Endocervical and/or squamous metaplastic cells (endocervical component) are present. Partially obscuring thick areas are present. Performed by: 02 Ciarra Caballero, Veterans' Coordinator ([facility]) . 02 Note: Note 02 The Pap smear is a screening test designed to aid in the detection of premalignant and malignant conditions of the uterine cervix. It is not a diagnostic procedure and should not be used as the sole means of detecting cervical cancer. Both false-positive and false-negative reports do occur. Test Methodology: Note 02 The Forrst(R) Emergency Vehicle Technician was unable to read this specimen. Therefore a manual review was performed. FLAG LEGEND: L-Low Normal,H-High Normal,LL-Alert Low,HH-Alert High <-Panic Low,>-Panic High,A-Abnormal,AA-Critical Abnormal Performed at: [address] [facility] [place] [address] Kaela Garcia MD, . 02 The HPV DNA reflex criteria were not met with this specimen result therefore, no HPV testing was performed. The HPV DNA reflex criteria were not met with this specimen result therefore, no HPV testing was performed. Performed at: =G - [facility] [address], [place] [id number] Equal Opportunity Assistant: Kaela Garcia MD, Phone: [phone] Performed at: [facility], [place] [id number] Equal Opportunity Assistant: Kaela Garcia MD, Phone: [phone] BRUSH-SPATULA CERVIX ENDOCERVIX [facility] papilloma virus 16+18+31+33+35+39+45+51+52+56+58+59+66+68 DNA [Presence] in Kaylynn 92-42-2372QVK 16+18+31+33+35+39+45+51+52+56+58+59+66+68 DNA Probe+sig amp Ql (Cvx)Note. [facility] HospitalComment on above:TESTS RESULT FLAG UNITS REF RANGE LAB DIAGNOSIS: 02 NEGATIVE FOR INTRAEPITHELIAL LESION OR MALIGNANCY.Specimen adequacy: 02 Satisfactory forevaluation. Endocervical and/or squamous metaplastic cells (endocervical component) are present. Partially obscuring thick areas are present.Performed by: Patricia Caballero, Veterans' Coordinator ([facility]). 02Note: Note 02 The Pap smear is a screening test designed to aid in the detection of premalignant and malignant conditions of the uterine cervix. It is not a diagnostic procedure and should not be used as the sole means of detecting cervical cancer. Both false-positive and false-negative reports do occur.Test Methodology: Note 02 The Forrst(R) Emergency Vehicle Technician was unable to read this specimen. Therefore a manual review was performed. FLAG LEGEND: L-Low Normal,H-High Normal,LL-Alert Low,HH-Alert High <-Panic Low,>- Panic High,A-Abnormal,AA-Critical Abnormal Performed at:02 [facility] [address] [place] [address] Kaela Garcia MD, . 02 The HPV DNA reflex criteria were not met with this specimen result therefore, no HPV testing was performed.The HPV DNA reflex criteria were not met with this specimenresult therefore, no HPV testing was performed.Performed at: =G - [facility] [address] [id number] Director: Kaela Garcia MD, Phone: [phone] at: WB - [facility] [address] [id number] Director: Kaela Garcia MD, Phone: [phone] Panel Informationon 80-81-1019Kcdlrtglg Lab Test Patient AgeJose D.Holzer HospitalComment on above:TESTS RESULT FLAG UNITS REF RANGE LAB Clinician Provided Cytology Information Source.............Cervix;Endocervix No. of containers..01 ThinPrep VialAge Lisa GRANT Gricelda... FLAG LEGEND: L-Low Normal,H-High Normal,LL-Alert Low,HH-Alert High <-Panic Low,>-Panic High,A- Abnormal,AA-Critical Abnormal Performed a t:01 =G [facility] [address] [place] [address] Kaela Garcia MD, Byimmmuii Auto (Bld) [#/Vol]on 26-63-9499Dfuudewlq (Bld) [#/Vol]0.0 10 3/uL0.0-0.1FBarney Children's Medical CenterBasophils/100 WBC Auto (Bld)on 25-17-7808Bkhlqestt/100 WBC (Bld)0.4 %0.2-2.0Holzer HospitalEosinophils/100 WBC Auto (Bld)on 68-17-5639Vcpcfxzntkj/100 WBC (Bld)0.9 %0.9-7.0Holzer HospitalErythrocyte distribution width Auto (RBC) [Ratio]on 31-52-6567Bvodziplswr distribution width (RBC) [Ratio]12.8 %11.0-15.0Holzer HospitalEstimated glomerular filtration rate (GFR) non- Americanon 20-66-8166HZK/1.73 sq M.predicted among non-blacks MDRD (S/P/Bld) [Vol rate/Area]mL/min/{1.73_m2}>=60Holzer HospitalHematocrit Auto (Bld) [Volume fraction]on 32-64-5695Hyvappowjh (Bld) [Volume fraction]40.2 %36.0-48.0Holzer HospitalHemoglobin [Mass/volume] in Bloodon 10-28-1425Zfjczrewlg (Bld) [Mass/Vol]13.8 g/dL12.0-16.0 [facility] HospitalLaboratory - Chemistry and Chemistry - challengeon 77-44-5445Ikqktbn [Mass/Vol]8.5 mg/dL8.5-10.1FBarney Children's Medical CenterChloride [Moles/Vol]105 mmol/Y97-024MygfnmqjnHolzer HospitalCO2 [Moles/Vol]29.3 mmol/L21.0-32.0[facility] Creatinine [Mass/Vol]0.57 mg/dL0.55-1.02[facility] GFR/1.73 sq M.predicted MDRD (S/P/Bld) [Vol rate/Area]mL/min/{1.73_m2}>=60 Holzer HospitalGlucose [Mass/Vol]87 mg/bS94-563OunzkfvmuHolzer HospitalPotassium [Moles/Vol]3.8 mmol/L3.5-5.1FMercy Health – The Jewish Hospitalodium [Moles/Vol]138 mmol/F573-046EaoycxjufHolzer HospitalUrea nitrogen [Mass/Vol]20.0 mg/dLHigh7.0-18.0Holzer HospitalUrea nitrogen/Creatinine [Mass ratio]35.1 mg/mgHolzer HospitalLaboratory - Hematology and Cell countson 36-14-9219Jtbfzzok granulocytes/100 WBC (Bld)0.1 %0.0-0.5FBarney Children's Medical Center Leukocytes [#/volume] corrected for nucleated erythrocytes in Blood by Automated counon 32-34-3758ZAQ corrected for nucl RBC Auto (Bld) [#/Vol]6.7 10 3/uL 4.0-11.0Holzer HospitalLymphocytes Auto (Bld) [#/Vol]on 67-38-4879Coqglwcxzou (Bld) [#/Vol]1.8 10 3/uL1.2-3.8Holzer HospitalLymphocytes/100 WBC Auto (Bld)on 44-99-2860Fuxdeemzozo/100 WBC (Bld)27.1 % 20.5-60.0Holzer HospitalMCH Auto (RBC) [Entitic mass]on 82-08-3154BNN (RBC) [Entitic mass]32.1 pg26.7-34.0Holzer HospitalMCHC Auto (RBC) [Mass/Vol]on 18-59-0521NVXK (RBC) [Mass/Vol]34.3 g/dL 29.9-35.2FBarney Children's Medical CenterMCV Auto (RBC) [Entitic vol]on 74-45-5999OAD (RBC) [Entitic vol]93.5 fL81.0-99.0Holzer HospitalMonocytes Auto (Bld) [#/Vol]on 21-27-4978Rldhlnkyv (Bld) [#/Vol]0.4 10 3/uL0.3-0.8Holzer HospitalMonocytes/100 WBC Auto (Bld)on 79-49-5572Omoouxdiv/100 WBC (Bld)6.3 %1.7-12.0[facility] Neutrophils Auto (Bld) [#/Vol]on 59-12-7489Rplavqejstp (Bld) [#/Vol]4.4 10 3/uL 1.4-6.5FBarney Children's Medical CenterNeutrophils/100 WBC Auto (Bld)on 47-46-4443Qumvenbdtdn/100 WBC (Bld)65.2 %43.0-75.0Holzer HospitalNo Panel Informationon 76-72-1499Exibjwyfojm # (Auto)0.1 10 3/uL0.0-0.7 Holzer HospitalImmature Granulocyte # (Auto)0.01 10 3/uL 0.00-0.03Holzer HospitalPlatelet mean volume Auto (Bld) [Entitic vol]on 06-10-4729Skufxeyi mean volume (Bld) [Entitic vol]10.5 fL 9.5-13.5FBarney Children's Medical CenterPlatelets Auto (Bld) [#/Vol]on 22-08-4260Gxqsqpula (Bld) [#/Vol]222 10 3/hS910-041KkgmnvsloHolzer HospitalRBC Auto (Bld) [#/Vol]on 43-35-3581ACL (Bld) [#/Vol]4.30 10 6/uL4.20-5.40 [facility] Cantonerum or plasma anion gap determinationon 34-75-8796Uddtg gap [Moles/Vol]7.5 mmol/LFBarney Children's Medical CenterHCG ( test) IA.rapid Ql (U)on 65-63-0973QGH ( test) Ql (U)Negative NEGATIVEHolzer HospitalUS PELVIS W/ TRANSVAGINALon 02-21-2024 [place] [address] Ultrasound Report Signed Patient: NURIA MINAYA MR#: [id number] : 2000 Acct:[id number] Age/Sex: 23 / F ADM Date: 02/17/24 Loc: US Attending Dr: Segun Carmichael D.O. Ordering Physician: Segun Carmichael D.O. Date of Service: 02/17/24 Procedure(s): US pelvis w/ transvaginal Accession Number(s): [id number] cc: Segun Carmichael D.O.; [place] [address] Patient Name: NURIA MINAYA MRN: [id number] date: 2000 Sex: F Assigned Patient Location: US Current Patient Location: Accession/Order Number: [id number] Exam Date: 02/17/2024 13:09 Report Date: 02/21/2024 05:55 At the request of: SEGUN CARMICHAEL Procedure: US pelvis w/ transvaginal EXAMINATION: US pelvis w/ transvaginal HISTORY: Polycystic Ovarian Syndrome E28.2, Irregular Periods COMPARISON: No relevant comparison available. TECHNIQUE: Transabdominal and/or transvaginal sonographic examination was performed as indicated by examination type. FINDINGS: UTERUS: Normal size and appearance. Uterus size: 8.1 x 3.9 x 4.3 cm ENDOMETRIUM: Normal homogeneous appearance. Endometrial thickness: 8 mm RIGHT OVARY: Contains a 1.2 cm slightly complex cyst. Multiple small follicles. Duplex Doppler demonstrates normal waveform and flow; resistive index 0.5. Ovary size: 4.2 x 2.2 x 3.2 cm LEFT OVARY: Contains multiple small follicles. Duplex Doppler demonstrates normal waveform and flow; resistive index 0.6. Ovary size: 3.4 x 1.8 x 2.0 cm CUL-DE-SAC: Unremarkable. No significant free fluid. BLADDER: Unremarkable. OTHER: None. US/US pelvis w/ transvaginal IMPRESSION: 1. Both ovaries contain numerous small follicles. The pattern and distribution is not classic, but polycystic ovarian syndrome cannot be excluded. Electronically authenticated by: WAYNE FRANKLIN Date: 02/21/2024 05:55 Dictated By: Wayne Franklin M.D. Signed By: 02/21/24 0558 DD/ 0555 TD/TT: Gas Treater:TBHRadiology, Radiologist, - 02/21/2024 [place] [address] Ultrasound Report Signed Patient: NURIA MINAYA MR#: [id number] : 2000 Acct:[id number] Age/Sex: 23 / F ADM Date: 02/17/24 Loc: US Attending Dr: Segun Carmichael D.O. Ordering Physician: Segun Carmichael D.O. Date of Service: 02/17/24 Procedure(s): US pelvis w/ transvaginal Accession Number(s): [id number] cc: Segun Carmichael D.O.; [place] [address] Patient Name: NURIA MINAYA MRN: [id number] date: 2000 Sex: F Assigned Patient Location: Current Patient Location: Accession/Order Number: [id number] Exam Date: 02/17/2024 13:09 Report Date: 02/21/2024 05:55 At the request of: SEGNU CARMICHAEL Procedure: US pelvis w/ transvaginal EXAMINATION: US pelvis w/ transvaginal HISTORY: Polycystic Ovarian Syndrome E28.2, Irregular Periods COMPARISON: No relevant comparison available. TECHNIQUE: Transabdominal and/or transvaginal sonographic examination was performed as indicated by examination type. FINDINGS: UTERUS: Normal size and appearance. Uterus size: 8.1 x 3.9 x 4.3 cm ENDOMETRIUM: Normal homogeneous appearance. Endometrial thickness: 8 mm RIGHT OVARY: Contains a 1.2 cm slightly complex cyst. Multiple small follicles. Duplex Doppler demonstrates normal waveform and flow; resistive index 0.5. Ovary size: 4.2 x 2.2 x 3.2 cm LEFT OVARY: Contains multiple small follicles. Duplex Doppler demonstrates normal waveform and flow; resistive index 0.6. Ovary size: 3.4 x 1.8 x 2.0 cm CUL-DE-SAC: Unremarkable. No significant free fluid. BLADDER: Unremarkable. OTHER: None. US/US pelvis w/ transvaginal IMPRESSION: 1. Both ovaries contain numerous small follicles. The pattern and distribution is not classic, but polycystic ovarian syndrome cannot be excluded. Electronically authenticated by: WAYNE FRANKLIN Date: 02/21/2024 05:55 Dictated By: Wayne Franklin M.D. Signed By: 02/21/2458 DD/ 4 TD/TT: Gas Treater: [facility] HospitalRadiology Study observation (narrative)[facility] HospitalUS PELVIS W/ TRANSVAGINALOrdered By: Radiologist Radiology on 65-25-8288EMFHSouthPointe Hospital Work Phone: all CBC WITH AUTO DIFFon 31-13-4638VGTOOASVZ ABSOLUTE AUTO0.0NOSouthPointe HospitalBasophils/100 WBC (Bld)0.2 %0.2 - 2.0 %[facility] Eosinophils/100 WBC (Bld)0.1 %Low0.9 - 7.0 %[facility]Pointe HospitalErythrocyte distribution width (RBC) [Ratio]12.7 %11.0 - 15.0 %[facility] HospitalHematocrit (Bld) [Volume fraction]44.7 %36.0 - 48.0 %[facility] HospitalHemoglobin (Bld) [Mass/Vol]15.3 g/dL12.0 - 16.0 g/dLSouthPointe HospitalIMMATURE GRANULOCYTES ABS AUTO 0.05HighNOSouthPointe HospitalImmature granulocytes/100 WBC (Bld)0.4 %0.0 - 0.5 %[facility]inte HospitalInterpretation and review of laboratory resultsAbnormalNOSouthPointe Hospital LYMPHOCYTES ABSOLUTE AUTO1.4NOSouthPointe HospitalLymphocytes/100 WBC (Bld)11.6 %Low 20.5 - 60.0 %[facility] HealthcareH (RBC) [Entitic mass]31.4 pg26.7 - 34.0 pgNOJohn J. Pershing VA Medical CenterHC (RBC) [Mass/Vol]34.2 g/dL29.9 - 35.2 g/dLNOMS HealthcareMCV (RBC) [Entitic vol]91.8 fL81.0 - 99.0 fLJORDAN VALLEY MEDICAL [facility]ENTER [facility] HealthcareMONOCYTES ABSOLUTE AUTO0.3NOSD HealthcareMonocytes/100 WBC (Bld)2.5 %1.7 - 12.0 %[facility] HealthcareNEUTROPHILS ABSOLUTE AUTO10.4HighNOSD HealthcareNeutrophils/100 WBC (Bld)85.2 %High43.0 - 75.0 %[facility]inte HospitalPlatelet mean volume (Bld) [Entitic vol]10.5 fL9.5 - 13.5 fLSouthPointe HospitalTBH EO #0.0NOSouthPointe HospitalTBH [id number] HospitalTBH RBC4.87 [facility]inte HospitalTB WBC12.2HighSouthPointe HospitalCLINISYNCNOMS HealthcareBasophils Auto (Bld) [#/Vol]on 72-39-0023Oldtbjdri (Bld) [#/Vol]0.0 10 3/uL0.0-0.1 [facility]zer HospitalBasophils/100 WBC Auto (Bld)on 02-17-2024 Basophils/100 WBC (Bld)0.2 %0.2-2.0[facility] Eosinophils/100 WBC Auto (Bld)on 41-58-8433Dkpcyyylbwl/100 WBC (Bld)0.1 %Low 0.9-7.0Holzer HospitalErythrocyte distribution width Auto (RBC) [Ratio]on 73-83-8907Bqooqwejqjl distribution width (RBC) [Ratio]12.7 % 11.0-15.0Holzer HospitalGlucose mean value [Mass/volume] in Blood Estimated from glycated hemoglobinon 00-42-4058Iskkvdd glucose Estimated from glycated hemoglobin (Bld) [Mass/Vol]85 mg/dLHolzer HospitalHematocrit Auto (Bld) [Volume fraction]on 98-87-7797Areiopgcan (Bld) [Volume fraction]44.7 %36.0-48.0Holzer HospitalHemoglobin [Mass/volume] in Bloodon 85-93-4894Xpjdkytdqj (Bld) [Mass/Vol]15.3 g/dL12.0-16.0 [facility] HospitalLaboratory - Chemistry and Chemistry - challengeon 41-50-3758Qktc T4 [Mass/Vol]0.98 ng/dL0.76-1.46Holzer HospitalTS Qn0.827 m[IU]/L0.358-3.740[facility] Laboratory - Hematology and Cell countson 40-89-4500TyE8q (Bld) [Mass fraction] 4.6 %4.5-6.2FBarney Children's Medical CenterComment on above:ADA RECOMMENDED LIMIT 4.0 - 6.0ADA THERAPEUTIC TARGET < 7.0ACTION SUGGESTED> 7.0Immature granulocytes/100 WBC (Bld)0.4 %0.0-0.5FBarney Children's Medical Center Leukocytes [#/volume] corrected for nucleated erythrocytes in Blood by Automated counon 59-06-5087QUD corrected for nucl RBC Auto (Bld) [#/Vol]12.2 10 3/uLHigh 4.0-11.0Holzer HospitalLymphocytes Auto (Bld) [#/Vol]on 23-38-0790Jlsmuzjhboh (Bld) [#/Vol]1.4 10 3/uL1.2-3.8Holzer HospitalLymphocytes/100 WBC Auto (Bld)on 99-49-3379Gztbgopldum/100 WBC (Bld)11.6 % Low20.5-60.0[facility] Auto (RBC) [Entitic mass]on 68-29-8035KKQ (RBC) [Entitic mass]31.4 pg26.7-34.0Holzer HospitalMCHC Auto (RBC) [Mass/Vol]on 01-67-5371QPYR (RBC) [Mass/Vol]34.2 g/dL 29.9-35.2FBarney Children's Medical CenterMCV Auto (RBC) [Entitic vol]on 26-38-3934QAU (RBC) [Entitic vol]91.8 fL81.0-99.0Holzer HospitalMonocytes Auto (Bld) [#/Vol]on 98-52-9923Patbrznpk (Bld) [#/Vol]0.3 10 3/uL0.3-0.8Holzer HospitalMonocytes/100 WBC Auto (Bld)on 39-89-2848Zsekjzmto/100 WBC (Bld)2.5 %1.7-12.0[facility] Mullerian inhibiting substance [Mass/volume] in Serum or Plasmaon 02-17-2024 Mullerian inhibiting substance [Mass/Vol]9.99 ng/mL.Holzer HospitalComment on above:For assays employing antibodies, the possibility exists forinterference by heterophile antibodies in the samples.11.Millicent Lantigua Interferences in Immunoassays - still a threat. Clin. Chem. 2000; 46: 1037- 1038.This test was developed and its performance characteristicsdetermined by [employer]. It has not been cleared or approvedby the Food and Drug Administration.Reference Range:Females 20 - 25y: 1.23 -11.51Median 4.70AMH concentrations of >= 1.06 ng/mL is correlated with abetter response to ovarian stimulation, produced moreretrievable oocytes and higher odds of live accordingto Jeevan dewey al. Fertility and Sterility. 2010:94:9333-0298. The current AMH test method correlates withthe study method with a slope of 0.94.Females at risk of ovarian hyperstimulation syndrome orpolycystic ovarian syndrome (PCOS) may exhibit elevatedserum AMH concentrations. AMH levels from PCOS patientsmaybe 2 to 5 fold higher than age-appropriate referenceinterval values.Granulosa cell tumors of the ovary may secrete AMH alongwith other tumor markers. Elevated AMH is not specific formalignancy, and the assay should not be used exclusively todiagnose or exclude an AMH-secreting ovarian tumor.Performed at: [employer] [address] [id number] Director: Adán Smith MD, Phone: [phone] Auto (Bld) [#/Vol]on 71-86-7403Uvctryhszph (Bld) [#/Vol]10.4 10 3/uLHigh1.4-6.5FBarney Children's Medical CenterNeutrophils/100 WBC Auto (Bld)on 34-14-3230Fcdriihivqa/100 WBC (Bld)85.2 %High43.0-75.0[facility] HospitalNo Panel Informationon 35-90-7118Wgbvsvzxoujijgukvrfdks (DHEA)70 ng/tF66-284NllzplpylHolzer HospitalComment on above:This test was developed and its performance characteristicsdetermined by [employer]. It has not been cleared orapproved by the Food and Drug Administration.Performed at: [address] [id number] Director: Mariana Santoro MD, Phone: [phone] Hvpxbtn61.8 ug/mFAbgdmeny875.0-431.7FBarney Children's Medical CenterEosinophils # (Auto)0.0 10 3/uL0.0-0.7FBarney Children's Medical CenterFollicle Stimulating Hormone6.5 mIU/mL.Holzer HospitalComment on above:Adult Female Range Follicular phase 3.5 - 12.5 Ovulation phase 4.7 - 21.5 Luteal phase 1.7 - 7.7 Postmenopausal 25.8 - 134.8Performed at: [address] [id number] Director: Liban Seaman PhD, Phone: [phone] Chorionic Gonadotropin, Quant<1 mIU/mL Holzer HospitalComment on above:5-50 0.2-1 CRZK51-350 1-2 SCSVA056-0,000 2-3 IKAXH632-07,000 3-4 WEEKS1,000-50,000 4-5 WEEKS10,000-100,000 5-6 WEEKS15,000-200,000 6-8 WEEKS10,000-100,000 2-3 MONTHSImmature Granulocyte # (Auto)0.05 10 3/uLHigh0.00-0.03Holzer HospitalPlatelet mean volume Auto (Bld) [Entitic vol]on 38-50-3066Oufncmeb mean volume (Bld) [Entitic vol]10.5 fL9.5-13.5FBarney Children's Medical CenterPlatelets Auto (Bld) [#/Vol] on 24-63-5686Ywotswkhb (Bld) [#/Vol]234 10 3/xX946-796UqxvldczgHolzer HospitalRBC Auto (Bld) [#/Vol]on 54-31-0252HYG (Bld) [#/Vol]4.87 10 6/uL4.20-5.40 [facility] - Cantonerum or plasma lutropin measurement (units/volume)on 51-55-4543Pijumgoa Qn15.0 m[IU]/mL.Holzer HospitalComment on above:Adult Female Range Follicular phase 2.4 - 12.6 Ovulation phase 14.0 - 95.6 Luteal phase 1.0 - 11.4 Postmenopausal 7.7 - 58.5XR foot RT min 3V*on 73-22-0730ZN foot RT min 3V*[facility] [place] [address] XRay Report Signed Patient: Nuria Minaya MR#: [id number] : 2000 Acct:[id number] Age/Sex: 23 / F ADM Date: 01/22/24 Loc: XDUC Room: Type: [facility] Attending Dr: Nicole Martini APRN Copies [...] Ha Reyes M.D.01/22/2024 11:49 AM Dictation Location: [place] [address] Transcribed By: [facility] 01/22/24 1149 Dictated By: Ha Reyes DO 01/22/24 1145 Signed By: 01/22/24 1149[facility] Physician GroupIgA [Mass/volume] in Serum or PlasmaOrdered By: Cuong Fletcher on 81-75-4059RzW [Mass/Vol]120 mg/hW72-499 Holzer HospitalComment on above:Performed at: - [facility] [address] [id number] Director: Liban Seaman PhD, Phone: [phone] Panel InformationOrdered By: Cuong Fletcher on 12-09-2023 Endomysial IgA AntibodyNegativeNegativeSelect Medical Specialty Hospital - Cantonerum gliadin peptide IgA antibody assay (units/volume)Ordered By: Cuong Fletcher on 23-96-9574Deheubf peptide IgA Qn (S)[address] Comment on above:Negative 0 - 19 Weak Positive 20 - 30 Moderate to Strong Positive >30Serum gliadin peptide IgG antibody assay (units/volume)Ordered By: Cuong Fletcher on 12-65-4488Psxxssd peptide IgG Qn (S)4 units0Holzer HospitalComment on above:Negative 0 - 19 Weak Positive 20 - 30 Moderate to Strong Positive >30Serum tissue transglutaminase (tTG) IgA antibody assay (units/volume)Ordered By: Cuong Fletcher on 10-40-2146qLR IgA Qn (S)<2 U/mL03FBarney Children's Medical CenterComment on above:Negative 0 - 3 Weak Positive 4 - 10 Positive >10 Tissue Transglutaminase (tTG) has been identified as the endomysial antigen. Studies have demonstr- ated that endomysial IgA antibodies have over 99% specificity for gluten sensitive enteropathy.Serum tissue transglutaminase (tTG) IgG antibody assay (units/volume)Ordered By: Cuong Fletcher on 71-12-8911bTG IgG Qn (S)4 U/mL0-5FBarney Children's Medical Center Comment on above:Negative 0 - 5 Weak Positive 6 - 9 Positive >9HCG ( test) IA.rapid Ql (U)Ordered By: [place] on 28-93-3847NWS ( test) Ql (U)NegativeHolzer HospitalLaboratory - Microbiology and Antimicrobial susceptibilityOrdered By: Latricia Campbell on 08-10-2023N. gonorrhoeae DNA EMERITA+probe Ql (Unsp spec)NegativeNegativeHolzer HospitalComment on above:Performed at: =G - [facility] [id number] [place] [id number] Director: Kaela Garcia MD, Phone: [phone] No Panel InformationOrdered By: Latricia Campbell on 06-87-2466Spsfsmm albicans (EMERITA)NegativeNegWood County HospitalComment on above:This test was developed and its performance characteristicsdetermined by [employer]. It has not been cleared orapproved by the Food and Drug Administration.Concepcion glabrata (EMERITA)NegativeNegativeHolzer HospitalComment on above:This test was developed and its performance characteristicsdetermined by [employer]. It has not been cleared orapproved by the Food and Drug Administration.Chlamydia trachomatis (EMERITA) (LAB)NegativeNegWood County Hospital Trichomonas vaginalis (EMERITA)NegativeNegWood County Hospital Vaginal fluid Atopobium vaginae DNA detection by probe and target amplification methoOrdered By: Latricia Campbell on 08-10-2023. vaginae DNA EMERITA+probe Ql (Vag fld)High - 2 Score.Holzer HospitalVaginal fluid Megasphaera species type 1 DNA detection by probe and target amplificatOrdered By: Latricia Campbell on 26-49-4390Lrwoayrcmfz sp type 1 DNA EMERITA+probe Ql (Vag fld)High - 2 Score.Holzer HospitalComment on above:Calculate total score by adding the 3 individual bacterialvaginosis (BV) marker scores together. Total score isinterpreted as follows:Total score 0-1: Indicates the absence of BV.Total score 2: Indeterminate for BV. Additional clinical data should be evaluated to establish a diagnosis.Total score 3-6: Indicates the presence of BV.This test was developed and its performance characteristicsdetermined by [employer]. It has not been cleared or approvedby the Food and Drug Administration. Vaginal fluid bacterial vaginosis associated bacterium 2 DNA detection by probe and tOrdered By: Latricia Campbell on 65-31-9105Beklggbrk vaginosis associated bacterium 2 DNA EMERITA+probe Ql (Vag fld)High - 2 Score.Holzer HospitalUrine 10 SGon 59-77-0102Xxyalwa DL <= 20 mg/L (U) [Mass/Vol][employer] Other Albumin DL <= 20 mg/L (U) [Mass/Vol]smallPeacehealth [facility] CDNlion Other pH (U)6.5 [pH][facility] CDNlion Other urine 10 SGNegativeLake Bronson Chinese [employer] Other urine 10 SG1.025NortUPMC [facility] CDNlion Other urine 10 SG0.2NCatskill [facility] CDNlion Other Automated erythrocytes count in urine sediment (number/area)Ordered By: Pastor Camilo on 34-55-7409CBK Auto (Urine sed) [#/Area]5-9 [HPF]0-4FBarney Children's Medical CenterAutomated leukocytes count in urine sediment (number/area)Ordered By: Pastor Camilo on 30-66-5571AVH Auto (Urine sed) [#/Area]5-9 [HPF]0-4FBarney Children's Medical CenterBasophils Auto (Bld) [#/Vol]Ordered By: Pastor Camilo on 39-34-7020Wsbwgbaiu (Bld) [#/Vol]0.1 10*3/uL0.0-0.2FBarney Children's Medical CenterBasophils/100 WBC Auto (Bld) Ordered By: Pastor Camilo on 75-65-6023Vzwbpufrx/100 WBC (Bld)0.6 %.Holzer HospitalBilirubin Test strip Ql (U)Ordered By: Pastor Camilo on 41-69-4166Yatgzwvbj Ql (U)NegativeNegativeHolzer Hospital Calcium [Mass/volume] in Serum or PlasmaOrdered By: Pastor Camilo on 04-24-2023 Calcium [Mass/Vol]9.6 mg/dL8.6-10.3FBarney Children's Medical CenterCarbon dioxide, total [Moles/volume] in Serum or PlasmaOrdered By: Pastor Camilo on 66-88-8326DX0 [Moles/Vol]27.6 mmol/L21.0-31.0[facility] Chloride [Moles/volume] in Serum or PlasmaOrdered By: Pastor Camilo on 30-37-6456Cxxlxlhr [Moles/Vol]105 mmol/Z40-063NwthwczldHolzer Hospital Color Auto (U)Ordered By: Pastor Camilo on 31-83-8337Xapym (U)YellowYellow [facility] HospitalCreatinine [Mass/volume] in Serum or Plasma Ordered By: Pastor Camilo on 55-26-4382Fsdkjucdan [Mass/Vol]0.68 mg/dL0.60-1.20 [facility]zer HospitalEosinophils Auto (Bld) [#/Vol]Ordered By: Pastor Camilo on 13-30-8880Lexqonfcthg (Bld) [#/Vol]0.1 10*3/uL0.0-0.45 [facility]zer HospitalEosinophils/100 WBC Auto (Bld)Ordered By: Pastor Camilo on 02-35-3200Rhysafaqpyf/100 WBC (Bld)1.0 %.Holzer HospitalErythrocyte distribution width Auto (RBC) [Ratio]Ordered By: Patsor Camilo on 68-67-4579Thjylgfruzp distribution width (RBC) [Ratio]13.7 % 11.9-15.3FBarney Children's Medical CenterGlucose [Mass/volume] in Serum or PlasmaOrdered By: Pastor Camilo on 99-97-1999Zkipyda [Mass/Vol]69 mg/eX13-163 [facility]zer HospitalComment on above:ADA recommended reference rangeRandom Glucose Reference Range is dependent on time and content of last meal. Glucose of more than 200 mg/dL in a nonstressed, ambulatory subject supports the diagnosisof Diabetes Mellitus.HCG ( test) IA.rapid Ql (U) Ordered By: Pastor Camilo on 37-79-0532BJD ( test) Ql (U)Negative Holzer HospitalHematocrit Auto (Bld) [Volume fraction]Ordered By: Pastor Camilo on 17-29-5491Sawnqjqdxu (Bld) [Volume fraction]43.6 % 34.0-46.4FBarney Children's Medical CenterHemoglobin [Mass/volume] in Blood Ordered By: Pastor Camilo on [id number] (Bld) [Mass/Vol]14.9 g/dL 11.8-15.4FBarney Children's Medical CenterKetones Auto test strip (U) [Mass/Vol] Ordered By: Pastor Camilo on [id number] (U) [Mass/Vol]NegativeNegative [facility] HospitalLaboratory - UrinalysisOrdered By: Pastor Camilo on [id number] casts LM Ql (Urine sed)None seen [LPF]0-8[facility] HospitalLeukocytes [#/volume] corrected for nucleated erythrocytes in Blood by Automated counOrdered By: Pastor Camilo on 04-24-2023 WBC corrected for nucl RBC Auto (Bld) [#/Vol]8.7 10*3/uL3.8-11.6FBarney Children's Medical CenterLymphocytes Auto (Bld) [#/Vol]Ordered By: Pastor Camilo on 76-69-5543Sbrzfttkthw (Bld) [#/Vol]3.0 10*3/uL1.00-4.8[facility] HospitalLymphocytes/100 WBC Auto (Bld)Ordered By: Pastor Camilo on 33-40-7127Cnlqqwjmhyl/100 WBC (Bld)34.4 %.[facility] HospitalH Auto (RBC) [Entitic mass]Ordered By: Pastor Camilo on 71-76-4956VPK (RBC) [Entitic mass]31.9 pg24.7-34.3FBarney Children's Medical CenterMCHC Auto (RBC) [Mass/Vol]Ordered By: Pastor Camilo on 76-40-6606WDKP (RBC) [Mass/Vol]34.2 g/dL 32.0-35.0[facility] HospitalMCV Auto (RBC) [Entitic vol]Ordered By: Pastor Camilo on 53-98-9877WIS (RBC) [Entitic vol]93.3 xW46-228FmceoyqfqHolzer HospitalMonocyte distribution width [Entitic volume] in Blood by AutomatedOrdered By: Pastor Camilo on 20-14-9974Qjewbufa distribution width Auto (Bld) [Entitic vol]16.95 %0.00-20.00[facility] Monocytes Auto (Bld) [#/Vol]Ordered By: Pastor Camilo on 68-91-6640Zlmhjsqsc (Bld) [#/Vol]0.6 10*3/uL0.0-0.8[facility] HospitalMonocytes/100 WBC Auto (Bld)Ordered By: Pastor Camilo on 43-95-9463Uuuarfkre/100 WBC (Bld)7.0 %.[facility] HospitalNeutrophils Auto (Bld) [#/Vol]Ordered By: Pastor Camilo on 70-79-9145Muxrfcjeghm (Bld) [#/Vol]5.0 10*3/uL1.8-7.7FBarney Children's Medical CenterNeutrophils/100 WBC Auto (Bld)Ordered By: Pastor Camilo on 98-70-2153Gzldwmctfry/100 WBC (Bld)57.0 %.[facility] Nitrite Test strip Ql (U)Ordered By: Pastor Camilo on 46-80-8254Oaywpjm Ql (U) NegativeNegativeHolzer HospitalNo Panel InformationOrdered By: Pastor Camilo on 26-30-3192Ojqeqooha GFR (CKD-EPI)> 60.0 mL/MinHolzer HospitalPharmacy Creatinine Clearance (Wmru210.43[facility] HospitalNucleated erythrocytes [Presence] in Blood by Automated countOrdered By: Pastor Camilo on 18-77-0719Mvmtwrden RBC Auto Ql (Bld)0.2 /100{WBC}0-0.5FBarney Children's Medical CenterPlatelet mean volume Auto (Bld) [Entitic vol]Ordered By: Pastor Camilo on 98-52-0105Hhwqwoae mean volume (Bld) [Entitic vol]8.8 fL6.3-10.7FBarney Children's Medical CenterPlatelets Auto (Bld) [#/Vol]Ordered By: Pastor Camilo on 55-65-9651Swwzsbqfz (Bld) [#/Vol]224 10*3/vV290-296OlstbozauHolzer HospitalPotassium [Moles/volume] in Serum or PlasmaOrdered By: Pastor Camilo on 52-11-2216Xaleruftp [Moles/Vol]3.3 mmol/L3.5-5.1FBarney Children's Medical CenterProtein Auto test strip (U) [Mass/Vol]Ordered By: Pastor Camilo on 01-67-4178Xgikalg (U) [Mass/Vol]Negative NegativeHolzer HospitalRBC Auto (Bld) [#/Vol]Ordered By: Pastor Camilo on 06-25-8688YSJ (Bld) [#/Vol]4.68 10*6/uL3.60-5.00[facility] - Cantonerum or plasma anion gap determinationOrdered By: Pastor Camilo on 13-38-7776Ctubq gap [Moles/Vol]10.7 mmol/L6.0-15.0[facility] - Cantonodium [Moles/volume] in Serum or PlasmaOrdered By: Pastor Camilo on 41-36-2572Hntrnq [Moles/Vol]140 mmol/A872-413PcfzgxnasSelect Medical Specialty Hospital - Cantonpecific gravity Auto test strip (U) [Rel density]Ordered By: Pastor Camilo on 42-13-0111Thnghyft gravity (U) [Rel density]1.013 1.001-1.030[facility] - Cantonquamous epithelial cells detection in urine sediment by light microscopyOrdered By: Pastor Camilo on 04-24-2023 Epithelial cells.squamous LM Ql (Urine sed)3-4 [HPF]0-2FBarney Children's Medical CenterUrea nitrogen [Mass/volume] in Serum or PlasmaOrdered By: Pastor Camilo on 52-69-3522Dahv nitrogen [Mass/Vol]11 mg/dL7-25Hol[facility] HospitalUrine bacteria detection by automated methodOrdered By: Pastor Camilo on 75-15-9326Ktiowqun Auto Ql (U)1+None SeenHolzer HospitalUrine clarity by refractometry automatedOrdered By: Pastor Camilo on 62-40-5646Oreqxba Refractometry automated (U)ClearCleGreen Cross HospitalUrine glucose measurement by automated test strip (mass/volume) Ordered By: Pastor Camilo on 86-25-3620Shpujok Auto test strip (U) [Mass/Vol] Normal mg/dLNormalHolzer HospitalUrine hemoglobin detection by automated test stripOrdered By: Pastor Camilo on 30-01-4997Ttrbkvnvmr Auto test strip Ql (U)NegativeNegativeHolzer HospitalUrine leukocyte esterase detection by automated test stripOrdered By: Pastor Camilo on 03-65-6535Qyaqwrflj esterase Auto test strip Ql (U)2+NegativeHolzer HospitalUrobilinogen Auto test strip (U) [Mass/Vol]Ordered By: Pastor Camilo on 84-68-3921Zwgogiksmoug (U) [Mass/Vol]Normal mg/dLNormal [facility] HospitalWBC Auto (Bld) [#/Vol]Ordered By: Pastor Camilo on 72-36-5480WUT (Bld) [#/Vol]8.7 10*3/uL3.8-11.6FBarney Children's Medical CenterpH Auto test strip (U)Ordered By: Pastor Camilo on 25-68-7197uP (U)6.5 [pH]5.0-9.0Hol[facility] HospitalOffice Visit (Cardiology)on 22-24-5868Lxapbc-up visitDiagnoses/Problems Assessed Neurologic cardiac syncope (780.2) (R55) Never a smoker Palpitations (785.1) (R00.2) Tachycardia (785.0) (R00.0) Body mass index (BMI) of 24.0 to 24.9 in adult (V85.1) (Z68.24) Orders SocHx: Never a smoker Tobacco Use Screening; Status:Complete; Done: 11Bsi4516 Patient Instructions Please bring all medicines, vitamins, [...] for a 6 month follow-up of [facility]. History of Present Illness Patient is [...] sinus rhythm with normal QTc interval and VT and QRS duration. Assessment 1. Classic neurocardiogenic [...] pharmacologic therapy Surgical History Problems History of [place] tooth extraction Current Meds Medication NameInstruction Lo [...] but no intermittent leg claudication and as notedin HPI. Respiratory: no cough and no shortness of breath. Gastrointestinal: no change in bowel habits and no blood in stools. Integumentary: no skin rashes. Neurological: dizziness and fainting, but no seizures and no frequent falls. All other systems have been reviewed and are negative for complaint. Vitals Vital Signs Recorded: 83Bte0167 03:43PMRecorded: 37Yjo6916 03:40PM Systolic Fbsgxuw005, LUE, Sitting Diastolic Pxrogqx85, LUE, Sitting Systolic Okomlncx847, LLE, Standing Diastolic Gmygktaf63, LLE, Standing Heart Rate Izcndyi85, L Radial Heart Rate Rfhuetwd47, L Radial Heart Rate88, L Radial Dqnivann876, LUE, Sitting Gsukxnlas01, LUE, Sitting Height5 ft 3 in Bnyskq747 lb BMI Ukhrtttcnl91.98 kg/m2 BSA Calculated1.67 Tobacco Useb) No PHQ-2 #1. Over the last 2 weeks have you felt down, depressed or hopeless? (If yes, answer PHQ-9 below)No PHQ-2 #2. Over the last 2 weeks have you felt little interest or pleasure in doing things? (If yes,answer PHQ-9 below)No Physical Exam Constitutional: alert and [...] . Signatures Electronically sign (more content not included)...NormalUH TouchworksXR forearm RT 2V*on 51-23-3514YZ forearm RT 2V*[facility] [employer] Other xr forearm RT 2V*[facility] [employer] Other xr forearm RT 2V*[address] [place] [address] [employer] Other xr forearm RT 2V*[place], [place] [address]Rkicu [employer] Other xr forearm RT 2V*XRay ReportPe[facility]health St. [facility] CDNlion Other xr forearm RT 2V*[place] [employer] Other xr forearm RT 2V*Patient: Nuria Minaya MR#: [id number] [facility] [employer] Other xr forearm RT 2V*: 2000 Acct:[id number] [employer] Other xr forearm RT 2V*Age/Sex: 21 / F ADM Date: 09/08/22 [place] [employer] Other XR forearm RT 2V*Loc: XDUCLY Room: Type: [facility] [employer] Other XR forearm RT 2V*Attending Dr: Latricia Campbell [facility] [employer] Other XR forearm RT 2V*Copies to: Latricia Campbell [facility] [employer] Other XR forearm RT 2V*Ordering Provider: Latricia Campbell [facility] [employer] Other XR forearm RT 2V*Date of Service: 09/08/22[place] [employer] Other XR forearm RT 2V* XR/XR wrist RT min 3V*: RIGHT WRIST INJURYLake Bronson [employer] Other XR forearm RT 2V*([id number]) XR/XR forearm RT 2V*: RIGHT ARM INJURYLake [place]onson [employer] Other XR forearm RT 2V*XR wrist RT min 3V*, XR forearm RT 2V* 09/08/2022 6:43 [facility] [employer] Other XR forearm RT 2V*SIGNS AND SYMPTOMS: Fall onto right arm with continued right wrist pain along the radial aspect of[place] [employer] Other XR forearm RT 2V*the wrist and right forearmLake Br[place] [employer] Other XR forearm RT 2V*PROTOCOL: Frontal, lateral, and oblique radiographs of the right wrist. Frontal and lateralLake Bronson [employer] Other XR forearm RT 2V*radiographs of the right forearm. [place] [employer] Other XR forearm RT 2V*COMPARISON: [facility] [employer] Other XR forearm RT 2V*FINDINGS:[place] [employer] Other XR forearm RT 2V*Right wrist:[employer] Other XR forearm RT 2V*The radiocarpal joint space is preserved. The carpal rows are preserved. There is no evidence ofB[employer] Other XR forearm RT 2V*fracture or dislocation. No significant soft tissue swelling.[employer] Other XR forearm RT 2V*Right forearm:[employer] Other XR forearm RT 2V*The bones are in anatomic alignment. There is no soft tissue swelling. No fracture. The [employer] Other XR forearm RT 2V*wrist and elbow are grossly intact. [employer] Other XR forearm RT 2V* XR/XR wrist RT min 3V*[employer] Other XR forearm RT 2V*IMPRESSION:[employer] Other XR forearm RT 2V*No fracture.[employer] Other XR forearm RT 2V*Impression dictated by: Josias Blum M.D.09/08/2022 7:15 [facility] [employer] Other XR forearm RT 2V*Dictation Location: [address] [employer] Other XR forearm RT 2V*Transcribed By: MISHA 09/08/22 [facility] [employer] Other XR forearm RT 2V*Dictated By: Josias Blum II, MD 09/08/22 [facility] HospitalL[facility] [employer] Other XR forearm RT 2V*Signed By:[employer] Other XR forearm RT 2V*09/08/22 [facility] HospitalL[place] [employer] Other Quick Strepon 09-02-2022S. pyogenes Org specific cx Ql (Throat)NegativeL[place]onson [employer] Other Quick StrepNort [employer] Other COVID + FLU Quick Testingon 76-79-2758CMKO-CoV-2 (COVID-19) RNA EMERITA+probe Ql (Unsp spec)NegativeNort [employer] Other COVID + FLU Quick TestingNegativeNort [employer] Other RSVon 74-16-6637AMR Ag IA Ql (Unsp spec)PositiveNort [employer] Other No Panel Informationon 46-43-2020WBSt. Mary's Medical Center 250 DO Work Phone: Office Visit (Cardiology)on 16-44-9544Eiozrp-up visit Diagnoses/Problems Assessed Tachycardia (785.0) (R00.0) Palpitations (785.1) (R00.2) Hypertension, isolated systolic (401.9) (I10) Never a smoker Overweight with body mass index (BMI) of 27 to 27.9 in adult (278.02,V85.23) (E66.3,Z68.27) Orders Hypertension, isolated systolic, Palpitations, Tachycardia Tilt Table; Status:Hold For - Scheduling,Retrospective Authorization; Requested for:[id number]; Overweight with body mass index (BMI) of 27 to 27.9 in adult Healthy Weight Tips; Status:Complete - Retrospective Authorization; Done: 90Api8667 Some eating tips that can help you lose weight.; Status:Complete - Retrospective Authorization; Done: 75Gjg6317 SocHx: Never a smoker Tobacco Use Screening; Status:Complete; Done: 68Qcw0742 Patient Instructions Please bring all medicines, vitamins, [...] approach with hydration and preventing provoking situations Assessment/recommendations: 1?history of dizziness palpitations and near syncope [...] is inconsequential Surgical History Problems History of [place] tooth extraction Current Meds Medication NameInstruction Metoprolol [...] negative for complaint. Vitals Vital Signs Recorded: 79Aqe4579 03:43PM Heart Rate80, R Radial Ymycaywf619, RUE, Sitting Opqjwfyvm66, RUE, Sitting Height5 ft 3 in Egtmbc761 lb BMI Qqonccahlm86.28 kg/m2 BSA Calculated1.73 Tobacco Useb) No Falls [...] MD; May 24 2022 6:43PM EST (Author) NormalUH TouchworksTobacco Screening.on 64-18-2319Lxsr risk assessmenta) No falls within the last yearPe[facility]Health [facility] [employer] 250 DO Work Phone: Tobacco use status CPb) [facility] [employer] 250 DO Work Phone: Tobacco Screening.on 84-56-4117Ppivv depression screening assessmentNoPeaceHealth [facility] [employer] 250 DO Work Phone: Tobacco use status CPb) [facility] 250 DO Work Phone: Vital Signs Date TimeVital SignValuePerforming BepxnplznNckincdo75-64-0588 15:29-0400Body kdtkig641.56 cmBreladonna Agee DO Work Phone: [facility]07-14-2025 15:29-0400 Body mass index (BMI) [Ratio]22.1 kg/t2Yttfv Chris DO Work Phone: [facility]07-14-2025 15:29-0400 Body hcsmby22.51 kgBrett Kuns DO Work Phone: [facility]07-14-2025 15:29-0400 Diastolic blood swgdfhec56 mm[Hg]Rosa Kuns DO Work Phone: [facility]07-14-2025 15:29-0400 Heart rate88 /minBrett Kuns DO Work Phone: [facility]07-14-2025 15:29-0400 Systolic blood ilwetljq945 mm[Hg]Rosa Kuns DO Work Phone: [facility]01-14-2025 15:19-0500 Body bluchf568.56 cmHolzer Hospital01-14-2025 15:19-0500Body mass index (BMI) [Ratio]24.2 kg/t0IuhbdioqoHolzer Hospital01-14-2025 15:19-0500Body toiitv91 kgHolzer Hospital10-04-2024 08:42-0400 Body rztonq095 cmWilly Escudero MD Work Phone: [facility]10-04-2024 08:42-0400 Body mass index (BMI) [Ratio]25.86 kg/v1YrapxvuWilly Escudero MD Work Phone: [facility]10-04-2024 08:42-0400 Body .22 kgWilly Escudero MD Work Phone: [facility]10-04-2024 08:42-0400 Diastolic blood svqcrtai30 mm[Hg]Willy Escudero MD Work Phone: [facility]10-04-2024 08:42-0400 Heart rate84 /minWilly Escudero MD Work Phone: [facility]10-04-2024 08:42-0400 Systolic blood lcidxpef602 mm[Hg]Willy Escudero MD Work Phone: [facility]10-02-2024 15:280 Body hwxaua35.22 kgCorey Jany DO Work Phone: [facility]Gihcgcoxcq17-62-3201 15:28-399Diastolic blood mm[Hg]Segun Jany DO Work Phone: [facility] HospitalNvevpcidkb03-96-5338 15:Systolic blood shhexpfy717 mm[Hg]Segun Jany DO Work Phone: [facility] HospitalCdbsmfzpcp08-84-4016 13:29-040Body zevmhr86.23 kgCorey Jany DO Work Phone: [facility] HospitalBaccpmqfor73-67-7866 13:29-040Diastolic blood quvrgmzo01 mm[Hg]Segun Jany DO Work Phone: [facility] HospitalWziomrcvnn73-20-1809 13:29Systolic blood ezpboxhn304 mm[Hg]Segun Jany DO Work Phone: [facility] HospitalVxckzvkdso53-62-9594 10:54-0400Body agebgs081.56 cmDO Rosa Royal Winss Work Phone: [facility]08-04-2024 10:54-0400 Body mass index (BMI) [Ratio]24.4 kg/m2DO Rosa Kuns Work Phone: [facility]08-04-2024 10:54-0400 Body ckcphkjvikr36 [degF]DO Rosa Kuns Work Phone: [facility]08-04-2024 10:54-0400 Body .58 kgDO Rosa Kuns Work Phone: [facility]08-04-2024 10:54-0400 Diastolic blood mm[Hg]DO Rosa Kuns Work Phone: [facility]08-04-2024 10:54-0400 Heart rate74 /minDO Rosa Kuns Work Phone: [facility]08-04-2024 10:54-0400 Respiratory rate18 /minDO Rosa [employer] Work Phone: [facility]08-04-2024 10:54-0400 SaO2% (BldA) [Mass fraction]98 %DO Rsoa Royal Winss Work Phone: [facility]08-04-2024 10:54-0400 Systolic blood hyctfzvh475 mm[Hg]DO Rosa Royal [employer] Work Phone: [facility]07-26-2024 09:47-0400 Body endymn467.56 cmDO Rosa [employer] Work Phone: [facility]07-26-2024 09:47-0400 Body mass index (BMI) [Ratio]24 kg/m2DO Rosa [employer] Work Phone: [facility]07-26-2024 09:47-0400 Body ldzelw24.5 kgDO Rosa [employer] Work Phone: [facility]06-17-2024 10:45-0400 Body ssjlko691.02 cmHolzer Hospital06-17-2024 10:45-0400Body mass index (BMI) [Ratio]24.5 kg/i9ChcbuircyHolzer Hospital06-17-2024 10:45-0400Body bnybqi19 kgHolzer Hospital04-09-2024 09:06-0400 Body bmybjr740.02 cmDO Rosa Royal Win[employer] Work Phone: [facility]04-09-2024 09:06-0400 Body mass index (BMI) [Ratio]24.7 kg/m2DO RosaOpara Work Phone: [facility]04-09-2024 09:06-0400 Body oiukin29.5 kgDO Rosa Royal [employer] Work Phone: [facility]04-09-2024 09:06-0400 Diastolic blood dtfqyand93 mm[Hg]DO Rosa Kuns Work Phone: [facility]04-09-2024 09:06-0400 Heart rate98 /minDO Rosa Kuns Work Phone: [facility]04-09-2024 09:06-0400 Respiratory rate16 /minDO Rosa Kuns Work Phone: [facility]04-09-2024 09:06-0400 SaO2% (BldA) [Mass fraction]98 %DO Rosa Kuns Work Phone: [facility]04-09-2024 09:06-0400 Systolic blood zrjiigtk568 mm[Hg]DO Rosa Kuns Work Phone: [facility]04-02-2024 13:59-0400 Body whnezm029.02 cmDO Rosa Kuns Work Phone: [facility]04-02-2024 13:59-0400 Body mass index (BMI) [Ratio]23.9 kg/m2DO Rosa Kuns Work Phone: [facility]04-02-2024 13:59-0400 Body ehkmor74.23 kgDO Rosa Kuns Work Phone: [facility]02-23-2024 11:55-0500 Diastolic blood mm[Hg]DO Rosa Kuns Work Phone: [facility]02-23-2024 11:55-0500 Heart rate81 /minDO Rosa Kuns Work Phone: [facility]02-23-2024 11:55-0500 Respiratory rate18 /minDO Rosa Kuns Work Phone: [facility]02-23-2024 11:55-0500 SaO2% (BldA) [Mass fraction]99 %DO Rosa Kuns Work Phone: [facility]02-23-2024 11:55-0500 Systolic blood kvoklpzz866 mm[Hg]DO Rosa Agee Work Phone: [facility]02-23-2024 10:27-0500 Body .02 cmDO Rosa Agee Work Phone: [facility]02-23-2024 10:27-0500 Body gicnrihyabk62.2 [degF]DO Rosa Agee Work Phone: [facility]02-23-2024 10:27-0500 Body hftjio89.23 kgDO Rosa Agee Work Phone: [facility]02-21-2024 12:35-0500 Body mcqged780.02 cmHolzer Hospital02-21-2024 12:35-0500Body mass index (BMI) [Ratio]23.7 kg/v3VqnybmiclHolzer Hospital02-21-2024 12:35-0500Body aesbwlzpdoh18.6 [degF][facility]02-21-2024 12:35-0500Body dwtrxu35.78 kgHolzer Hospital02-21-2024 12:35-0500Diastolic blood cwlagxly84 mm[Hg][facility] 08-10-2023 12:35-0500Heart rate94 /[facility] 08-10-2023 12:35-0500Respiratory rate18 /[facility] 08-10-2023 12:35-6465CqA4% (BldA) [Mass fraction]99 %[facility]02-21-2024 12:35-0500Systolic blood fxvsylhi798 mm[Hg][facility]01-04-2024 14:29-0500Body dromxq810 cmWilly Escudero MD Work Phone: [facility]01-04-2024 14:29-0500 Body mass index (BMI) [Ratio]24.09 kg/a4UzitcswWilly Escudero MD Work Phone: [phone])[address]01-04-2024 14:29-0500 Body mepioy44.69 kgWilly Escudero MD Work Phone: 2([phone])590-[address] [place], [place] 2150201-04-2024 14:29-0500 Diastolic blood axffvzmf42 mm[Hg]Willy Escudero MD Work Phone: 1(647)311-[address] [place], [place] 2150201-04-2024 14:29-0500 Heart rate70 /minWilly Escudero MD Work Phone: 2(650)208-[address] [place], [place] 2150201-04-2024 14:29-0500 Systolic blood lwktenlz860 mm[Hg]Willy Escudero MD Work Phone: 3(527)995-[address] [place], [place] 2150201-04-2024 12:30-0500 Body eukasf941.02 cmBreladonna [employer] Other [facility]01-04-2024 12:30-0500 Body mass index (BMI) [Ratio]24.09 kg/r2Nidxa [employer] [facility] Other [employer] Other 01-04-2024 12:30-0500Body .69 kgBreladonna [facility] Other [employer] Other 01-04-2024 12:30-0500Body vjskyk34.68 kgHolzer Hospital01-04-2024 12:30-0500Diastolic blood mltdiadn02 mm[Hg] Rosa [employer] Other [facility]01-04-2024 12:30-0500 Respiratory rate16 /minBreladonna [facility] Other [employer] Other 01-04-2024 12:30-9085EoG4% (BldA) [Mass fraction]99 % Rosa [facility] Other [employer] Other 01-04-2024 12:30-0500Systolic blood birkntea138 mm[Hg] Rosa Kuns Other [facility]11-07-2023 08:45-0500 Body oblahm730.02 cmBrett Kuns Other [employer] Other 11-07-2023 08:45-0500Body mass index (BMI) [Ratio]24.8 kg/c9Xccik Kuns Other [place] [employer] Other 11-07-2023 08:45-0500Body dwkjjo09.5 kgBrett Kuns Other [place] [employer] Other 11-07-2023 08:45-0500Diastolic blood xguqkwdz70 mm[Hg] Rosa Kuns Other [place] [employer] Other 11-07-2023 08:45-0500Respiratory rate16 /minBrett Kuns Other [place] [employer] Other 11-07-2023 08:45-5147QwU2% (BldA) [Mass fraction]97 % Rosa Kuns Other [place] [employer] Other 11-07-2023 08:45-0500Systolic blood qdcpujlp445 mm[Hg] Rosa Kuns Other [place] [employer] Other 11-05-2023 22:52-0500Diastolic blood pmkekwzh20 mm[Hg] DO Rosa Kuns Work Phone: [facility]11-05-2023 22:52-0500 Heart rate88 /minDO Rosa Kuns Work Phone: [facility]11-05-2023 22:52-0500 Respiratory rate18 /minDO [employer] Work Phone: [facility]11-05-2023 22:52-0500 SaO2% (BldA) [Mass fraction]98 %DO [employer] Work Phone: [facility]11-05-2023 22:52-0500 Systolic blood phdugeio975 mm[Hg]DO [employer] Work Phone: [address] [place], [place] 7355611-05-2023 20:42-0500 Body viivrq783.02 cmDO [employer] Work Phone: 1(661)319-[address] [place], [place] 3190111-05-2023 20:42-0500 Body yhoqolgbrbg72.8 [degF]DO [employer] Work Phone: [facility]11-05-2023 20:42-0500 Body oxdrzi65.7 kgDO [employer] Work Phone: 1(745)938-[address] [place], [place] 3190103-22-2023 19:30-0400 Body pfwaoj831.02 Maykel Campbell Other [facility] [employer] Other 03-22-2023 19:30-0400Body mass index (BMI) [Ratio] 25.86 kg/u6NovniaLatricia Campbell Other [employer] Other 03-22-2023 19:30-0400Body ikavygaivyj485.3 [degF] Latricia Campbell Other [employer] Other 03-22-2023 19:30-0400Body ngzosy61.23 kgLatricia Campbell Other [employer] Other 03-22-2023 19:30-0400Diastolic blood nchdoqqj78 mm[Hg] Latricia Campbell Other [facility] [employer] Other 03-22-2023 19:30-0400Respiratory rate18 /minAsaelmarnieaneudy Campbell Other [facility] [employer] Other 03-22-2023 19:30-1228FaL8% (BldA) [Mass fraction]99 % Latricia Campbell Other [facility] [employer] Other 03-22-2023 19:30-0400Systolic blood agxehaqv301 mm[Hg] Latricia Campbell Other [facility] [employer] Other 01-04-2023 10:03-0500Diastolic blood byrordwz69 mm[Hg] DO Rosa Kuns Work Phone: [facility]01-04-2023 10:03-0500 Heart wvuc018 /minDO Rosa Kuns Work Phone: [facility]01-04-2023 10:03-0500 Systolic blood zeiavuyg621 mm[Hg]DO Rosa Kuns Work Phone: [facility]01-04-2023 09:21-0500 SaO2% (BldA) [Mass fraction]99 %DO Rosa Kuns Work Phone: [facility]01-03-2023 09:33-0500 Body rnmjoy639.02 cmDO Rosa Kuns Work Phone: [facility]01-03-2023 09:33-0500 Body taefxk48.85 kgDO Rosa Kuns Work Phone: [facility]12-05-2022 15:43-0500 Body kxxijo170.02 cmBrett R Kuns Work Phone: 1(778) 391-2976708-3692HP-Phcpf [facility] 250 DO Work Phone: 1(198) 655-274312-05-2022 15:43-0500Body mass index (BMI) [Ratio] 27.28 kg/j9Gbyqp R Satyas Work Phone: mp119-3730IE-Muaok [facility] 250 DO Work Phone: 1(638) 394-822912-05-2022 15:43-0500Body surface area Derived from formula1.73 r3Agfbw R Satyas Work Phone: mp474-6902PF-SblqfM[facility] 250 DO Work Phone: 1(109) 288-666412-05-2022 15:43-0500Body kpibgm08.85 kgBrett R Satyas Work Phone: 1([phone]) [phone]-FcrwgL[facility] 250 DO Work Phone: 1(665) 472-766012-05-2022 15:43-0500Diastolic blood elauklwz59 mm[Hg] Rosa R Satyas Work Phone: 1(804) [phone]-OwphvLakewood [facility] 250 DO Work Phone: 1(998) 834-420112-05-2022 15:43-0500Heart rate80 /minBrett R Chris Work Phone: 1(313) [phone]-WykmhLakewood [facility] 250 DO Work Phone: 1(824) 769-193212-05-2022 15:43-0500Systolic blood xyozfkmk159 mm[Hg] Rosa R Satyas Work Phone: [phone]-IqcevLakewood [facility] 250 DO Work Phone: [phone] 15:55-0400Body rbwelz193.02 cmBrett R Satyas Work Phone: [phone]-Jifqv [facility] 250 DO Work Phone: [phone] 15:55-0400Body mass index (BMI) [Ratio] 26.47 kg/n5Kjiyk R Satyas Work Phone: [phone]-XczllMarshall [facility] 250 DO Work Phone: 1(130) [phone] 15:55-0400Body surface area Derived from formula1.71 g6Hzrvr R Kuns Work Phone: [phone]-Uniuq [place] [employer]-[place] 250 DO Work Phone: 1([phone]) 287-140803-22-2022 15:55-0400Body .77 kgBrett R Kuns Work Phone: [phone]-Bnuim [place] [employer] 250 DO Work Phone: 1(670) [phone] 15:55-0400Diastolic blood gnjfcpua97 mm[Hg] Rosa R Kuns Work Phone: [phone]-Dofvk [place] [employer] 250 DO Work Phone: 1(735) [phone] 15:55-0400Heart rate83 /minBrett R Kuns Work Phone: [phone]-Uijvc [place] [employer] 250 DO Work Phone: 1(429) 520-119903-22-2022 15:55-0400Systolic blood zcqjfhky995 mm[Hg] Rosa R Kuns Work Phone: [phone]-Hmcbf [place] [employer] 250 DO Work Phone: 1([phone]) [phone] 14:30-0500Body ayirec675.02 cmRosa Satyapoonam Other [employer] Other 11-18-2021 14:30-0500Body mass index (BMI) [Ratio] 26.39 kg/n2Espwn Kuns Other [employer] Other 11-18-2021 14:30-0500Body irtxhg17.59 kgBreladonna Agee Other [employer] Other 11-18-2021 14:30-0500Diastolic blood sxntrgoq53 mm[Hg] Rosaladonna Hernadezs Other [employer] Other 11-18-2021 14:30-0500Respiratory rate16 /minRosa Agee Other [employer] Other 11-18-2021 14:30-2257CmR0% (BldA) [Mass fraction]98 % Rosa Agee Other [employer] Other 11-18-2021 14:30-0500Systolic blood bhztjlha674 mm[Hg] Rosa Agee Other [facility] [employer] Other Encounters Encounter DateEncounter TypeCare ProviderFacilityStart: 01-15-2025 End: 02-00-8536Vadqemud ReferredRosa Agee DO-[facility] Work Phone: Start: 01-15-2025 End: 95-80-5930xeskofxjbkSjufm Kuns DO Work Phone: [facility] Work Phone: Start: 01-15-2025 End: 60-16-5442Eddhdcf encounter procedureRosa Agee DO-[facility] [place] Work Phone: Start: 12-31-2024 End: 27-17-0266uwadtatcqbYttng Kuns DO Work Phone: [facility] Work Phone: Start: 12-31-2024 End: 87-71-7577Ftlllyy encounter procedureCuong Correia APRNRandolph Health [facility] Work Phone: Start: 07-03-2024 End: 02-11-5444cjooumdtjqZfavmqnsoPremier Health [facility] Work Phone: Start: 07-03-2024 End: 82-62-2283Qzivltm encounter procedureMeka [facility] Work Phone: Start: 05-14-1534Jtx-patient / Non-visitBlue [facility] [place] Work Phone: Start: 03-29-2024 End: 39-62-1944pbnxbziinuPN Rosa Agee Work Phone: [facility] Work Phone: Start: 03-29-2024 End: 59-81-7732Pdbjgwpx ReferredDO Rosa Agee Work Phone: [facility]-LAB Path Spec [place] [facility] HospStart: 20-03-4029Xjz-patient / Non-visitDO Rosa Satyapoonam Work Phone: [facility] Work Phone: Start: 03-23-2024 End: 34-02-0905Itgwgx outpatient visit 15 minutesWilly Escudero MD Work Phone: uh FirelandsComment on above:Tachycardia (Primary Dx); Neurologic cardiac syncope; Palpitations; BMI 25.0-25.9,adultStart: 03-23-2024 End: 90-24-8892hynmyhokrdYZYBRCAAugusta [facility] AmbulatoryStart: 97-33-6575Ftm-patient / Non-visitDO Rosa Agee Work Phone: [facility] Work Phone: Start: 03-21-2024 End: 29-76-1061Tjjvjoe encounter procedureCorey Jany DO Work Phone: noms HealthcareStart: 03-21-2024 End: 19-09-3848Xlyicmjs preventive med est patient 18-39 yrsCorey Jany DO Work Phone: n[facility] BCP OBComment on above:Well woman exam with routine gynecological exam; Encounter to discuss test results; PCOS (polycystic ovarian syndrome); Irregular periodsStart: 03-21-2024 End: 42-61-3807eukbwypngfJJUIH FAZIONot AvailableStart: 03-21-2024 End: 21-39-8039Aaqaag flowsheetCorey Jany DO Work Phone: NOAR BCP OBStart: 03-21-2024 End: 54-39-9716Qxecux flowsheetCorey Jany DO Work Phone: NOYZ BCP OBStart: 03-21-2024 End: 86-46-7509Dlmgdqeir Result EncounterCorey Jany DO Work Phone: [facility] External Department UnsolicitedStart: 03-14-2024 Non-patient / Non-visitDO [employer] Work Phone: [facility] Work Phone: Start: 09-78-2660Xfh-patient / Non-visitDO [employer] Work Phone: [facility] Work Phone: Start: 02-21-2024 End: 47-66-2687Mzpqkhagl Result EncounterCorey Jany DO Work Phone: noms External Department UnsolicitedStart: 02-21-2024 End: 90-72-0357Crwvncfbt Result EncounterCorey Jany DO Work Phone: noms External Department UnsolicitedStart: 02-17-2024 Non-patient / Non-visitDO [employer] Work Phone: [facility] Work Phone: Start: 02-17-2024 End: 74-95-1993Kviaweqqb Result EncounterCorey Jany DO Work Phone: noms External Department UnsolicitedStart: 02-17-2024 End: 37-96-5189Tnesnnvjx Result EncounterCorey Jany DO Work Phone: NOBI External Department UnsolicitedStart: 02-13-2024 End: 06-31-4563Tbwdbe flowsheetCorey Jany DO Work Phone: [facility] BCP OBStart: 02-13-2024 End: 62-27-7562Gekkky flowsheetCorey Jany DO Work Phone: n[facility] BCP OBStart: 02-13-2024 End: 29-60-0321Tbovly outpatient visit 15 minutesCorey Jany DO Work Phone: [facility] OBComment on above:PCOS (polycystic ovarian syndrome); Irregular periods/menstrual cycles; Cyst of ovary, unspecified lateralityStart: 02-13-2024 End: 75-47-8998uezbzfulbcYBNPH FAZIONot AvailableStart: 01-22-2024 End: 74-35-8044Rcwytql encounter procedureDO Rosa Agee Work Phone: [facility] Work Phone: Start: 01-22-2024 End: 86-34-9289skedzvqxtkIY Rosaladonna Agee Work Phone: [facility] Work Phone: Start: 01-22-2024 End: 09-09-7783vdjlkbcmtxNG Rosaladonna Hernadezs Work Phone: [facility] Work Phone: Start: 01-22-2024 End: 71-55-0260Ckqcgoo encounter procedureDO Rosa Hernadezs Work Phone: [facility] Work Phone: Start: 01-13-2024 End: 94-49-0340octaweofpdMB Rosaladonna Hernadezs Work Phone: [facility] Work Phone: Start: 01-13-2024 End: 00-46-2230Xnwoops encounter procedureDO Rosa Hernadezs Work Phone: [facility] Work Phone: start: 12-09-2023 End: 92-96-1321qrvkjmyyllWC Rosaladonna Hernadezs Work Phone: [facility] Work Phone: Start: 12-09-2023 End: 38-69-5175Cxfutbi encounter procedureDO Rosa Hernadezs Work Phone: [facility]-Lab Main [place] Work Phone: Start: 12-05-2023 End: 60-22-0590wmkgftosqdVmojnfoerPremier Health [facility] Hospital Work Phone: Start: 12-05-2023 End: 55-63-4239Bwpkvlu encounter procedureFircharlestons Physician Group-[facility] Gastroenterology Work Phone: Start: 09-27-2023 End: 34-92-2871caireqhnipHK Rosa Hernadezs Work Phone: [facility] Work Phone: Start: 09-27-2023 End: 78-97-7690Dffsqae encounter procedureDO Rosa Hernadezs Work Phone: [facility] [place] Work Phone: Start: 09-20-2023 End: 56-54-3195hbuyuwmfgdRH Rosa Hernadezs Work Phone: [facility] Work Phone: Start: 09-20-2023 End: 37-50-4970Tlkxwkv encounter procedureDO Rosa Hernadezs Work Phone: [facility] Work Phone: Start: 26-76-5695Uvo-patient / Non-visitDO Rosa Agee Work Phone: [place] [facility] Work Phone: Start: 08-12-2023 End: 84-91-4056Xhxjwlelt to same day surgery centerDO Rosa Kuns Work Phone: [facility]-Digestive Health Work Phone: Start: 08-12-2023 End: 53-99-5369bdwiygrxamPI Brett Kuns Work Phone: [facility] Work Phone: Start: 08-10-2023 End: 21-03-2724pyptjxosdgBA Brett Kuns Work Phone: [facility] Work Phone: Start: 08-10-2023 End: 41-96-2455Qaijzhvi ReferredDO Rosa Agee Work Phone: [facility]-Lab Main [place] Work Phone: Start: 08-10-2023 End: 48-84-8070lzpfwlismtIlaivxedzUniversity Hospitals [facility] Work Phone: Start: 08-10-2023 End: 35-55-0656Xgnrrki encounter procedureBlue Ridge Regional Hospital [facility] [place] Work Phone: Start: 08-01-2023 End: 71-96-6794ucbjojyjiiDtdl [employer] Other [employer] Other Start: 20-22-2946Irrdxhngj encounterRycaity Chase Referral CoordinatorStart: 07-15-2023 End: 84-76-6379rqmcgxnemuViax [employer] Other [employer] Other Start: 74-91-1293Cbgjvy outpatient new 30 minutesRyan Salvatore GastroenterologyStart: 06-23-2023 End: 92-04-2769zbozigfoksMNPNTTB TRABLafayette Regional Health CenterBiocycle Other Start: 06-23-2023 End: 29-85-6855Pqqbdc outpatient visit 15 minutesWilly Escudero MD Work Phone: uh [facility] on above:Neurologic cardiac syncope (Primary Dx); Palpitations; TachycardiaStart: 06-23-2023 End: 39-41-5852Iokixfy encounter procedureBlue Ridge Regional Hospital [facility] Work Phone: Start: 38-67-2887Oeipzfwxj for general adult medical examination without abnormal findingsCopper Springs Hospitalladonna HernadezFreeman Health System Start: 62-42-6028Greauhr encounter statusBreladonna Agee Other [employer] Other Start: 27-29-9895Cfsscviu preventive med est patient 18-39 yrsBreladonna HernadezSaints Medical Center CastaliaStart: 04-26-2023 End: 92-63-1366mwvcqfxhbhKY Rosa Agee Work Phone: [facility] Work Phone: Start: 04-26-2023 End: 23-01-7066Umkrobg encounter procedureDO Rosa Agee Work Phone: [facility]-Lab [place] Work Phone: Start: 04-24-2023 End: 68-63-6153Agbdbvtkc department patient visitDO Rosa Agee Work Phone: [facility]-Emergency Room Work Phone: Start: 04-20-2023 End: 98-89-7438ftsdrpwlxcFrhkb Kuns Other [employer] Other Start: 68-02-8247Xneankznq encounterRosa AgeeBronxCare Health SystemaStart: 28-98-7844flzcqrxxerRm. Rosa Agee Facility:[id number]: 10-20-2022 End: 05-68-4764ocmcmlzeudMZ ROSA AGEEFacility:B4Rbfaj: 09-08-2022 End: 57-01-6491Rmwzcix encounter procedureDO Rosa Agee Work Phone: [facility] [place] Work Phone: Start: 09-08-2022 End: 41-62-5290nnitrrfjbrIM Rosa Agee Work Phone: [facility] Work Phone: Start: 87-54-1744Cobras outpatient visit 15 minutes Latricia PhilG Urgent Care ClydeStart: 24-58-1394Nyvheblfw encounterRosa Agee [facility] Urgent Care ClydeStart: 09-02-2022 End: 13-25-7461kgepxtxqrlPuflt Kuns Other [employer] Other Start: 26-54-5916Vgxxcdd evaluation of patient and reportBreladonna HernadezsFPG Family Medicine [place]aliaStart: 95-19-5794Rqciqhtio encounter Rosa HernadezsFPG Family Medicine CastaliaStart: 57-69-2207Ffhqz UpdateRosa Agee Work Phone: [phone]-GzrqeLake [facility] 250 DO Work Phone: Start: 07-13-2022 End: 17-61-9054deuzbuygwzQuyzy Kuns Other [employer] Other Start: 97-42-0749Kocmwdx evaluation of patient and reportBreladonna HernadezsFPG Family Medicine CastaliaStart: 11-22-3949Lwxgbcafg encounter Rosa HernadezsFPG Family Medicine CastaliaStart: 07-12-2022 End: 18-93-0853skzczwlhjnPxels Kuns Other [employer] Other Start: 37-90-9468Tksoynwxr encounterBreladonna HernadezsFPG Family Medicine CastaliaStart: 37-71-3804Bjhqf UpdateBreladonna Nereida Satyapoonam Work Phone: [phone]-Hbnvj [facility] 250 DO Work Phone: Start: 75-00-0917hcswhsavvbCa. Brett Roger Kuns Facility:[id number]: 06-23-2022 End: 17-59-8775wwuzgvsvozCN Rosaladonna Agee Work Phone: [facility] Work Phone: Start: 06-23-2022 End: 06-75-4099Wkmgdcj encounter procedureDO Rosa Agee Work Phone: [facility]-Electrodiagnostics Work Phone: Start: 77-00-0502Lhajtw outpatient visit 25 minutes Rosa Agee Work Phone: [phone]-Schto [facility] 250 DO Work Phone: Start: 78-30-0766kcqojkjpqaSm. Miladis Morris Facility:[id number]: 09-29-2021 End: 84-71-7331sslivildybJdhso Kuns Other [facility] [employer] Other Start: 64-59-4857Sdxergkkc encounterBreladonna AgeeTresa Family Medicine CastaliaStart: 15-71-0234Vtqvqy outpatient visit 15 minutesRosa Padron Satyapoonam Work Phone: [phone]-Lviui [facility] 250 DO Work Phone: Start: 05-07-2021 End: 17-74-1289hdicyqcfqeAzaeg Kuns Other [place] [employer] Other Start: 44-25-7149Mtqfuw outpatient visit 25 minutes Rosa Olivares [facility] [place] Procedures DateProcedureProcedure DetailPerforming ClinicianStart: 19-00-6533CMU,APTIMA HPV,AGE GDLNCorey Jany DO Work Phone: Start: 58-82-4535ZY PELVIS W/ TRANSVAGINALCorey Jany DO Work Phone: Start: 47-48-6359KRL CBC WITH AUTO DIFFCorey Jany DO Work Phone: Start: 81-17-6111N-ray of right footDO Rosa Agee Work Phone: Start: 96-70-5608RokemgrkwjxDB Rosaladonna Agee Work Phone: Start: 27-53-9411Fhalsptd tomography of abdomen and pelvis with contrastDO Rosa Agee Work Phone: Start: 50-19-1027Uultv X-ray of right forearmDO Rosa Agee Work Phone: Start: 12-27-2364Tsoyl X-ray of right wristDO Rosa Agee Work Phone: Start: 89-19-2305Zcvlwlvwbkn observation [Identifier] in Cervix by Cyto stainWilly Escudero MD Work Phone: Extraction of wisdom toothBrett R Satyapoonam Work Phone: Plan of Treatment DateCare ActivityDetailAuthorStart: 61-43-0987Lzdvsg Vaccines (1 of 2)Zoster Vaccines (1 of 2)[facility]: 54-50-2263JMrC/Tdap/Td Vaccines (8 - Td or Tdap)DTaP/Tdap/Td Vaccines (8 - Td or Tdap)[facility]: 05-07-2025 End: 21-12-4540Iuewpqh encounter emrgfmnxa91/18/2025 3:00 PM EST Procedure Visit NOMPoonam LOP[facility] [address] [place] [id number] Miranda Rose PA [address] [place] [address] [facility] Jamie Mckinnonrt: 03-29-2025 End: 94-45-2165Wcnomti encounter bjonpczzm16/10/2025 9:10 AM EDT Office Visit [address] [place] [address] Willy Escudero MD [address] [facility] [address], [address] [place] [address] [facility]MontgomeryStart: 43-61-1194Rlooonbhn vaccinationInfluenza Vaccine (#1)[facility] HealthcareStart: 69-29-3684Nblse [facility] Hospitaltart: 61-99-8803Avjgxoup identified in Urine by CultureUrine Flower Hospitaltart: 63-17-7767Bprziztyl for malignant neoplasm of cervixAshtabula [facility]: 03-23-2024 End: 18-53-7620Tdvpvio encounter cexcivosf66/04/2024 8:40 AM EDT Office Visit [address] [place] [address] Willy Escudero MD [address] [facility] [address], [facility] [address] [place] [address] [facility]gomeryStart: 03-21-2024 End: 30-83-2371Ggehjxc encounter procedureNOMS [facility] OBComment on above:Arrived Start: 54-71-1995BKUSV-19 Vaccine ( season)COVID-19 Vaccine ( season)[facility]: 96-10-8186Bzruecyri vaccinationInfluenza Vaccine (#1)[facility] HealthcareStart: 02-13-2024 End: 64-79-8656Envxdaehxcskh hormone (AMH)Antimullerian hormone (AMH) Lab Routine PCOS (polycystic ovarian syndrome) Irregular periods/menstrual cycles Cyst of ovary, unspecified laterality Expected: 02/13/2024 (Approximate), Expires: 02/12/2025NOMS HealthcareComment on above:Expected: 02/13/2024 (Approximate), Expires: 02/12/2025Start: 02-13-2024 End: 62-10-2782UJULLAYF Lab Routine PCOS (polycystic ovarian syndrome) Irregular periods/menstrual cycles Cyst of ovary, unspecified laterality Expected: 02/13/2024 (Approximate), Expires: 02/12/2025NOSD HealthcareComment on above: Expected: 02/13/2024 (Approximate), Expires: 02/12/2025Start: 02-13-2024 End: 65-19-6801VK for pregnancyUS PELVIS-TRANSVAG IF INDICATED Imaging Routine PCOS (polycystic ovarian syndrome) Irregular periods/menstrual cycles Cyst of ovary, unspecified laterality Expected: 02/13/2024 (Approximate), Expires: 02/12/2025NOSD HealthcareComment on above:Expected: 02/13/2024 (Approximate), Expires: 02/12/2025Start: 02-13-2024 End: 89-98-4431Mfrofln encounter yvvfncaue51/26/2024 1:10 PM EDT Office Visit [facility] OB [address] [place] [phone] Segun Carmichael, DO [address] [place] [address] ArrivedST. JOSEPH'[facility] OBComment on above:ArrivedStart: 45-79-1331KmjagipeoSelect Medical Specialty Hospital - Cantontart: 67-80-5438AjqkyarocSelect Medical Specialty Hospital - Cantontart: 15-89-7368TutamcpdjSelect Medical Specialty Hospital - Cantontart: 88-42-7455Dlkcmvys identified in Urine by CultureUrine CultureSelect Medical Specialty Hospital - Cantontart: 45-06-6794Zuhljqtl tomography of abdomen and pelvis with contrastCT abdomen pelvis w [facility] Generaltart: 77-18-9782WG Abdomen and Pelvis W contrast [facility] Start: 52-53-0893Qkqevaal identified in Urine by CultureSelect Medical Specialty Hospital - Cantontart: 17-02-4336Urnsf cultureUrine CultureSelect Medical Specialty Hospital - Cantontart: 19-44-9478Dibxjixdr vaccinationInfluenza Vaccine (#1) [facility]: 93-52-4317HIN, Provider: Willy Escudero, Status: Pen, Time: 3:10 PMFUV, Provider: Willy Escudero, Status: Pen, Time: 3:10 PM-[facility] [employer] 250 DO Work Phone: Start: 60-28-6440Vykfcxfxt B Vaccines (3 of 3 - 3-dose series)Hepatitis B Vaccines (3 of 3 - 3-dose series)[facility]: 72-78-9904SJK, Provider: Miladis Morris, Status: Pen, Time: 9:50 AMFUV, Provider: Miladis Morris, Status: Pen, Time: 9:50 AM-[facility] [employer] 250 DO Work Phone: Start: 50-90-1713Qlybsmcnk for malignant neoplasm of cervixHPV/CotestUnAdena [facility]ayette Medical Center: 79-46-9840UYSHV-19 Vaccine (3 - Pfizer series)COVID-19 Vaccine (3 - Pfizer series)[facility]: 18-44-0656Vvntrhkej C screeningHepatitis C ScreeningAshtabula County Medical Center: 19-51-3991TGA Vaccines (1 - 3- dose series)HPV Vaccines (1 - 3-dose series)[facility] Start: 69-64-5536XUD Vaccines (1 - 2-dose series)HPV Vaccines (1 - 2-dose series)[facility]: 79-06-5966JFP screeningHIV ScreeningAshtabula County Medical Center: 59-33-9589Irlyf panelLipid PanelAshtabula County Medical Center: 07-02-2964Fwavje Adult Physical Yearly Adult PhysicalUnCleveland Clinic Akron GeneralAtopobium vaginae DNA [Presence] in Vaginal fluid by EMERITA with probe detectionHolzer HospitalBacterial vaginosis associated bacterium 2 DNA [Presence] in Vaginal fluid by EMERITA with probe detectionHolzer HospitalCBC W Auto Differential panel - BloodCBC and differential Lab Routine PCOS (polycystic ovarian syndrome) Irregular periods/menstrual cycles Cyst of ovary, unspecified laterality Ordered: 02/13/2024[facility] HealthcareComment on above:Ordered: 02/13/2024ytology Cervical or vaginal smear or scraping studyPap Smear Pathology and Cytology Routine Well woman exam with routine gynecological exam Ordered: 03/21/2024[facility] Work Phone: comment on above:Ordered: 03/21/2024HEA-sulfateDHEA- sulfate Lab Routine PCOS (polycystic ovarian syndrome) Irregular periods/menstrual cycles Cystof ovary, unspecified laterality Ordered: 02/13/2024[facility] HealthcareComment on above:Ordered: 02/13/2024Endomysial antibody IgA levelHolzer HospitalFollicle stimulating hormoneFollicle stimulating hormone Lab Routine PCOS (polycystic ovarian syndrome) Irregular periods/menstrual cycles Cyst of ovary, unspecified laterality Ordered: 02/13/2024[facility] HealthcareComment on above:Ordered: 02/13/2024Gliadin peptide IgA Ab [Units/volume] in SerumHolzer HospitalGliadin peptide IgG Ab [Units/volume] in SerumHolzer HospitalhCG, quantitative, pregnancyhCG, quantitative, Lab Routine PCOS (polycystic ovarian syndrome) Irregular periods/menstrual cycles Cyst of ovary, unspecified laterality Ordered: 02/13/2024[facility] Healthcare Work Phone: comment on above:Ordered: 02/13/2024Hemoglobin A1c/Hemoglobin.total in BloodHemoglobin A1c Lab Routine PCOS (polycystic ovarian syndrome) Irregular periods/menstrual cycles Cyst of ovary, unspecified laterality Ordered: 02/13/2024[facility] HealthcareComment on above:Ordered: 02/13/2024IgA [Mass/volume] in Serum or PlasmaHolzer Hospital Luteinizing hormoneLuteinizing hormone Lab Routine PCOS (polycystic ovarian syndrome) Irregular periods/menstrual cycles Cyst of ovary, unspecified laterality Ordered: 02/13/2024[facility] HealthcareComment on above:Ordered: 02/13/2024Megasphaera sp type 1 DNA [Presence] in Vaginal fluid by EMERITA with probe detectionHolzer HospitalPatient EducationConstipation, Adult EDLakehealth Beachwood Medical Center Ctr Work Phone: Patient referralLakehealth Beachwood Medical Center [facility] Work Phone: Thyrotropin [Units/volume] in Serum or PlasmaTSH Lab Routine PCOS (polycystic ovarian syndrome) Irregular periods/menstrual cycles Cyst of ovary, unspecified laterality Ordered: 02/13/2024[facility] HealthcareComment on above:Ordered: 02/13/2024Thyroxine (T4) free [Mass/volume] in Serum or Plasma T4, free Lab Routine PCOS (polycystic ovarian syndrome) Irregular periods/menstrual cycles Cyst of ovary, unspecified laterality Ordered: 02/13/2024NOSD HealthcareComment on above:Ordered: 02/13/2024Tissue transglutaminase IgA Ab [Units/volume] in [facility] Tissue transglutaminase IgG Ab [Units/volume] in [facility] Immunizations Immunization DateImmunizationNotesCare DbdvgggwZghohnpn91-55-1949hxwolchyb virus vaccine, unspecified formulationMarietta Osteopathic Clinic Jany DO Work Phone: [facility]Pointe HospitalHcqmoeprwb04-48-1527Uelmtbtra B vaccine (recombinant), CpG adjuvantedRosa Agee Work Phone: [phone]-AfwxmStephen Ville [address] DO Work Phone: [phone] B vaccine, pediatric or pediatric/adolescent dosageMoleeanna Escudero MD Work Phone: [facility] Work Phone: [phone]ffnda, injectable, quadrivalent, preservative freeRosa Agee Work Phone: [facility]09-29-2022tetanus toxoid, reduced diphtheria toxoid, and acellular pertussis vaccine, adsorbed Rosaladonna Agee Work Phone: [facility]09-29-2022varicella virus vaccineRosa Agee Work Phone: [facility]09-29-2022influenza virus vaccine, unspecified formulationWilly Escudero MD Work Phone: [facility] Work Phone: [phone]-CeqVOotm COVID-19 Vacc 30 MCG/0.3ML Intramuscular SuspensionBrett R Satyas Work Phone: [facility]10-28-2021Pfizer- BioNTech COVID-19 Vacc 30 MCG/0.3ML Intramuscular SuspensionBrett R Satyas Work Phone: [facility]08-22-2018 meningococcal polysaccharide (groups A, C, Y and W-135) diphtheria toxoid conjugate vaccine (MCV4P)Rosaladonna Agee Other [facility] [facility]09-01-2005diphtheria, tetanus toxoids and acellular pertussis vaccine, unspecified formulationBreladonna R Chris Work Phone: [facility]09-01-2005measles, mumps and rubella virus vaccineBrett Chris Other [facility]09-01-2005poliovirus vaccine, inactivatedBrett Kuns Other [facility]09-01-2005poliovirus vaccine, [facility] diphtheria, tetanus toxoids and acellular pertussis vaccine, unspecified formulationBrett R Satyas Work Phone: [facility]08-08-2002poliovirus vaccine, inactivatedBrett Kuns Other [place] [employer] Other [id number] vaccine, unspecified formulation [facility]04-15-2002measles, mumps and rubella virus vaccineBrett Kuns Other [facility]04-15-2002varicella virus vaccineBrett Kuns Other [facility]10-08-2001diphtheria, tetanus toxoids and acellular pertussis vaccine, unspecified formulationBrett R Kuns Work Phone: [facility]10-08-2001hepatitis B vaccine, pediatric or pediatric/adolescent dosageBrett Kuns Other [facility]10-08-2001 pneumococcal conjugate vaccine, 7 valentBrett Kuns Other [facility]10-08-2001 pneumococcal Conjugate, unspecified formulationHol[facility] Hospital 16-94-3746fcpzqvpayw, tetanus toxoids and acellular pertussis vaccine, unspecified formulationBrett R Kuns Work Phone: [facility]08-16-2001 pneumococcal conjugate vaccine, 7 valentBrett Kuns Other [employer] Other [id number] Conjugate, unspecified formulationHolzer Hospital08-16-2001poliovirus vaccine, inactivatedBrett Kuns Other [employer] Other [id number] vaccine, unspecified formulation [facility]06-11-2001diphtheria, tetanus toxoids and acellular pertussis vaccine, unspecified formulationBrett R Kuns Work Phone: [facility]06-11-2001 pneumococcal conjugate vaccine, 7 valentBrett Kuns Other [employer] Other [id number] Conjugate, unspecified formulationHol[facility] Hospital06-11-2001poliovirus vaccine, inactivatedBrett Kuns Other [employer] Other [id number] vaccine, unspecified formulation [facility]05-08-2001hepatitis B vaccine, pediatric or pediatric/adolescent dosageBrett Kuns Other [facility] HospitalNEGATED: Highlighted row has not occurred!24-39-6840lvblqtifl, seasonal, injectablePatient Objection Rosa Agee Other [facility] [employer] Other Payers DatePayer CategoryPayerPolicy [id number] Health Insurance [id number] Health Insurance [id number] [id number] [id number] 2.840.1.953690.3.57[id number] 2.16840.1.667575.3.57[id number] 2.0.1.739300.3.57[id number] 2.16840.1.625644.3.57[id number] 2.840.1.858091.3.57[id number] 2.16840.1.163183.3.57[id number] 2.840.1.012737.3.579.2.86496-90-8041Ed[facility] [id number] 2.16840.1.799283.19UnknownUNMERCY HEALTH URBANA HOSPITALUnknownAnthem BC/BS [id number] 2.16.840.1.8[id number] 2.16.840.1.404154.3.579.2.531 [id number] 2.16.840.1.263683.3.579.2.531 Social History DateTypeDetailFacilityStart: 06-16-2023 End: 38-46-3498Nw alcohol useNo alcohol useNoharry s. [facility] [employer] Other Start: 06-16-2023 End: 20-64-9990Wrd Assigned At [facility] [employer] Other Start: 44-58-9282Rcz Assigned At [facility]art: 04-24-2023 End: 00-54-2553Hzzeqxd smoking status NHISNever smoked tobacco (finding) [facility]: 17-19-5815Lqkruws use and exposure Smokeless tobacco non-userUnC[facility] Work Phone: Start: 06-23-2023 End: 19-76-6381Gqxdjzv intakeCurrent drinker of alcohol (finding)[facility] Work Phone: Start: 31-70-0491Afa Assigned At BirthNot on file [facility] Work Phone: Start: 06-13-2023 End: 32-21-3271Objxrhic to SARS-CoV-2 (event)Not sureUnCleveland Clinic Akron GeneralTobacc smoking status NHISTobacco smoking consumption unknownNOMS HealthcareStart: 24-32-6859Rjuddt identityIdentifies as female gender (finding) [facility] HealthcareStart: 11-81-5033BpnRgcagi (finding)[facility]art: 24-97-1011TqbSxjiygFEZH Healthcare Goals DatePatient GoalDesired Activity/State Clinical Notes 11-13-2020 to 01-15-2025 Note Date & YmawCjrtJxwpupsu39-16-2165 Evaluation note* Author Celeste Hernández [facility] HospitalAuthoredJuly 2024 4:31pmNurse visit performed by Jenifer Hernández LPN [facility] Work Phone: 1(375) 758-199607-14-2025 Evaluation note* Diagnosis Onset Date Resolution Status Admit Date Bloating acuteJuly 2024 3:24pmIrritable bowel syndrome with predominant constipationacuteJuly 2024 3:24pmDysuriaacuteJuly 2024 3:52pm [facility] Work Phone: 1(114) 277-521610-04-2024 History of Present illness Narrative* Willy Escudero MD - 03/23/2024 8:40 AM EDT Subjective Nuria Minaya is a 23 y.o. [...] Attestation By signing my name below, I, Luisana Hart LPNibtaryn attest that this documentation has been prepared under the direction and in the presence of MD Ash. Provider Attestation - Scribe documentation All medical record entries made by the Scribe were at my direction and personally dictated by me. Ihave reviewed the chart and agree that the record accurately reflects my personal performance of the history, physical exam, discussion and plan. documented in this [facility] Work Phone: 1(876) 324-476810-04-2024 Instructions* Patient Instructions* Sayda Centeno LPN - 03/23/2024 8:40 AM [...] on dietary changes Provided instructions on exercise. * Attachments The following attachments cannot be sent through Care Everywhere. * Body Mass Index, Adult (Divehi) documented in [facility]Our [facility] Work Phone: 1(398) 466-485110-02-2024 History of Present illness Narrative* Chel Rivera LPN - 03/21/2024 2:50 PM EDT Reason for Appointment: Patient ID: Nuria Minaya [...] nursing note reviewed. Exam conducted with a director sales and marketing present. Vitals: There is no height or [...] of: Segun Carmichael DO documented in this encounterSouthPointe HospitalCmgmoaskha55-70-2701 History of Present illness Narrative* Henrietta Ortiz LPN - 02/13/2024 1:10 PM EDT Reason for Appointment: Patient ID: Nuria Minaya [...] nursing note reviewed. Exam conducted with a director sales and marketing present. Vitals: There is no height or [...] Patient has never tried Metformin as discussed andpatients main concern is ovarian cyst & wanting to be able to conceive. Patient does not desireto conceive at this time, but patient stated that she would like to have them in the future. Patient voiced that she has history of cyst and had an ultrasound done in the past few months at [facility]. Nursing will obtain US results. Discussed Metformin in the future to assist with symptoms. Patient to setup annual/review results appt in 4-6 weeks to review labs & US. Documented by Henrietta Ortiz LPN on behalf of: Segun Carmichael DO documented in this encounterSouthPointe HospitalRylwntmubs43-64-3494 Evaluation note* Author [facility] 2023 10:09amNegative CT scan, normal colonoscopy patient noted for abdominal discomfort and irregular bowel movements. Patient with predominance of IBS-C. Patient is negative for weight loss and rectal bleeding [facility] Work Phone: 1(319) 159-140706-17-2024 Evaluation note* Author Cuong [facility] 2023 11:23amPatient, positive for abdominal pain, bowel movements once or twice per week and abdominal cramping. As with Amitiza patient notes nausea vomiting and abdominal discomfort with Trulance dosing [facility] Work Phone: 1(201) 275-942006-17-2024 Evaluation note* Author Cuong [facility] 2023 11:23amPatient, positive for abdominal pain, bowel movements once or twice per week and abdominal cramping. As with Amitiza patient notes nausea vomiting and abdominal discomfort with Trulance dosing Author [facility] 2023 10:09amNegative CT scan, normal colonoscopy patient noted for abdominal discomfort and irregular bowel movements. Patient with predominance of IBS-C. Patient is negative for weight loss and rectal bleeding [facility] Work Phone: 1(953) 124-198904-09-2024 Evaluation note* Author Celeste Hernández [facility] HospitalAuthoredApril 2023 9:14amSooner if needed, the ER if concerns,The above note written by Celeste Hernández LPN acting as human recorder, note dictated by Dr. Rosa Agee [facility] Work Phone: 1(430) 558-296504-09-2024 Evaluation note* Author Celeste Hernández [facility] HospitalAuthoredApril 2023 9:14amSooner if needed, the ER if concerns,The above note written by Celeste Hernández LPN acting as human recorder, note dictated by Dr. Rosa Agee Author Cuong Fletcher [facility] HospitalAuthoredJune 2023 11:23amPatient, positive for abdominal pain, bowel movements once or twice per week and abdominal cramping. As with Amitiza patient notes nausea vomiting and abdominal discomfort with Trulance dosing [facility] Work Phone: 1(258) 565-355202-23-2024 Procedure noteHolzer Hospital01-26-2024 Evaluation note* Encounter Date Diagnosis Assessment [...] Pt given samples of linzess- 6 boxes [employer] Other 01-04-2024 History of Present illness Narrative* Willy Escudero MD - 06/23/2023 2:20 PM EST Subjective Nuria Castroers is a 22 y.o. female Chief Complaint [...] By signing my name below, Patti Sanchez PROSPER , Scribe attest that this documentation has been prepared under the direction and in the presence of MD Ash. documented in this encounterOur [facility] Work Phone: 1(266) 981-958901-04-2024 Instructions* Patient Instructions* Adis Baugh MA - [...] time of your visit. documented in this encounterOur [facility] of [facility] Work Phone: 1(154) 772-173301-04-2024 Evaluation note* Encounter Date Diagnosis Assessment Notes Treatment Notes Treatment Clinical Notes Jun, Difficulty sleeping (ICD-10 - G4 7.9) Hydroxyzine was not found to be beneficial [...] all caffiene from diet. Exercise is encouraged Jun,onstipation, unspecified constipation type (ICD-10 - K59.00) Patient is under the care of gastro for the constipation. It is felt that the cause of the constipation could be related to a large ovarian cyst but this is still being worked up by gastro and PATTERN MECHANIC. Jose Elias encourage patient to follow the plan of care. I also advised Linzess is not safe with Jun,Hyperlipidemia (ICD-10 - E78.5) [employer] Other 11-07-2023 Evaluation note* Encounter Date Diagnosis Assessment Notes Treatment Notes Treatment Clinical Notes Apr, Wellness examination (ICD-10 - Z 00.00) Personalized health advice was given to the [...] as risk factors for other medical problems. Apr,onstipation, unspecified constipation type (ICD-10 - K59.00) Review of [facility] [place] including CT scan and labs. The patient states she did have a bowel movement yesterday that was all liquid. Patient encourged to continue Mirilax, increase fiber in her diet,try OTC Senokot. I did provide samples of the above medication to use as needed, instructions provided to titrate off the medication when her bowel movements become more regular. Apr,yst of left ovary (ICD-10 - N83.202) Incidental 5 cm left ovarian cyst noted upon CT imaging obtained at [facility] on 04/24/23.The patientdoes report left sided abdominal pain. The patient encouraged following with gynecology who she sees in [facility] . Apr,Leukocytes in urine (ICD-10 - R82.998) Small leukocytes noted upon in house urinalysis.The patient is asymptomatic at this time. Urine specimen sent for culture. Apr,Neurocardiogenic syncope (ICD-10 - R55) The patient is following with pastry sous chef , states she has been taken off all her medications and started a sodium tablet and encourged to drink a gallon of water daily. Apr,Hyperlipidemia (ICD-10 - E78.5) Review of [facility] lab results with the patient.Cholesterol levels have improved compared to last year. No signs of anemia or leukemia. Liver enzymes, kidney, glucose and thyroid functions are within normal limits. Apr,ifficulty sleeping (ICD-10 - G47.9) The patient reports difficulty sleeping, states some nights she is up until 4 or 6 am. Per patient she has tried and failed OTC Melatonin and Tylenol PM.I did provide the above medication that is safe and non addicting, instructions provided. [employer] Other 11-05-2023 Hospital Discharge instructions Additional Instructions 4 capfuls of MiraLAX in juice in the morning and then again in the evening if constipation continues.[facility] Work Phone: 1(549) 283-158811-01-2023 Evaluation note* Encounter Date Diagnosis Assessment Notes Treatment Notes Treatment Clinical Notes Apr, Hyperlipidemia (ICD-10 - E78.5) [employer] Other 03-22-2023 Evaluation note* Encounter Date Diagnosis Assessment Notes Treatment Notes Treatment Clinical Notes Aug, Right wrist pain (ICD-10 - M25.5 31) Aug,Sprain of right wrist, initial encounter (ICD-10 - S63.501A)Wrist sprain home care material was printed Drink plenty fluids, get plenty of rest. Wear the Gabriel wrap for comfort and compression. Ice and elevate your wrist 2-3 times a day. Take ibuprofen, 400 to 600 mg with food up to 3 times a day for pain and swelling. Follow-up with your family physician if no improvement in 5 to 7 days [employer] Other 03-16-2023 Evaluation note* Encounter Date Diagnosis Assessment Notes Treatment Notes Treatment Clinical Notes Aug, Sore throat (ICD-10 - J02.9) [employer] Other 01-24-2023 Evaluation note* Encounter Date Diagnosis Assessment Notes Treatment Notes Treatment Clinical Notes Jun, Acute cough (ICD-10 - R05.1) Patient and Dr. Keane were made aware of positive findings. Dr. Keane recommended that she start atb/steriod regimen- see TE for further clinical documentation. [employer] Other 04-12-2022 Evaluation note* Encounter Date Diagnosis Assessment Notes Treatment Notes Treatment Clinical Notes Sep, Hyperlipidemia (ICD-10 - E78.5) [employer] Other 11-18-2021 Evaluation note* Encounter Date Diagnosis Assessment Notes Treatment Notes Treatment Clinical Notes Apr, Tachycardia (ICD-10 - R00.0) Patient reports only taking the above medication 2-3 times per week. Reviewed holter monitor results with patient. Reports some days with taking the above medication she does get lower blood pressurereadings. Suggested patient take the above medication consistently on wednesdays and sundays. Advised patient to continue monitoring blood pressure and follow with cardiology as scheduled. 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- age [age] Medical Historyslight spinal stenosisMedical HistorySheuermann's disease at P26-J53Wzfgwuv HistoryECHO and Stress Test 11/13/2020Medical Whhqjpv16 hr Cardiac Holter Monitor 12/04/2020Medical HistoryNeurocardiogenic syncopeSurgical Historywisdom teeth [employer] Other Evaluation noteNo assessment information available [facility] Work Phone: Evaluation noteNo InformationNortUPMC [facility] CDNlion Other Evaluation note* Diagnosis Neurologic cardiac syncope- Primary Syncope and collapse Palpitations Tachycardia Unspecified tachycardia documented in this encounter [facility] Work Phone: Evaluation note* Diagnosis Onset Date Resolution Status High risk sexual behavior acuteVaginal dischargeacute [facility] Work Phone: Evaluation note* Diagnosis Onset Date Resolution Status High risk sexual behavior acuteVaginal dischargeacuteConstipationacute [facility] Work Phone: Evaluation note* Author Celeste Hernández [facility] HospitalAuthoredApril 2023 9:14amSooner if needed, the ER if concerns,The above note written by Celeste Hernández LPN acting as human recorder, note dictated by Dr. Rosa Agee [facility] Work Phone: Evaluation note* Diagnosis Tachycardia- Primary Unspecified tachycardia Neurologic cardiac syncope Syncope and collapse Palpitations BMI 25.0-25.9,adult documented in this encounter [facility] Work Phone: Evaluation note* Diagnosis Well woman [...] Onset Date Resolution Status Admit Date Bloating acuteJanuary 2024 3:16pmConstipationacuteJanuary 2024 3:16pm [facility] Work Phone: Evaluation note* Diagnosis Onset Date Resolution Status Admit Date Bloating acuteJuly 2024 3:24pmIrritable bowel syndrome with predominant constipationacuteJuly 2024 3:24pm [facility] Work Phone: History and physical note Author Los Hartman [facility] August 12, 2023 11:05amNote Date/TimeFebruary 2023 11:05am[place] [address] Gastroenterology H&P Signed Patient: Nuria Minaya MR#: [id number] : 2000 Acct:[id number] Age/Sex: 22 / F Adm Date: 4 Loc: Room: Type: [facility] Attending Dr: Los Hartman MD Copies to: DO Los Cain MD~ Date of Service: 08/12/2023 HISTORY & PHYSICAL: Patient's history with special attention to the cardiovascular, pulmonary systems and the current problem was reviewed with the patient immediately prior to the procedure. Present medications and doses reviewed in the EMR. Allergies and pertinent laboratory tests were also re viewedat this time in the EMR. The physical [...] <Electronically signed by Los Hartman MD> 08/12/23 9621 [facility] Work Phone: Reason for referral (narrative)* Consultation (Routine) - AuthorizedSpecialtyDiagnoses / ProceduresReferred By Contact Referred To ContactCardiology Diagnoses Neurologic cardiac syncope Procedures Follow Up In Cardiology Willy Escudero MD [address] [place] [address] 2, [address] [address] Willy Escudero MD [address] [facility] 2, [address] [address] Referral IDStatusReasonStart DateExpiration DateVisits RequestedVisits [id number]/4/20241/3/202511 [facility] Work Phone: reason for referral (narrative)* Consultation (Routine) - AuthorizedSpecialtyDiagnoses / ProceduresReferred By Contact Referred To ContactCardiology Diagnoses Tachycardia Procedures Follow Up In Cardiology Willy Escudero MD [address] [facility] 2, [place] [address] [place] [address] Willy Escudero MD [address] [facility] 2, [facility] [address] [place] [address] Referral IDStatusReasonStla moille DateExpiration DateVisits RequestedVisits [id number]/4/202410/4/202511 [facility] Work Phone: reason for referral (narrative)No reason for referral information availableBrecksville Va / [facility] Work Phone: Chief Complaint * NURIA [...] Has To Le ave By 2 Vaginal itching/burningReason for VisitHigh risk sexual behavior Vaginal discharge Chief Complaint Follow Up- Has To Le ave By 2 Vaginal itching/burning z72.51Reason for VisitHigh risk sexual behavior Vaginal discharge Chief Complaint Follow Up- Has To [address] By 2 Vaginal itching/burning z72.51 Constipation ConstipationReason for VisitHigh risk sexual behavior Vaginal discharge Chief Complaint Follow Up- Has To Le [address] By 2 Vaginal itching/burning z72.51 Constipation Constipation follow up colonoscopy(lisa)Reason for VisitHigh risk sexual behavior Vaginal discharge Constipation Chief Complaint Vaginal itching/burn ing z72.51 Constipation Constipation follow up colonoscopy() REVIEW LABSReason for VisitConstipation Difficulty sleeping Hyperlipidemia Chief Complaint follow up colonoscop y() REVIEW LABS 2 month follow upReason for VisitConstipation Difficulty sleeping Hyperlipidemia Constipation Chief Complaint follow up colonoscop y(di) REVIEW LABS 2 month follow up K59.00Reason for VisitConstipation Difficulty sleeping Hyperlipidemia Constipation Chief Complaint 2 month follow up K59.00 1 month follow up/constipationReason for VisitConstipation Chief Complaint 2 month follow up K59.00 1 month follow up/constipation right ankle pain M79.671 - Pain in right footReason for VisitConstipation Irritable bowel syndrome with predominant constipation Right foot strain Chief Complaint 1 month follow up/co nstipation right ankle pain M79.671 - Pain in right foot UnknownReason for VisitIrritable bowel syndrome with predominant constipation Right foot strain Chief Complaint Admit Date Amb Documentation April 06, 2024 8 :40am Amb Documentation April 06, 2024 8 :59am 6 MONTH FOLLOW UP / CONSTIPATION July 03, 2024 3:16pm Reason for Visit Admit Date Bloating July 03, 2024 3 :16pm Constipation July 03, 2024 3 :16pm Chief Complaint Admit Date 6 month follow up December 31, 2024 3:24 pm Reason for Visit Admit Date Bloating December 31, 2024 3:24 pm Irritable bowel syndrome with predominan t constipation December 31, 2024 3:24pm Chief Complaint Admit Date 6 month follow up December 31, 2024 3:24 pm UA and HCG per brk January 15, 2025 3:52 pm Reason for Visit Admit Date Bloating December 31, 2024 3:24 pm Irritable bowel syndrome with predominan t constipation December 31, 2024 3:24pm Dysuria January 15, 2025 3:52 pm Advance Directives Advance Directive Response Recorded Date/ [...] FOR VISIT (unrecogniz ed section and content) JllfdaQhehjrmbEilkng-xh8-6fMmynchEuksibrmMfgeje-ug9zPecxqnzzjXwpulwjlu / ProceduresReferred By ContactReferred To ContactCardiology Diagnoses Neurologic cardiac syncope Procedures Follow Up In Cardiology Willy Escudero MD [address] [facility] 2, [address] [address] Willy Escudero MD [address] [facility] 2, [facility] [address] [place] [address] Referral IDStatusReasonStart DateExpiration DateVisits RequestedVisits [id number]/4/20241/3/341569HqinbsMmdkweklOckvcgvtyrz ExamPt present today for annual visit and discuss lab/US results. Pt was seen on 02/13/2024 for PCOS and orders were given to have done.ReasonCommentsDiscuss PCOS Care Teams (unrecognized sec tion and content) Team Status: Active Member Role Status Brenda Agee DO Primary Care Provider Active Team Status: Inactive Member Role Status Brenda Agee DO Primary Care Provider Active Sta rt: December 31, 2024 End: December 31, 2024Vesta Machado ProviderActiveStart: December 31, 2024 End: December 31, 2024 Team Status: Active Member Role Status Brenda Agee DO Primary Care Provider Active Sta rt: April 06, 2024 Dipak Diallo ProviderActiveStart: April 06, 2024 Team Status: Inactive Member Role Status Brenda Agee DO Primary Care Provider Active Sta rt: July 03, 2024 End: July 03, 2024Vesta Machado ProviderActiveStart: July 03, 2024 End: July 03, 2024 Team Status: Inactive Member Role Status Brenda Agee DO Primary Care Provider Active Delmy Woodson ProviderActiveMouragustina Escudero , MDReferring ProviderActive Team Status: Inactive Member Role Status Dates Rosa Agee DO Primary Care Provider Active Latricia Campbell NP-CAttenstacey ProviderActive Team Status: Inactive Member Role Status Dates Rosa Agee DO Primary Care Provider Active David Howell ProviderActive Team Status: Inactive Member Role Status Dates Rosa Agee DO Primary Care Provider, Attending Provi jie Active Team MemberRelationshipSpecialtyStart DateEnd Date Rosa Agee DO [address] [place] [phone] [facility] Team Status: Inactive Member Role Status Brenda Agee DO Attending Provider Active Start: June 23, 2023 End: June 23, 2023 Team Status: Inactive Member Role Status Dates Rosa Agee DO Primary Care Provider Active Sta rt: August 10, 2023 End: August 10kourtney Campbell CLERICAL SUPPORT-CAttending ProviderActiveStart: August 10, 2023 End: August 10, 2023 Team Status: Inactive Member Role Status Dates Rosa Agee DO Primary Care Provider Active Sta rt: August 12, 2023 End: August 12Delmy Das ProviderActiveStart: August 12, 2023 End: August 12, 2023 Team Status: Active Member Role Status Brenda Agee DO Primary Care Provider Active Sta rt: August 12, 2023 Delmy Burton Provider, Other ProviderActiveStart: August 12, 2023 Team Status: Inactive Member Role Status Dates Rosa Agee DO Primary Care Provider Active Sta rt: September 20, 2023 End: September 19Vesta Miranda ProviderActiveStart: September 20, 2023 End: September 20, 2023 Team Status: Inactive Member Role Status Dates Rosa Agee DO Primary Care Provide r, Attending Provider Active Start: September 27, 2023 End: September 27, 2023 Team Status: Inactive Member Role Status Dates Rosa Agee DO Primary Care Provider Active Sta rt: December 05, 2023 End: December 04vincenzo Fletcher , APRNAttending ProviderActiveStart: December 05, 2023 End: December 05, 2023 Team Status: Inactive Member Role Status Dates Rosa Agee DO Primary Care Provider Active Sta rt: December 09, 2023 End: December 08vincenzo Fletcher , APRNAttending ProviderActiveStart: December 09, 2023 End: December 09, 2023 Team Status: Inactive Member Role Status Dates Rosa Agee DO Primary Care Provider Active Sta rt: January 13, 2024 End: January 12vincenzo Fletcher , APRNAttenstacey ProviderActiveStart: January 13, 2024 End: January 13, 2024 Team Status: Inactive Member Role Status Dates Rosa Agee DO Primary Care Provider Active Sta rt: January 22, 2024 End: January 21manda Bren Martini , APRNAttending ProviderActiveStart: January 22, 2024 End: January 22, 2024 Team Status: Active Member Role Status Dates Rosa Agee DO Primary Care Provider Active Sta rt: January 22, 2024 Nicole M Vini , APRNAttending ProviderActiveStart: January 22, 2024 Team MemberRelationshipSpecialtyStart DateEnd Date Rosa Agee, [address] [place] [phone] PCP - [facility] Mihocmid20/2/24Team MemberRelationshipSpecialtyStart DateEnd Date Rosa Agee DO [facility] - [facility]/23Team MemberRelationshipSpecialtyStart DateEnd Date Rosa Agee DO [address] [place] [phone] PCP - [facility] Ddvydijy71/2/24Team MemberRelationshipSpecialtyStart DateEnd Date Rosa Agee DO [address] [place] [phone] [facility] - [facility] Gfjlgcnt89/2/24 Team Status: Active Member Role Status Brenda Agee DO Primary Care Provider Active Sta rt: February 17, 2024 Segun Carmichael , DOAttending ProviderActiveStart: February 17, 2024 Team Status: Active Member Role Status Brenda Agee DO Primary Care Provider Active Sta rt: February 29, 2024 Ashutosh Muniz , DPM MSAttending ProviderActiveStart: February 29, 2024 Team Status: Active Member Role Status Brenda Agee DO Primary Care Provider Active Sta rt: March 14, 2024 Ashutosh Muniz , DPBren MSAttending ProviderActiveStart: March 14, 2024 Team Status: Active Member Role Status Brenda Agee DO Primary Care Provider Active Sta rt: March 21, 2024 Segun Carmichael DOAttending ProviderActiveStart: March 21, 2024 Team Status: Active Member Role Status Brenda Agee DO Primary Care Provider Active Sta rt: March 29, 2024 Merritt Shell MDAttending ProviderActiveStart: March 29, 2024 Team Status: Inactive Member Role Status Brenda Agee DO Primary Care Provider Active Sta rt: March 29, 2024 End: March 29GLADYS GaffneyM MSAttending ProviderActiveStart: March 29, 2024 End: March 29, 2024 Team Status: Inactive Member Role Status Brenda Agee DO Primary Care Provider Active Sta rt: January 15, 2025 End: January 15ara Agee DOAttending ProviderActiveStart: January 15, 2025 End: January 15, 2025 Team Status: Inactive Member Role Status Brenda Agee DO Attending Provider Active Start: January 15, 2025 End: January 15, 2025Team MemberRelationshipSpecialtyStart DateEnd Rosa Diaz DO PCP - [facility] Ftvtajtr84/2/24 Goals (unrecognized section and content) Goals may be documented in a n alternate section INFORMATION SOURCE (unrecogn ized section and content) DATE CREATED AUTHOR 10/22/2022 [facility] DATE CREATED AUTHOR AUTHOR'S ORGANIZ ATION 02/04/2023 [facility] DATE CREATED AUTHOR AUTHOR'S ORGANIZ ATION 02/05/2023 [employer] DATE CREATED AUTHOR AUTHOR'S ORGANIZ ATION 03/23/2024 [facility] EPIC DATE CREATED AUTHOR AUTHOR'S ORGANIZ ATION 03/25/2024 [facility] DATE CREATED AUTHOR AUTHOR'S ORGANIZ ATION 01/17/2025 [facility] FOR RECORDS PERTAINING TO PATIENTS WHO [...] THE PRIMARY CLINICAL RECORDS. [facility] [employer] provides no warranty or guarantee of the accuracy or completeness of information in this document.
== END 2025-05-07 19:06 | disposition home or self-care (01) ==
LOC: LAB 19:05
PROVIDERS: PCP Family Medicine; Visit Provider Physician Assistant
DX: Z01.419 Encounter for gynecological examination (general) (routine) without abnormal findings (principal)
CPT/HCPCS: 88175